=== PATIENT | female | born 1955 | race Caucasian/White ===

== ENCOUNTER → 2017-10-12 09:48 | Outpatient (CLI) | payer BC, SELFPAY ==
--- NOTE | 2017-10-12 09:55 | MM_ITS ---
MM Dig screening mamm BI w/CAD CAD Screening COMPARISON: Digital mammograms 05/23/2011 .INDICATION: There been 2 previous biopsies right breast for benign disease. There is no personal or family history of breast cancer. TECHNIQUE: Standard CC and MLO images were obtained. R2 CAD reviewed. FINDINGS: Prominent diffuse heterogenic fibroglandular densities are seen throughout both breasts. There are stable asymmetric densities upper central portion right breast likely resenting post biopsy scarring. There are benign-appearing calcifications near the biopsy sites. Right breast and there is a benign-appearing calcification central portion left breast. There is no suspicious lesion and no suspicious microcalcifications. IMPRESSION: Moderate heterogenic breast density with no suspicious lesion seen BI-RADS Category: 2 Benign Finding(s) RECOMMENDED FOLLOW-UP: 1YR - 1 YEAR FOLLOW-UP (A letter has been sent to the patient regarding results of the study.)
== END ==
PROVIDERS: Family Provider Family Medicine; PCP Family Medicine; Visit Provider Family Medicine
DX: Z12.31 Encounter for screening mammogram for malignant neoplasm of breast (principal)
CPT/HCPCS: 77067

== ENCOUNTER → 2017-12-10 13:40 | Outpatient (POV) | payer BC, SELFPAY | PROVIDERS: PCP Family Medicine; Visit Provider Nurse Practitioner Acute Care | DX: Z00.00 Encounter for general adult medical examination without abnormal findings (principal) ==

== ENCOUNTER → 2019-02-17 08:54 | Outpatient (POV) | payer BC, SELFPAY ==
[2019-02-17 11:48] LABS: Alanine Aminotransferase 30 U/L (12-78); Albumin Level 3.6 gm/dL (3.4-5.0); Albumin/Globulin Ratio 1.2 (1.1-1.8); Alkaline Phosphatase 140 U/L (46-116); Anion Gap 15.3 mEq/L (5-15); Aspartate Amino Transferase 20 U/L (15-37); Bilirubin,Total 0.3 mg/dL (0.2-1.0); Blood Urea Nitrogen 18 mg/dL (7-18); Calcium 8.9 mg/dL (8.5-10.1); Carbon Dioxide 28 mmol/L (21.0-32.0); Chloride 103 mmol/L (98-107); Chol/HDL Ratio 3.9 (1-3.5); Cholesterol 130 mg/dL (140-200); Creatinine,Serum 0.88 mg/dL (0.55-1.02); Estimated Glomerular Filt Rate 65 ml/min (>60); GFR (African American) 79 ML/MIN (>60); Globulin 3.1 gm/dl (1.3-3.2); Glucose 106 mg/dL (74-106); HDL Cholesterol 33 mg/dL (29-89); LDL Cholesterol 71 mg/dL (0-130); Potassium 4.3 mmoL/L (3.5-5.1); Sodium 142 mmol/L (136-145); Total Protein,Serum 6.7 gm/dL (6.4-8.2); Triglycerides 130 mg/dL (30-200); VLDL Cholesterol 26 mg/dL (0-40)
== END ==
PROVIDERS: Family Medicine; Visit Provider Nurse Practitioner Family
DX: K30 Functional dyspepsia (principal); R10.13 Epigastric pain
CPT/HCPCS: 36415; 80053; 80061

== ENCOUNTER → 2019-06-24 10:47 | Outpatient (POV) | payer BC, SELFPAY | PROVIDERS: Visit Provider Dermatology | DX: Z00.00 Encounter for general adult medical examination without abnormal findings (principal) ==

== ENCOUNTER 2020-01-28 14:00 | Outpatient (RCR) | payer BC, SELFPAY | END 2020-01-28 14:05 | disposition home or self-care (01) | LOC: PT 14:00 | PROVIDERS: Visit Provider Orthopaedic Surgery | DX: M25.562 Pain in left knee (principal); Z96.652 Presence of left artificial knee joint | CPT/HCPCS: 97110; 97140; 97163; 97164 ==

== ENCOUNTER → 2020-02-06 08:23 | Outpatient (CLI) | payer BC, SELFPAY ==
[2020-02-06 11:15] LABS: Alanine Aminotransferase 23 U/L (12-78); Albumin Level 4.6 g/dl (3.5-5.0); Albumin/Globulin Ratio 1.8 (1.1-1.8); Alkaline Phosphatase 133 U/L (38-126); Anion Gap 10.9 mEq/L (5-15); Aspartate Amino Transferase 25 U/L (14-36); Bilirubin,Total 0.3 mg/dl (0.2-1.3); Blood Urea Nitrogen 17 mg/dl (7-17); Calcium 9.9 mg/dl (8.4-10.2); Carbon Dioxide 31 mmol/L (22.0-30.0); Chloride 99 mmol/L (98-107); Cholesterol 174 mg/dl (140-200); Estimated Glomerular Filt Rate 72 ml/min (>60); GFR (African American) 88 ML/MIN (>60); Globulin 2.6 g/dL (1.3-3.2); Glucose 118 mg/dl (74-100); HDL Cholesterol 43 mg/dl (40-60); Potassium 4.9 mmoL/L (3.5-5.1); Sodium 136 mmol/L (136-145); Total Protein,Serum 7.2 g/dl (6.3-8.2); Triglycerides 201 mg/dl (30-150); VLDL Cholesterol 40 mg/dL (0-40)
[2020-02-06 11:26] LABS: Direct LDL Cholesterol 119.16 mg/dL (100-129)
== END ==
PROVIDERS: Visit Provider Family Medicine
DX: I10 Essential (primary) hypertension (principal); E78.5 Hyperlipidemia, unspecified
CPT/HCPCS: 36415; 80053; 80061

== ENCOUNTER → 2020-02-17 08:43 | Outpatient (CLI) | payer BC, SELFPAY ==
--- NOTE | 2020-02-17 08:47 | MM_ITS ---
PROCEDURE: MM DIG SCREENING MAMM BI W/CAD Digital Breast Tomosynthesis Included CLINICAL INDICATION: SCREENING Personal or family history of breast cancer. There has been a previous biopsy right breast for benign disease. 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 R2 CAD reviewed. FINDINGS: Moderate diffuse somewhat heterogenic fibroglandular densities are seen throughout both breasts. There are benign-appearing micro and macrocalcifications in each breast. There is a stable small asymmetric density central portion right breast most likely representing post biopsy scarring and showing little or no change from previous studies. Even with josesito images is only definitely seen on the CC projection. There are no suspicious microcalcifications. IMPRESSION: Moderate diffuse heterogenic breast density with no suspicious lesions seen BI-RAD Category: 2 Benign Finding(s) FOLLOW-UP: 1YR 1 Year Follow-up (A letter has been sent to the patient regarding results of the study.) Dictated by: Dr. Chaparro Mixon MD 02/18/2020 14:[address] Chaparro Mixon MD in [place] 02/18/2020 14:05
== END ==
PROVIDERS: PCP Family Medicine; Visit Provider Family Medicine
DX: Z12.31 Encounter for screening mammogram for malignant neoplasm of breast (principal)
CPT/HCPCS: 77063; 77067

== ENCOUNTER → 2020-04-29 13:01 | Outpatient (CLI) | payer BC, SELFPAY | PROVIDERS: PCP Family Medicine; Visit Provider Nurse Practitioner | DX: Z03.818 Encounter for observation for suspected exposure to other biological agents ruled out (principal) | CPT/HCPCS: U0003 ==

== ENCOUNTER 2020-05-07 15:42 | Observation (INO) | payer BC, SELFPAY ==
[2020-05-07 16:09] VITALS: BP 157/73; PULSE 82; RESP 20; TEMP 37.1; O2SAT 98
[2020-05-07 16:12] VITALS: BMI 37.9
--- NOTE | 2020-05-07 16:24 | CT_ITS ---
PROCEDURE: CT ABDOMEN PELVIS WO CON CLINICAL INDICATION: abdominal pain, r/o pancreatitis COMPARISON: CT ABDPELW CT ABD PELVIS W/ CONTRAST from 08/13/[address] ABD PELVIS W/ CONTRAST from 06/12/2017 TECHNIQUE: Axial images obtained with sagittal and coronal reformats. All CT scans at the facility use one or more dose reduction, viz: automated exposure control, ma/kV adjustment per patient size (including targeted exams where dose is matched to indication, i.e. head), or iterative reconstruction technique. FINDINGS: LOWER THORAX: Parenchymal opacity is present in the lingula inferiorly and may be due to an area of atelectasis or fibrosis. Stability may be confirmed follow-up ABDOMEN & PELVIS: Prior cholecystectomy. Fatty liver. Multiple splenic granulomas are present. The adrenal glands and pancreas have an unremarkable appearance. There is a 6 mm nonobstructing stone in the upper pole of the right kidney. No ureteral calculi. No hydronephrosis. No evidence of appendicitis. No intestinal obstruction or free air. Scattered diverticula in the sigmoid colon. No diverticulitis. No pelvic mass or abnormal fluid collection. There is a 19 mm partially calcified soft tissue mass in the central aspect of the abdomen series 3, image 59. This is not significantly changed in size. There may be some increase in coarse calcification of the nodule. Stable hypodense nodule lower pole left kidney Postsurgical changes are present in the lumbar spine with inter pedicular screws at L4-L5 with 5 mm anterolisthesis of L4 and L5. Disc spacer devices present at L4-5 and L5-S1. IMPRESSION: 1. 6 mm nonobstructing right renal calculus. 2. Mild colonic diverticulosis. No evidence of diverticulitis. 3. Mild amount of retained colonic feces 4. No change in the partially calcified soft tissue mass in the mid abdominal region consistent with a mildly enlarged lymph node Dictated by: Lorne Lay MD 05/08/2020 07:49 Lorne Lay MD in [place] 05/08/2020 07:49
--- NOTE | 2020-05-07 16:42 | HMH.HP ---
*Admission Date: 05/07/20 <Sofia Ames 05/07/20 16:52> *Chief complaint: abdominal pain <Sofia Ames 05/07/20 16:52> *History of present illness: Ms. Pino is a 64-year-old female who presented to the office of [facility] today with severe epigastric abdominal pain. The pain began last night. She has had nausea and vomiting. The pain radiates to her back. She does have a history of pancreatitis and has been hospitalized for pancreatitis in the past. Her blood pressure was elevated in the office her CBC was fairly unremarkable. She was admitted for further evaluation and treatment and a workup for pancreatitis. <Sofia Ames 05/07/20 16:52> [facility] History I have reviewed the patient's past medical history: Yes <Sofia Ames 05/07/20 16:52> Medical History: Reports:: Asthma, Depression, Hyperlipidemia, Hypertension, Lung Disease (asthma) Denies:: Diabetes Mellitus Type 1, Diabetes Mellitus Type 2, Internal Pacemaker, Seizures <Sofia Ames 05/07/20 16:52> *Have you ever received a pneumonia vaccine?: No <Sofia Ames 05/07/20 16:52> *Have you received a flu vaccine this season?: No <Sofia Ames 05/07/20 16:52> Other Medical History: Reports: Other (ADD, sleep apnea, pancreatitis, diverticulosis). Denies: Blood Transfusion Reaction <Sofia Ames 05/07/20 16:52> Laterality Cases: Right: Arthroscopy Shoulder, Bilateral: Cataract, Total Knee Replacement <Sofia Ames 05/07/20 16:52> Other Surgeries: Yes: Cardiac Catheterization, Cholecystectomy, Colonoscopy, Other (back surgery). No: Pacemaker <Sofia Ames 05/07/20 16:52> - *Social History Smoking Status: Never smoker <Sofia Ames 05/07/20 16:52> Alcohol Intake: never <Sofia Ames 05/07/20 16:52> *Occupational Status:: other <Sofia Ames 05/07/20 16:52> *Travel in the last 8 weeks: Inside the [place] <Sofia Ames 05/07/20 16:52> Family Hx:: Cancer, Diabetes <HuiSofia 05/07/20 16:52> Review of Systems - Constitutional Reports weakness, Denies chills, Denies fever(s) <Sofia Ames 05/07/20 16:52> - Eyes Denies blurry vision, Denies double vision <Sofia Ames 05/07/20 16:52> - ENT Denies nasal congestion, Denies sore throat <Sofia Ames 05/07/20 16:52> - *Cardiovascular Denies chest pain, Denies shortness of breath <Sofia Ames 05/07/20 16:52> - *Respiratory Denies chest congestion, Denies cough <Sofia Ames 05/07/20 16:52> - *Gastrointestinal Reports abdominal pain (epigastric), Reports nausea, Reports vomiting, Denies loose stools <Sofia Ames 05/07/20 16:52> - *Genitourinary Denies difficulty urinating, Denies painful urination <Sofia Ames 05/07/20 16:52> - *Musculoskeletal Denies joint pain <Sofia Ames 05/07/20 16:52> - *Neurologic Denies headache(s), Denies dizziness, Denies weakness <Sofia Ames 05/07/20 16:52> Meds Home Medications Medication Instructions Recorded Confirmed Type Albuterol Sulfate [Albuterol HFA 1 - 2 puffs IH Q4-6H PRN 07/16/18 05/07/20 History Inhaler] Atorvastatin Calcium [Lipitor 10mg 10 mg PO DAILY 07/16/18 05/07/20 History Tablet] Escitalopram Oxalate [Lexapro] 20 mg PO DAILY 07/16/18 05/07/20 History Dextroamphetamine/Amphetamine 30 mg PO DAILY 05/07/20 05/07/20 History [Adderall 30 mg Tablet] Fluticasone/Salmeterol [Advair 1 inh IH BID 05/07/20 05/07/20 History 250/50mcg Diskus] Omeprazole [Omeprazole 40mg 40 mg PO DAILY 05/07/20 05/07/20 History Capsule] <Sai Hooker - 05/07/20 17:36> Allergies Allergy/AdvReac Type Severity Reaction Status Date / Time erythromycin base Allergy Unknown Verified 07/16/18 15:19 [ERYTHROMYCIN BASE] Penicillins [PENICILLINS] Allergy Unknown Verified 07/16/18 15:19 <Sai Hooker - 05/07/20 17:36> Exam Vital signs and Labs for Last 24 Hours: Temp Pulse Resp BP Pulse Ox 98.7 F
[2020-05-07 16:48] LABS: Basophils # 0.1 K/mm3 (0-0.2); Basophils % 0.9 % (0.1-2.0); Eosinophils # 0.4 K/mm3 (0.0-0.4); Eosinophils % 3.7 % (0.1-12.0); Hematocrit 38.5 % (37.0-47.0); Hemoglobin 12.7 g/dL (12.2-16.2); Lymphocytes # 1.6 K/mm3 (0.7-4.5); Lymphocytes % 17.2 % (10-50); Mean Corpuscular HGB Conc 32.8 g/dL (31.8-35.4); Mean Corpuscular Hemoglobin 25.7 pg (27.0-31.2); Mean Corpuscular Volume 78.4 fl (81-99); Mean Platelet Volume 7.3 fl (7.4-10.4); Monocytes # 0.4 K/mm3 (0.1-1.0); Neutrophils % 74.2 % (37.0-80.0); Platelet Count 283 K/mm3 (142-424); Red Blood Count 4.92 M/mm3 (4.20-5.40); White Blood Count 9.5 K/mm3 (4.8-10.8)
[2020-05-07 16:53] LABS: Chloride 102 mmol/L (98-107); Sodium 141 mmol/L (136-145)
[2020-05-07 16:54] LABS: Potassium 4.1 mmoL/L (3.5-5.1)
[2020-05-07 16:56] LABS: Alanine Aminotransferase 25 U/L (12-78); Alkaline Phosphatase 129 U/L (38-126); Amylase 63 U/L (30-110); Anion Gap 15.1 mEq/L (5-15); Aspartate Amino Transferase 26 U/L (14-36); Bilirubin,Total 0.3 mg/dl (0.2-1.3); Blood Urea Nitrogen 18 mg/dl (7-17); Carbon Dioxide 28 mmol/L (22.0-30.0); Creatinine Clearance Estimated 80 mL/min (50-200); Estimated Glomerular Filt Rate 63 ml/min (>60); GFR (African American) 77 ML/MIN (>60)
[2020-05-07 16:57] LABS: Albumin Level 4.2 g/dl (3.5-5.0); Albumin/Globulin Ratio 1.3 (1.1-1.8); Calcium 9.6 mg/dl (8.4-10.2); Globulin 3.2 g/dL (1.3-3.2); Glucose 122 mg/dl (74-100); Lipase 80 U/L (23-300); Total Protein,Serum 7.4 g/dl (6.3-8.2)
[2020-05-07 17:23] LABS: Coronavirus 19 IgG Antibody Negative (Negative); Coronavirus 19 IgM Antibody Negative (Negative)
[2020-05-07 17:45] VITALS: O2SAT 98
[2020-05-07 20:00] VITALS: BP 129/73; PULSE 64; RESP 17; TEMP 36.6; O2SAT 98
[2020-05-08 04:00] VITALS: BP 116/62; PULSE 57; RESP 17; TEMP 36.7; O2SAT 98
--- NOTE | 2020-05-08 04:25 | PC.NURSE ---
Pt A&OX4 lungs CTA. pt c/o Abd pain medicated per NOV. Pt ambulate to BR independently. Pt has rested quietly this shift
[2020-05-08 05:32] VITALS: BMI 38.1
[2020-05-08 07:25] VITALS: BP 114/72; PULSE 82; RESP 20; TEMP 36.6; O2SAT 97
[2020-05-08 07:33] LABS: Amylase 44 U/L (30-110); Bilirubin,Unconjugated 0.3 mg/dL (0.0-1.1)
[2020-05-08 07:34] LABS: Alanine Aminotransferase 56 U/L (12-78); Albumin Level 3.5 g/dl (3.5-5.0); Alkaline Phosphatase 113 U/L (38-126); Aspartate Amino Transferase 71 U/L (14-36); Bilirubin,Indirect 0.3 mg/dL (0.0-0.9); Bilirubin,Total 0.3 mg/dl (0.2-1.3); Lipase 100 U/L (23-300); Total Protein,Serum 6.1 g/dl (6.3-8.2)
[2020-05-08 08:00] VITALS: O2SAT 98
--- NOTE | 2020-05-08 08:37 | HMH.ACPN2 ---
<Sofia Ames - Last Filed: 05/08/20 08:37> Internal Medicine - PN: Subj *Date: 05/08/20 *Time: 08:37 Interval history: Patient states she is feeling little bit better this morning. She has required pain medication throughout the night but states her pain has improved this a.m. She was able to sleep off and on. Exam Vital signs and Labs for Last 24 Hours: Temp Pulse Resp BP Pulse Ox 97.8 F 82 20 114/72 97 05/08/20 07:25 05/08/20 07:25 05/08/20 07:25 05/08/20 07:25 05/08/20 07:25 Laboratory Results - last 24 hr 05/07/20 16:30: SARS-CoV-2 IgG Ab (Rapid) Negative, SARS-CoV-2 IgM Ab (Rapid) Negative 05/07/20 16:30: Sodium 141, Potassium 4.1, Chloride 102, Carbon Dioxide 28, Anion Gap 15.1 H, BUN 18 H, Creatinine 0.90, Estimated Creat Clear 80, Estimated GFR 63, Est GFR ( Amer) 77, Glucose 122 H, Calcium 9.6, Total Bilirubin 0.3, AST 26, ALT 25, Alkaline Phosphatase 129 H, Total Protein 7.4, Albumin 4.2, Globulin 3.2, Albumin/Globulin Ratio 1.3, Amylase 63, Lipase 80 05/07/20 16:30: WBC 9.5, RBC 4.92, Hgb 12.7, Hct 38.5, MCV 78.4 L, MCH 25.7 L, MCHC 32.8, RDW 15.0, Plt Count 283, MPV 7.3 L, Neut % (Auto) 74.2, Lymph % (Auto) 17.2, [place] % (Auto) 4.0, Eos % (Auto) 3.7, Baso % (Auto) 0.9, Neut # (Auto) 7.0, Lymph # (Auto) 1.6, [place] # (Auto) 0.4, Eos # (Auto) 0.4, Baso # (Auto) 0.1 05/08/20 06:54: Total Bilirubin 0.3, Direct Bilirubin 0.0, Conjugated Bilirubin 0.0, Indirect Bilirubin 0.3, Unconjugated Bilirubin 0.3, AST 71 H D, ALT 56 D, Alkaline Phosphatase 113, Total Protein 6.1 L, Albumin 3.5 D, Amylase 44 D, Lipase 100 I & O for Last 24 hours: Intake & Output 05/05/20 05/06/20 05/07/20 05/08/20 11:59 11:59 11:59 11:59 Intake Total 8 / 2158 Balance 2157 / 2158 Weight 194 lb 4.976 oz Radiology Reports for the Last 24 Hours: Abdominal CT 1. 6 mm nonobstructing right renal calculus. 2. Mild colonic diverticulosis. No evidence of diverticulitis. 3. Mild amount of retained colonic feces 4. No change in the partially calcified soft tissue mass in the mid abdominal region consistent with a mildly enlarged lymph node - Constitutional no acute distress - *Routine Respiratory Exam Present: CTA bilaterally - *Routine Cardiovascular Exam Present: RRR - *Routine Abdominal Exam Present: soft, normoactive bowel sounds. Absent: tenderness - *Routine Extremities Exam Absent: cyanosis, clubbing, edema - *Routine Skin Exam Present: warm. Absent: rash - *Routine Neurological Exam Present: alert, oriented X3 Assessment and Plan (1) Epigastric abdominal pain Current visit: Yes Status: Acute Category: Medical Code(s): R10.13 - Epigastric pain (2) Vomiting Current visit: Yes Status: Acute Category: Medical Code(s): R11.10 - Vomiting, unspecified (3) History of pancreatitis Current visit: Yes Status: Chronic Category: Medical Code(s): Z87.19 - Personal history of other diseases of the digestive system (4) Asthma Current visit: Yes Status: Chronic Category: Medical Code(s): J45.909 - Unspecified asthma, uncomplicated (5) Hypertension Current visit: Yes Status: Chronic Category: Medical Code(s): I10 - Essential (primary) hypertension - Assessment and plan all Dx Assessment and Plan for all problems:: Patient is improving. Her abdominal pain has improved and she is no longer vomiting. Will discuss further care with Dr. Hooker. <Sai Hooker - Last Filed: 05/08/20 10:23> Internal Medicine - PN: Subj *Date: 05/08/20 *Time: 10:21 Exam Vital signs and Labs for Last 24 Hours: Temp Pulse Resp BP Pulse Ox 97.8 F 82 20 114/72 97 05/08/20 07:25 05/08/20 07:25 05/08/20 07:25 05/08/20 07:25 05/08/20 07:25 Laboratory Results - last 24 hr 05/07/20 16:30: SARS-CoV-2 IgG Ab (Rapid) Negative, SARS-CoV-2 IgM Ab (Rapid) Negative 05/07/20 16:30: Sodium 141, Potassium 4.1, Chloride 102, Carbon Dioxide 28, A
--- NOTE | 2020-05-08 10:32 | P.CONPHA_ITS ---
[facility] Pharmacy VTE Monitoring - Patient Demographics Admission date: 05/08/20 Report Date: 05/08/20 Time: 10:32 Allergies/Adverse Reactions: Patient Allergies erythromycin base [ERYTHROMYCIN BASE] Allergy (Unknown, Verified 07/16/18 15:19) Penicillins [PENICILLINS] Allergy (Unknown, Verified 07/16/18 15:19) Height: 1.52 m Weight: 88.138 kg Patient Problems: Current Active Problems Epigastric abdominal pain (Acute) History of pancreatitis (Chronic) Vomiting (Acute) Asthma (Chronic) Hypertension (Chronic) - VTE Risk Labs: VTE Related Lab Results Hgb 12.7 g/dL (12.2-16.2) 05/07/20 16:30 Hct 38.5 % (37.0-47.0) 05/07/20 16:30 Plt Count 283 K/mm3 (142-424) 05/07/20 16:30 BUN 18 mg/dl (7-17) H 05/07/20 16:30 Creatinine 0.90 mg/dl (0.52-1.04) 05/07/20 16:30 Estimated Creat Clear 80 mL/min (50-200) 05/07/20 16:30 VTE Score: 3 VTE Risk Level: Low Risk - Prophylaxis Types of VTE Prophylaxis: TEDS Knee High (ECTOR HOSE ORDER PLACED) Location of Applied Device: Bilateral Lower Extremeties
--- NOTE | 2020-05-10 21:31 | HMH.DCSUM ---
General - General Admission date:: 05/07/20 <Sai Hooker - 05/17/20 08:13> 05/07/20 <Sofia Ames - 05/10/20 21:34> Discharge date: 05/08/20 <Sofia Ames - 05/10/20 21:34> HPI HPI: Ms. Pino is a 64-year-old female who presented to the office of [facility] today with severe epigastric abdominal pain. The pain began last night. She has had nausea and vomiting. The pain radiates to her back. She does have a history of pancreatitis and has been hospitalized for pancreatitis in the past. Her blood pressure was elevated in the office her CBC was fairly unremarkable. She was admitted for further evaluation and treatment and a workup for pancreatitis. <Sofia Ames - 05/10/20 21:34> Hospital Course Hospital Course: The patient was admitted and labs were ordered as was a CT of the abdomen and pelvis. She was kept n.p.o. and started on IV fluids, Zofran, and morphine for pain. Her abdominal and pelvic CT showed a 6 mm nonobstructing right renal calculus, mild colonic diverticulosis but no evidence of diverticulitis, a mild amount of retained colonic feces, and no change in a partially calcified soft tissue mass in the mid abdominal region consistent with a mildly enlarged lymph node. The patient received pain medication overnight. Her amylase and lipase came back normal. She was able to rest off and on. She no longer had any vomiting. The patient was given a diet and tolerated it well. She was stable to be discharged home and will follow up with Dr. Hooker. <Sofia Ames - 05/10/20 21:34> Objective Vital signs: Temp Pulse Resp BP Pulse Ox 97.8 F 82 20 114/72 98 05/08/20 07:25 05/08/20 07:25 05/08/20 07:25 05/08/20 07:25 05/08/20 08:00 <Sai Hooker - 05/17/20 08:13> Temp Pulse Resp BP Pulse Ox 97.8 F 82 20 114/72 98 05/08/20 07:25 05/08/20 07:25 05/08/20 07:25 05/08/20 07:25 05/08/20 08:00 <HuiMalika - 05/10/20 21:34> Narrative: - Constitutional no acute distress - *Routine Respiratory Exam Present: CTA bilaterally - *Routine Cardiovascular Exam Present: RRR - *Routine Abdominal Exam Present: soft, normoactive bowel sounds. Absent: tenderness - *Routine Extremities Exam Absent: cyanosis, clubbing, edema - *Routine Skin Exam Present: warm. Absent: rash - *Routine Neurological Exam Present: alert, oriented X3 <Sofia Ames - 05/10/20 21:34> DS: Diagnosis - Discharge Diagnosis (1) Epigastric abdominal pain Status: Acute (2) Vomiting Status: Acute (3) History of pancreatitis Status: Chronic (4) Asthma Status: Chronic (5) Hypertension Status: Chronic <Sofia Ames - 05/10/20 21:31> (1) Epigastric abdominal pain Status: Acute (2) Vomiting Status: Acute (3) History of pancreatitis Status: Chronic (4) Asthma Status: Chronic (5) Hypertension Status: Chronic <Sai Hooker - 05/17/20 08:13> Discharge Plan - Patient Discharge Instructions ACTIVITY: Continue current activity <Sofia Ames - 05/10/20 21:34> DIET: advance to your usual diet <Sofia Ames - 05/10/20 21:34> Patient Instructions: DI for Pancreatitis <Sai Hooker - 05/17/20 08:13> Forms: <Sai Hooker - 05/17/20 08:13> - Follow up Plan Follow up with: Sai Hooker MD [Primary Care Provider] - 05/11/20 <Sai Hooker - 05/17/20 08:13> Disposition: Home, Self-Care <Sai Hooker - 05/17/20 08:13> Home Medications: Home Medications Medication Instructions Recorded Confirmed Type Albuterol Sulfate [Ventolin HFA 2 puffs IH Q4-6H PRN 07/16/18 05/08/20 History Inhaler] Atorvastatin Calcium [Lipitor 10mg 10 mg PO HS 07/16/18 05/08/20 History Tablet] Escitalopram Oxalate [Lexapro] 20 mg PO DAILY 07/16/18 05/07/20 History Dextroamphetamine/Amphetamine 30 mg PO DAILY 05/07/20 05/07/20
== END 2020-05-08 12:45 | disposition home or self-care (01) ==
PROVIDERS: Admitting Provider Family Medicine; PCP Family Medicine; Visit Provider Family Medicine
DX: R10.13 Epigastric pain (principal); I10 Essential (primary) hypertension; E78.5 Hyperlipidemia, unspecified; J45.909 Unspecified asthma, uncomplicated; Z88.0 Allergy status to penicillin; Z88.1 Allergy status to other antibiotic agents; Z79.899 Other long term (current) drug therapy; Z79.52 Long term (current) use of systemic steroids
CPT/HCPCS: 74176; 80053; 80076; 82150; 83690; 85025; 86328; G0378

== ENCOUNTER → 2020-05-19 08:17 | Outpatient (CLI) | payer SELFPAY ==
--- NOTE | 2020-05-19 08:42 | CT_ITS ---
PROCEDURE: CT HEART W CALCIUM SCORE CLINICAL HISTORY: ELEVATED BLOOD PRESSSURE,FAMILY H/O HEART DISEASE COMPARISON: No exams were available for comparison TECHNIQUE: Axial images obtained with sagittal and coronal reformats. All CT scans at the facility use one or more dose reduction, viz: automated exposure control, ma/kV adjustment per patient size (including targeted exams where dose is matched to indication, i.e. head), or iterative reconstruction technique. FINDINGS: Coronary artery calcium score is 228 indicating a moderate calcific plaque burden with high cardiovascular disease risk. Incidental note is made of some mild scarring in the lung bases with some nonspecific thickening of the distal esophagus. IMPRESSION: Moderate calcific plaque burden with high cardiovascular disease risk Dictated by: Lorne Lay MD 05/19/2020 17:53 Lorne Lay MD in [place] 05/19/2020 17:53
== END ==
PROVIDERS: PCP Family Medicine; Visit Provider Family Medicine
DX: Z13.6 Encounter for screening for cardiovascular disorders (principal); R03.0 Elevated blood-pressure reading, without diagnosis of hypertension; Z82.49 Family history of ischemic heart disease and other diseases of the circulatory system
CPT/HCPCS: 75571

== ENCOUNTER → 2021-01-17 09:17 | Outpatient (CLI) | payer BC, SELFPAY ==
--- NOTE | 2021-01-17 09:29 | XR_ITS ---
PROCEDURE: XR DEXA AXIAL SKELETON CLINICAL HISTORY: POST MENOPAUSAL COMPARISON: No exams were available for comparison FINDINGS: The right hip BMD is 0.797 with a T-score of -0. The left hip BMD is 0.953 with a T-score of -0.9. 1/3 radius has a BMD of 0.617 with a T-score of -1.3 IMPRESSION: This patient is considered osteopenic according to the World Health Organization criteria. Bone density is between 10 and 25 percent below young normal. Fracture risk is moderate. Treatment is advised. Based on these results a follow-up exam is recommended in 2 year. Dictated by: Lorne Lay MD 01/19/2021 05:01 Lorne Lay MD in [place] 01/19/2021 05:01
[2021-01-17 10:59] LABS: Alanine Aminotransferase 29 U/L (12-78); Albumin Level 4.4 g/dl (3.5-5.0); Albumin/Globulin Ratio 1.9 (1.1-1.8); Alkaline Phosphatase 105 U/L (38-126); Anion Gap 11.9 mEq/L (5-15); Aspartate Amino Transferase 36 U/L (14-36); Bilirubin,Total 0.3 mg/dl (0.2-1.3); Blood Urea Nitrogen 19 mg/dl (7-17); Calcium 9.3 mg/dl (8.4-10.2); Carbon Dioxide 30 mmol/L (22.0-30.0); Chloride 104 mmol/L (98-107); Chol/HDL Ratio 2.5 (1-3.5); Cholesterol 109 mg/dl (140-200); Estimated Glomerular Filt Rate 72 ml/min (>60); GFR (African American) 87 ML/MIN (>60); Globulin 2.3 g/dL (1.3-3.2); Glucose 101 mg/dl (74-100); HDL Cholesterol 43 mg/dl (40-60); Potassium 4.9 mmoL/L (3.5-5.1); Sodium 141 mmol/L (136-145); Total Protein,Serum 6.7 g/dl (6.3-8.2); Triglycerides 102 mg/dl (30-150); Uric Acid 5.1 mg/dl (2.5-6.2); VLDL Cholesterol 20 mg/dL (0-40)
[2021-01-17 11:10] LABS: Direct LDL Cholesterol 53.05 mg/dL (100-129)
== END ==
PROVIDERS: PCP Family Medicine; Visit Provider Family Medicine
DX: Z13.820 Encounter for screening for osteoporosis (principal); Z78.0 Asymptomatic menopausal state; E78.5 Hyperlipidemia, unspecified; M25.50 Pain in unspecified joint
CPT/HCPCS: 36415; 77080; 80053; 80061; 84550

== ENCOUNTER 2021-10-17 10:00 | Outpatient (RCR) | payer MEDICARE, SELFPAY ==
--- NOTE | 2021-08-30 14:21 | HMH.OTOPEV ---
OT Inpatient Evaluation Rehab OT Outpatient Eval Start: 08/30/21 14:02 Freq: Status: Active Protocol: Document 08/30/21 14:07 ROBIN (Rec: 08/30/21 14:21 ROBIN [id number]) Electronically Signed By Roberth Knutson OT 08/30/21 14:07 Outpatient Therapy Subjective History Subjective History Pt is a 66 year old female who reports to therapy for initial evaluation to left shoulder. Pt reports she began having pain ~3 months ago at left shoulder and does not recall a specific injury causing the pain to begin. Pt explains the shoulder has continued to decline in AROM and strength. Pt seeked medical evaluation via ortho in [place] [facility] and was dx with Adhesive capsulitis of left shoulder. Pt's PCP recommended patient begin therapy in order to assist with improving symtpoms of pain, AROM, and strength. Upon evaluation pt does demonstrate with a significant decline in AROM and strength. Pt will continue to be seen in order to address left shoulder deficits. Chief Complaint Pain,Stiff,Weakness Symptom Type Ache,Throb,Sharp,Dull Symptoms Relieved By Rest/Positioning,Heat,OTC Meds Symptoms Aggravated By Physical Activity,Lifting Prior Functional Limitations None Current Functional Limitations Reaching,Lifting,Housework, Sleeping,Recreation Activity Symptom Description Constant but Variable Level of pain today (0-10) 3 Pain scale - at its best (0-10) 1 Pain scale - at its worst (0-10) 10 Shoulder/Elbow Eval Shoulder Objective Measurements Shoulder ROM Left Shoulder Abduction Active Range of 90 degrees Motion (degrees) Shoulder Flexion Active Range of Motion 80 degrees (degrees) Query Text: Shoulder External Rotation Active Range 60 degrees of Motion (degrees) Shoulder Internal Rotation Active Range 20 degrees of Motion (degrees) pain with active ROM shoulder exam left standard pain with passive ROM shoulder exam left standard decreased ROM shoulder exam s
--- NOTE | 2021-09-26 14:42 | HMH.RHREAS ---
Rehab Reassessment Rehab OP Re-assessment Start: 09/26/21 13:54 Freq: Status: Active Protocol: Document 09/26/21 13:55 ROBIN (Rec: 09/26/21 14:42 [email or web address] [id number]) Electronically Signed By Roberht Knutson OT 09/26/21 13:55 Rehab Re-assessment Subjective Subjective I think it's a little better. Objective Objective Notes Pt continues to be seen twice a week in order to address L shoulder deficits. Each session pt engages in L shoulder AROM/AAROM/ Strengthening exercises. Pt also receives PROM manual stretching to left shoulder to improve AROM. Modalities are provided in order to decrease pain/inflammation. Assessment Progress Assessment Slower Than Expected Assessment Notes Pt demonstrates some improvement with AROM, but continues to have significant pain during certain motions. Pt reports she does feel she has improved slightly. She is able to sleep on L side at times. Pt has most difficulty in abduction when bringing the arm down. Pt rates her worst pain at 6/10. AROM L shoulder Flex: 125 degrees Abd: 110 degrees ER: 75 degrees IR: [address] goals [address] and 5 Goals Not Met See below Revised Goals ST, 2, and 4 LT-5 Plan Plan Continue with OT plan of care at this time. Therapist recommends patient return to doctor for further evaluation for possible MRI due to continued pain and decreased AROM. Pt agreeable. Therapist recommends pt continue therapy until doctor evaluates. Frequency of Therapy 2x's a week Duration of therapy 4 more weeks Time and Billing Re-Eval Time 10 Re-Eval Billing Units 1 ___
== END 2021-10-17 10:05 | disposition home or self-care (01) ==
LOC: OT 10:00
PROVIDERS: PCP Family Medicine; Visit Provider Family Medicine
DX: M75.02 Adhesive capsulitis of left shoulder (principal)
CPT/HCPCS: 97010; 97014; 97035; 97110; 97140; 97164; 97166; 97530; G0283

== ENCOUNTER → 2021-10-26 09:01 | Outpatient (CLI) | payer MEDICARE, SELFPAY ==
--- NOTE | 2021-10-26 09:06 | MR_ITS ---
FINAL REPORT CLINICAL HISTORY: ADHESIVE CAPSULITIS OF LT SHOULDER, lt shoulder pain, limited rom x 6 months, no injury. no prior FINDINGS: Multiplanar MR imaging of the left shoulder was performed without contrast. Motion artifact limits all images. There is supraspinatus and infraspinatus tendinosis. There is a partial-thickness articular surface tear of the supraspinatus tendon of greater than 50% at the anterior footprint. There is no full-thickness tear. The a.c. joint is intact. A small amount of fluid is seen in the subacromial/subdeltoid bursa. There is abnormal signal in the posterior labrum which may represent tear versus artifact, best seen on series 3 images #17 and 18. There is increased signal and thickening of the joint capsule at the axillary recess consistent with adhesive capsulitis. The long head of the biceps tendon is intact. No significant glenohumeral joint effusion is seen. There is no evidence of fracture or dislocation. The musculature is intact. There is no evidence of soft tissue mass. IMPRESSION: 1. Increased signal and thickening of the joint capsule at the axillary recess is consistent with adhesive capsulitis. 2. Partial-thickness articular surface tear of the supraspinatus tendon at the anterior footprint of greater than 50%. No full-thickness tendon tear. 3. Abnormal signal in the posterior labrum may represent tear versus artifact. 4. Supraspinatus and infraspinatus tendinosis. Reviewed, Interpreted and Dictated by Rene Mark III, MD Transcribed by NEHEMIAS Jose Authenticated by Rene Mark III, MD on 10/26/2021 11:35:[address] [facility]
== END ==
PROVIDERS: PCP Family Medicine; Visit Provider Family Medicine
DX: M75.02 Adhesive capsulitis of left shoulder (principal)
CPT/HCPCS: 73221

== ENCOUNTER → 2022-05-17 08:25 | Outpatient (CLI) | payer MEDICARE, SELFPAY ==
--- NOTE | 2022-05-17 08:29 | MM_ITS ---
PROCEDURE INFORMATION: Exam: MG Bilateral Screening 3D Mammography Exam date and time: 05/17/2022 8:25 AM Age: 66 years old Clinical indication: Screening mammogram TECHNIQUE: Imaging protocol: Bilateral Screening tomosynthesis and 2D mammography including computer-aided detection (CAD) when performed. COMPARISON: 1. MG MM DIG SCREENING MAMM BI W/CAD 02/17/2020 8:58 AM 2. MG SCBI MM Dig screening mamm BI w/CAD 10/12/2017 10:08 AM 3. MG DMSB DIGITAL MAMM-SCREEN BILATERAL 05/23/2011 3:58 PM 4. OT DIGMAMMDX MAMMOGRAM DX-FENCE INSTALLER HELPER N/C 07/17/2008 10:14 AM FINDINGS: MAMMOGRAPHY: Breast composition: The breast is heterogeneously dense, which may obscure small masses. Mass: Stable benign-appearing subcentimeter nodules are present in the bilateral breast. No new or morphologically suspicious nodule has developed to suggest malignancy. Architectural distortion: No new or suspicious architectural distortion. Calcifications: Stable benign-appearing calcifications are present. No new or suspicious cluster of microcalcifications have developed. Asymmetric density: No new or suspicious asymmetric density is present Skin thickening: None. Axillary adenopathy: None. IMPRESSION: No mammographic evidence of malignancy. Recommend annual screening mammography unless otherwise clinically indicated. ASSESSMENT: BI-RADS category 2: Benign
== END ==
PROVIDERS: PCP Family Medicine; Visit Provider Nurse Practitioner Family
DX: Z12.31 Encounter for screening mammogram for malignant neoplasm of breast (principal)
CPT/HCPCS: 77063; 77067

== ENCOUNTER 2022-09-29 07:28 | Day surgery (SDC) | payer MEDICARE, SELFPAY ==
[2022-09-27 10:13] VITALS: BMI 36.9
[2022-09-29] VITALS (7 sets, daily range): BP systolic 90–133; BP diastolic 45–79; PULSE 69–81; RESP 15–18; TEMP 36.1–36.6; O2SAT 94–98
--- NOTE | 2022-09-29 08:15 | EXP.ANES.CKL ---
[facility] Disclaimer: The information contained in this section may have been updated after the patient was seen, as this information can be updated by other users. Medical History Hyperlipidemia Rotator cuff arthropathy Sleep apnea Surgical History H/O spinal fusion History of bilateral knee replacement History of cholecystectomy Family History Other Colon cancer Family history of cancer Social History Smoking Status: Never smoker alcohol intake: never substance use type: denies use current occupational status: retired Travel in the last 8 weeks: Inside the [place] household members: spouse housing: house caffeine: No [facility] Anesthesia Checklist Patient Identification Patient Identification: Arm Band and Verbal (Name & ) Structural Data Admitted From: Home Planned Operative Procedure/s: Colonoscopy Consent for Planned Operative Procedure(s) Verified: Yes NPO Status Verified Time NPO: 00:00 Additional verifications Anesthesia Reactions: No Hx Blood Transfusions: No Blood Transfusion Reaction: No Airway Assessment C-Spine Mobility Assessed: Yes TMJ Mobility Assessed: Yes Dentition: Good Dentition Neurological Assessment Level of Consciousness: Awake Hx Seizures: No Numbness or tingling in extremities: No Anesthesia Plan Anesthesia Risk discussed: Yes Anesthesia Plan: Verified ASA Class: III Anesthesia Type: MAC
--- NOTE | 2022-09-29 09:13 | HMH.SCOPE ---
Procedure: Date: 09/29/22 Patient Date of :: 1955 Procedure Performed:: Total colonoscopy to terminal ileum with polypectomy using biopsy forceps Indications:: Patient is a pleasant 67-year-old female who has a family history of colon cancer in her brother. He had of colon cancer in his 50s or 60s. Last colonoscopy was done by Dr. Mauricio on 08/25/2015 and she had findings of moderate prep with a fair amount of spasticity and tortuosity and repeat colonoscopy was recommended in 2 to 3 years. She did have some possible polyps removed at this time and this revealed merely unremarkable colonic mucosa and hyperplastic polyp. Performing Provider:: Rene Thornton MD Referring Provider:: Jorge Hooker MD Sedation:: MAC sedation Procedure:: Patient history was obtained and appropriate physical examination was performed. Patient's medications and allergies were reviewed. Informed consent was obtained after explaining the benefits, alternatives, and risks of the procedure including, but not limited to, bleeding, perforation, missed lesions, and adverse reaction to anesthesia medications. Patient was transported to endoscopy procedure room. Patient was connected to monitoring devices. Throughout the procedure the patient's blood pressure, pulse, and oxygen saturations were monitored continuously. Patient identification and planned procedure were verified by the staff. Patient was positioned in lateral decubitus position. Digital anorectal exam was performed. Variable stiffness Olympus colonoscope was inserted and advanced under direct visualization to the cecum. Adequacy of the colonic preparation was noted. The colonoscope was advanced a short distance into the terminal ileum. The colonoscope was then slowly withdrawn while carefully examining the color, texture, anatomy, and integrity of the mucosoa circumferentially. Within the rectum retroflexion was performed. Colonoscope was then withdrawn. Findings:: Colonoscope was inserted and advanced to the cecum without difficulty. Ileocecal valve and appendiceal orifice were identified. Colonic preparation was good and visualization was good. Colonoscope was slowly withdrawn to the colon with careful surveillance. There were a couple tiny diminutive polyps in the rectosigmoid which appeared hyperplastic which were removed with cold biopsy forceps. Impression: Probable rectosigmoid hyperplastic appearing polyps Recommendations:: Likely repeat colonoscopy 5 years given family history Complications:: Not immediately apparent Estimated blood obtained (mL): 1
== END 2022-09-29 09:55 | disposition home or self-care (01) ==
PROVIDERS: PCP Family Medicine; Visit Provider Surgery
PROC: 0DJD8ZZ Inspection of Lower Intestinal Tract, Via Natural or Artificial Opening Endoscopic (ICD-10-PCS; principal; 2022-09-29 08:30)
DX: Z12.11 Encounter for screening for malignant neoplasm of colon (principal); Z80.0 Family history of malignant neoplasm of digestive organs; Z79.899 Other long term (current) drug therapy; K63.5 Polyp of colon
CPT/HCPCS: 45380; J2704

== ENCOUNTER → 2023-03-09 08:35 | Outpatient (CLI) | payer MEDICARE, SELFPAY ==
--- NOTE | 2023-03-09 08:40 | XR_ITS ---
FINAL REPORT CLINICAL HISTORY: CERVICALGIA FINDINGS: CERVICAL SPINE Five views demonstrate no acute fracture. There is mild reversal of the cervical lordosis. There is minimal spondylolisthesis of C4 on 5. There is moderate disc space narrowing of C4-5 and C5-6. The neural foramina are adequately patent. IMPRESSION: Minimal spondylolisthesis of C4 on 5, probably degenerative. Reviewed, Interpreted and Dictated by Jose Luis Campbell MD Transcribed by Ginger Holcomb Authenticated and [facility]
== END ==
PROVIDERS: PCP Family Medicine; Visit Provider Family Medicine
DX: M54.2 Cervicalgia (principal)
CPT/HCPCS: 72050

== ENCOUNTER 2023-08-03 10:30 | Outpatient (RCR) | payer MEDICARE, SELFPAY ==
--- NOTE | 2023-08-01 10:50 | HMH.RHREAS ---
Rehab Reassessment Rehab OP Re-assessment Start: 06/29/23 09:37 Freq: Status: Active Protocol: Document 08/01/23 10:32 LITO (Rec: 08/01/23 10:49 LITO [id number]) E-signed By Roman Mcgowan, PT Neck Disability Index Neck Disability Index Section 1: Pain Intensity The pain is very mild at moment Section 2: Personal Care (washing, I can look after myself dressing, etc.) normally but it causes extra pain Section 3: Lifting I can lift heavy weights but it gives extra pain Section 4: Reading I can read as much as I want to with slight pain in my neck Section 5: Headaches I have slight headaches, which come infrequently Section 6: Concentration I can concentrate fully when I want to with no difficulty Section 7: Work I can do most of my usual work , but no more Section 8: Driving I can drive my car as long as I want with slight pain in my neck Section 9: Sleeping My sleep is midly disturbed (1 -2 hrs sleepless) Section 10: Recreation I am able to engage in all my recreation activities with some pain in NDI Score 11 Rehab Re-assessment Subjective Subjective Patient reports 60% improvement since start of care. Objective Objective Notes AROM: flx 32; ext 48; SBr 41; SBl 32; Rr 39; Rl 46 Myotomes: WNL Pain 2/10 currently; 4/10 at worst over past week Neuro: WNL Assessment Progress Assessment Progressing as Expected Assessment Notes Patient progressing well with Rx. Main concern continues to be cervical spine stiffness and pain radiating to R upper trap mm. Good response with cervical mechanical traction. Introduced dry needling today to R upper trap mm without any problems today. Patient would benefit from continuing with skilled PT interventions in order to address functional limitations with reaching and lifting activities. Patient goals met STG's Goals Not Met LTG's Revised Goals NA Plan Plan Continue with current POC. Frequency of Therapy 2x/week Duration of therapy 4 weeks Time and Billing Re-Eval Time 16 Re-Eval Billing Units 1 PHYSICIAN CERTIFICATION: I certify the specified therapy services for Nidia Dacci are required, authorized, and reviewed every 30 days.
== END 2023-08-03 11:30 | disposition home or self-care (01) ==
LOC: PT 10:30
PROVIDERS: PCP Family Medicine; Visit Provider Family Medicine
DX: M54.2 Cervicalgia (principal)
CPT/HCPCS: 20560; 97010; 97012; 97014; 97110; 97163; 97164; 97530; G0283

== ENCOUNTER 2024-01-02 09:59 | Outpatient (CLI) | payer MEDICARE, SELFPAY ==
[2024-01-02 10:23] LABS: Basophils # 0.1 K/mm3 (0-0.2); Basophils % 0.9 % (0.1-2.0); Eosinophils # 0.3 K/mm3 (0.0-0.4); Eosinophils % 4.5 % (0.1-12.0); Hematocrit 36.3 % (37.0-47.0); Hemoglobin 11.5 g/dL (12.2-16.2); Lymphocytes # 1.5 K/mm3 (0.7-4.5); Mean Corpuscular HGB Conc 31.7 g/dL (31.8-35.4); Mean Corpuscular Hemoglobin 26.4 pg (27.0-31.2); Mean Corpuscular Volume 83.1 fl (81-99); Mean Platelet Volume 7.6 fl (7.4-10.4); Monocytes # 0.4 K/mm3 (0.1-1.0); Monocytes % 5.5 % (1.7-9.3); Neutrophils # 4.7 K/mm3 (1.8-7.8); Neutrophils % 67.2 % (37.0-80.0); Platelet Count 260 K/mm3 (142-424); Red Blood Count 4.37 M/mm3 (4.20-5.40); Red Cell Distribution Width 15.3 % (11.5-17.5)
[2024-01-02 11:25] LABS: Alanine Aminotransferase 33 U/L (12-78); Albumin/Globulin Ratio 1.7 (1.1-1.8); Alkaline Phosphatase 102 U/L (38-126); Anion Gap 11.6 mEq/L (5-15); Aspartate Amino Transferase 34 U/L (14-36); Bilirubin,Total 0.4 mg/dl (0.2-1.3); Blood Urea Nitrogen 25 mg/dl (7-17); Calcium 9.3 mg/dl (8.4-10.2); Carbon Dioxide 30 mmol/L (22.0-30.0); Chloride 104 mmol/L (98-107); Chol/HDL Ratio 3.9 (1-3.5); Cholesterol 134 mg/dl (140-200); Estimated Glomerular Filt Rate 62 ml/min (>60); GFR (African American) 76 ML/MIN (>60); Globulin 2.3 g/dL (1.3-3.2); Glucose 115 mg/dl (74-100); HDL Cholesterol 34 mg/dl (40-60); Potassium 4.6 mmoL/L (3.5-5.1); Sodium 141 mmol/L (136-145); Total Protein,Serum 6.3 g/dl (6.3-8.2); Triglycerides 190 mg/dl (30-150); VLDL Cholesterol 38 mg/dL (0-40)
[2024-01-02 11:36] LABS: Direct LDL Cholesterol 69.17 mg/dL (100-129)
[2024-01-02 11:55] LABS: Thyroid Stimulating Hormone 1.35 uIU/mL (0.465-4.68)
== END 2024-01-02 23:59 | disposition home or self-care (01) ==
LOC: LAB 10:00
PROVIDERS: PCP Family Medicine; Visit Provider Family Medicine
DX: R53.83 Other fatigue (principal); R73.9 Hyperglycemia, unspecified; I10 Essential (primary) hypertension; E78.5 Hyperlipidemia, unspecified
CPT/HCPCS: 36415; 80053; 80061; 83036; 84443; 85025

== ENCOUNTER 2024-07-30 08:48 | Outpatient (CLI) | payer MEDICARE, SELFPAY ==
--- NOTE | 2024-07-30 09:07 | MM_ITS ---
PROCEDURE INFORMATION: Exam: MG Bilateral Screening 3D Mammography Exam date and time: 07/30/2024 8:52 AM Age: 68 years old Clinical indication: Screening examination TECHNIQUE: Imaging protocol: Bilateral Screening tomosynthesis and 2D mammography including computer-aided detection (CAD) when performed. COMPARISON: No relevant prior studies available. FINDINGS: MAMMOGRAPHY: Breast composition: There are scattered areas of fibroglandular density. Mass: Ovoid slightly indistinct mass in the right breast 12-1 o'clock axis, mid to posterior depth, 7 cm nipple. Architectural distortion: None. Calcifications: No suspicious calcifications. Asymmetric density: None. Skin thickening: None. Axillary adenopathy: None. IMPRESSION: Patient to be recalled for spot compression views of the right breast in the CC and MLO projections, a full 90 degree lateral view, and right breast ultrasound for further evaluation of a right breast mass. ASSESSMENT: BI-RADS Category 0: Incomplete- Need Additional Imaging Evaluation.
[2024-07-30 10:22] LABS: Alanine Aminotransferase 36 U/L (12-78); Albumin Level 4.2 g/dl (3.5-5.0); Alkaline Phosphatase 86 U/L (38-126); Anion Gap 13.3 mEq/L (5-15); Aspartate Amino Transferase 35 U/L (14-36); Bilirubin,Total 0.4 mg/dl (0.2-1.3); Blood Urea Nitrogen 21 mg/dl (7-17); Calcium 9.1 mg/dl (8.4-10.2); Carbon Dioxide 27 mmol/L (22.0-30.0); Chloride 103 mmol/L (98-107); Chol/HDL Ratio 2.9 (1-3.5); Cholesterol 110 mg/dl (140-200); Estimated Glomerular Filt Rate 72 ml/min (>60); GFR (African American) 87 ML/MIN (>60); Globulin 2.1 g/dL (1.3-3.2); Glucose 101 mg/dl (74-100); HDL Cholesterol 38 mg/dl (40-60); Potassium 4.3 mmoL/L (3.5-5.1); Sodium 139 mmol/L (136-145); Total Protein,Serum 6.3 g/dl (6.3-8.2); Triglycerides 171 mg/dl (30-150); VLDL Cholesterol 34 mg/dL (0-40)
[2024-07-30 10:33] LABS: Direct LDL Cholesterol 60.19 mg/dL (100-129)
== END 2024-07-30 23:59 | disposition home or self-care (01) ==
LOC: RAD 08:49
PROVIDERS: PCP Family Medicine; Visit Provider Family Medicine
DX: Z12.31 Encounter for screening mammogram for malignant neoplasm of breast (principal); R73.9 Hyperglycemia, unspecified; I10 Essential (primary) hypertension; E78.5 Hyperlipidemia, unspecified
CPT/HCPCS: 36415; 77063; 77067; 80053; 80061; 83036

== ENCOUNTER 2024-08-11 06:47 | Outpatient (CLI) | payer MEDICARE, SELFPAY ==
--- NOTE | 2024-08-11 | CA_ITS ---
APPROVED REPORT Exam: Pharmacologic Technologist: Lauryn Ross Ht: 5 ft 0 in Wt: 194 lbs BSA: 1.84 m2 HR: 63 bpm BP: 118/53 mmHg Stress Test Details Test: Lexiscan HR Resting HR: 63 bpm Max Heart Rate (APMHR): 153.200877 bpm Max HR Achieved: 95 bpm Target HR (85% APMHR): 130.829972 bpm % of APMHR: 62.09 Recovery HR: 67 bpm BP Resting BP: 118.0/53.0 mmHg Max BP: 134.0/68.0 mmHg Recovery BP: 129.0/58.0 mmHg ECG Resting ECG: Sinus rhythm Stress ECG Conclusion Symptoms: Chest tightness, shortness of air, nausea Same when I'm walking at home. Arrhythmias/Ectopy: None ST-T Changes: None Electronically signed by : Aurelia Ceballos MD 08/12/2024 11:38:34
--- NOTE | 2024-08-11 07:02 | NM_ITS ---
APPROVED REPORT Exam: Nuclear Stress Test Indication: Chest pain, Fatigue, HTN, High cholesterol, Family history Patient Location: Outpatient Stress Tech: Lauryn Ross PR Tech:Mable Jackman, ARRT, RT (R)(N) Ht: 5 ft 0 in Wt: 194 lbs Bra Size: C HR: 63 bpm BP: 118/53 mmHg BSA: 1.84 m2 TID: 1.11 History: Chest pain, Fatigue, HTN, High cholesterol, Family history Procedure: Patient received 0.4 mg of intravenous Lexiscan, resting heart rate 63 bpm, resting blood pressure 118/53 mmHg, with Lexiscan maximum heart rate achieved was 71 bpm which is % of the maximum predicted heart rate and blood pressure was 134/68 mmHg. With Lexiscan, patient denied any complaint of chest pain. Cardiac Stress and Resting SPECT Images: Cardiac Stress and Resting SPECT images were obtained using technetium 99m Myoview 30.4 mCi stress and 10.85 mCi at rest. Resting and stress imaging in supine and prone positions demonstrate no evidence of fixed or reversible perfusion defects. Gated imaging demonstrates normal global and regional LV systolic function. LVEF is calculated at 69%. Conclusion: No evidence of fixed or reversible perfusion defects. Gated imaging demonstrates normal global and regional LV systolic function. LVEF is calculated at 69%. Electronically signed by : Aurelia Ceballos MD 08/12/2024 11:40:05
[2024-08-11] MEDS: REGADENOSON 0.4MG/5ML SYRINGE 0.4 MG IV (09:11)
[2024-08-11] MEDS: SODIUM CHLORIDE 0.9% 10ML SYR (RAD ONLY) 10 ML IV ×2 (09:12)
[2024-08-11] MEDS: ISOTOPE MYOVIEW (PER STUDY) 1 DOSE IV (09:12)
== END 2024-08-11 23:59 | disposition home or self-care (01) ==
LOC: RAD 06:49
PROVIDERS: PCP Family Medicine; Visit Provider Family Medicine
DX: R07.2 Precordial pain (principal)
CPT/HCPCS: 78452; 93017; 93018; A9502; J2785

== ENCOUNTER 2025-03-17 09:00 | Outpatient (CLI) | payer MEDICARE, SELFPAY ==
--- OUTSIDE RECORDS SUMMARY | 2024-07-29 11:15 | XMS_ITS ---
Author [facility] Address [address] [phone] Care Team Providers Care Senior Net Web Developer Name Role Phone Bryan Hooker Primary Care Provider [phone] Allergies Allergen (clinical drug ingredient) Drug/Non Drug [...] Omeprazole 40 MG TAKE 1 CAPSULE BY [facility] EVERY DAY; Duration: 90 days Active Cyclobenzaprine [...] 07/29/2024 Encounters Encounter Location Date Provider Diagnosis [facility] [address] [facility] [address] [place] [address] JACI [id number] 07/29/2024 R Jorge Hooker Substernal chest tristin [...] Details Follow Up: after tests, Reas on: Provider Name:Sofia Segal y, 09/04/2025 09:15:00 AM, [address], [place], [place], [phone], Progress Notes * HILL PINODOB: 6 (69 yo F)Acc No.[id number]:07/29/2024 Progress Notes Patient: HILL ALEMAN Provider: Bryan Hooker M.D. :1955 A ge:68 Y S ex:Female Date:07/29/2024 Address:[address] [place], [place] [id number] Subjective: * Chief Complaints: * 1 . [...] right shoulder-rotator cuff surgery- tear in bicep-Dr Su[facility] 04/2013, double fusion in back-Dr H[facility] 07/2013, Colonoscopy/polyp x 2/Dr. Mauricio [...] * Images: Billing Information: * Visit Code: 44844 Office Visit, Est Pt., Level 4. * Procedure Codes: 00682 PULSE OX. * Electronic signature of Bryan Hooker MD on 03/17/2025 at 09:06 AM EDT Sign off status: Pending * Provider: Bryan Hooker M.D. Date: 09/28/2023 Generated for Lazaro diaz/Nick/Mishelitting on: 0 03/17/2025 09:06 AM EDT History and Physical Notes * Examination Category Sub-Category Detail Notes Category Not es General Examination Heart: RSR Lungs: clear to auscultatio n Extremities: no leg edema General Appearance: NAD Neurologic Exam: No muscle weakness
--- OUTSIDE RECORDS SUMMARY | 2024-08-13 07:00 | XMS_ITS ---
Author Organization [facility] Address [address] [id number] Care Team Providers Care Agricultural Equipment Operator Name Role Phone Bryan Hooker Primary Care Provider [phone] Sofia Ames Unavailable [phone] Allergies Allergen (clinical drug ingredient) Drug/Non Drug [...] Omeprazole 40 MG TAKE 1 CAPSULE BY [facility] EVERY DAY; Duration: 90 days Active [...] 08/13/2024 Encounters Encounter Location Date Provider Diagnosis [facility] [address] [place], [place] [id number] 08/13/2024 Sofia Ames Acute URI J06.9 and [...] Next Appt Details Follow Up: prn, Reason: Provider Name:Sofia Jacoby Luzma y, 09/04/2025 09:15:00 AM, [address], [address] , [place], [place], [id number], Progress Notes * HILL PINODOB: 6 (69 yo F)Acc No.[id number]:08/13/2024 Progress Notes Patient: HILL ALEMAN Provider: NEHEMIAS Lunsford :1955 A ge:68 Y S ex:Female Date:08/13/2024 Address:[address] [place], [place] [phone] Pcp:Bryan Hooker Subjective: * Chief Complaints: * [...] right shoulder-rotator cuff surgery- [facility] in [facility]icep[facility] [...] lucia MULLEN - J06.9 (Primary) 2 . Mikel nixon - J40 Plan: * Treatment: 2. B cassandratis Start Zithromax Z-Magdaleno Tablet, 250 MG, 2 [...] Flu Test- Nasal Swab, Modifiers: QW , [address] [place], [address] COVID TEST IN HOUSE, Modifiers: QW , 40[address] CAPILLARY BLOOD DRAW, 62564 CBC WITH AUTO DIFF * Follow Up: p rn * Images: Billing Information: * Visit Code: 47156 Office Visit, Est Pt., Level 3. * Procedure Codes: 56428 Flu Test- Nasal Swab. Modifiers: QW 23250 [place]. [address] COVID TEST IN HOUSE. Modifiers: QW 38012 CAPILLARY BLOOD DRAW. 49834 CBC WITH AUTO DIFF. * Electronic signature of NEHEMIAS Dickson on 03/17/2025 at 09:06 AM EDT Sign off status: Pending * Provider: NEHEMIAS Lunsford Date: 10/13/2023 Generated for Jessiei ng/Faxing/eTransmitting on: 0 03/17/2025 09:06 AM EDT History and Physical Notes * HPI (History [...]
--- OUTSIDE RECORDS SUMMARY | 2025-03-04 05:45 | XMS_ITS ---
Author Organization [facility] Address [address] [facility] [address] [place] [phone] Care Team Providers Care Energy Project Engineer Name Role Phone Bryan Hooker Primary Care Provider [phone] Sofia Ames Unavailable [phone] Allergies Allergen (clinical drug ingredient) Drug/Non Drug [...] 107 Performing Lab: Notes/Report: Test performed by [facility][note 3][address] [facility] , [place] [address] Ty Vilchis MD, Cis Coordinator CLIA: [id number] Sodium 142 135-145 mmol/L Potassium 4.8 3.5-5.3 [...] 39 Performing Lab: Notes/Report: Test performed by [facility], [employer] [address] [place] [address] , [place] [address] Ty Vilchis MD, Cis Coordinator CLIA: [id number] Cholesterol 126 <200 mg/dL Triglycerides 181 <150 [...] Interpretation:Normal Performing Lab: Notes/Report: Test performed by [facility], [address] , [address], [place] [address] Ty Vilchis MD, Cis Coordinator CLIA: [id number] Albumin/Creatinine Ratio, Urine 21 0-30 ug/m g Microalbumin, Urine, Random 2.2 Creatinine, Urine 105.2 REASON FOR VISIT Check Up with Annual Wellness Visit, Needs labs Medications Medication SIG (Take, Route, Frequency, Duration) Notes Start Date End Date Status Bisoprolol Fumarate 5 MG 1 tablet Orally once daily; Duration: 90 days Active Rosuvastatin Calcium 10 MG TAKE 1 TABLET BY MOUTH EVERY DAY; Duration: 90 Active Omeprazole 40 MG TAKE 1 CAPSULE BY [place] UTH EVERY DAY; Duration: 90 Active Adderall 30 [...] Status Risk Notes Problem Morbid obesity (disorder) (368588695) Morbid (severe) obesity due to excess calories (E66.01) Active confirmed Problem Obese class II (859972314415 105) BMI 36.0-36.9,adul t (Z68.36) Active confirmed Vital Signs Weight 187.4 lbs 03/04/2025 Blood pressure systolic 130 mm Hg 03/04/20 25 Blood pressure diastolic 82 mm Hg 025 Heart Rate 72 /min 03/04/2025 Height 60 in 03/04/2025 BMI 36.6 kg/m2 03/04/2025 Encounters Encounter Location Date [facility] [address] [phone] 03/04/2025 Sofia Ames Adult general medica l [...] assessment, Depression screening and Bladder control screening. Pending Test Test Name Order Date Bone density 03/04/2025 Next Appt Details Follow Up: As directed by , Reason: Provider Name:Sofia suero, 09/04/2025 09:15:00 AM, [address] [facility], [address], [place], [place], [id number], Progress Notes * HILL SANDERSDOB: (69 yo F)Acc No.[id number]:03/04/2025 Annual Wellness Visit Patient: HILL ALEMAN Provider: NEHEMIAS Lunsford :1955 A ge:69 Y S ex:Female Date:03/04/2025 Address:[address], [facility], [id number] Pcp:Bryan Hooker Subjective: * Chief Complaints: * [...] [facility] Colon[facility]/polyp x 2/Dr. Mauricio 08/25/2015, Lap [...] excess calories - E66.01 1 2. B [place] 36.0-36.9,adult - Z68.36 Plan: * Treatment: 2. [...] Orosco 03/04/2025 10:4 9:51 AM EDT > Saksia Adkins 03/05/2025 03:47:47 PM EDT > See [...] lycohemoglobin 5.8% 5 - 6.5 % * Elisabeth Orosco 03/04/2025 10:5 0:23 AM EDT > Saskia Adkins 03/05/2025 03:47:47 PM EDT > See phone encounter 5.?Osteoporosis screening?Imaging: Bone density* Gabriela Joy 03/05/2025 08:1 2:33 AM EDT > faxed to [facility] Scheduling * Immunizations: PNEUMOVAX 23 VACCINE (Route: Intramuscular) on Right Arm (Pending) (Adult general medical examination) * Procedure Codes: G 0439 ANNUAL WELLNESS VST; PPS SUBSQT VST, G2211 Complex e/[place], [address] GLYCATED HEMOGLOBIN TEST, Modifiers: QW , 1090F PRES/ABSN URINE INCON ASSESS, 3288F FALL RISK ASSESSMENT DOCD, 1170F FXNL STATUS ASSESSED, 1159F MED LIST DOCD IN RCRD, 1003F LEVEL OF ACTIVITY ASSESS, 1036F TOBACCO NON-USER, 3017F COLORECTAL CA SCREEN DOC REV, 16098 CBC WITH AUTO DIFF, 1125F AMNT PAIN [...] * Images: Billing Information: * Visit Code: 97621 Office Visit, Est Pt., Level 3. Modifiers: 25 * Procedure Codes: G0439 ANNUAL WELLNESS VST; PPS SUBSQT VST. G2211 Complex e/[place]. [address] GLYCATED HEMOGLOBIN TEST. Modifiers: QW 1090F PRES/ABSN URINE INCON ASSESS. 3288F FALL RISK ASSESSMENT DOCD. 1170F FXNL STATUS ASSESSED. 1159F MED LIST DOCD IN RCRD. 1003F LEVEL OF ACTIVITY ASSESS. 1036F TOBACCO NON-USER. 3017F COLORECTAL CA SCREEN DOC REV. 96777 CBC WITH AUTO DIFF. 1125F AMNT PAIN [...] signature of NEHEMIAS Dickson on 03/17/2025 at 09:05 AM EDT Sign off status: Pending * Provider: NEHEMIAS Lunsford Date: 0 03/04/2025 Generated for Printi ng/Faxing/eTransmitting on: 0 03/17/2025 09:05 AM EDT History and Physical Notes * HPI (History of Present Illness) Category Sub-Category Detail Notes Category Not es HPI Patient is here today for a firsthealthed check up and a Medicare Annual Wellness [...]
--- NOTE | 2025-03-17 09:03 | XR_ITS ---
FINAL REPORT CLINICAL HISTORY: SCREENING COMPARISON: 01/17/2021 FINDINGS: Using L1-4, the bone mineral density of the spine is 0.983 g/cm2, corresponding to T-score of -0.9, within normal limits. Using the left hip, the bone mineral density of the femoral neck is 0.861 g/cm2, corresponding to a T-score of 0.1, within normal limits. Previously was 0.953 with a T-score of 0.9. Using the right hip, the bone mineral density of the femoral neck is 0.840 g/cm2, corresponding to a T-score of -0.1, within normal limits. Previously was 0.797 with a T-score of-0.5. Using the left forearm, the bone mineral density of 1/3 is 0.594 g/cm2, corresponding to a T-score of -1.7 which is consistent with osteopenia. Previously was 0.617 with a T-score of -1.3 FRAX not reported because all T-scores for spine and hips at or above -1.0. NOTE: T-score: Standard deviation compared with peak bone mass of young adult mean. *Following the recommendations of the International Society of Bone densitometry, classification of hip BMD is based on the lower of two T-scores; total hip or femoral neck. IMPRESSION: Normal bone mineral density of the lumbar spine and hips with osteopenia in the left forearm. Reviewed, Interpreted and Dictated by Jose Luis Campbell MD Transcribed by Sabrina Oleary Authenticated and . [facility]
--- OUTSIDE RECORDS SUMMARY | 2025-03-17 09:05 | XMS_ITS | Encounter Summary ---
Author Organization [employer] ([place], [place], [place], [place]) Address [address] [place] [address] Care Team Providers Care Campground Caretaker Name Role Phone Unavailable Primary Care Provider Unavailabl e Encounter Details Date Type Department Care Team (Late st Contact Info) Description 11/17/2019 Transcribed Document [facility] [place] Medicine [facility] [place] [address] ProviderTiana MD [address] [place] [address] Social History Tobacco Use Types Packs/Day Years Used Date Smoking Tobacco: Never Assessed Comments Unknown Sex and Gender Information Value Date Recorded Sex Assigned at Female 03/14/2022 6:15 PM CDT Legal Sex Female 6:15 PM CDT Gender Identity Female 03/14/2022 6:15 PM CDT Sexual Orientation Not on file documented as of this encounter Miscellaneous Notes * Cerner Conversion Note - Historical ProviderMD - 11/17/2019 9:00 AM FORGING DIE FINISHER Patient: NIDIA PINO Age: 64 years Sex: Female : 1955 Associated Diagnoses: None Author: RAFA MURPHY APRN-MACARENA 11/17/2019 cc: medical management s/p left total knee arthroplasty HPI: Patient is a 64 yo female admitted to [facility] per Dr. Larsen for a left total knee arthroplasty. Preoperatively patient was found to have advanced osteoarthritis of the left knee and elected surgical intervention after failing conservative treatment. Patient is followed perioperatively while hospitalized for medical management. Initial visit with patient in preop, she is known to our service fro previous RTKA in 2017 from which she recovered without complications. Patient denies any recent exacerbations of chronic medical problems. Patient denies recent cardiopulmonary symptoms in the weeks leading up to surgery. Patient denies recent fever, chills or nightsweats. Patient denies recent sinus infection, bronchitis, or pneumonia. She does have DUYEN and uses a CPAP at night. Denies recent asthma exacerbations. Denies gastroenteritis, has chronic constipation. Denies chest pain, pressure or palpitations. Denies recent antibiotics or med changes by PCP. Patients physical limitations are limited by left knee disability. Past Med Hx: Active Problems (22) ADD (attention deficit disorder) Anxiety and depression Arthritis asthma Bronchitis Cataract bilateral with IOL Chronic constipation Diverticulitis GERD - Gastro-esophageal reflux disease History of obstructive sleep apnea HTN Hyperlipidemia Impaired mobility Numbness in feet DUYEN (obstructive sleep apnea) Osteoarthritis Pancreatitis Post-menopausal Post-operative nausea and vomiting Seasonal allergies Sleep apnea Wears glasses Active Procedures (2) open cholecystectomy right knee repolacement Family Hx: father killed mother estela murder-suicide, father with undiagnosed mental health issues \ Social & Psychosocial Habits Alcohol 07/25/2013 Alcohol Use in Last Twelve Months No Employment/School 10/29/2019 Status: Retired Home/Environment 10/29/2019 Lives with: Spouse Living situation: Home/Independent Home equipment: CPAP/BiPAP, Respiratory treatments, Walker/Cane Substance Abuse 07/25/2013 Recreational Drug Use History No Recreational Drug Use Last 12 Months No Tobacco 01/31/2017 Smoking Status Never smoker Comment: NONE - 01/31/2017 13:35 - HAYDEN APPIAH RN Allergies (1) Active Reaction penicillin Unknown Home Medications (7) Active Adderall 30 mg, PRN, Oral Advair Diskus 250 mcg-50 mcg inhalation powder 1 Puff, Inhalation, BID Lexapro 20 mg oral tablet 20 mg = 1 Tab, Oral, Daily Lipitor 10 mg, Oral, At Bedtime Melatonin 10 mg, Oral, At Bedtime omeprazole 40 mg oral delayed release capsule 40 mg = 1 Cap, Oral, Daily ProAir HFA 90 mcg/inh inhalation aerosol 2 Puff, PRN, Inhalation, Daily ROS: Constitutional: [No fevers, chills, sweats] Respiratory: [No shortness of breath, cough] Cardiovascular: [No Chest pain, palpitations, syncope] Gastrointestinal: [No nausea, vomiting, diarrhea, +constipation] Genitourinary: [No hematuria, dysuria] Musculoskeletal: [+left knee pain, decreased range of motion] Integumentary: [No rash, pruritus,] Neurologic: [+left knee weakness] Psychiatric: [+ depression] Exam: N No qualifying data available PE: obese white female, pleasant, cooperative, good historian, seen in preop, at bedside pink conjunctiva, dry mucous membranes, no thyromegaly or cervical lymphadenopathy =expansion b/l , no wheezing or rhonchi, diminished non-displaced PMI, S1S2 ABD is obese, soft non-tender, non-distended, norm bowel sounds skin warm, dry without rashes ext: trace low ext edema, no calf tenderness neuro: cn 2-12 intact; no gross motor -sensory deficits psych: appropriate affect and mood Data: Reviewed preop CBC, BMP, coags 10/29/2019 A1C 5.9 Ventricular Rate : 76 BPM Atrial Rate : 76 BPM P-R Interval : 132 ms QRS Duration : 74 ms Q-T Interval : 394 ms QTC Calculation(Bezet) : 443 ms P Lometa : 56 degrees R Lometa : 0 degrees T Lometa : 47 degrees Normal sinus rhythm Moderate voltage criteria for LVH, may be normal variant Nonspecific T wave abnormality Abnormal ECG Category Adult BMI Underweight <18.5 Normal weight 18.5-24.9 Overweight 25.0-29.9 Obese Obesity class I Obesity class II *Obesity class III ?30.0 30.0-34.9 35.0-39.9 ?40.0 Summary (obese plus overweight) ?25.0 Consider bariatric surgery for class II/III Criteria for Metabolic Syndrome Any Three of the Following: Abdominal obesity (waist circumference)__x_>40 in (>102 cm) in men; >35 in (>88 cm) in women Triglyceride level___?150 mg/dL (1.70 mmol/L) HDL cholesterol___<40 mg/dL (1.04 mmol/L) in men; <50 mg/dL (1.30 mmol/L) in women Blood pressure____?130/?85 mm Hg Fasting glucose__x_?110 mg/dL (6.11 mmol/L) Impression: advanced OA left knee; -Awaiting left total knee arthroplasty hx RTKA obesity prediabetes suspect metabolic syndrome hx DUYEN hx chronic constipation Plan: CPAP QHS discussed prediabetes and recommended lifestyle modifications already on statin, may benefit from ASA, ARB at DC Monitor HTN; add PRN's, hold parameters bowel regimen-aggressive given chronic constipation incentive spirometer PT/OT DVT prophylaxis noted Pain management deferred to surgeon will monitor hb/hct daily for signs of ongoing acute blood loss will monitor bun/cr daily for signs of dehydration, prerenal azotemia will monitor for signs/symptoms of post-op wound infection or hospital acquired infectious process resume outpatient medication regimen for comorbidities Assessment and treatment plan made in conjunction with Doc Wing MD Scribed by Sue Heredia documented in this encounter Plan of Treatment Not on file documented as of this encounter Visit Diagnoses Not on filedocumented in this encounter
--- OUTSIDE RECORDS SUMMARY | 2025-03-17 09:05 | XMS_ITS | Encounter Summary ---
Author Organization [email or web address] ([place], [place], [place], [place]) Address [address] [place] [address] Care Team Providers Care Support Manager Name Role Phone Unavailable Primary Care Provider Unavailabl e Encounter Details Date Type Department Care Team (Late st Contact Info) Description 11/17/2019 Transcribed Document [facility] Family Medicine [address] [place] [address] ProviderTiana MD [address] [place] [address] Social History Tobacco Use Types Packs/Day Years Used Date Smoking Tobacco: Never Assessed Comments Unknown Sex and Gender Information Value Date Recorded Sex Assigned at Female 03/14/2022 6:15 PM CDT Legal Sex Female 6:15 PM CDT Gender Identity Female 03/14/2022 6:15 PM CDT Sexual Orientation Not on file documented as of this encounter Miscellaneous Notes * Cerner Conversion Note - Tiana ProviderMD - 11/17/2019 2:19 PM HEEL FINISHER Orthopedic Nurse Navigator Entered On: 11/17/2019 14:21 EST Performed On: 11/17/2019 14:19 EST by NISHANT LEAL RN-Ortho Nurse Navigator Orthopedic Nurse Navigator Assessment Attended Joint Academy : Yes Joint AcademyType : In person Joint Academy Date : 10/29/2019 EST Joint Inspector Paper Products Attended Academy : Yes Joint Inspector Paper Products Name : Az Type of Surgery : Total Knee Replacement, Left Anticipated Discharge Plan : Outpatient PT Anticipated Discharge Plan Comment : Patient plans to d/c home with the help of her . She requests outpatient PT at [facility] and planned to call to hold appt for Sunday. Patient Completed RAPT Score : 10 NISHANT LEAL RN-Ortho Nurse Navigator - 11/17/2019 14:19 EST Teaching/Learning Assessment Barriers To Learning : None evident Individuals Taught : Patient, Spouse Readiness to Learn : Cooperative Readiness to Learn : Demonstration, Explanation, Printed materials, Teach back method, Video/Educational TV Education Comment : Pt verbalized understanding of incentive spirometry at [facility]. NISHANT LEAL RN-Ortho Nurse Navigator - 11/17/2019 14:19 EST Education Topics, Orthopedic Pre-Op Ortho Pre-Op Education Grid Ed-Assistive Devices : Verbalizes understanding DVT Prophylaxis : Verbalizes understanding Family Instructions : Verbalizes understanding Herbs/Supplement Instructions : Verbalizes understanding Laboratory Studies : Verbalizes understanding Medication Instructions : Verbalizes understanding NPO : Verbalizes understanding Ed-Occupational Therapy : Verbalizes understanding Pain Management : Verbalizes understanding Physical Prep : Verbalizes understanding Physical Therapy : Verbalizes understanding Plan of Care : Verbalizes understanding Positioning : Verbalizes understanding Post-op Activity/Exercise Regimen : Verbalizes understanding Postoperative Home Needs : Verbalizes understanding Post-operative Monitoring : Verbalizes understanding Post-Op Orthopedic Equipment : Verbalizes understanding Procedure Information : Verbalizes understanding Respiratory Care : Verbalizes understanding Surgical Site : Verbalizes understanding Tubes/Drains/IV's : Verbalizes understanding Turn/Cough/Deep Breathe : Verbalizes understanding Weight Bearing : Verbalizes understanding Ed-Orthopedic Pre-Op, Other : Verbalizes understanding NISHANT LEAL, EMETERIO-Ortho Nurse Navigator - 11/17/2019 14:19 EST documented in this encounter Plan of Treatment Not on file documented as of this encounter Visit Diagnoses Not on filedocumented in this encounter
--- OUTSIDE RECORDS SUMMARY | 2025-03-17 09:05 | XMS_ITS | Encounter Summary ---
Author Organization [employer] ([place], [place], [place], [place]) Address [address] [place] [address] Care Team Providers Care Sharepoint Application Architect Name Role Phone Unavailable Primary Care Provider Unavailabl e Encounter Details Date Type Department Care Team (Late st Contact Info) Description 11/17/2019 Transcribed Document [facility] [place] Family Medicine [address] [place] [address] ProviderTiana MD [address] [place] [address] Social History Tobacco Use Types [...] Conversion Note - Historical ProviderMD - 11/17/2019 3:22 PM TRANSPLANT NURSE PRACTITIONER Pain Assessment Entered On: 11/17/2019 18:19 EST Performed On: 11/17/2019 17:01 EST by SO GARG RN Intervention Information: HYDROmorphone Performed by NAT GUTHRIE RN on 11/17/2019 16:31:00 EST HYDROmorphone,0.5mg IV Push,Left Antecubital Bo,Pain (Severe 7-10) Pain Assessment Pain Assessment : Follow-up assessment Pain Scale Goal : 5 Pain Scale Used : 0-10 Scale Location : Knee, left Pain Improved by Intervention : Yes SO GARG RN - 11/17/2019 18:19 EST Pain Scale Intensity : 2 SO GARG RN - 11/17/2019 18:19 EST Image 4 - Images currently included in the form version of this document have not been included in the text rendition version of the form. documented in this encounter Plan of Treatment Not on file documented as of this encounter Visit Diagnoses Not on filedocumented in this encounter
--- OUTSIDE RECORDS SUMMARY | 2025-03-17 09:05 | XMS_ITS | Encounter Summary ---
Author Organization [employer] ([place], [place], [place], [place]) Address [address] [place] [address] Care Team Providers Care Photographic Supervisor Name Role Phone Unavailable Primary Care Provider Unavailabl e Encounter Details Date Type Department Care Team (Late st Contact Info) Description 11/17/2019 Transcribed Document [facility] [place] Family Medicine [address] [place] [address] ProviderTiana MD [address] [place] [address] Social History Tobacco Use Types [...] Conversion Note - Historical ProviderMD - 11/17/2019 2:00 AM TEST FIXTURE DESIGNER Spiritual Care Assessment Entered On: 11/17/2019 13:55 EST Performed On: 11/17/2019 11:05 EST by HIMANSHU JUARES General Information Referred by : Patient Referral Reason Comment : PreSurgery prayer Ministry Provided to : Patient, Family/Significant other HIMANSHU JUARES - 11/17/2019 13:52 EST Interventions Emotional Support : Empathic/Engaged listening, Feelings expressed Spiritual and Spiritism : Prayer shared, Spiritual/Spiritism support provided HIMANSHU JUARES - 11/17/2019 13:52 EST Outcomes Affect/Behavior Changed : Encouraged Appreciation Expressed : Yes Thoughts, Feelings and Emotions Exp. : Yes Supportive Relationships Described : HIMANSHU JUARES - 11/17/2019 13:52 EST Electronically signed by Flor [facility] Conversion Shoe Laster Cerner at 12/31/2022 5:40 PM CDT documented in this encounter Plan of Treatment Not on file documented as of this encounter Visit Diagnoses Not on filedocumented in this encounter
--- OUTSIDE RECORDS SUMMARY | 2025-03-17 09:05 | XMS_ITS | Encounter Summary ---
Author Organization [employer] ([place], [place], [place], [place]) Address [address] [place] [address] Care Team Providers Care Nuclear Unit Operator Name Role Phone Unavailable Primary Care Provider Unavailabl e Encounter Details Date Type Department Care Team (Late st Contact Info) Description 11/17/2019 Transcribed Document [facility] [place] Family Medicine [address] [place] [address] ProviderTiana MD [address] [place] [address] Social History Tobacco Use Types [...] Conversion Note - Historical ProviderMD - 11/17/2019 5:00 PM SALESPERSON NEW CARS Chart Check - Review Order Profile Entered On: 11/17/2019 18:16 EST Performed On: 11/17/2019 17:00 EST by SO GARG RN Chart Check Powerplans Initiated/Discontinued as Appropriate : Yes All Active Orders Reviewed : Yes SO GARG RN - 11/17/2019 18:15 EST Electronically signed by Flor [facility] Conversion Paralegal Internship Cerner at 12/31/2022 5:26 PM CDT documented in this encounter Plan of Treatment Not on file documented as of this encounter Visit Diagnoses Not on filedocumented in this encounter
--- OUTSIDE RECORDS SUMMARY | 2025-03-17 09:05 | XMS_ITS | Encounter Summary ---
Author Organization [employer] ([place], [place], [place], [place]) Address [address] [place] [address] Care Team Providers Care Wirer Helper Name Role Phone Unavailable Primary Care Provider Unavailabl e Encounter Details Date Type Department Care Team (Late st Contact Info) Description 11/18/2019 Transcribed Document [facility] [place] [facility] [address] [place] [address] ProviderTiana MD [address] [place] [address] Social History Tobacco Use Types Packs/Day Years Used Date Smoking Tobacco: Never Assessed Comments Unknown Sex and Gender Information Value Date Recorded Sex Assigned at Female 03/14/2022 6:15 PM CDT Legal Sex Female 6:15 PM CDT Gender Identity Female 03/14/2022 6:15 PM CDT Sexual Orientation Not on file documented as of this encounter Miscellaneous Notes * Cerner Conversion Note - Tiana Huber MD - 11/18/2019 2:13 PM LENS EDGER Patient Education Materials Follows: CALL FIRST! Unless you are experiencing life-threatening issues, call your surgeon's office or nurse navigator first, before going to the Emergency Department. Call your surgeon or nurse navigator if: ?? Your incision has increased swelling that does not get better with time, rest, and propping up your leg ?? Your incision has a foul smell or begins to open ?? You have a large amount of bleeding from incision ?? Your incision gets red, warm or increased drainage after 2 days ?? You have a fever over 101 degrees for more than 24 hours ?? You have increased swelling, redness, warmth or pain in your calf ?? You fall, but don't have an obvious injury ?? You have questions or cause for concern regarding your total joint replacement Call 911 if: ?? You have sudden chest pain or shortness of breath ?? You fall and cannot get up ?? Life-threatening signs or symptoms ?? Stroke signs and symptoms: Facial droop, uneven smile, arm numbness, arm weakness, slurred speech, difficulty speaking or understanding If you are a patient of Dr. Larsen or Dr. Carrasco, call [phone] If you are a patient of Dr. Dickens, call [phone] Nurse Navigator: Cheli Santos Office: [phone]; ; available during regular business hours Orthopedics Total Knee Replacement, Care After These instructions give you information about caring for yourself after your procedure. Your doctor may also give you more specific instructions. Call your doctor if you have any problems or questions after your procedure. Follow these instructions at home: Medicines ??? Take igwa-udn-icyvahn and prescription medicines only as told by your doctor. ??? If you were prescribed an antibiotic medicine, take it as told by your doctor. Do not stop taking the antibiotic even if you start to feel better. ??? If you were prescribed a blood thinner (anticoagulant), take it as told by your doctor. Bathing ??? Do not take baths, swim, or use a hot tub until your doctor says it is okay. Ask your doctor if you can take showers. You may only be allowed to take sponge baths for bathing. ??? If you have a splint or brace that is not waterproof, cover it with a watertight covering when you take a bath or a shower. ??? Keep your bandage (dressing) dry until your doctor says it can be taken off. Incision care and drain care ??? Check your cut from surgery (incision) and your drain every day for signs of infection. Check for: ? More redness, swelling, or pain. ? More fluid or blood. ? Warmth. ? Pus or a bad smell. ??? Follow instructions from your doctor about how to take care of your cut from surgery. Make sure you: ? Wash your hands with soap and water before you change your bandage. If you cannot use soap and water, use hand marine photographer. ? Change your bandage as told by your doctor. ? Leave stitches (sutures), skin glue, or skin tape (adhesive) strips in place. They may need to stay in place for 2 weeks or longer. If tape strips get loose and curl up, you may trim the loose edges. Do not remove tape strips completely unless your doctor says it is okay. ??? If you have a drain, follow instructions from your doctor about caring for it. Do not remove the drain tube or any bandages unless your doctor says it is okay. Managing pain, stiffness, and swelling ??? If directed, put ice on your knee. ? Put ice in a plastic bag or use the icing device (cold flow pad or cryocuff) that you were given. Follow your doctor's directions about how to use the icing device. ? Place a towel between your skin and the bag, or between your skin and the device. ? Leave the ice on for 20 minutes, 2?3 times per day. ??? If directed, apply heat to the affected area as often as told by your doctor. Use the heat source that your doctor recommends, such as a moist heat pack or a heating pad. ? Place a towel between your skin and the heat source. ? Leave the heat on for 20?30 minutes. ? Remove the heat if your skin turns bright red. This is especially important if you are unable to feel pain, heat, or cold. You may have a greater risk of getting burned. ??? Move your toes often to avoid stiffness and to lessen swelling. ??? Raise (elevate) your knee above the level of your heart while you are sitting or lying down. ??? Wear elastic knee support for as long as told by your doctor. Driving ??? Do not drive until your doctor says it is okay. Ask your doctor when it is safe to drive if you have a splint or brace on your knee. ??? Do not drive or use heavy machinery while taking prescription pain medicine. ??? Do not drive for 24 hours if you received a sedative. Activity ??? Do not play contact sports until your doctor says it is okay. ??? Avoid high-impact activities, including running, jumping rope, and jumping jacks. ??? Avoid sitting for a long time without moving. Get up and move around at least every few hours. ??? If physical therapy was prescribed, do exercises as told by your doctor. ??? Return to your normal activities as told by your doctor. Ask your doctor what activities are safe for you. Safety ??? Do not use your leg to support your body weight until your doctor says that you can. Use crutches or a walker as told by your doctor. General instructions ??? Do not have any dental work done for at least 3 months after your surgery. When you do have dental work done, tell your dentist about your joint replacement. ??? Do not use any tobacco products, such as cigarettes, chewing tobacco, or e-cigarettes. If you need help quitting, ask your doctor. ??? Wear special socks (compression stockings) as told by your doctor. ??? If you have been sent home with a knee joint motion machine (continuous passive motion machine), use it as told by your doctor. ??? Drink enough fluid to keep your pee (urine) clear or pale yellow. ??? If you have been told to lose weight, follow instructions from your doctor about how to do this safely. ??? Keep all follow-up visits as told by your doctor. This is important. Contact a doctor if: ??? You have more redness, swelling, or pain around your cut from surgery or your drain. ??? You have more fluid or blood coming from your cut from surgery or your drain. ??? Your cut from surgery or your drain area feels warm to the touch. ??? You have pus or a bad smell coming from your cut from surgery or your drain. ??? You have a fever. ??? Your cut breaks open after your doctor removes your stitches, skin glue, or skin tape strips. ??? Your new joint feels loose. ??? You have knee pain that does not go away. Get help right away if: ??? You have a rash. ??? You have pain in your calf or thigh. ??? You have swelling in your calf or thigh. ??? You have shortness of breath. ??? You have trouble breathing. ??? You have chest pain. ??? Your ability to move your knee is getting worse. This information is not intended to replace advice given to you by your health care provider. Make sure you discuss any questions you have with your health care provider. Document Released: 11/25/2012 Document Revised: 10/22/2017 Document Reviewed: 08/09/2016 Elsevier Interactive Patient Education ? 2019 [employer] documented in this encounter Plan of Treatment Not on file documented as of this encounter Visit Diagnoses Not on filedocumented in this encounter
--- OUTSIDE RECORDS SUMMARY | 2025-03-17 09:05 | XMS_ITS | Referral Summary ---
Author Organization [employer] ([place], [place], [place], [place]) Address [address] [place] [address] Care Team Providers Care Rn Mds Name Role Phone Unavailable Primary Care Provider Unavailabl e Social History Tobacco Use Types Packs/Day Years Used Date Smoking Tobacco: Never Assessed Comments Unknown Sex and Gender Information Value Date Recorded Sex Assigned at Female 03/14/2022 6:15 PM CDT Legal Sex Female 6:15 PM CDT Gender Identity Female 03/14/2022 6:15 PM CDT Sexual Orientation Not on file Plan of Treatment Not on file
--- OUTSIDE RECORDS SUMMARY | 2025-03-17 09:05 | XMS_ITS ---
Author Organization Unknown TREATMENT PLAN Planned Care Start Date Provider Encounter for Check-up [id number] [facility]
--- OUTSIDE RECORDS SUMMARY | 2025-03-17 09:05 | XMS_ITS | Encounter Summary ---
Author Organization [employer] ([place], [place], [place], [place]) Address [address] [place] [address] Care Team Providers Care Administrative Resident Name Role Phone Unavailable Primary Care Provider Unavailabl e Encounter Details Date Type Department Care Team (Late st Contact Info) Description 11/17/2019 Transcribed Document [facility] [place] [facility] [place] [facility] [address] [place] [address] ProviderTiana MD [address] [place] [address] Social History Tobacco Use Types [...] Conversion Note - Tiana ProviderMD - 11/17/2019 4:20 PM TRUCK REPAIR SERVICE ESTIMATOR Evaluation, Physical Therapy Entered On: 11/17/2019 18:03 EST Performed On: 11/17/2019 17:51 EST by FRANCISCA HUYNH, PT General Information, PT Visit Type, PT : Initial evaluation Patient Orders : Order Date Order Ordering 11/17/2019 16:21 PT Evaluation and Treatment Ordered By: NATE HAMILTON MD-ORT 11/17/2019 16:21 PT Treatment Instructions Ordered By: NATE HAMILTON MD-ORT 11/17/2019 16:21 PT Treatment Instructions Ordered By: NATE HAMILTON MD-ORT 11/17/2019 16:21 PT Treatment Instructions Ordered By: NATE HAMILTON MD-ORT 11/17/2019 16:21 PT Treatment Instructions Ordered By: NATE HAMILTON MD-ORT 11/17/2019 16:21 PT Treatment Instructions Ordered By: NATE HAMILTON MD-ORT Active Diagnoses : No Qualifying Diagnoses Therapy Diagnosis, PT : Aftercare following L TKA Onset of Problem, PT : 11/17/2019 EST Admission Date : 11/17/2019 07:16 Personal Devices : Personal Devices No Devices Recorded Assistive Devices : Assistive Devices No Devices Recorded FRANCISCA HUYNH PT - 11/17/2019 17:51 EST General Status Patient Received Status : Supine in bed Treatment Start Time : 11/17/2019 17:25 EST Patient Left Status : Up in chair, RN/PCT informed, Family/Visitors at bedside, Communication board completed, All needs met and within reach, Other: SCD's, ICE, Bone Foam RN/PCT Informed Comment : RN boo and pt consen Treatment End Time : 11/17/2019 17:47 EST Treatment Time : 22 Minute(s) FRANCISCA HUYNH, PT - 11/17/2019 17:51 EST History and Environment Living Situation, Therapy : Home Patient Lives With : Spouse Persons Assisting Patient at Home : Spouse Professional Skilled Services : None Persons Providing Information : Patient Home Equipment Therapy, PT : Commode, Shower Equipment, Walker Commode : Commode, bedside Shower Equipment : Shower Chair, with back Walker : Walker, front wheel Home Setup : One story Stairs : Yes Stair Location(s) : Outside Outside Stairs, Number of Steps : 2 Outside Stairs Comment : platform stairs FRANCISCA HUYNH, PT - 11/17/2019 17:51 EST Prior Level of Function PT GRID Prior LOF Ambulation, Household : Independent Prior LOF Ambulation, Community : Independent Prior LOF Bed Mobility : Independent Prior LOF Toileting : Independent Prior LOF Transfer : Independent FRANCISCA HUYNH PT - 11/17/2019 17:51 EST Upper Extremity Right UE Active ROM : WFL Right UE Strength : WFL Left UE Active ROM : WFL Left UE Strength : WFL FRANCISCA HUYNH, PT - 11/17/2019 17:51 EST Lower Extremity RLE Active ROM : WFL Right LE Strength : WFL LLE Active ROM : Impaired Left LE Strength : Impaired FRANCISCA HUYNH PT - 11/17/2019 17:51 EST Left Lower Extremity Range of Motion Knee Flexion (0-140) Knee Extension (0-0) Active : 0 Active Assist : 95 FRANCISCA HUYNH, PT - 11/17/2019 17:51 EST FRANCISCA HUYNH, PT - 11/17/2019 17:51 EST Functional Mobility Mobility Grid Supine to Sit : Rehab Minimal assistance Sit to Stand : Rehab Minimal assistance Bed to Chair : Rehab Minimal assistance Stand to Sit : Rehab Minimal assistance FRANCISCA HUYNH, PT - 11/17/2019 17:51 EST Sit to Stand Device : Belt, gait, Walker, front wheel Bed to Chair Device : Belt, gait, Walker, front wheel FRANCISCA HUYNH, PT - 11/17/2019 17:51 EST Gait Training/Assessment, PT Weight Bearing Status : As tolerated Gait Assistance Level : Assist, minimal Walking Distance : 8ft with RWx, mod verbal cues for safe sequencing and attention to task, pt very lethargic but demonstrates good stability despite foot drop and numbness LLE. Ambulatory Devices : Gait belt, Walker, front wheel Gait Deviations : Yes FRANCISCA HUYNH, PT - 11/17/2019 17:51 EST Neuromuscular Reeducation, PT Balance Comment : SBA static sittinc, CGA-Patsy static standing with RWx FRANCISCA HUYNH, PT - 11/17/2019 17:51 EST Neurological/Sensory Overall Sensory Response : Impaired Overall Sensory Response Comment : foot drop and numbness LLE FRANCISCA HUYNH, PT - 11/17/2019 17:51 EST Activity Tolerance, PT Activity Comment : Fair, limited by lethargy FRANCISCA HUYNH, PT - 11/17/2019 17:51 EST Cognition Assessment, PT Orientation : Oriented x 4 Attention Assessment : Present FRANCISCA HUYNH PT - 11/17/2019 17:51 EST Edu Topics Physical Therapy Education Grid Bed Mobility Training : Returns demonstration Gait Training : Returns demonstration, Needs reinforcement Role of Physical Therapy : Verbalizes understanding Safety : Verbalizes understanding Transfer Training : Returns demonstration Use of Assistive Device : Returns demonstration, Needs reinforcement FRANCISCA HUYNH, PT - 11/17/2019 17:51 EST Indication Assesessment, PT Physical Therapy Indicated : Yes PT Problem List : Impaired, endurance tolerance, Impaired, gait, Impaired, joint mobility, Impaired, standing balance, Impaired, strength, Impaired, transfers Potential Barriers To Therapy : None evident Rehabilitation Potential : Good FRANCISCA HUYNH, PT - 11/17/2019 17:51 EST Plan of Care, PT PT Tx Plan/Goals Established w Patient : Yes PT Frequency Rehab : Daily, twice (bid) PT Duration Rehab : Fourteen days PT Treatments Planned : Gait training, Safety education, Stair training, Therapeutic exercises, Transfer training FRANCISCA HUYNH, PT - 11/17/2019 17:51 EST Patrol Police Sergeant Goals Mobility/Bed Mobility LTG PT Grid Goal #1 Activity : Sit to stand Assist : Supervision or set-up Equipment : Walker, front wheel Date to Meet : 12/01/2019 EDT Goal Status : Intial Goal FRANCISCA HUYNH, PT - 11/17/2019 17:51 EST Ambulation LTG Grid Goal #1 Device : Walker, front wheel Distance : 150ft Assist : Supervision or set-up Date to Meet : 12/01/2019 EDT Goal Status : Intial Goal FRANCISCA HUYNH, PT - 11/17/2019 17:51 EST Stairs LTG Grid Goal #1 Device : Walker, front wheel Number of Steps : 1 Handrail(s) : No handrails Assist : Assist, minimal Date to Meet : 12/01/2019 EDT Goal Status : Intial Goal FRANCISCA HUYNH, PT - 11/17/2019 17:51 EST Treatment Note Subjective Comment : Pt agreeable to PT eval, denies pain in knee, states knee is numb. Patient's Response to Treatment : Fair, limited by lethargy throughout, requires increased cues and assitance for gait due to lethargy. Following gait activities, pt was educated on use of Bone Foam 60 minutes TID to improve extension and was placed on Bone Foam at end of session. No knee buckling during initial mobility due to good use of BUE's on RWx. Does exhibit foot drop on affected extremity. Educated to use call campos for assistance and not to perform mobility without hospital staff present. Additional Objective Information : L knee ROM 0-95 degrees SBA sup-sit Patsy sit-stand with RWx Patsy gait x 8ft with RWx Assessment : Pt tolerates initial mobility well with no acute complaints. Pt educated about use of Bone Foam for improved extension ROM and tolerates initial ROM and gait tasks well. Pt will continue to benefit from physical therapy in the acute care setting to maximize strength and ROM in the surgical extremity, and for functional training and safety education to minimize functional deficits at discharge and promote return to functional independence. Plan for Treatment : Continue BID FRANCISCA HUYNH PT - 11/17/2019 17:51 EST Pain Assessment Pain Scaled Used : 0-10 Pain scale Pain Score Pre-Intervention : 0 Pain Score Post-Intervention. : 0 FRANCISCA HUYNH, PT - 11/17/2019 17:51 EST Image 1 - Images currently included in the form version of this document have not been included in the text rendition version of the form. Anticipated Discharge Needs, OT/PT Anticipated Discharge to : Outpatient rehabilitation Anticipated Home Equipment : None Recommend Continued Therapy at Discharge : Yes FRANCISCA HUYNH, PT - 11/17/2019 17:[address] [facility] Gait Training Each 15 Min : 1 PT Eval Low Complexity : 1 FRANCISCA HUYNH PT - 11/17/2019 17:51 EST documented in this encounter Plan of Treatment Not on file documented as of this encounter Visit Diagnoses Not on filedocumented in this encounter
--- OUTSIDE RECORDS SUMMARY | 2025-03-17 09:05 | XMS_ITS | Encounter Summary ---
Author Organization [employer] ([place], [place], [place], [place]) Address [address] [place] [address] Care Team Providers Care Dry Press Operator Helper Name Role Phone Unavailable Primary Care Provider Unavailabl e Encounter Details Date Type Department Care Team (Late st Contact Info) Description 10/29/2019 Transcribed Document [facility] [place] [facility] [place] [address] ProviderTiana MD [address] [place] [address] Social History Tobacco Use Types [...] Cerner Conversion Note - Historical ProviderMD - 10/29/2019 2:24 PM HEEL FINISHER PAT Adult Entered On: 10/29/2019 14:33 EST Performed On: 10/29/2019 14:24 EST by KANDIS SIN RN Vital Measurements Temperature Source : Temporal artery scanning Temperature Mode : Fahrenheit Temperature, Fahrenheit : 98.6 Deg F Clinical Temperature, C : 37 Deg C Pulse Method : Pulse Oximetry Peripheral Pulse Rate : 74 bpm Respiratory Rate : 18 Breaths/Min Blood Pressure Location : Arm, right upper Blood Pressure Source : Non-Invasive BP Device Blood Pressure Position : Sitting Systolic Blood Pressure : 108 mmHg Diastolic Blood Pressure : 61 mmHg Oxygen Saturation : 97 % Oxygen Therapy Mode : Room air KANDIS SIN RN - 10/29/2019 17:01 EST Pain Assessment Pain Assessment : Initial assessment Pain Scale Goal : 5 KANDIS SIN RN - 10/29/2019 14:24 EST Height and Weight, Clinical Dosing Height Source : Measured Height Entry Format : [place] Height, Feet : 5 ft(Converted to: 152 cm, 60 Inch) Height, Inches : 0 Inch(Converted to: 0 ft 0 Inch, 0.00 cm) Clinical Height : 152.4 cm Weight Source : Standing scale Weight Entry Format : [place] Clinical Dosing Weight : 90.37 kg Weight, Pounds : 198 lb Weight, Ounces : 13 oz Body Surface Area (BSA) : 1.86 m2 Body Mass Index : 38.9 kg/m2 ([place]) [place] Body Weight : 45 kg KANDIS SIN RN - 10/29/2019 14:24 EST Health Histories Smoking Status : Never (less than 100 in lifetime; none in last 30 days) Smokeless Tobacco Status : Never KANDIS SIN RN - 10/29/2019 14:24 EST Social History (As Of: 10/29/2019 14:33:54 EST) Tobacco: Smoking Status Never smoker. Comments: 01/31/2017 13:35 - HAYDEN APPIAH RN: NONE (Last Updated: 01/31/2017 13:35:10 EDT by HAYDEN APPIAH RN) Alcohol: Use in Last 12 Months: No. (Last Updated: 07/25/2013 09:32:31 EST by ABELINO GUSTAFSON RN) Substance Abuse: Drug Use Hx: No. Use in Last 12 Months: No. (Last Updated: 07/25/2013 09:32:23 EST by ABELINO GUSTAFSON RN) Home/Environment: Lives with Spouse. Living situation: Home/Independent. Home equipment: CPAP/BiPAP, Respiratory treatments, Walker/Cane. (Last Updated: 10/29/2019 14:28:06 EST by KANDIS SIN RN) Employment/School: Retired (Last Updated: 10/29/2019 14:28:12 EST by KANDIS SIN RN) Infectious Disease History Physical contact outside [place] in the last 30 days : No Infectious Disease History : Chicken pox/Shingles, Mumps Active Surveillance Screen Assessment : Patient does not meet any of above criteria Active Surveillance Screen Negative : Yes Tuberculosis Symptoms : None KANDIS SIN RN - 10/29/2019 14:24 EST Anesthesia/Transfusion History Family History of Anesthesia Reaction : No prior transfusion(s) Blood Transfusion Acceptable to Patient : Yes Transfusion History : Prior anesthesia reaction Type of Anesthesia Reaction : Excessive nausea/vomiting Family History of Anesthesia Reaction : None KANDIS SIN RN - 10/29/2019 14:24 EST Functional Assessment Functional ADL Evaluation Index EBN Bathing : Independent (2) Dressing : Independent (2) Toileting : Independent (2) Transferring Bed or Chair : Independent (2) Continence : Independent (2) Feeding : Independent (2) KANDIS SIN RN - 10/29/2019 14:24 EST ADL Index Score : 12 KANDIS SIN RN - 10/29/2019 14:24 EST Advance Directive Copy Advance Directive Verified/on Chart : No Birgit Stark RN - 11/17/2019 11:16 EST Patient has Advance Directive *Q : Yes, Advance Directive on file Advance Directive Type : Living will KANDIS SIN RN - 10/29/2019 14:24 EST Spiritual/Cultural Needs Any Spiritual/Cultural Needs or Requests : Yes Spiritual/Cultural Needs Comment : surgery on November 16 time in to be determined Spiritual/Cult Concerns/Desires/Needs : Prayer Spiritual/Cultural Needs Comment : surgery on November 16 time in to be determined KANDIS SIN RN - 10/29/2019 14:24 EST [place] Suicide Severity Rating Scale (C-SSRS) CSSRS Past Month Wish to be : No CSSRS Past Month Suicidal Thoughts : No CSSRS Lifetime Suicide Behavior : No Suicide Severity Rating Score : 0 Suicide Severity Rating : No Additional Care Required at this time KANDIS SIN RN - 10/29/2019 14:24 EST Psychosocial History Chronic/Terminal Illness w/Freq Visits : No Do You Have a History of the Following? : Anxiety, Depression Currently in Unsafe Situation : No KANDIS SIN RN - 10/29/2019 14:24 EST Education Topics, Periop Preadmission Perioperative Education Grid Arrival Time/Place : Verbalizes understanding CHG Preoperative Bathing/Cloths : Verbalizes understanding Falls : Verbalizes understanding Infection Control : Verbalizes understanding IV's : Verbalizes understanding NPO Status/Directions : Verbalizes understanding Pain Management : Verbalizes understanding Preprocedure Preparations : Verbalizes understanding Preprocedure Tests/Labs : Verbalizes understanding Remove Body Piercings : Verbalizes understanding Take/Hold Medications Pre-Procedure : Verbalizes understanding KANDIS SIN RN - 10/29/2019 14:24 EST General Info Arrived From : Home Mode of Arrival on Unit : Ambulatory Legal Guardian : Spouse Support Person/Patient Rolled Glass Crosscutter : Yes Support Person/Pt Rep Name : Spouse Az eldridge - dtr Support Person/Pt Rep Contact Information : [phone] Want Family/Rep/Phys Notified of Admit : No Emergency Contact #1 : Az Pino Emergency Contact #1 Emergency Contact #1 Relationship : spouse Emergency Contact #2 : rhoda eldridge Emergency Contact #2 Emergency Contact #2 Relationship : dtr Information Obtained From : Patient Primary Language : Kyrgyz Preferred Communication Mode : Verbal Communication Barrier : None Objects to Sharing Info w Family : No Clinical Trials Participant *Q : None CTP, None *Q : Yes KANDIS SIN RN - 10/29/2019 14:24 EST Jairon Scale Jairon Sensory Perception : No impairment Jairon Moisture : Rarely moist Jairon Activity : Walks occasionally Jairon Mobility : Slightly limited Jairon Nutrition : Adequate Jairon Friction and Shear : No apparent problem Jairon Score : 20 KANDIS SIN RN - 10/29/2019 14:24 EST Sleep Apnea Risk Assmt BiPAP/CPAP Ordered for Home Use : Yes Hx of Obstructive Sleep Apnea Diagnosis : Yes BiPAP/CPAP Used at Home : Yes Age over 50 Years Old : Yes Gender Male : No KANDIS SIN RN - 10/29/2019 14:24 EST Electronically signed by Cali Ray Conversion Material Handling Warehouse Supervisor Cerner at 12/31/2022 5:50 PM CDT documented in this encounter Plan of Treatment Not on file documented as of this encounter Visit Diagnoses Not on filedocumented in this encounter
--- OUTSIDE RECORDS SUMMARY | 2025-03-17 09:05 | XMS_ITS | Encounter Summary ---
Author Organization [employer] ([place], [place], [place], [place]) Address [address] [place] [address] Care Team Providers Care Christian Counselor Name Role Phone Unavailable Primary Care Provider Unavailabl e Encounter Details Date Type Department Care Team (Late st Contact Info) Description 11/17/2019 Transcribed Document [facility] [place] Family Medicine [address] [place] [address] ProviderTiana MD [address] [place] [address] Social History Tobacco Use Types [...] Conversion Note - Tiana ProviderMD - 11/17/2019 1:55 PM CLINIC OFFICE ASSISTANT [facility] Main OR Preop Summary Primary Physician: NATE HAMILTON MD-ORT Finalized Date/Time: 11/17/19 15:17:49 Pt. Name: NIDIA SANDERS MATTHEW /Sex: 1955 Female Med Rec #: [id number] Physician: NATE HAMILTON MD-ORT Financial #: [id number] Pt. Type: O Room/Bed: / Admit/Disch: 11/17/19 07:16:00 - Institution: [facility] PreOp Case Times Entry 1 In Preop 11/17/19 09:49:00 Ready for Holding n/a Room Patient Ready for 11/17/19 12:14:00 Surgery Patient Out of Preop 11/17/19 13:20:00 Patient Out of n/a Holding Room Last Modified By: Iza Ruvalcaba RN 11/17/19 15:17:47 [facility] PreOp Case Times Audit 11/17/19 15:17:47 Senior Oracle Adf Developer: [email or web address] Modifier: [email or web address] <+> 1 Patient Out of Preop Finalized By: Iza Ruvalcaba, RN Document Signatures Signed By: Iza Ruvalcaba RN 11/17/19 15:17 Electronically signed by Flor [facility] Conversion Broomcorn Grader Cerner at 12/31/2022 5:35 PM CDT documented in this encounter Plan of Treatment Not on file documented as of this encounter Visit Diagnoses Not on filedocumented in this encounter
--- OUTSIDE RECORDS SUMMARY | 2025-03-17 09:05 | XMS_ITS | Encounter Summary ---
Author Organization [employer] ([place], [place], [place], [place]) Address [address] [place] [address] Care Team Providers Care Mail Order Clerk Name Role Phone Unavailable Primary Care Provider Unavailabl e Encounter Details Date Type Department Care Team (Late st Contact Info) Description 11/14/2019 Transcribed Document [facility] [place] Family Medicine [address] [place] [address] ProviderTiana MD [address] [place] [address] Social History Tobacco Use Types [...] Cerner Conversion Note - Historical ProviderMD - 11/14/2019 12:56 PM TOBACCO GROWER UM Authorization Entered On: 11/14/2019 12:58 EST Performed On: 11/14/2019 12:[address] [place] Money Laundering Investigator Primary Insurance Authorization Authorization and Policy Numbers : Insurance 1 Health [facility] Policy Number: [id number] Authorization Number: Insurance Primary Name : Lucho [id number] Authorized Service Begin Date-Primary : 11/17/2019 EST Authorization Comments-Primary : Pt is scheduled for OUT PT total knee on 11/17/2019 [place]: NPR for op Historical Authorization Comments-Primary : No Authorization Comments Found COURT CHACON, Money Laundering Investigator - 11/14/2019 12:56 EST Electronically signed by Flor [facility] Conversion Paper Plate Machine Tender Cerner at 12/31/2022 5:33 PM CDT documented in this encounter Plan of Treatment Not on file documented as of this encounter Visit Diagnoses Not on filedocumented in this encounter
--- OUTSIDE RECORDS SUMMARY | 2025-03-17 09:05 | XMS_ITS | Clinical Summary ---
Author Organization [employer] ([place], [place], [place], [place]) Address [address] [place] [address] Care Team Providers Care Residential Assistant Name Role Phone Unavailable Primary Care Provider [...]
--- OUTSIDE RECORDS SUMMARY | 2025-03-17 09:05 | XMS_ITS | Encounter Summary ---
Author Organization [employer] ([place], [place], [place], [place]) Address [address] [place] [address] Care Team Providers Care Machine Scallop Cutter Name Role Phone Unavailable Primary Care Provider Unavailabl e Encounter Details Date Type Department Care Team (Late st Contact Info) Description 11/17/2019 Transcribed Document [facility] [place] Medicine [facility] [place] [place] [address] ProviderTiana MD [address] [place] [address] Social History Tobacco Use Types [...] Conversion Note - Tiana ProviderMD - 11/17/2019 12:03 PM BALE BREAKER OPERATOR Procedural Documentation Entered On: 11/17/2019 12:04 EST Performed On: 11/17/2019 12:03 EST by Birgit Stark RN Procedure Documentation Procedure to be Performed : left sciatic/addcutor block Time Out Pause Time : 11/17/2019 12:00 EST All Activity Suspended : Yes Team Verbally Confirms Information : Correct patient identity, Correct side and site are marked, Consent form is present and accurate, Agreement on the procedure to be done, Correct patient position, Confirm the skin prep has dried, Performed in location of procedure after prepped/draped Procedure Performed : left adductor/sciatic block Proper Use of Sterile Apparel per Policy : Yes Procedure Case Attendee : BOB MOSQUERA MD-ANS Procedure Case Attendee Role : Anesthesiologist Procedure Case Attendee Role 2 : fish header Case Attendee 2 : JERILYN ARREOLA Procedure Case Attendee Role 3 : fish header Case Attendee 3 : Birgit Stark RN Reisner, Katie, RN - 11/17/2019 12:03 EST Postprocedure Documentation Current Time : 12:03 EST Birgit Stark RN - 11/17/2019 12:03 EST [facility] Level I Post Anesthesia Assessment [facility] I Activity Status : Moves 4 extremities voluntarily or on command [facility] l Respiratory Component : Able to deep breathe and cough freely [facility] Circulation Component : BP 20% of preanesthetic level [facility] Consciousness : Arouses on calling [facility] Oxygen Saturation : Needs oxygen to maintain > 92% [facility] l Score : 8 Birgit Stark RN - 11/17/2019 12:03 EST Vital Measurements Systolic Blood Pressure : 119 mmHg Diastolic Blood Pressure : 64 mmHg Birgit Stark RN - 11/17/2019 12:13 EST Pulse Method : Pulse Oximetry Peripheral Pulse Rate : 66 bpm Pulse Rhythm : Regular Respiratory Rate : 18 Breaths/Min Blood Pressure Location : Arm, right upper Blood Pressure Source : Non-Invasive BP Device Blood Pressure Position : Supine Vital Measurements Comment : [id number] Oxygen Saturation : 100 % Oxygen Therapy Mode : Nasal cannula Oxygen Flow Rate : 2 Liter/Min Birgit Stark RN - 11/17/2019 12:03 EST documented in this encounter Plan of Treatment Not on file documented as of this encounter Visit Diagnoses Not on filedocumented in this encounter
--- OUTSIDE RECORDS SUMMARY | 2025-03-17 09:05 | XMS_ITS | Encounter Summary ---
Author Organization [employer] ([place], [place], [place], [place]) Address [address] [place] [address] Care Team Providers Care Outside Physical Damage Appraiser Name Role Phone Unavailable Primary Care Provider Unavailabl e Encounter Details Date Type Department Care Team (Late st Contact Info) Description 11/17/2019 Transcribed Document [facility] [place] [address] [place] [address] ProviderTiana MD [address] [place] [address] Social History Tobacco Use Types [...] Conversion Note - Historical ProviderMD - 11/17/2019 10:00 PM AD COMPOSITOR Pain Assessment Entered On: 11/18/2019 4:24 EST Performed On: 11/17/2019 20:56 EST by GERTRUDE ORTEZ LPN Intervention Information: ketorolac Performed by GERTRUDE ORTEZ LPN on 11/17/2019 20:26:00 EST ketorolac,15mg IV Push,Forearm Left Pain Assessment Pain Assessment : Follow-up assessment Pain Scale Goal : 5 Pain Scale Used : 0-10 Scale Pain Improved by : Medication Pain Improved by Intervention : Yes GERTRUDE ORTEZ LPN - 11/18/2019 4:23 EST Pain Scale Intensity : 2 GERTRUDE ORTEZ LPN - 11/18/2019 4:23 EST Image 4 - Images currently included in the form version of this document have not been included in the text rendition version of the form. documented in this encounter Plan of Treatment Not on file documented as of this encounter Visit Diagnoses Not on filedocumented in this encounter
--- OUTSIDE RECORDS SUMMARY | 2025-03-17 09:05 | XMS_ITS | Encounter Summary ---
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 Pt's current L knee ROM is 0-96 degrees. Pt is ambulatory with SBA x 150ft with RWx and performs all bed mobility and sit-stand transfer with a rolling walker and independence/modified independence. Pt has successfully navigated a single platform step with RWx and CGA with proper sequencing and was issued an HEP for continued LLE ROM and strengthening. Pt thoroughly educated about emphasizing ROM tasks and use of Bone Foam during acute phase of TKA rehab. FRANCISCA HUYNH, PT - 11/18/2019 12:53 EST Electronically signed by Flor, [facility] Conversion Bucket Operator Cerner at 12/31/2022 5:40 PM CDT documented in this encounter Plan of Treatment Not on file documented as of this encounter Visit Diagnoses Not on filedocumented in this encounter
--- OUTSIDE RECORDS SUMMARY | 2025-03-17 09:05 | XMS_ITS | Encounter Summary ---
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 TORRIE Knee Survey 1. How severe is your knee stiffness after first wakening in the morning? : Severe 2. Twisting/pivoting on your knee : Severe 3. Straightening knee fully : Severe 4. Going up or down stairs : Extreme 5. Standing upright : Severe 6. Rising from sitting : Severe 7. Bending to floor/shrimp picker an object : Severe TORRIE DIAZ Raw Score (ref) : 22 Mary Santos RN-Navigator - 10/29/2019 9:13 EST PROMIS Global Health Scale In general, would you say your health is: : Good In general, would you say your quality of life is: : Very good In general, how would you rate your physical health? : Fair In general, how would you rate your mental health, including your mood and your ability to think? : Good In general, how would you rate your satisfaction with your social activities and relationships? : Very good In general, please rate how well you carry out your usual social activities and roles. (This includes activities at home, at work and in your community, and responsibilities as a parent, child, spouse, employee, friend, etc.) : Fair To what extent are you able to carry out your everyday physical activities such as walking, climbing stairs, carrying groceries, or moving a chair? : A little How often have you been bothered by emotional problems such as feeling anxious, depressed or irritable? : Sometimes How would you rate your fatigue on average? : Moderate How would you rate your pain on average? : 9 Global Physical Health Score (ref) : 9 Global Mental Health Score (ref) : 14 Mary Santos RN-Navigator - 10/29/2019 9:13 EST documented in this encounter Plan of Treatment Not on file documented as of this encounter Visit Diagnoses Not on filedocumented in this encounter
--- OUTSIDE RECORDS SUMMARY | 2025-03-17 09:05 | XMS_ITS | Encounter Summary ---
Author Organization [employer] ([place], [place], [place], [place]) Address [address] [place] [address] Care Team Providers Care Charter Representative Name Role Phone Unavailable Primary Care Provider Unavailabl e Encounter Details Date Type Department Care Team (Late st Contact Info) Description 11/17/2019 Transcribed Document [facility] [place], [place] Family Medicine [address] [place] [address] ProviderTiana MD [address] [place] [address] Social History Tobacco Use Types [...] - Tiana ProviderMD - 11/17/2019 1:55 PM AURIST [facility] Main OR IntraOp Summary Primary Physician: NATE HAMILTON MD-ORT Finalized Date/Time: 11/19/19 10:27:17 Pt. Name: HILL PINO MATTHEW /Sex: 1955 Female Med Rec #: [id number] Physician: NATE HAMILTON MD-ORT Financial #: [id number] Pt. Type: O Room/Bed: 638/1 Admit/Disch: 11/17/19 07:16:00 - 11/18/19 15:10:00 Institution: [facility] IntraOp Case Attendance Entry 1 Entry 2 Entry 3 Case Attendee NATE HAMILTON GHANSAH, NANA DADZIE, HURST, JOSHUA, CRNA MD-ORT -ANS Role Performed Surgeon/Proceduralist, Anesthesiologist of CIGAR HEAD PERFORATOR/Nurse Cable Splicer Helper First Record Time In 11/17/19 13:22:00 11/17/19 13:22:00 11/17/19 13:22:00 Time Out 11/17/19 15:22:00 11/17/19 15:22:00 11/17/19 13:45:00 Procedure Knee Total Joint Knee Total Joint Knee Total Joint Replacement(Left) Replacement(Left) Replacement(Left) Other Attendee LUNCH RELIEF Superficial Wound Closed By: Last Modified By: Rivka Lopez, RN Rivka Lopez, RN Rivka Lopez, RN 11/17/19 15:22:49 11/17/19 15:22:49 11/17/19 15:22:49 Entry 4 Entry 5 Entry 6 Case Attendee Rivka Lopez, Evita Garay Lasslo, Jamie, Surgical [employer] Pref Card Builder Tire Duster Role Performed Umbrella Tipper Machine, Health Administration Teacher, First Scrub, First Time In 11/17/19 13:22:00 11/17/19 13:22:00 11/17/19 13:22:00 Time Out 11/17/19 15:22:00 11/17/19 14:50:00 11/17/19 15:22:00 Procedure Knee Total Joint Knee Total Joint Knee Total Joint Replacement(Left) Replacement(Left) Replacement(Left) Other Attendee Superficial Wound Closed By: Last Modified By: Rivka Lopez, Rivka Mcmullen, RN Rivka Lopez, RN 11/17/19 15:22:49 11/17/19 15:22:49 11/17/19 15:22:49 Entry 7 Entry 8 Entry 9 Case Attendee OTHER, ATTENDEE OTHER, ATTENDEE #1 FLY ROBLES CRNA-ANS Role Performed Vendor Vendor CIGAR HEAD PERFORATOR/Nurse Cable Splicer Helper Time In 11/17/19 13:22:00 11/17/19 13:22:00 11/17/19 13:45:00 Time Out 11/17/19 15:22:00 11/17/19 15:22:00 11/17/19 15:22:00 Procedure Knee Total Joint Knee Total Joint Knee Total Joint Replacement(Left) Replacement(Left) Replacement(Left) Other Attendee DANIELA OSULLIVAN SHI ORTHO ORTHO Superficial Wound Closed By: Noah Modified By: Rivka Lopez, RN Rivka Lopez, RN Rivka Lopez, RN 11/17/19 15:22:49 11/17/19 15:22:49 11/17/19 15:22:49 Entry 10 Case Attendee LENA GONZALEZ PA-ORT Role Performed Physician trade sales assistant Time In 11/17/19 14:10:00 Time Out 11/17/19 15:22:00 Procedure Knee Total Joint Replacement(Left) Other Attendee Superficial Wound Closed By: Noah Modified By: Rivka Lopez, EMETERIO 11/17/19 15:22:49 [facility] IntraOp Case Attendance Audit 11/17/19 15:22:49 Grain Miller Helper: [id number] Modifier: [id number] 1 <+> Time Out 1 <*> Procedure Knee Total Joint Replacement(Left) 2 <+> Time Out 2 <*> Procedure Knee Total Joint Replacement(Left) 3 <*> Procedure Knee Total Joint Replacement(Left) 4 <+> Time Out 4 <*> Procedure Knee Total Joint Replacement(Left) 5 <*> Procedure Knee Total Joint Replacement(Left) 6 <+> Time Out 6 <*> Procedure Knee Total Joint Replacement(Left) 7 <+> Time Out 7 <*> Procedure Knee Total Joint Replacement(Left) 8 <+> Time Out 8 <*> Procedure Knee Total Joint Replacement(Left) 9 <+> Time Out 9 <*> Procedure Knee Total Joint Replacement(Left) 10 <+> Time Out 10 <*> Procedure Knee Total Joint Replacement(Left) 11/17/19 14:51:50 Grain Miller Helper: [id number] Modifier: [id number] 5 <+> Time Out 5 <*> Procedure Knee Total Joint Replacement(Left) 11/17/19 14:11:42 Grain Miller Helper: [id number] Modifier: [id number] 1 <*> Procedure Knee Total Joint Replacement(Left) 2 <+> Time In 2 <*> Procedure Knee Total Joint Replacement(Left) 3 <+> Time In 3 <*> Procedure Knee Total Joint Replacement(Left) 4 <+> Time In 4 <*> Procedure Knee Total Joint Replacement(Left) 5 <+> Time In 5 <*> Procedure Knee Total Joint Replacement(Left) 6 <+> Time In 6 <*> Procedure Knee Total Joint Replacement(Left) 7 <+> Time In 7 <*> Procedure Knee Total Joint Replacement(Left) 8 <+> Time In 8 <*> Procedure Knee Total Joint Replacement(Left) 9 <*> Procedure Knee Total Joint Replacement(Left) <+> 10 Case Attendee <+> 10 Role Performed <+> 10 Time In <+> 10 Procedure [facility] IntraOp Case Times Entry 1 Patient In Room Time 11/17/19 13:22:00 Out Room Time 11/17/19 15:22:00 Anesthesia Start Time 11/17/19 13:22:00 Stop Time 11/17/19 15:22:00 Surgery / Procedure Times Start Time 11/17/19 13:55:00 Stop Time 11/17/19 15:14:00 Last Modified By: Rivka Lopez RN 11/17/19 15:22:36 [facility] IntraOp Case Times Audit 11/17/19 15:22:36 Grain Miller Helper: [id number] Modifier: [id number] <+> 1 Out Room Time <+> 1 Stop Time <+> 1 Stop Time [facility] IntraOp Cautery Entry 1 ESU Identification Cautery Type Monopolar ESU ID Number [id number] ID Type Hospital Number Cautery Settings Cut Setting 50 Coag Setting 50 ESU Grounding Pad Ground Pad Type Adult Grounding Pad Site Right thigh Grounding Pad Rivka Lopez, RN Applied By Grounding Pad Site Warm, Dry, Intact Skin Condition Before Cautery Grounding Pad Site Unchanged Skin Condition After Cautery Last Modified By: Rivka Lopez RN 11/17/19 14:07:16 [facility] IntraOp Communication Entry 1 Entry 2 Communication To Family/Significant other Family/Significant other Comment START CLOSING Communication By Rivka Lopez, RN Rivka Lopez, RN Date and Time 11/17/19 13:57:00 11/17/19 14:54:00 Last Modified By: Rivka Lopez RN Bruner, Kristen D, RN 11/17/19 14:07:30 11/17/19 14:54:41 [facility] IntraOp Communication Audit 11/17/19 14:54:41 Grain Miller Helper: [id number] Modifier: [id number] <+> 2 Communication By <+> 2 Date and Time <+> 2 Communication To <+> 2 Comment [facility] IntraOp Counts Verification Entry 1 Procedure Knee Total Joint Replacement(Left) Count Info Count Type Sponge, Sharps, Miscellaneous Counts Verification Baseline/pre-procedure Sequence Count Results Not Applicable Counts Performed By Count Performed By Galindo Brooks, Surgical (Scrub) Tire Duster Count Performed By Rivka Lopez RN (RN) Last Modified By: Rivka Lopez RN 11/17/19 14:07:38 [facility] IntraOp Counts Final Entry 1 Procedure Knee Total Joint Replacement(Left) Final Count Info Count Type Sponge, Sharps, Miscellaneous Counts Verification Skin Closure/end of Sequence procedure Count Results Correct, surgeon notified Counts Performed By Count Performed By Galindo Brooks, Surgical (Scrub) Tire Duster Count Performed By Rivka Lopez RN (RN) Last Modified By: Rivka Lopez RN 11/17/19 15:13:58 [facility] IntraOp Counts Final Audit 11/17/19 15:13:58 Grain Miller Helper: [id number] Modifier: [id number] 1 <*> Procedure Knee Total Joint Replacement(Left) 1 <+> Count Performed By (Scrub) 1 <+> Count Performed By (RN) [facility] IntraOp Cultures and Spec Summary Entry 1 Cultrures and Specimens Specimen Ordered: Yes Test(s) Routine/Path-Lab Requested/Final Disposition Last Modified By: Rivka Lopez RN 11/17/19 14:07:46 [facility] IntraOp Departure from OR Entry 1 Integumentary Assessment Integumentary WDL with patient Assessment WDL specific variances Patient's Normal NEW SURGICAL INCISION: Integumentary LEFT KNEE Variance(s) Transfer/Handoff Transfer to PACU Phase I Handoff Method Phone call Post-op Transport Reynaldo/Bhavana Via Patient Transport FLY ROBLES, Accompanied by Jessica CASH Kristen D, RN Last Modified By: Rivka Lopez RN 11/17/19 14:08:07 [facility] IntraOp Dressing and Packing Entry 1 Type Dressing Location OPERATIVE KNEE Wound Dressing Item Occlusive dressing, Skin Closure Glue Applied By LENA GONZALEZ PA-ORT Other Comments [facility]QUAC AG Last Modified By: Rivka Lopez RN 11/17/19 14:11:48 [facility] IntraOp Dressing and Packing Audit 11/17/19 14:11:48 Grain Miller Helper: [id number] Modifier: [id number] 1 <*> Applied By Evita Rodas [employer] Pref Card Builder [facility] IntraOp Fire Risk Assessment Entry 1 Fire Info Surgical Site or 0- No Incision Above the Xyphoid Open O2 Source 0- No (Mask or Cannula) Available Ignition 1- Yes (ESU, Laser, Light Source) Fire Risk 1 Assessment Score Fire Score Fire Risk Yes Assessment Complete Fire Risk Rivka Lopez satellite installation technician Verified By Fire Risk 11/17/19 13:22:00 Assessment Verified Date/Time Fire Risk Standard Fire Yes Safety Precautions Followed Last Modified By: Rivka Lopez RN 11/17/19 14:08:18 [facility] IntraOp General Case [place] 1 Case Information OR OR 04 [facility] Case Level 1 Room Verified Yes Wound Class I - Clean Specialty SN Orthopedic Anesthesia Type General ASA Class 2 Diagnosis Preop Diagnosis PRIMARY UNILATERAL OSTEOARTHRITIS: LEFT KNEE Postop Same As Preop No Postop Diagnosis SEE MD POSTOP NOTE Last Modified By: Rivka Lopez RN 11/17/19 14:08:38 [facility] IntraOp Implant Log Entry 1 Entry 2 Entry 3 Type Implant (Synthetic) Implant (Synthetic) Implant (Synthetic) Implant Log Implant Type Bone Cement Hardware Hardware Tissue Implant Type Implant CEMENT BONE SMPLX INSRT TIB ??#[id number] FEM DISTAL Identification -[id number] [id number] Description Implant Quantity 2 1 1 Implant Site OPSITE: LEFT KNEE OPSITE: LEFT KNEE OPSITE: LEFT KNEE Implant Identification Model Number Implant Identification Serial Number Implant [id number] Identification Lot Number Implant Shi:[place] Identification Orthopaedics Card Filer Name: Implant [id number] Identification Catalog Number Implant Size 3 Implant Has an Yes Yes Yes Expiration Date Implant Expiration 03/16/21 05/27/24 06/11/24 Date Wasted Radioactive Material Time Implanted Tissue Implant Continue for Tissue Implant Documentation Tissue Identification Number Graft Prep Per Card Filer Instructions: Tissue Preparation Method: Reconstitution Solution: Reconstitution Solution Lot Number Reconstitution Solution Expiration Date: Thawing Solution Thawing Solution Lot Number Thawing Solution Expiration Date Preparation Materials, Other Preparation Materials, Other Lot Number Preparation Materials, Other Expiration Date Tissue Prepared/Processed By Card Filer Paperwork Completed Implant Type Comment Last Modified By: Rivka Lopez, Rivka Mcmullen, Rivka Mcmullen, EMETERIO 11/17/19 14:09:09 11/17/19 14:43:19 11/17/19 14:43:19 Entry 4 Entry 5 Entry 6 Type Implant (Synthetic) Implant (Synthetic) Implant (Synthetic) Implant Log Implant Type Hardware Hardware Hardware Tissue Implant Type Implant PATELLA TRI ASYMMETRIC BASEPLT TRIATHLON TS COMP FEM PS EMELYN NO.3 Identification [id number] Description Implant Quantity 1 1 1 Implant Site OPSITE: LEFT KNEE OPSITE: LEFT KNEE OPSITE: LEFT KNEE Implant Identification Model Number Implant Identification Serial Number Implant [id number] Identification Lot Number Implant Identification Card Filer Name: Implant Identification Catalog Number Implant Size [id number] 3 Implant Has an Yes Yes Yes Expiration Date Implant Expiration 07/23/24 07/20/24 12/29/23 Date Wasted Radioactive Material Time Implanted Tissue Implant Continue for Tissue Implant Documentation Tissue Identification Number Graft Prep Per Card Filer Instructions: Tissue Preparation Method: Reconstitution Solution: Reconstitution Solution Lot Number Reconstitution Solution Expiration Date: Thawing Solution Thawing Solution Lot Number Thawing Solution Expiration Date Preparation Materials, Other Preparation Materials, Other Lot Number Preparation Materials, Other Expiration Date Tissue Prepared/Processed By Card Filer Paperwork Completed Implant Type Comment Last Modified By: Rivka Lopez, Rivka Mcmullen, RN Rivka Lopez, RN 11/17/19 14:43:19 11/17/19 14:43:19 11/17/19 14:43:19 [facility] IntraOp Implant Log Audit 11/17/19 14:43:19 Grain Miller Helper: [id number] Modifier: [id number] <+> 2 Implant Identification Description <+> 2 Implant Identification Lot Number <+> 2 Implant Size <+> 2 Implant Expiration Date <+> 2 Implant Site <+> 2 Implant Quantity <+> 2 Implant Type <+> 2 Implant Has an Expiration Date <+> 2 Type <+> 3 Implant Identification Description <+> 3 Implant Identification Lot Number <+> 3 Implant Expiration Date <+> 3 Implant Site <+> 3 Implant Quantity <+> 3 Implant Type <+> 3 Implant Has an Expiration Date <+> 3 Type <+> 4 Implant Identification Description <+> 4 Implant Identification Lot Number <+> 4 Implant Size <+> 4 Implant Expiration Date <+> 4 Implant Site <+> 4 Implant Quantity <+> 4 Implant Type <+> 4 Implant Has an Expiration Date <+> 4 Type <+> 5 Implant Identification Description <+> 5 Implant Identification Lot Number <+> 5 Implant Size <+> 5 Implant Expiration Date <+> 5 Implant Site <+> 5 Implant Quantity <+> 5 Implant Type <+> 5 Implant Has an Expiration Date <+> 5 Type <+> 6 Implant Identification Description <+> 6 Implant Identification Lot Number <+> 6 Implant Size <+> 6 Implant Expiration Date <+> 6 Implant Site <+> 6 Implant Quantity <+> 6 Implant Type <+> 6 Implant Has an Expiration Date <+> 6 Type [facility] IntraOp Intraoperative Assessment Entry 1 Handoff Method Bedside/Face to face, Online nursing summary Valid History / Yes Physical in Chart Preoperative Yes Checklist Reviewed/Evaluated Allergies Reviewed Yes Patient is Latex No Sensitive Isolation Not applicable Precautions Noted Level of WDL Consciousness (WDL = Alert, Oriented to Person, Place, and Time) Skin Assessment Yes Verified Present Upon IVs Arrival to OR Last Modified By: Rivka Lopez RN 11/17/19 14:09:15 [facility] IntraOp Intraoperative Equipment Entry 1 Type Equipment Equipment Equipment Maggie Suction System ID Number [id number] Setting HIGH Intraop Monitoring Electrocardiogram Five lead placement (ECG) Electrode Placement Blood Pressure Non-Invasive BP Device Source Blood Pressure Arm, right upper Location Pulse Oximeter Hand, left Probe Site Antiembolic Devices Antiembolic Devices Sequential compression device, knee high, Antiembolic hose, thigh high Antiembolic Device Right Location Antiembolic Device [id number] ID Number Antiembolic Device 40 MMHG Setting Scopes Photo/Video Documentation Last Modified By: Rivka Lopez RN 11/17/19 14:09:43 [facility] IntraOp Medication Admin Entry 1 Entry 2 Entry 3 Medication/Irrigant Bacitracin 50,00units Bacitracin 50,00units hydrogen peroxide 16oz powder vial powder vial - [id number] Combo Med List 1 - Combo Med 2 - Combo Med Time Administered Route of ADDED TO IRRIGATION ADDED TO IRRIGATION IRRIGATION Administration Dose Dose [id number] Unit of Measure units units Volume Administered By NATE HAMILTON KARTHIKEYAN, THARUN, KARTHIKEYAN, THARUN, MD-ORT MD-ORT MD-ORT Procedure Irrigation Irrigant Volume In 240 mL Irrigant Volume Out 240 mL Last Modified By: Rivka Lopez, RN Rivka Lopez, RN Rivka Lopez, RN 11/17/19 14:10:11 11/17/19 14:10:11 11/17/19 14:10:11 Entry 4 Medication/Irrigant vancomycin 1Gm vial - [id number] Combo Med List Time Administered Route of TOPICAL Administration Dose Dose 1 Unit of Measure gram Volume Administered By NATE HAMILTON MD-ORT Procedure Irrigation Irrigant Volume In Irrigant Volume Out Last Modified By: Rivka Lopez RN 11/17/19 14:10:11 [facility] IntraOp Patient Positioning Entry 1 Procedure Knee Total Joint Replacement(Left) Body Position Supine Left Arm Position Secured on padded arm board Right Arm Position Secured on padded arm board Left Leg Position Uncrossed, parallel Right Leg Position Uncrossed, parallel Feet Uncrossed Yes Pressure Points Yes Checked Positioning Devices Arm Board, Head Rest, Pad, Arm, Pad, Elbow, Safety Strap, Arm(s), Safety Strap, Chest, Foot Rest Device Position LATERAL POST, POPITEAL SUPPORT FOR FOOTREST Positioned By NATE HAMILTON MD-ORT, ANDRE FORRESTER CRNA, Rivka Lopez, RN, Evita Rodas [employer] Pref Card Builder, FLY ROBLES, TYRA-ANS Position Verified Positioning Yes Verified by Anesthesia Positioning Yes Verified by Surgeon Last Modified By: Rivka Lopez, RN 11/17/19 14:10:25 [facility] IntraOp Sign In Entry 1 Patient, Site, Yes Procedure Identified Surgical Consent Yes Confirmed Relevant Surgical Yes Documents Available Surgical Site Yes Marked by person performing procedure Anesthesia Machine Yes Check Completed Medication Checks Yes Completed Allergies Yes Airway Difficult Yes Airway/Aspiration Risk Difficult Yes Airway/Aspiration Intervention Equipment Available Blood Loss Risk Yes Blood Loss Yes Intervention Equipment Prepared and Ready Blood Identifiers Not applicable Verified Per Policy Hypothermia Risk Yes Warming Measures Yes Taken Last Modified By: Rivka Lopez RN 11/17/19 14:10:29 [facility] IntraOp Sign Out Entry 1 RN Confirmation Surgical Yes Procedure(s) Identified Instrument, Sponge Yes and Sharps Counts Correct/Documented Equipment Problems N/A Documented Specimen Labeled Yes Correctly Urinary Catheter N/A Documented in IView Mar Patient Yes Recovery Concerns Reviewed with Anesthesia Provider, Surgeon and RN Mar Patient Yes Management Concerns Reviewed with Anesthesia Provider, Surgeon and RN Safety Checklist Yes Elements Complete? RN Sign Out Rivka Lopez, RN Signature RN Sign Out 11/17/19 15:22:00 Signature Date/Time Plan of Care Outcome - Fire Risk OUTCOME STATEMENT: Goal met Patient is free from injury related to surgical fire Plan of Care Outcome - Pt Positioning OUTCOME STATEMENT: Goal met Absence of signs and symptoms of positioning injury. Plan of Care Outcome - Skin Prep OUTCOME STATEMENT: Goal met Intraoperative care is consistent with measures to prevent infection Plan of Care Outcome - Xray/Images OUTCOME STATEMENT: N/A Absence of observable signs or symptoms of radiation injury Plan of Care Outcome - Counts OUTCOME STATEMENT: Goal met Absence of signs and symptoms of injury related to extraneous objects Last Modified By: Rivka Lopez RN 11/17/19 15:22:46 [facility] IntraOp Sign Out Audit 11/17/19 15:22:46 Grain Miller Helper: [id number] Modifier: [id number] <+> 1 RN Sign Out Signature Date/Time 11/17/19 14:10:39 Grain Miller Helper: [id number] Modifier: [id number] <+> 1 OUTCOME STATEMENT: Absence of signs and symptoms of injury related to extraneous objects <+> 1 OUTCOME STATEMENT: Absence of signs and symptoms of positioning injury. <+> 1 OUTCOME STATEMENT: Absence of observable signs or symptoms of radiation injury <+> 1 OUTCOME STATEMENT: Patient is free from injury related to surgical fire <+> 1 Mar Patient Management Concerns Reviewed with Anesthesia Provider, Surgeon and RN <+> 1 Safety Checklist Elements Complete? <+> 1 RN Sign Out Signature <+> 1 OUTCOME STATEMENT: Intraoperative care is consistent with measures to prevent infection [facility] IntraOp Skin Prep Entry 1 Procedure Knee Total Joint Replacement(Left) Prescribed Yes Pre-Surgical Prep Completed Prep Area OPERATIVE THIGH TO TOES CIRCUMFRENTIALLY Intraop Prep Integumentary WDL Assessment WDL Prep Agents Alcohol, Chloraprep, DuraPrep, Chlorhexadine gluconate Prep by Rivka Lopez RN Hair Removal Methods No hair removal performed Last Modified By: Rivka Lopez RN 11/17/19 14:10:43 [facility] IntraOp Surgical Procedures Entry 1 Procedure Knee Total Joint Replacement Modifiers Left Additional (LEFT TOTAL KNEE Procedure ARTHROPLASTY) Description Primary Procedure Yes Primary Surgeon NATE HAMILTON MD-ORT Start 11/17/19 13:55:00 Stop 11/17/19 15:14:00 Anesthesia Type General Specialty SN Orthopedic Wound Class I - Clean Last Modified By: Rivka Lopez RN 11/17/19 15:22:38 General Comments: CLINDAMYCIN 900 MG ADMINISTERED PRIOR TO SURGERY START PER ANESTHESIA PROVIDER TRANEXAMIC ACID 2 GRAMS AND ROPIVICAINE/EPI/CLONIDINE/NACL MIX PASSED TO STERILE FIELD PER Benedict LOPEZ RN, BSN [facility] IntraOp Surgical Procedures Audit 11/17/19 15:22:38 Grain Miller Helper: [id number] Modifier: [id number] 1 <*> Stop 11/17/19 15:14:00 1 <*> Stop 11/17/19 15:14:00 [facility] IntraOp Temp Regulation Devices Entry 1 Temp Regulation Temperature Forced Air Warming Regulation Device device, Warm blankets Temperature 33972 Regulation Device Serial/Unit Number Temperature Upper body Regulation Site Temperature Device 43 DEGREES CELCIUS Setting Temperature FLY ROBLES CRNA-ANS Regulation Device Applied by Last Modified By: Rivka Lopez RN 11/17/19 14:11:57 [facility] IntraOP Time Out Entry 1 Procedure to be Knee Total Joint Performed Replacement(Left) Time Out Time Out Pause Time 11/17/19 13:54:00 All activity Yes suspended (unless life threatening emergency) Team Verbally Correct patient Confirms Information identity, Correct side and site are marked, Consent form is present and accurate, Agreement on the procedure to be done, Correct patient position, Relevant images/results properly labeled/appropriately displayed, Confirm antibiotics have been administered, Confirm the skin prep has dried, Confirm prosthesis/implant/devic e is present, Performed in location of procedure after prepped/draped Antibiotic Yes Prophylaxis Administered Or In Progress Within the Last 60 Minutes Beta Nena N/A Administered Venous Yes Thromboembolism Prophylaxis Required Anticipated Critical Events Surgeon None expected Anesthesia Provider None expected Nursing Assures Sterility of instruments, Implant Availability Essential Imaging Yes Labeled and Displayed Last Modified By: Rivka Lopez RN 11/17/19 14:12:18 [facility] IntraOp Tourniquet Entry 1 Type Pneumatic Serial/Unit Number [id number] Setting 300 mmHg Pheumatic Yes Tourniquet Checked Per Protocol Size 34 inches Placement Thigh, left upper Skin Protection - Yes Padded Under Cuff Applied By NATE HAMILTON MD-ORT Removed By NATE HAMILTON MD-ORT Times Start Time 11/17/19 13:55:00 Stop Time 11/17/19 15:13:00 Total Time 78 calculated manually (Mins) Last Modified By: Rivka Lopez RN 11/17/19 15:14:12 [facility] IntraOp Tourniquet Audit 11/17/19 15:14:12 Grain Miller Helper: [id number] Modifier: [id number] <+> 1 Total Time calculated manually (Mins) <+> 1 Stop Time Case Comments <None> Finalized By: KENRICK FINCH Document Signatures Signed By: Rivka Lopez RN 11/17/19 15:22 KENRICK FINCH 11/18/19 09:15 FINCHKENRICK 11/18/19 10:56 FINCHKENRICK 11/19/19 10:27 Unfinalized History Date/Time Username Reason for Unfinalizing Freetext Reason for Unfinalizing 11/18/19 09:15 WATTSDR Correct Billing 11/18/19 10:55 WATTSDR Correct Billing 11/19/19 10:25 WATTSDR Correct Billing documented in this encounter Plan of Treatment Not on file documented as of this encounter Visit Diagnoses Not on filedocumented in this encounter
--- OUTSIDE RECORDS SUMMARY | 2025-03-17 09:06 | XMS_ITS | Data Portability ---
Author Organization JACI PRANAY [facility] [place] [facility] Address [address] [facility] [address] [place] [address] Care Team Providers Care Janitorial Services Supervisor Name Role Phone RICHARD RAYMOND Primary Care Provider [phone] Assessment Encounter Date Assessment Date Assessment LastModified by Organization Details LastModified Time 12/29/2019 12/29/2019 ASSESSMENT: 6 wks L TKA PLAN: Doing well. Continue outpatient PT, but okay to transition to home exercise program. Okay to submerge incision. Ice and elevate often. Follow-up in 8 weeks, with long leg x-ray. [email or web address] Not available 12/29/2019 10:41:14 03/09/2020 03/09/2020 Doing great. Most patients can expect to see steady improvement for up to 1 year following arthroplasty. Controversies surrounding dental prophylaxis reviewed. NSAIDs prn for residual pain/swelling. Routine f/u at 1 years, or prn. [email or web address] Not available 03/09/2020 12:27:25 Plan of Treatment Reminders Order Date Submit Date Provider Last Modified By Organization Details Last Modified Time Details Appointments None record ed. Lab None record ed. Referral None record ed. Procedures None record ed. Surgeries None record ed. Imaging XR, should er, 2 or more view 021 07/27/20 21 [email or web address] Not available 1 07:28:10 Medication Orders None record ed. Patient TargetsNo targets recorded. Patient InstructionsNo instructions recorded. Reason for Referral None Reported. Results Created Date Observation Date Name Description Value Unit Range Abnormal Flag Note LastModifiedBy Organization Detail LastModifiedTime 12/08/19 20 12/08/2019 XR, knee, 3 view [facility] [address] [place] [address] Luis Angel simmons Name: EVELYN simmons : [address]57 Luis Angel simmons Orderi ng Provid er: Arturo GEORGE EXAM DATE: 2019 EXAM: XR LT KNEE 3 VIEWS COMPAR FRANK: 2018 HISTOR Y: Knee pain. Surger y follow -up para findin gs: Status post left total knee replac ement. No compli cation s are presen t. No hardwa re loosen ing. The patell a aligns normal ly. Contra latera l knee: Uncomp licate d appear ing total knee replac ement IMPRES ISAIAH: 1. Uncomp licate d appear ing bilate ral total knee replac ements Interp reted By: Michael Magana MD Electr onical ly Signed By: Michael Magana MD on 4:[email or web address] [place] [address] Radiology [place] [address] , [place], [address], 12/16/2019 09:07:54 12/29/19 20 12/29/2019 XR, knee, 3 view [facility] [address] [place] [address] Luis Angel simmons Name: EVELYN simmons : 957 Luis Angel simmons Orderi ng Provid er: NATE BROWN EXAM DATE: 2019 EXAM: XR LT KNEE 3 VIEWS COMPAR FRANK: 020 HISTOR Y: Left knee pain. Surger y follow -up FINDIN GS: The patien t has a left total knee replac ement. The patell a aligns normal ly. No compli cation is presen t. No hardwa re loosen ing or fractu re is detect ed. Contra latera l knee: Grossl y uncomp licate d appear ing TKA IMPRES ISAIAH: 1. Stable uncomp licate d appear ing left total knee replac ement Interp reted By: Michael Magana MD Electr onical ly Signed By: Michael Magana MD on 10:27 AM [facility] [address], [place], [address], 12/29/2019 13:38:02 03/09/20 20 03/09/2020 XR, joint , multi ple, 1 view [facility] [address] [place] [address] Patibryce t Name: EVELYN simmons : Luis Angel simmons Orderi ng Provid er: NATE BROWN EXAM DATE: 2019 EXAM: XR LONG LEG LEFT/ JOINT SURVEY COMPAR FRANK: HISTOR Y: Follow -up of prior surger daysi OTTO GS: There is a left total knee arthro plasty in place. There is no eviden ce of loosen ing or compli cation . The mechan ical axis of the left knee is normal . No fractu re is identi fied. There are mild degene rative change s in the left hip and mild degene rative change s in the ankle. IMPRES ISAIAH: 1. There is a left knee arthro plasty in place withou t eviden ce of compli cation . Interp reted By: Dunia calix MD Electr onical ly Signed By: Dunia calix MD on 11:27 AM [facility] [place] [address], [place], [address], 03/09/2020 12:56:56 07/27/20 21 07/27/2021 XR, shoul dixie, 2 or more view [facility] [address] [place] [address] Luis Angel t Name: EVELYN simmons : 957 Luis Angel simmons Orderi ng Provid er: LEAH GUILLORY AM EXAM DATE: 2020 EXAM: XR LT SHOULD ER COMPLE TE RADIOG RAPHIC VIEWS: 3 COMPAR FRANK: None. HISTOR Y: Left should er pain. FINDIN GS: The bones of the should er are normal in alignm ent. There is no eviden ce of fractu re. There is mild degene rative change s at the acromi oclavi cular joint and along the glenoh umeral joint. The acromi oclavi cular and coraco clavic ular spacin g is normal . The visual ized left ribs and left lung appear s normal . IMPRES ISAIAH: 1. There are mild degene rative change s in the left should er. Interp reted By: Dunia calix MD Electr onical ly Signed By: Dunia calix MD on 2020 1:38 PM [facility] [place] [address] , [place], [address], 08/01/2021 07:32:23 Result Notes Documentation Provider Name and Address Organization Details Recorded Time Xr, Knee, 3 View : [facility] [address] [place] [address] Patient Name: HILL SANDERS Patient : 1955 Patient Ordering Provider: Arturo GONZALEZ EXAM DATE: 12/08/2019 EXAM: XR LT KNEE 3 VIEWS COMPARISON: 07/29/2019 HISTORY: Knee pain. Surgery follow-up para findings: Status post left total knee replacement. No complications are present. No hardware loosening. The patella aligns normally. Contralateral knee: Uncomplicated appearing total knee replacement IMPRESSION: 1. Uncomplicated appearing bilateral total knee replacements Interpreted By: Michael Magana MD Arturo GONZALEZ PA-C [address] [place], [address], [facility] 12/16/2019 09:07:54 Xr, Knee, 3 View : [facility] [place] [address] [place] [address] Patient Name: HILL SANDERS Patient : 1955 Patient Ordering Provider: NATE HAMILTON EXAM DATE: 12/29/2019 EXAM: XR LT KNEE 3 VIEWS COMPARISON: 12/08/2019 HISTORY: Left knee pain. Surgery follow-up FINDINGS: The patient has a left total knee replacement. The patella aligns normally. No complication is present. No hardware loosening or fracture is detected. Contralateral knee: Grossly uncomplicated appearing TKA IMPRESSION: 1. Stable uncomplicated appearing left total knee replacement Interpreted By: Michael Magana MD HAMILTON MD [address] [place], [address], [facility] 12/29/2019 13:38:02 Xr, Joint, Multiple, 1 View : [facility] [address] [place] [address] Patient Name: HILL SANDERS Patient : 1955 Patient Ordering Provider: NATE HAMILTON EXAM DATE: 03/09/2020 EXAM: XR LONG LEG LEFT/ JOINT SURVEY COMPARISON: 12/29/2019 HISTORY: Follow-up of prior surgery. FINDINGS: There is a left total knee arthroplasty in place. There is no evidence of loosening or complication. The mechanical axis of the left knee is normal. No fracture is identified. There are mild degenerative changes in the left hip and mild degenerative changes in the ankle. IMPRESSION: 1. There is a left knee arthroplasty in place without evidence of complication. Interpreted By: Nasim Andersen MD HAMILTON MD [facility] [place], [address], [facility] 03/09/2020 12:56:56 Xr, Shoulder, 2 Or More View : [facility] [address] [place] [address] Patient Name: HILL SANDERS Patient : 1955 Patient Ordering Provider: CLAU GOMEZ EXAM DATE: 07/27/2021 EXAM: XR LT SHOULDER COMPLETE RADIOGRAPHIC VIEWS: 3 COMPARISON: None. HISTORY: Left shoulder pain. FINDINGS: The bones of the shoulder are normal in alignment. There is no evidence of fracture. There is mild degenerative changes at the acromioclavicular joint and along the glenohumeral joint. The acromioclavicular and coracoclavicular spacing is normal. The visualized left ribs and left lung appears normal. IMPRESSION: 1. There are mild degenerative changes in the left shoulder. Interpreted By: Nasim Andersen MD GOMEZ MD [address] [place] [address], [address], [facility] 08/01/2021 07:32:23 Problems Name Problem SNOMED Code Status Onset Date Resolution Date Notes Provider Name and Address Organization Details Recorded Time Idiopathi c osteoarth ritis 071122448 Active 2015 From Automated Load;Provi dixie: Sharlene, Enrique;Sta tus: Active Not Available [facility] 7 07:59:23 Problem Notes None recorded. Procedures Surgical History Date Name Laterality Status Provider Name and Address Organization Details Recorded Time 11/17/19 20 Total knee arthroplasty completed Marcella Castellanos [facility] 12/29/2019 10:10:31 07/29/20 19 Injection Joint/Bursa, Major completed Arturo GONZALEZ PA-C [address] [place] [address], [phone] [place] [address] 07/29/2019 14:20:51 06/20/20 18 Stress Test - Nuclear completed RISA BERRY MD [address] [place] [address], [phone] [place] [address] 06/20/2018 13:28:20 06/12/20 18 EKG completed TROY GRACE MD [address] [place] [address], [phone] [place] [address] 06/12/2018 10:31:12 02/15/20 17 Total knee arthroplasty completed Rosette Sexton [facility] 03/27/2017 11:28:30 Cholecystectomy completed Ashley Weathers [facility] 06/12/2018 10:23:04 Imaging Results None recorded. Procedure Notes None recorded. Medical Equipment None Reported. Allergies Allergen ID Allergen Name Allergen Category Reaction Reaction Severity Criticality Documentation Date Start Date Code Code System Note Provider Name and Address Organization Details Recorded Time 042345 Product containin g penicilli n (product) medicatio n Not available Not available Not available 08/11/20162012 45803 8001 SNOMED Comme nt: Cause s Stoma ch Upset ;Crea greta By: Beronica nunez;Cr eated Date: 2012 1:01: 40 PM; Not Available [facility] 6 05:43:53 Medications Name Sig Start Date Stop Date Status Note LastModified by Organization Details LastModified Time Adderall 30 mg tablet Two times a day active Duration : 10 days;Erasto quency: bid;Medi cation Descript ion: amphetam ine-dext roamphet amine; Dosage:1 ; Route:or al; refills: 0; Quantity :60 tablet Not Available Not Available Not Available tramadol 50 mg tablet TAKE 1-2 Q6H PRN PAIN 05/21 completed Not Available Not Available Not Available Percocet 10 mg-325 mg tablet TAKE ONE-TWO EVERY FOUR -SIX HOURS PRN PAIN 05/21 completed Not Available Not Available Not Available Hyzaar 50 mg-12.5 mg tablet As Directed 05/21 completed Duration : 30 days;Ins truction s: 1, daily, to replace metoprol ol and HCTZ;Erasto quency: as direct.; Medicati on Descript ion: hydrochl orothiaz fiorella-losa rtan; Dosage:a s directed ; Route:or al; refills: 11; Quantity :30 tablet Not Available Not Available Not Available Advair Diskus 250 mcg-50 mcg/dose powder for inhalatio n Two times a day 2007 active Frequenc y: bid;Medi cation Descript ion: fluticas one-salm eterol; Route:in halation ; refills: 0 Not Available Not Available Not Available Percocet 5 mg-325 mg tablet Take 1 tablet every 6 hours by oral route as needed. 03/09 completed Not Available Not Available Not Available albuterol sulfate concentra te 5 mg/mL(0.5 %) solution for nebulizat ion As needed 2007 active Frequenc y: prn;Medi cation Descript ion: albutero l; Route:in halation ; refills: 0 Not Available Not Available Not Available Lipitor 10 mg tablet Take 1 tablet(s ) every day by oral route. active Not Available Not Available No t Available Estrace 0.01% (0.1 mg/gram) vaginal cream 1 g vaginal 2 times a week 2017 active Not Available Not Available Not Avai lable Lexapro 20 mg tablet Daily 2012 active Instruct ions: to replace paxil CR;Frequ ency: daily;Me dication Descript ion: escitalo pram; Dosage:1 ; Route:or al; refills: 5; Quantity :30 tablet Not Available Not Available Not Available ProAir HFA 90 mcg/actua tion aerosol inhaler Four times a day 2013 active Frequenc y: qid;Alt Frequenc y: prn;Medi cation Descript ion: albutero l; Dosage:2 puffs; Route:in halation ; refills: 12; Quantity :1 aerosol Not Available Not Available Not Available Vitals Date Recorded Body height Body mass index (BMI) Body weight Provider Name and Address Organization Details Last Updated DateTime 12/08/2019 152.4 cm 38.1 kg/m2 51246.51 g [facility] 12/08/2019 15:52:53 Date Recorded Body height Body mass index (BMI) Body weight Systolic blood pressure Diastolic blood pressure Provider Name and Address Organization Details Last Updated DateTime 12/29/2019 152.4 cm 38.1 kg/m2 79724.51 g 120 mm[Hg] 80 mm[Hg] Marcella Castellanos [facility] 0 10:09:58 Date Recorded Body height Body mass index (BMI) Body weight Provider Name and Address Organization Details Last Updated DateTime 03/09/2020 152.4 cm 37.1 kg/m2 38804.55 g Yun [facility] 03/09/2020 11:27:05 Date Recorded Body height Body mass index (BMI) Body weight Provider Name and Address Organization Details Last Updated DateTime 07/27/2021 152.4 cm 37.9 kg/m2 [address]14.[address] [facility] 07/27/2021 13:12:24 Social History Question Answer Notes LastModified by Organizat ion Details LastModified Time Tobacco Smoking Status Never Smoker Rosette Sexton [place], [facility] 01/05/2017 08:09:06 Accident Related Injury No Information not available 01/05/2017 What Is Your Level Of Caffeine Consumption? Moderate Information not available 01/05/2017 Which Of Your Hands Is Dominant? Right Information not available 01/05/2017 Rate The Severity Of Your Symptoms: (0-10 With 0=none And 10=worst Possible) 9 Information not available 01/05/2017 Have You Been Treated For This Problem Before? Yes Information not available 01/05/2017 Will This Be Filed As Workers' Compensation? No Information not available 01/05/2017 Marital Status Informatio n not available 01/05/2017 What Was The Date Of Your Most Recent Tobacco Screening? 06/12/2018 Information not available 11/04/2019 Has Tobacco Cessation Counseling Been Provided? No Information not available 01/05/2017 Work Related Injury? No Information not available 01/05/2017 Sex: Unknown Functional Status Question Answer Note LastModified by Organizat ion Details LastModified Time Do you use any illicit or recreational drugs? No Information not available 01/05/2017 What is your level of alcohol consumption? None Information not available 01/05/2017 Are you currently employed? Yes Information not available 01/05/2017 What is your occupation? [employer] Information not available 01/05/2017 Mental Status None recorded. Family History Relationship Description Onset Age of this Age Resolved Age Notes LastModified by Organization Details LastModified Time Father No current problems or disability [email or web address] Not available 05/19 10:29:05 Mother No current problems or disability [email or web address] Not available 05/19 10:29:05 Notes:Acute myocardial infar ction sister CAD 65, F CAD 50s 2. Asthma 3. Family history of chronic disabling diseases anemia, arthritis, chicken pox, depression, heart problems, hoarseness, shortness of breath obstructive sleep apnea 4. Family history of early deaths 5. Hyperlipidemia 6. Hypertension 7. Renal disorder 8. Father 9. Mother 10. All siblings are in good health 11. All children are in good health 12. Family history of alcoholism 13. Family history of cancer brother colon cancer 14. Mental illness 15. Suicide completion Medical History Condition Response Gout N Other N Kidney Stones N COPD N Pneumonia N Arthritis Y Blood Clot N Cancer N Stroke N Kidney Disease N Heart Conditions N Migraines N Skin Problems N Rheumatic Fever N Bleeding Disorder N Tuberculosis N Genetic Disorder N AIDS/HIV N Asthma Y Included as Review of Systems Y Anxiety/Depression Y Thyroid Disease N Hernia N Glaucoma N Anesthesia Complications N Blood Thinners N Alcohol Overuse/Alcohol Abuse N High Cholesterol N Liver Disease N Allergies/Hayfever Y Immune System Disorder N Heart Attack (NE) N Mental Illness N Neurological Problems N Diabetes N Seizures/Epilepsy N Sleep Apnea Y Hypertension N Osteoporosis Y Gynecological History Statement/Question Response If Post Menopausal, Age at Menopause 56 Obstetrics History GPAL:G 0 P 0 0 0 0 Immunizations Vaccine Type Date Status Note Provider Nam e and Address Organization Details Recorded Time Influenza, split virus, quadrivalent, PF 06/12/2018 completed Not Available [facility] 0 02:48:54 Past Encounters Encounter ID Performer Location Encounter Start Date Encounter Closed Date Diagnosis/Indication Diagnosis SNOMED-CT Code Diagnosis ICD10 Code Diagnosis Note [id number] NATE Harman MD [facility] [address] [address] 01/05/2017 07:45:04 01/05/2017 15:27:59 Knee pain 29665907 M25.561 Osteoarthr itis of knee 663610080 M17.11 [id number] C ANGELA GONZALEZ PA-C [facility] [address] [place] [address] 03/06/2017 10:53:12 03/06/2017 12:18:54 Replacement of total knee joint 608306342 Z96.651 Perc 10 to use pre PT. Increase effort on rehab ROM. Possible NEIDA in future. [id number] NATE Harman MD [facility] [address] [address] 03/27/2017 10:59:16 03/27/2017 11:49:48 Replacement of total knee joint 019755677 Z96.108 [id number] NATE Harman MD [facility] [address] [address] 05/22/2017 09:42:08 05/22/2017 10:29:53 Replacement of total knee joint 522669005 Z96.131 [id number] NATE Harman MD [facility] [address] [address] 05/21/2018 09:55:40 05/21/2018 10:51:11 Replacement of total knee joint 693781937 Z96.890 [id number] TROY GRACE MD [facility] [address] ,[address] [place] [address] 06/12/2018 10:14:01 06/13/2018 15:37:14 Essential hypertension 90963343 I10 BP is normal now, will watch, discussed low salt diet and exercise regularly. Hyperlipidemia 76268923 E78.5 stay on low fat diet. Since she has strong family history of coronary heart disease, if LDL is still high, will start statin. Asthma 533866531 J45.90 9 stable, continue current medicine. Obstructiv e sleep apnea of adult 0955902938 103 G47.33 Discussed weight loss with diet and exercise. Depressive disorder 3548 9007 F32.89 controlled , continue current medicine. Anxiety disorder 3139949 06 F41.9 controlled . Screening for malignant neoplasm of breast 624907306 Z12.31 Adult heal th examination 674449038 Z00.00 The patient was advised to continue a healthy diet and exercise regularly. Chest pain 23801714 R07. 9 start EC ASA 81 mg qd, go to ER if chest pain is severe. History of polyp of colon 408949031 Z86.010 watch for blood in stool. 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 Diverticul ar disease of colon 136638808 K57.30 High fiber diet. Administra tion of influenza vaccine 95313504 Z23 [id number] RISA BERRY MD [facility] [address] [place] [address] 06/20/2018 07:45:39 06/20/2018 14:00:13 Chest pain 58786813 R07.9 [id number] TROY GRACE MD [facility] [address] ,[address] [place] [address] 06/20/2018 07:46:02 06/21/2018 11:41:38 Chest pain 97636984 R07.9 Stress test was done today. [id number] Arturo GONZALEZ PA-C [facility] [address] [place] [address] 07/29/2019 13:07:25 07/29/2019 14:23:23 Osteoarthritis of knee 386268026 M17.9 Severe arthritis in a patient who was not failed any conservati ve measures whatsoever . Due to the acuity of onset recommende jg CSI. Follow-up with me in 2 months to evaluate success. Would encourage conservati ve measures but the patient is inclined to proceed with knee replacemen t sooner than later [id number] Arturo GONZALEZ PA-C [facility] [address] [place] [address] 10/07/2019 09:18:43 10/07/2019 13:07:07 Osteoarthritis of knee 772856068 M17.9 Severe arthritis that is failed conservati ve measures in her left knee. Patient knows as good as any the details surroundin g knee replacemen t having had her right done in 2016 by Nate harman M.D. . Patient's goal of surgery is to get back to horseback riding by December. Due to recent injection her surgery will have to be on or after October 29. She would like to follow-up with Nate harman M.D. prior to surgery. Long leg x-ray obtained today and follow-up scheduled [id number] NATE Harman MD [facility] [address] [place] [address] 11/13/2019 09:24:25 11/13/2019 12:14:01 Osteoarthritis of knee 050826677 M17.12 [id number] NATE Harman MD SURGERY SCHEDULE [address] [place] [address] 11/19/2019 10:59:11 11/19/2019 14:12:18 [id number] Arturo GONZALEZ PA-C [facility] [address] [address] 12/08/2019 15:44:44 12/08/2019 16:35:37 Postoperative care 616491679 Z48.89 Continue focus on range of motion. No driving while on narcotics. Okay to let water run over the incision. Follow up in 3-4 weeks with Nate harman M.D. [id number] NATE Harman MD [facility] [address] [place] [address] 12/29/2019 10:04:01 12/29/2019 10:43:08 History of total knee arthroplasty 6537920534 105 Z96.086 [id number] NATE Harman MD [facility] [address] [place] [address] 03/09/2020 10:59:20 03/09/2020 12:19:28 History of total knee arthroplasty 9532633634 105 Z96.194 [id number] CLAU GOMEZ MD [facility] [address] [place] [address] 07/27/2021 12:57:47 07/27/2021 13:54:05 Pain of shoulder region 52685202 M25.512 Adhesive c apsulitis of left shoulder 6290163846 38606 M75.02 Assessment : Shoulder adhesive capsulitis Plan: The decreased active and passive range of motion suggests frozen shoulder. The natural history of adhesive capsulitis was discussed today. This goes through phases with decreased range of motion and pain. During the painful stages, anti-infla mmatories and a steroid injection carried performed. As the pain improves, we can consider physical therapy to gently work on stretching . Health Concerns Section Related Observation LastModified by Organization Detai ls LastModified Time None Recorded Concern Status LastModified by Organization Details LastModified Time None Recorded Advance Directives Directive None Recorded Payers Insurance Date Sequence Insurance Name Policy Number Policy Michel Covered Member ID Michel Member ID Guarantor Name 09/01/2019 PAYMENT PLAN Hill Sanders 08/01/2021 1 [place] [id number] Barbara Sanders [id number] Hill Sanders Notes Date Note Type Note Provider Name and Address Organization Details Recorded Time 12/08/2019 text/html Patient is 3 wee ks s/p L TKA. Pain is 7/10 Currently taking 3-4 doses per day of narcotic. Ambulating with no assistive device PT: outpatient Denies fevers, chills, or wound drainage. They do request a refill of pain medicine. Arturo GONZALEZ PA-C [address] [place] [address], [phone], [facility] 12/08/2019 16:31:12 12/29/2019 text/html Patient is 6 wee ks s/p L TKA. Pain is improving Currently taking <3 doses per day of narcotic. Ambulating with no assistive device PT: outpatient Denies fevers, chills, or wound drainage. They do not request a refill of pain medicine. NATE HAMILTON MD [address] [place] [address], [phone], [facility] 12/29/2019 10:41:38 03/09/2020 text/html Patient is 3 months s/p L TKA. Pain is improving Currently taking no doses per day of narcotic. Ambulating with no assistive device PT: HEP Denies fevers, chills, or wound drainage. They do not request a refill of pain medicine. NATE HAMILTON MD [address] [place] [address], [id number], [facility] 03/09/2020 12:27:40 07/27/2021 text/html 07-27-21 PCP: ROSALIND Pena FOR CONSULTATION AT THE REQUEST OF:SelfHAND DOMINANCE: RightWHAT: Left Shoulder.WHEN:Sheri mendozaHOW:No traumatic injurySYMPTOMS: She has significant generalized pain around the shoulder, more anterior and lateral. Pain at night, difficulty sleeping on her side. Pain with reaching out. Feels stiff. Occasional popping clicking. No numbness or tingling.PAIN: PT: NoNSAIDS:YesINJECT ION:No CLAU GOMEZ MD [address] [place], [phone], [facility] 07/27/2021 17:32:09 OBGyn Episode No OBEpisode recorded.
--- OUTSIDE RECORDS SUMMARY | 2025-03-17 09:06 | XMS_ITS | Encounter Summary ---
Author Organization [employer] ([place], [place], [place], [place]) Address [address] [place] [address] Care Team Providers Care Electrical Hardware Engineer Name Role Phone Unavailable Primary Care Provider Unavailabl e Encounter Details Date Type Department Care Team (Late st Contact Info) Description 11/17/2019 Transcribed Document [facility] [place] Family Medicine [address] [place] [address] ProviderTiana MD [address] [place] [address] Social History Tobacco Use Types [...] Conversion Note - Historical ProviderMD - 11/17/2019 4:20 PM FIELD CLERK Evaluation, Occupational Therapy Entered On: 11/18/2019 14:51 EST Performed On: 11/18/2019 10:43 EST by SISSY LEONG OTR/Jeannie General Information, OT Visit Type, OT : Initial evaluation Patient Orders : Order Date Order Ordering 11/17/2019 16:21 OT Evaluation and Treatment Ordered By: NATE HAMILTON MD-ORT 11/17/2019 16:21 OT Treatment Instructions Ordered By: NATE HAMILTON MD-ORT Active Diagnoses : 11/18/2019 12:00 Presence of unspecified artificial knee joint Admission Date : 11/17/2019 07:16 Co-treated by, OT : Physical Therapist Personal Devices : Personal Devices Glasses Assistive Devices : Assistive Devices No Devices Recorded General Information Comment, OT : Diagnosis: L TKA SISSY LEONG OTR/Jeannie - 11/18/2019 14:48 EST General Status Patient Received Status : Up in chair Treatment Start Time : 11/18/2019 10:26 EST Patient Left Status : Up in chair, RN/PCT informed, Family/Visitors at bedside, All needs met and within reach Treatment End Time : 11/18/2019 10:43 EST Treatment Time : 17 Minute(s) SISSY LEONG OTR/Jeannie Narvaez 11/18/2019 14:48 EST History and Environment, OT Living Situation, Therapy : Home Patient Lives With : Spouse Persons Assisting Patient at Home : Spouse Professional Skilled Services : None Persons Providing Information : Patient Home Setup : One story Stairs : Yes Stair Location(s) : Outside Outside Stairs, Number of Steps : 2 Outside Stairs Comment : platform stairs SISSY LEONG OTR/Jeannie - 11/18/2019 14:48 EST Prior LOF Bathing, OT : Independent Prior LOF Bed Mobility : Independent Prior LOF Upper Body Dressing, OT : Independent Prior LOF Lower Body Dressing, OT : Independent Prior LOF Toileting : Independent Prior LOF Transfer : Independent Prior LOF Grooming, OT : Independent Prior LOF for IADLs, OT : Independent SISSY LEONG OTR/Jeannie Narvaez 11/18/2019 14:48 EST Upper Extremity Right UE Active ROM : WFL Right UE Strength : WFL Left UE Active ROM : WFL Left UE Strength : WFL SISSY LEONG OTR/Jeannie - 11/18/2019 14:48 EST Self Care/Home Management, OT Self Feeding Assist Level, OT : Supervision or set-up Grooming Assist Level, OT : Supervision or set-up Bathing Assist Level, OT : Supervision or set-up Upper Body Dressing Assist Level, OT : Supervision or set-up Lower Body Dressing Assist Level, OT : Supervision or set-up Toileting Assist Level : Supervision or set-up SISSY LEONG OTR/Jeannie Narvaez 11/18/2019 14:48 EST Functional Mobility Mobility Grid Sit to Stand : Supervision/set-up Bed to Chair : Supervision/set-up Stand to Sit : Supervision/set-up SISSY LEONG OTR/Jeannie Narvaez 11/18/2019 14:48 EST Cognition Assessment, OT Orientation : Oriented x 4 SISSY LEONG OTR/Jeannie Narvaez 11/18/2019 14:48 EST Plan of Care, OT OT Tx Plan/Goals Established w Patient : No SISSY LEONG OTR/L - 11/18/2019 14:48 EST Treatment Note Subjective Comment : Pt agreeable Patient's Response to Treatment : Pt tolerated evaluation well Additional Objective Information : Pt sitting in chair upon arrival. Pt completed UB and LB dressing with SBA, reviewed AE, pt verbalized understanding. Pt ambulated in room and hallway with SBA using RWx. Pt returned to room, left with needs met and CL in reach. Joint coach mechanic present Assessment : Pt to dc home today Plan for Treatment : Eval only SISSY LEONG OTR/Jeannie - 11/18/2019 14:48 EST Pain Assessment Pain Score Pre-Intervention : 2 SISSY LEONG OTR/L - 11/18/2019 14:48 EST Image 1 - Images currently included in the form version of this document have not been included in the text rendition version of the form. [facility] OT Charges OT Selfcare/Hm Mgmt Ea 15 Min : 1 OT Eval Low Complexity : 1 SISSY LEONG OTR/Jeannie - 11/18/2019 14:48 EST documented in this encounter Plan of Treatment Not on file documented as of this encounter Visit Diagnoses Not on filedocumented in this encounter
--- OUTSIDE RECORDS SUMMARY | 2025-03-17 09:06 | XMS_ITS | Encounter Summary ---
Author Organization [employer] ([place], [place], [place], [place]) Address [address] [place] [address] Care Team Providers Care Physical Therapy Supervisor Name Role Phone Unavailable Primary Care Provider Unavailabl e Encounter Details Date Type Department Care Team (Late st Contact Info) Description 11/18/2019 Transcribed Document [facility] [place] [facility] [place] [address] ProviderTiana MD [address] [place] [address] Social History Tobacco Use Types [...] Conversion Note - Historical ProviderMD - 11/18/2019 6:00 AM MANUFACTURERS REPRESENTATIVE Pain Assessment Entered On: 11/18/2019 5:10 EST Performed On: 11/18/2019 6:07 EST by GERTRUDE ORTEZ LPN Intervention Information: acetaminophen Performed by GERTRUDE ORTEZ LPN on 11/18/2019 05:07:00 EST acetaminophen,1000mg Oral Pain Assessment Pain Assessment : Follow-up assessment Pain Scale Goal : 5 Pain Scale Used : 0-10 Scale Pain Improved by Intervention : Yes GERTRUDE ORTEZ LPN - 11/18/2019 5:10 EST Pain Scale Intensity : 3 GERTRUDE ORTEZ LPN - 11/18/2019 5:10 EST Image 4 - Images currently included in the form version of this document have not been included in the text rendition version of the form. documented in this encounter Plan of Treatment Not on file documented as of this encounter Visit Diagnoses Not on filedocumented in this encounter
--- OUTSIDE RECORDS SUMMARY | 2025-03-17 09:06 | XMS_ITS | Encounter Summary ---
Author Organization [employer] ([place], [place], [place], [place]) Address [address] [place] [address] Care Team Providers Care Community Assistant Name Role Phone Unavailable Primary Care Provider Unavailabl e Encounter Details Date Type Department Care Team (Late st Contact Info) Description 11/18/2019 Transcribed Document [facility] [place] Family Medicine [address] [place] [address] ProviderTiana MD [address] [place] [address] Social History Tobacco Use Types [...] Conversion Note - Historical ProviderMD - 11/18/2019 11:26 AM SECURITIES RESEARCH ANALYST UM Authorization Entered On: 11/18/2019 11:26 EST Performed On: 11/18/2019 11:26 EST by Susana Robison Rn-Utilization Review Primary Insurance Authorization Authorization and Policy Numbers : Insurance 1 Health Plan: [facility] Policy Number: [id number] Authorization Number: Insurance Primary Name : Lucho [id number] Authorized Service Begin Date-Primary : 11/17/2019 EST Historical Authorization Comments-Primary : Comment 1: Pt is scheduled for OUT PT total knee on 11/17/2019 Duran: NPR for op (COURT CHACON, Supply Planner 11/14/2019 12:56) Susana Robison Rn-Utilization Review - 11/18/2019 11:26 EST Electronically signed by [facility] Conversion Manager Ui Cerner at 12/31/2022 5:52 PM CDT documented in this encounter Plan of Treatment Not on file documented as of this encounter Visit Diagnoses Not on filedocumented in this encounter
--- OUTSIDE RECORDS SUMMARY | 2025-03-17 09:06 | XMS_ITS | Encounter Summary ---
Author Organization [employer] ([place], [place], [place], [place]) Address [address] [place] [address] Care Team Providers Care Jacquard Loom Heddles Tier Name Role Phone Unavailable Primary Care Provider Unavailabl e Encounter Details Date Type Department Care Team (Late st Contact Info) Description 11/18/2019 Transcribed Document [facility] [place] Family Medicine [address] [place] [address] ProviderTiana MD [address] [place] [address] Social History Tobacco Use Types [...] Conversion Note - Historical ProviderMD - 11/18/2019 2:14 PM DRUG ABUSE TREATMENT SPECIALIST Nursing Discharge Summary Entered On: 11/18/2019 14:15 EST Performed On: 11/18/2019 14:14 EST by Cindy Ward RN Discharge Documentation Patient Disposition, General : Discharge Discharge To : Home with ambulatory/outpatient follow-up Mode Of Departure, General Discharge : Private vehicle, Wheelchair with adult Accompanied By, Discharge : Spouse IV Discontinued : Yes Medications Given to Patient : No Personal Belongings With Patient : Yes Pt's Own Supply of Medications Returned : No Prescriptions Given to Patient : Yes Discharge Instructions Reviewed With, Opportunity For Questions Given : Patient, Spouse Patient Education Completed : Yes Number of Prescriptions Given : 6 Teaching Method : Demonstration, Explanation, Printed materials Teaching Evaluation : Returns demonstration, Verbalizes understanding Education Comment : Pt verbalized understanding of incentive spirometry at [facility]. Cindy Ward RN - 11/18/2019 14:14 EST Electronically signed by Flor [facility] Conversion Automobile Relocation Engineer Cerner at 12/31/2022 5:51 PM CDT documented in this encounter Plan of Treatment Not on file documented as of this encounter Visit Diagnoses Not on filedocumented in this encounter
--- OUTSIDE RECORDS SUMMARY | 2025-03-17 09:06 | XMS_ITS | Encounter Summary ---
Author Organization [employer] ([place], [place], [place], [place]) Address [address] [place] [address] Care Team Providers Care Human Resources Intern Name Role Phone Unavailable Primary Care Provider Unavailabl e Encounter Details Date Type Department Care Team (Late st Contact Info) Description 11/18/2019 Transcribed Document [facility] [place] [facility] [place] [address] ProviderTiana MD [facility] [place] [address] Social History Tobacco Use Types [...] Cerner Conversion Note - Tiana ProviderMD - 11/18/2019 4:12 AM ASSISTANT CENTER DIRECTOR Patient: NIDIA PINO Age: 64 Years Sex: Female : 1955 Admit Date 11/17/2019 07:16 Discharge Date 11/18/2019 Primary Care Provider RICHARD RAYMOND MD Discharge Diagnosis History of knee replacement 11/18/2019 Z96.659 ICD-10-CM Procedures SN - Proc - Procedure: Knee Total Joint Replacement (11/17/19 14:11:25) Reason for Hospitalization 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 Patient had failed conservative measures and was ultimately offered total knee arthroplasty. Understanding risks benefits and alternatives to care patient gave written consent for the aforementioned procedure. Hospital Course Patient was taken to the operating room on date of admission where they underwent the aforementioned procedure without complication. They were then transferred to the floor for postoperative care including PT & OT, consultation of hospitalist for medical care, and discharge planning by nurse navigator/case management. Vital Signs T: 36.7 ??C TMIN: 36.4 ??C TMAX: 36.7 ??C HR: 81(Monitored) RR: 16 BP: 109/68 SpO2: 95% HT: 152.4 cm WT: 90.37 kg BMI: 38.9 Oxygen Settings (Last) Oxygen Therapy Mode: Nasal cannula (11/17/19 21:10:00) Oxygen Flow Rate: 2 Liter/Min (11/17/19 21:10:00) Physical Exam The dressing is clean dry secure. The operative extremity is neurovascularly intact with the exception to which is attributed to peripheral nerve block. Compartments are soft. ROM 0-95 Discharge Disposition Home with home health Discharge Follow Up LENA GONZALEZ PA-WILLIAM - 04:00 PM Discharge Medications (13) Active Adderall 30 mg, PRN, Oral Advair Diskus 250 mcg-50 mcg inhalation powder 1 Puff, Inhalation, BID aspirin 81 mg oral tablet 81 mg = 1 Tab, Oral, BID Colace 100 mg oral capsule 100 mg = 1 Cap, PRN, Oral, BID ferrous gluconate 324 mg (37.5 mg elemental iron) oral tablet 324 mg = 1 Tab, Oral, Daily Lexapro 20 mg oral tablet 20 mg = 1 Tab, Oral, Daily Lipitor 10 mg, Oral, At Bedtime Melatonin 10 mg, Oral, At Bedtime meloxicam 15 mg oral tablet 15 mg = 1 Tab, Oral, Daily Neurontin 300 mg oral capsule 300 mg = 1 Cap, PRN, Oral, At Bedtime omeprazole 40 mg oral delayed release capsule 40 mg = 1 Cap, Oral, Daily Percocet 5/325 oral tablet 1 Tab, PRN, Oral, Q4H ProAir HFA 90 mcg/inh inhalation aerosol 2 Puff, PRN, Inhalation, Daily Code Status Start: 11/17/19 16:20:00 EST, Full Code, Continuous Order Condition on Discharge Good Consulting Physicians JOSE C GUERRA MD-ANS Current Diet Order Diet, Adult - Ordered -- Start: 11/17/19 16:20:00 EST, Regular Diet, Isolation: Standard Precautions Patient Discharge Summary Orders Patient is weightbearing as tolerated. Patient should transition from a walker to a cane at the discretion of physical therapy. However the patient should minimize ambulation, and focus on copious ice and elevation to reduce swelling. The range of motion goal for first follow-up should be a minimum of 0-90??. Bilateral thigh-high ECTOR hose should be worn 21+ hours per day for 6 weeks for DVT prophylaxis. Chemoprophylaxis for DVT (see medlist)times [address] weeks[address] Dressings remain in place for 7-10 days, during which time the patient may shower. This provided the margins of the dressing are intact. Dressings then can be removed and incision left open to air. Any wound drainage should be reported to the orthopedic office.Continuous use of cryotherapy as needed for pain and swelling. Recommended as one hour of every 3. Pending Labs In Process SENDOUT REPORT [id number], [id number], RT - Routine, 11/17/19 14:13:00 EST Pathology Tissue Request [id number], [id number], 11/17/19 14:13:00 EST, Collected, RT - Routine, 11/17/19 16:13:43 EST, RAUL HAYWARD, Histotech/Med tech, Specimen Type: AP Specimen, Specimen Desc: Left knee and tissue Ordered CBC no Diff (Hemogram) Specimen Type: Blood, AM Draw collect, 11/18/19 4:00:00 EST, Daily, For: 3 Day(s), Stop: 11/20/19 4:00:00 EST, Nurse Collect BMP Basic Metabolic Panel Specimen Type: Blood, AM Draw collect, 11/18/19 4:00:00 EST, Daily, For: 2 Day(s), Stop: 11/19/19 4:00:00 EST, Nurse Collect Time Spent on Discharge 20 minutes documented in this encounter Plan of Treatment Not on file documented as of this encounter Visit Diagnoses Not on filedocumented in this encounter
--- OUTSIDE RECORDS SUMMARY | 2025-03-17 09:06 | XMS_ITS | Encounter Summary ---
Author Organization [employer] ([place], [place], [place], [place]) Address [address] [place] [address] Care Team Providers Care Paper Roller Name Role Phone Unavailable Primary Care Provider Unavailabl e Encounter Details Date Type Department Care Team (Late st Contact Info) Description 11/18/2019 Transcribed Document [facility] [place] Family Medicine [facility] [place] [address] ProviderTiana MD [address] [place] [address] Social History Tobacco Use Types [...] Conversion Note - Historical ProviderMD - 11/18/2019 4:54 PM BOAT JOINER On Going Discharge Planning Entered On: 11/18/2019 16:54 EST Performed On: 11/18/2019 16:54 EST by EDIN TAPIA RN-Investigator FraudSenior Sql Server Database Developer Progress Note Discharge Arrangements : Patient Post-Acute Information Patient Name: NIDIA SANDERS Gender: Female : [birth year] Age: 64 Years No Post-Acute Placement(s) Listed No Post-Acute Service(s) Listed No Curaspan Referral(s) Listed Discharge Options Discussed with Patient : Outpatient services Barriers to Discharge Unresolved : All resolved Designation of Choice Signed : Yes Patient Offered Choice/Affiliations Explained : Yes List/Info Provided Pt/Fam/Support Person : Other: outpatient PT Were Referrals Sent to Post Acute Providers : Yes Did you Attend Multidisciplinary Rounds? : Yes EDIN TAPIA, RN-Investigator Fraud - 11/18/2019 16:54 EST Electronically signed by Flor [facility] Conversion Aix Architect Cerner at 12/31/2022 5:46 PM CDT documented in this encounter Plan of Treatment Not on file documented as of this encounter Visit Diagnoses Not on filedocumented in this encounter
--- OUTSIDE RECORDS SUMMARY | 2025-03-17 09:06 | XMS_ITS | Encounter Summary ---
Author Organization [employer] ([place], [place], [place], [place]) Address [address] [place] [address] Care Team Providers Care Preparer Making Department Name Role Phone Unavailable Primary Care Provider Unavailabl e Encounter Details Date Type Department Care Team (Late st Contact Info) Description 11/17/2019 Transcribed Document [facility] [place] Family Medicine Counts include 234 beds at the [facility] [place] [address] ProviderTiana MD [address] [place] [address] Social History Tobacco Use Types [...] Conversion Note - Historical ProviderMD - 11/17/2019 6:03 PM BELT KNIFE FEEDER Treatment Intervention, PT Entered On: 11/18/2019 12:52 EST Performed On: 11/18/2019 12:50 EST by FRANCISCA HUYNH, PT General Information, PT Visit Type, PT : Treatment Note Patient Orders : Order Date Order Ordering [...] PT Treatment Instructions Ordered By: NATE HAMILTON MD-ORNoé 11/17/2019 18:03 PT Additional Treatment Ordered By: FRANCISCA HUYNH, PT Active Diagnoses : 11/18/2019 12:00 Presence of unspecified artificial knee joint Therapy Diagnosis, PT : Aftercare following L TKA Admission Date : 11/17/2019 07:16 Co-treated by, PT : Occupational Therapist Personal Devices : Personal Devices Glasses Assistive Devices : Assistive Devices No Devices Recorded FRANCISCA HUYNH, PT - 11/18/2019 12:50 EST General Status Patient Received Status : Up in chair Treatment Start Time : 11/18/2019 10:38 EST Patient Left Status : Up in chair, RN/PCT informed, Family/Visitors at bedside, Communication board completed, All needs met and within reach, Other: SCd's, ICe, Bone Foam RN/PCT Informed Comment : Yazan umanzor and pt consent Treatment End Time : 11/18/2019 11:01 EST Treatment Time : 23 Minute(s) FRANCISCA HUYNH PT - 11/18/2019 12:50 EST Edu Topics Physical Therapy Education Grid Bed Mobility Training : Returns demonstration Gait Training : Returns demonstration Home Program/Exercises : Verbalizes understanding Role of Physical Therapy : Verbalizes understanding Safety : Verbalizes understanding Stair Training : Returns demonstration Therapeutic Exercises : Returns demonstration Transfer Training : Returns demonstration Use of Assistive Device : Returns demonstration FRANCISCA HUYNH, PT - 11/18/2019 12:50 EST Indication Assesessment, PT Physical Therapy Indicated : FRANCISCA Hammer PT - 11/18/2019 12:50 EST Plan of Care, PT PT Tx Plan/Goals Established w Patient : No FRANCISCA HUYNH PT - 11/18/2019 12:50 EST Elastic Yarn Twister Goals Mobility/Bed Mobility LTG PT Grid Goal #1 Activity : Sit to stand Assist : Supervision or set-up Equipment : Walker, front wheel Date to Meet : 12/01/2019 EDT Goal Status : Goal met (Comment: t [FRANCISCA HUYNH PT - 11/18/2019 12:50 EST] ) Date Met : 11/18/2019 EST FRANCISCA HUYNH PT - 11/18/2019 12:50 EST Ambulation LTG Grid Goal #1 Device : Walker, front wheel Distance : 150ft Assist : Supervision or set-up Date to Meet : 12/01/2019 EDT Goal Status : Goal met Date Met : 11/18/2019 EST FRANCISCA HUYNH, PT - 11/18/2019 12:50 EST Stairs LTG Grid Goal #1 Device : Walker, front wheel Number of Steps : 1 Handrail(s) : No handrails Assist : Assist, minimal Date to Meet : 12/01/2019 EDT Goal Status : Goal met Date Met : 11/18/2019 EST FRANCISCA HUYNH, PT - 11/18/2019 12:50 EST Treatment Note Subjective Comment : Pt agreeable to PT teratment, denies pain at rest. Patient's Response to Treatment : Pt tolerated post-op TKA therex and gait training well with no acute complaints. Education provided about performance of HEP 3x per day and to emphasize ROM tasks during initial recovery phase. Reinforced use of Bone Foam minimum 3x per day for 60 minute sessions to promote knee extension and increasing use of bone foam as tolerated. Additional Objective Information : L knee ROM 0-96 degrees, Joint job coach present during treatment. Pt ambulated x 150ft to therapy gym with RWx and SBA with min verbal cues for safe use of assistive device. Pt utilized RWx to ascend/descend a single platform step to simulate entering the home. Performed in both anterograde and retrograde. Pt then participated in 10 repetitions of seated LAQ, marching in place, and heel slides; supine ankle pumps, quad sets glut sets, SAQ, SLR, heel slides, and hip abduction. No acute complaints throughout. Assessment : Pt has currently met 3/3 goals [...] Foam during acute phase of TKA rehab. Plan for Treatment : discontinue FRANCISCA HUYNH, PT - 11/18/2019 12:50 EST Pain Assessment Pain Scaled Used : 0-10 Pain scale Pain Score Pre-Intervention : 0 Pain Score Post-Intervention. : 0 FRANCISCA HUYNH PT - 11/18/2019 12:50 EST Image 1 - Images currently included in the form version of this document have not been included in the text rendition version of the form. [facility] PT Charges PT Therap. Exercise 15 min : 1 Gait Training Each 15 Min : 1 FRANCISCA HUYNH, PT - 11/18/2019 12:50 EST documented in this encounter Plan of Treatment Not on file documented as of this encounter Visit Diagnoses Not on filedocumented in this encounter
--- OUTSIDE RECORDS SUMMARY | 2025-03-17 09:06 | XMS_ITS | Encounter Summary ---
Author Organization [employer] ([place], [place], [place], [place]) Address [address] [place] [address] Care Team Providers Care Search Engine Marketing Manager Name Role Phone Unavailable Primary Care Provider Unavailabl e Encounter Details Date Type Department Care Team (Late st Contact Info) Description 11/18/2019 Transcribed Document [facility] [place] [address] [place] [address] ProviderTiana MD [address] [place] [address] Social History Tobacco Use Types [...] - Historical ProviderMD - 11/18/2019 4:54 PM WOOD MILLING MACHINE TENDER Final Discharge Planning Entered On: 11/18/2019 16:54 EST Performed On: 11/18/2019 16:54 EST by EDIN TAPIA RN-Solar Thermal Technician Final Discharge Planning Discharge Arrangements : Patient Post-Acute Information Patient Name: NIDIA SANDERS Gender: Female : [birth year] Age: 64 Years No Post-Acute Placement(s) Listed No Post-Acute Service(s) Listed No Curaspan Referral(s) Listed Patient Offered Choice/Affiliations Explained : Yes Designation of Choice Signed : Yes Follow Up Appointment Scheduled : Yes Is Patient High/Moderate Readmission Risk? : No Patient/Family Notified of Plan : Yes Support Person/Pt Rep Notified of Plan : Yes Is Patient Ready for Discharge? : Yes Physician Notified Patient is Ready for Discharge? : Yes Discharge To Care Management : Home/Residential/Retirement or Self Care -01 EDIN TAPIA RN-Solar Thermal Technician - 11/18/2019 16:54 EST Electronically signed by Flor, [facility] Conversion Platform Stapler Cerner at 12/31/2022 5:48 PM CDT documented in this encounter Plan of Treatment Not on file documented as of this encounter Visit Diagnoses Not on filedocumented in this encounter
--- OUTSIDE RECORDS SUMMARY | 2025-03-17 09:06 | XMS_ITS | Patient Health Record ---
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 , [address], [place] [address] Ty Vilchis MD, Doll Wig Maker CLIA: [id number] Sodium 142 135-145 mmol/L Potassium 4.8 3.5-5.3 [...] 39 Performing Lab: Notes/Report: Test performed by [facility] [address] [place] [address] , [address], [place] [address] Ty Vilchis MD, Doll Wig Maker CLIA: [id number] Cholesterol 126 <200 mg/dL Triglycerides 181 <150 [...] Interpretation:Normal Performing Lab: Notes/Report: Test performed by [facility] [address] , [address], [place] [address] Ty Vilchis MD, Doll Wig Maker CLIA: [id number] Albumin/Creatinine Ratio, Urine 21 0-30 ug/m g Microalbumin, Urine, Random 2.2 Creatinine, Urine 105.2 Mammogram Reviewed date:08/11/2024 11:29:37 AM Interpretation:needs additional imaging Performing Lab: Notes/Report: needs additional imaging Mammogram Reviewed date:08/11/2024 11:29:37 AM Interpretation:needs additional imaging Performing Lab: Notes/Report: needs additional imaging Covid test (in house) Reviewed date:08/13/2024 11:16:09 AM Interpretation: Performing Lab: Notes/Report: Result: Neg CBC Fingerstick (in house) Reviewed date:08/13/2024 [...] - 38 plat 203 100 - 400 Influenza Screen (in house) Reviewed date:08/13/2024 11:15:51 AM Interpretation: Performing Lab: Notes/Report: results Neg Lipid Profile Reviewed date:07/30/2024 12:49:53 PM Interpretation: Performing Lab: Notes/Report: Glycohemoglobin (HbA1C) Reviewed date:07/30/2024 12:50:06 PM Interpretation: Performing Lab: Notes/Report: CMP Reviewed date:07/30/2024 12:50:27 PM Interpretation: Performing Lab: Notes/Report: Cardiac Stress Test Exercise Cardiolyte Reviewed date:08/19/2024 08:41:51 AM Interpretation:Normal Performing Lab: Notes/Report: Normal H-Lipid Panel Reviewed date:07/31/2024 09:07:49 AM Interpretation:trig 171, chol 110, dldl 60.19, hdl 38 Performing Lab: Notes/Report: Patient Fasting? Y TRIG 171 30-150 mg/dl CHOL 110 140-200 mg/dl DLDL 60.19 100-129 mg/dL VLDL 34 0-40 mg/dL HDL 38 40-60 mg/dl CHLHDL 2.9 1-3.5 H-CMP Reviewed date:07/31/2024 09:07:49 AM Interpretation:bun 21, gluc 101, a/g 2.0 Performing Lab: Notes/Report: NA 139 136-145 mmol/L K 4.3 3.5-5.1 mmoL/L CL 103 98-107 mmol/L CO2 27 22.0-30.0 mmol/L GAP 13.3 5-15 mEq/L BUN 21 7-17 mg/dl CREATT 0.80 0.52-1.04 mg/dl GFRAA 87 >60 ML/MIN EGFR 72 >60 ml/min GLU 101 74-100 mg/dl CA 9.1 8.4-10.2 mg/dl BILIT 0.4 0.2-1.3 mg/dl AST 35 14-36 U/L ALT 36 12-78 U/L TP 6.3 6.3-8.2 g/dl ALB 4.2 3.5-5.0 g/dl GLOB 2.1 1.3-3.2 g/dL AGRATIO 2.0 1.1-1.8 ALP 86 38-126 U/L H-Glycohemoglobin A1C Reviewed date:07/31/2024 09:07:49 AM Interpretation:6.0 Performing Lab: Notes/Report: HGBA1C 6.0 4.0-6.0 % < 6% Non-Diabetic Level < 7% Controlled Diabetic Level > 8% Poorly Controlled Diabetic Level Medications Medication SIG (Take, Route, Frequency, Duration) Notes Start Date End Date Status Airsupra 90-80 MCG/ACT 2 puffs as needed Inhalation Six times a day 08/13/2024 Active Meloxicam 15 MG 1 tablet Orally Once a day; Duration: 30 days Active Escitalopram Oxalate 20 MG TAKE 1 TABLET BY MOUTH EVERY DAY; Duration: 30 Active Bisoprolol Fumarate 5 MG 1 tablet Orally once daily; Duration: 90 days Active Rosuvastatin Calcium 10 MG TAKE 1 TABLET BY MOUTH EVERY DAY; Duration: 90 Active CPAP MASK DIRECTED 02/11/2016 Active Ventolin HFA 108 (90 Base) MCG/ACT 2 puff(s) inhaled 4 times a day prn 10/13/2013 Active CPAP Supplies - as directed mask replacement as directed 05/18/2023 Active Omeprazole 40 MG TAKE 1 CAPSULE BY [facility] EVERY DAY; Duration: 90 Active Adderall 30 MG 1 tab(s) orally 2 ti mes a day; Duration: 30 day(s) 01/12/2025 Active CareTouch CPAP & BIPAP Hose 1 DIRECTED 02/15/20 19 Active Ipratropium-Albuterol 0.5-2.5 (3) MG/3ML 3 mL inhaled 4 times a day; Duration: 90 Active Immunizations Vaccine Route Administration Date Status Comme nts COVID 19 Conchis Unknown 11/24/2020 Administered Fluzone Quad (6months&older) IM Intramuscular 08/19/2019 Administered PNEUMOVAX 23 VACCINE Unknown 10/21/2012 Administered PNEUMOVAX 23 VACCINE IM Intramuscular 01/22/2017 Administe red PNEUMOVAX 23 VACCINE IM Intramuscular 03/04/2025 Pending Prevnar (PCV20) IM Intramuscular 03/06/2023 Administered Tetanus Tdap-Adacel (over 7yrs) IM Intramuscular 05/24/2011 Administered Problems Problem Type SNOMED Code ICD Code Onset Dates Problem Status W/U Status Risk Notes Problem Hypertension (51679318) HTN (hypertension) (I10) Active confirmed Problem Osteopenia (202850061) Osteopenia (M85.80) Active confirmed Problem Asthma (970696020) Asthma (J45.909) Active conf irmed Problem Primary generalised osteoarthritis (317587251) Primary generalized (osteo)arthritis (M15.0) Active confirmed Problem Morbid obesity (disorder) (234341490) Morbid (severe) obesity due to excess calories (E66.01) Active confirmed Problem Depressive disorder (68113640) Depressive disorder (F32.9) Active confirmed Problem Attention deficit disorder (92450002) Attention deficit disorder (F90.0) Active confirmed Problem History of polyp of colon (situation) (928139846) Hx of colonic polyps (Z86.010) Active confirmed Problem Paresthesia (finding) (99364436) Paresthesias (R20.2) Active confirmed Problem Obese class II (607116367515227) BMI 36.0-36.9,adult (Z68.36) Active confirmed Problem Neuropathy (137980634) Neuropathy (G62.9) Active confirmed Problem Uncomplicated mild persistent asthma (183106624) Mild persistent asthma without complication (J45.30) Active confirmed Problem Obstructive sleep apnea syndrome (65832975) DUYEN (obstructive sleep apnea) (G47.33) Active confirmed Problem Obese class II (589021019056732) BMI 38.0-38.9,adult (Z68.38) Active confirmed Problem Obese class II (261576508432628) BMI 37.0-37.9, adult (Z68.37) Active confirmed Problem Dyslipidemia (587635359) Dyslipidemia (E78.5) Active confirmed Problem Type II diabetes mellitus without complication (515096094) Type 2 diabetes mellitus without complication, unspecified whether laborer marine terminal insulin use (E11.9) Active confirmed Problem Partial nontraumatic tear of left rotator cuff (M75.112) Active confirmed Vital Signs Heart Rate 72 /min 03/04/2025 Blood pressure diastolic 82 mm Hg 03/04/2025 Height 60 in 03/04/2025 Blood pressure systolic 130 mm Hg 03/04/2025 Weight 187.4 lbs 03/04/2025 BMI 36.6 kg/m2 03/04/2025 Encounters Encounter Location Date Provider Diagnosis [facility] [facility] [address] JACI Coyle [id number] 07/29/2024 R Jorge [place] Substernal chest tristin n R07.2 ; 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 ; Paresthesias R20.2 and Hyperglycemia R73.9 [facility] [address] [facility] [address] JACI Coyle [id number] 08/13/2024 Sofia Ames Acute URI J06.9 and Bronchitis J40 [facility] [address] [facility] [address] [place] Coyle [id number] 03/04/2025 Sofia Ames Adult general medica l examination Z00.00 ; Attention deficit disorder F90.0 ; HTN (hypertension) I10 ; DUYEN (obstructive sleep apnea) G47.33 ; Dyslipidemia E78.5 ; Mild persistent asthma without complication J45.30 ; Depressive disorder F32.9 ; Arthralgia M25.50 ; Elevated glucose R73.09 ; Osteoporosis screening Z13.820 ; Morbid (severe) obesity due to excess calories E66.01 and BMI 36.0-36.9,adult Z68.36 [facility] [address] [facility] [address] JACI Coyel [id number] 04/24/2024 R Jorge Tranfleet Attention deficit di sorder F90.0 [facility] [address] [place]I Coyle [id number] 06/17/2024 R Jorge Nhung Attention deficit di sorder F90.0 [facility] [address] [facility] [address] JACI Coyle [id number] 07/31/2024 R Jorge Nhung [facility] [address] [facility] [address] JACI Coyle [id number] 08/11/2024 R Jorge Nhung [facility] [address] [facility] [address] JACI Coyle [id number] 08/19/2024 R Jorge Nhung [facility] [address] [place], [place] [id number] 08/29/2024 R Jorge Nhung Attention deficit di sorder F90.0 [facility] [address] [place], [place] [id number] 11/03/2024 R Jorge Nhung Attention deficit di sorder F90.0 [facility] [address] [place], [place] [id number] 01/12/2025 R Jorge Nhung Attention deficit di sorder F90.0 [facility] [address] [place], [place] [id number] 03/04/2025 R Jorge Nhung [facility] [address] [facility] [address] [place], [place] [id number] 03/05/2025 Sofia Ames Assessments Encounter Date Diagnosis (ICD Code) Assessment Notes Treatment Notes Treatment Clinical Notes Section Notes 04/24/2024 Attention deficit disorder (ICD-10 - F90.0) 06/17/2024 Attention deficit disorder (ICD-10 - F90.0) 07/29/2024 Substernal chest tristin n (ICD-10 - R07.2) Given her symptoms of exertional chest pain, multiple risk factors, and elevated coronary calcium score of 228, recommend proceeding with stress test. 08/13/2024 Bronchitis (ICD-10 - J40) Gave samples of airsupra for her to try. 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 Her symptoms of loose stool are consistent with her postcholecystectomy state. 03/04/2025 Attention deficit disorder (ICD-10 - F90.0) 03/04/2025 Adult general medica l examination (ICD-10 - Z00.00) Patient instructed to return to office Annually for Annual Wellness Visits to include annual screenings of Pain assessment, Functional Ability assessment, Cognitive Ability assessment, Fall Risk assessment, Depression screening and Bladder control screening. 07/29/2024 Paresthesias (ICD-10 - R20.2) Discussed differential to include carpal tunnel syndrome. Symptoms are not worrisome at present. 03/04/2025 HTN (hypertension) (ICD-10 - I10) 07/29/2024 Hyperglycemia (ICD-1 0 - R73.9) 03/04/2025 DUYEN (obstructive sleep apnea) (ICD-10 - [...] 36.0-36.9,adult (ICD-10 - Z68.36) Plan Of Treatment Pending Test Test Name Order Date Bone density 03/04/2025 Next Appt Details Provider Name:Sofia suero, 09/04/2025 09:15:00 AM, [address], [place], [place], [id number], Insurance Providers Payer Name Payer Address Payer Phone Subscriber Number Group Number Insured Name Patient Relationship to Insured Coverage Start Date Coverage End Date [employer] (MEDICAR E) [address] [address] [place] [address] [id number] [address] PINO Self - patient is the insured Medical (General) History Medical History History ICD Code depression asthma Adult ADD HBP DUYEN on CPAP Sigmoid diverticulosis by C-scope 2017 Pancreatitis HLP Surgical History Surgery Date(Month/Year) L5-S1 fusion 08/21/2005 heart cath 06/2008 right shoulder-rotator cuff surgery-tear in bicep[facility]Dr. Mauricio 08/25/2015 Lap rob - Dr. Hill 12/16/15 Right knee replacement 02/14/17 C-scope/ polyp x 1, sigmoid diverticulos is/ Dr. Carvalho 08/2017 Bilateral cataracts Left Knee Replacement 11/2019 C-scope/ Allran/ hyperplastic polyp x 2/ repeat 5 years 09/2022 Hospitalization History Reason Date(Month/Year) [facility]-epigastric abdominal pain 05/07/20 [facility]-acute pancreatitis 09/01
--- OUTSIDE RECORDS SUMMARY | 2025-03-17 09:06 | XMS_ITS | Encounter Summary ---
Author Organization [facility] ([place], [place], [place], [place]) Address [address] [place] [address] Care Team Providers Care Business Instructor Name Role Phone Unavailable Primary Care Provider Unavailabl e Encounter Details Date Type Department Care Team (Late st Contact Info) Description 11/17/2019 Transcribed Document [facility] Radiology [address] [place] [address] Leigh Larsen MD [address] [place] [address] Social History Tobacco Use Types Packs/Day Years Used Date Smoking Tobacco: Never Assessed Comments Unknown Sex and Gender Information Value Date Recorded Sex Assigned at Female 03/14/2022 6:15 PM CDT Legal Sex Female 6:15 PM CDT Gender Identity Female 03/14/2022 6:15 PM CDT Sexual Orientation Not on file documented as of this encounter Miscellaneous Notes * Cerner Conversion Note - Leigh Larsen MD - 11/17/2019 12:24 PM EST Patient: NIDIA PINO Age: 64 years Sex: Female : 1955 Associated Diagnoses: None Author: CARLTON TRAVIS APRN Chief Complaint L knee pain Review of Systems ROS reviewed as documented in chart no change since last seen by surgeon Health Status Allergies: Allergic Reactions (Selected) Severity Not Documented Penicillin- Unknown., Allergies (1) Active Reaction penicillin Unknown Current medications: (Selected) Inpatient Medications Ordered Chloraseptic 6 mg-10 mg mucous membrane lozenge: 1 Lozenge, Oral, Q2H, PRN: Sore Throat Cleocin HCl: 900 mg, 50 mL, 100 mL/Hr, IV Piggyback, PREOP Colace: 100 mg, Oral, Daily Cyklokapron 1,000 mg + syringe 1 Each + Sodium Chloride 0.9% intravenous solution 15 mL: 1,000 mg, 10 mL, 150 mL/Hr, IV Push, 1-Time Cyklokapron 2,000 mg + sodium chloride 0.9% injectable solution 5 mL + syringe 1 Each: 2,000 mg, 20 mL, 75 mL/Hr, IV Push, 1-Time Dulcolax Laxative: 10 mg, Rectal, BID, PRN: Constipation Lactated Ringers Injection intravenous solution 1,000 mL: 20 mL/Hr, IntraVENous Lyrica: 75 mg, Oral, 1-Time Milk of Magnesia 8% oral suspension: 30 mL, Oral, TID, PRN: Constipation MiraLax: 17 Gram, Oral, Daily Pepcid: 20 mg, Oral, 1-Time Phenergan: 12.5 mg, IV Push, Q6H, PRN: Nausea Toradol: 30 mg, IV Push, 1-Time Tylenol: 1,000 mg, Oral, On-Arrival Zofran: 4 mg, IV Push, 1-Time Zofran: 4 mg, IV Push, Q4H, PRN: Nausea dexamethasone: 10 mg, IV Push, 1-Time fentaNYL: 50 mcg, IV Push, Q10Min, PRN: Pain lidocaine 1% injectable solution: 0.5 mL, IntraDermal, 1-Time, PRN: Other (See Comment) midazolam: 2 mg, IV Push, Q10Min, PRN: Anxiety ropivacaine 0.5% injectable solution 24.6 mL + EPINEPHrine 0.25 mg + cloNIDine 40 mcg + Sodium Chlo...: 24.6 mL, 50 mL/Hr, Miscellaneous, 1-Time scopolamine 1.5 mg transdermal film, extended release: 1 Patch, TransDermal, 1-Time, PRN: Motion Sickness simethicone: 80 mg, Oral, Q6H, PRN: Gas Documented Medications Documented Adderall: 30 mg, Oral, PRN: Agitation, 0 Refill(s) Advair Diskus 250 mcg-50 mcg inhalation powder: 1 Puff, Inhalation, BID, 180 Each Lexapro 20 mg oral tablet: 1 Tab, Oral, Daily, 30 Tab Lipitor: 10 mg, Oral, At Bedtime, 0 Refill(s) Melatonin: 10 mg, Oral, At Bedtime, 0 Refill(s) ProAir HFA 90 mcg/inh inhalation aerosol: 2 Puff, Inhalation, Daily, PRN: Wheezing omeprazole 40 mg oral delayed release capsule: 1 Cap, Oral, Daily, before a meal, 30 Cap, 0 Refill(s), Home Medications (7) Active Adderall 30 mg, [...] inhalation aerosol 2 Puff, PRN, Inhalation, Daily , Medications (23) Active Scheduled: (12) acetaminophen 500 mg tab 1,000 mg 2 Tab, Oral, On-Arrival clindamycin/D5w 900 mg 50 mL, IV Piggyback, PREOP dexamethasone 10 mg/1 mL inj 10 mg 1 mL, IV Push, 1-Time docusate sodium 100 mg cap 100 mg 1 Cap, Oral, Daily famotidine 20 mg tab 20 mg 1 Tab, Oral, 1-Time ketorolac 30 mg/1 mL inj 30 mg 1 mL, IV Push, 1-Time ondansetron 4 mg/2 mL inj 4 mg 2 mL, IV Push, 1-Time polyethylene glycol 3350 pwd 17 g pkt 17 Gram 1 Packet, Oral, Daily pregabalin 75 mg cap 75 mg 1 Cap, Oral, 1-Time ropivacaine 0.5% 24.6 mL + EPINEPHrine 0.25 mg + cloNIDine 40 mcg + NaCl 0.9% 24.75 mL 24.6 mL, Miscellaneous, 1-Time tranexamic acid 1,000 mg + syringe 1 Each + NaCl 0.9% 15 mL 1,000 mg 10 mL, IV Push, 1-Time tranexamic acid 2,000 mg + NaCl 0.9% *PF* 5 mL + syringe 1 Each 2,000 mg 20 mL, IV Push, 1-Time Continuous: (1) lactated ringers 1,000 mL 1,000 mL, IntraVENous, 20 mL/Hr PRN: (10) benzocaine-menthol 6 mg vladimir 1 Lozenge, Oral, Q2H bisacodyl 10 mg supp 10 mg 1 Supp, Rectal, BID fentaNYL 100 mcg/2 mL inj 50 mcg 1 mL, IV Push, Q10Min lidocaine 0.5 mL, IntraDermal, 1-Time magnesium hydroxide 8% liq 30 mL 30 mL, Oral, TID midazolam 1 mg/1 mL inj 2 mL 2 mg 2 mL, IV Push, Q10Min ondansetron 4 mg/2 mL inj 4 mg 2 mL, IV Push, Q4H promethazine 25 mg/1 mL inj 12.5 mg 0.5 mL, IV Push, Q6H scopolamine 1.5 mg/72 hr patch 1 Patch, TransDermal, 1-Time simethicone 80 mg chew tab 80 mg 1 Tab, Oral, Q6H Problem list: All Problems Wears glasses / SNOMED CT 191838120 / Confirmed Sleep apnea / SNOMED CT 569534576 / Confirmed Seasonal allergies / SNOMED CT 3024644854 / Confirmed Post-operative nausea and vomiting / SNOMED CT 1116282 / Confirmed Post-menopausal / SNOMED CT 833998754 / Confirmed 3 years post menapausal Pancreatitis / SNOMED CT 606314651 / Confirmed Osteoarthritis / SNOMED CT 6742453426 / Confirmed DUYEN (obstructive sleep apnea) / SNOMED CT 390006653 / Confirmed does use c-pap Numbness in feet / SNOMED CT 095259154 / Confirmed feet numbness and cold at night Impaired mobility / SNOMED CT 225604051 / Confirmed HTN / SNOMED CT 8679915472 / Confirmed Hyperlipidemia / SNOMED CT 87304466 / Confirmed History of obstructive sleep apnea / IMO 67290784 / Confirmed GERD - Gastro-esophageal reflux disease / SNOMED CT 4679440186 / Confirmed Diverticulitis / SNOMED CT 325972329 / Confirmed Chronic constipation / SNOMED CT 215456405 / Confirmed Cataract bilateral with IOL / SNOMED CT 408459133 / Confirmed Bronchitis / SNOMED CT 78785923 / Confirmed asthma / SNOMED CT 976435423 / Confirmed Arthritis / SNOMED CT 4493737 / Confirmed Anxiety and depression / SNOMED CT 52948246 / Confirmed ADD (attention deficit disorder) / SNOMED CT 646605028 / Confirmed, Active Problems (22) ADD (attention deficit disorder) Anxiety and depression Arthritis osteo asthma Bronchitis Cataract bilateral with IOL Chronic constipation Diverticulitis GERD - Gastro-esophageal reflux disease History of obstructive sleep apnea HTN Hyperlipidemia Impaired mobility Numbness in feet DUYEN (obstructive sleep apnea) Osteoarthritis Pancreatitis Post-menopausal Post-operative nausea and vomiting Seasonal allergies Sleep apnea Wears glasses Histories Past Medical History: No active or resolved past medical history items have been selected or recorded. Family History: No family history items have been selected or recorded. Procedure history: right knee repolacement in 2017 at 62 Years. open cholecystectomy in 2017 at 62 Years. spinal fusion in 2016 at 61 Years. Right Roator cuff repair 04/24/13. Spinal kuqugv75/2005. C section 1982. right breast cysts removed 1976. Echo. Cardiac Cath. Social History Social & Psychosocial Habits Alcohol 07/25/2013 Alcohol Use in Last Twelve Months No Employment/School 10/29/2019 Status: Retired Home/Environment 10/29/2019 Lives with: Spouse Living situation: Home/Independent Home equipment: CPAP/BiPAP, Respiratory treatments, Walker/Cane Substance Abuse 07/25/2013 Recreational Drug Use History No Recreational Drug Use Last 12 Months No Tobacco 01/31/2017 Smoking Status Never smoker Comment: NONE - 01/31/2017 13:35 - COIL, EMETERIO BLAKE . Physical Examination VS/Measurements No qualifying data available General: Alert and oriented, No acute distress, obese. Eye: Pupils are equal, round and reactive to light, Extraocular movements are intact, glasses. HENT: Normocephalic, Normal hearing. Neck: Supple, Non-tender. Respiratory: Lungs are clear to auscultation, Respirations are non-labored. Cardiovascular: Normal rate, Regular rhythm, No murmur, No gallop, No edema. Gastrointestinal: Soft, Non-tender. Genitourinary: No costovertebral angle tenderness. Lymphatics: No lymphadenopathy neck, axilla, groin. Musculoskeletal: painful ROM L knee, LLE weakness, see comprhensive ortho exam in office notes. Integumentary: Warm, Dry, [place]. Neurologic: Alert, Oriented. Psychiatric: Cooperative, Appropriate mood & affect. Review / Management Results review: Labs (Last four charted values) WBC 8.5 (OCT 29) HB 11.9 (OCT 29) HCT 38.4 (OCT 29) Plt 267 (OCT 29) Na 139 (OCT 29) K 3.7 (OCT 29) Cl 103 (OCT 29) CO2 31 (OCT 29) BUN 17 (OCT 29) Cr 0.90 (OCT 29) Glu R H 138 (OCT 29) Ca 9.1 (OCT 29) PT 10.3 (OCT 29) INR 1.0 (OCT 29) PTT 28.2 (OCT 29) . Impression and Plan Condition: Stable. documented in this encounter Plan of Treatment Not on file documented as of this encounter Visit Diagnoses Not on filedocumented in this encounter
--- OUTSIDE RECORDS SUMMARY | 2025-03-17 09:07 | XMS_ITS | Encounter Summary ---
Author Organization [employer] ([place], [place], [place], [place]) Address [address] [place] [address] Care Team Providers Care Automation Mechanic Name Role Phone Unavailable Primary Care Provider Unavailabl e Encounter Details Date Type Department Care Team (Late st Contact Info) Description 11/17/2019 Transcribed Document [facility] [address] [place] [address] Nate Larsen MD [address] [place] [address] Social History Tobacco Use Types Packs/Day Years Used Date Smoking Tobacco: Never Assessed Comments Unknown Sex and Gender Information Value Date Recorded Sex Assigned at Female 03/14/2022 6:15 PM CDT Legal Sex Female 6:15 PM CDT Gender Identity Female 03/14/2022 6:15 PM CDT Sexual Orientation Not on file documented as of this encounter Miscellaneous Notes * Cerner Conversion Note - Nate Larsen MD - 11/17/2019 5:25 PM EST Patient: NIDIA PINO Age: 64 Years Sex: Female : 1955 *Operation Left total knee arthroplasty Indication for Surgery Pleasant 64-year-old female well known to me from a previous right TKA.The patient has end-stage osteoarthritis of the above-mentioned knee. They have otherwise failed conservative measures and now present for total knee arthroplasty. The risks benefits and alternatives have been explained to the patient in detail and they have voiced their agreement. *Preoperative Diagnosis Osteoarthritis left knee *Postoperative Diagnosis Osteoarthritis left knee *Surgeon(s) Primary Surgeon NATE LARSEN MD-ORT (Surgeon/Proceduralist, First) Surgeon: Chava Residential Sales Consultant: Ruy *Procedure Narrative Patient identified in the preoperative holding and appropriate lower extremity was marked. Patient was transferred to operating theater, general anesthesia induced by attending anesthesia staff. Patient was given appropriate preop antibiotic prophylaxis as well as 1 g intravenous tranexamic acid. Tourniquet placed to the proximal aspect of the operative thigh. The operative leg prepped and draped in usual sterile fashion. Time-out was performed. Appropriate patient and operative extremity were confirmed. Leg exsanguinated with Esmarch bandage, tourniquet inflated to 300 mmHg. Standard midline incision and medial parapatellar arthrotomy were performed. Standard medial release. Synovium, fat pad, and other soft tissues were resected. Osteophytes removed from the periphery of the femur as well as the intercondylar notch. Cruciates were resected. Next, distal femoral line pilot hole was drilled. The flexible intramedullary guide arie was placed and pinned and distal femur was cut. Proximal tibia was exposed. Extramedullary guide placed perpendicular to the mechanical axis of the tibia set to neutral slope. Set to remove 9 mm off the lateral side and the proximal tibia was cut. I then proceeded to balance the knee in extension with release noted above. Knee was flexed up and epicondylar axis marked with a Bovie. Femur was sized . The [place] gap shot man was placed and tensed. Posterior condylar resection as noted above. Drill holes made through the shot man and the appropriately sized four-in-one block placed in those holes. Anterior, posterior, and chamfer cuts were then made. Balance rechecked at 90 and 0 degrees, both of which were appropriate. Next, the notch block was pinned in the appropriate medial to lateral position and the box was cut. Knee was flexed to 90 degrees. Laminar spreaders were placed. Meniscus and posterior condylar osteophytes were removed. Next the proximal tibia was exposed and sized. The guide pinned to appropriate amount of external rotation centered over the medial third of the tibial tubercle. Keel was drilled and punched. Trials were placed. Overhanging osteophytes were removed. Next, patella was everted, measured, and resected freehand. Lug holes drilled. Trial button placed. The construct was assessed for tracking. Lateral release was performed at this point if necessary. At this point, all trials were removed. Sclerotic bone perforated with a drill. Exposed bony ends thoroughly irrigated and dried. Cementation of final components took place in a single stage using high viscosity Simplex cement. Base plate was irrigated. Final poly impacted into place. Knee was held in extension to complete cement curing. During this time, the extensor mechanism and soft tissue were infiltrated with a pain cocktail. Following complete cement curing, the wound was thoroughly irrigated with dilute Betadine lavage and normal saline. 1 g of vancomycin powder was then placed within the joint. The arthrotomy closed with #1 Stratafix. 2 g topical tranexamic acid then injected in the joint. Skin closed in layers with Vicryl, Stratafix, and Dermabond. Wound was covered with an Aquacel dressing. Next, drapes removed, patient carefully transferred to a stretcher. Operative extremity placed in a compression stocking as well as a Cryo/Cuff. The patient was then transferred to a stretcher, extubated without incident, and taken to PACU in stable condition. All instruments, sponge, needle counts correct at the end of the case. Drains/Packs Used None Anesthesia General JOSE C PEÑA MD-ANS (Anesthesiologist of Record) General endotracheal anesthesia with adductor canal and sciatic nerve blocks *Estimated Blood Loss 50 mL *Findings Abx: 900 mg clindamycin Implants: Mitch Triathlon femoral component: 3 PS [place] Triathlon universal tibial baseplate: 3 Tibial insert: 9 mm PS Patellar button: 29 mm asymmetric Pre op deformity: 5 deg varus Correctable: yes Flexion contracture: none Distal femoral cut: 5 deg, 9 mm Proximal tibial cut: 9 mm Releases in extension: Deep MCL Initial extension gap: 17 mm Posterior condylar resection: 17 mm Pre-reconstructed patellar thickness: 22 mm Post-reconstructed patellar thickness: 23 mm Stability: 0- 0 mm 20- 0 mm 90- 0 mm Patellar tracking: normal Lateral release: no ROM with capsule closed: 0-118 Tourniquet time: 51 min Other: none *Specimen(s) Bone to pathology Complications None Technique Cemented PS TKA Date of Service Date/Time of Service SN - Proc - Start Time: 11/17/19 13:55:00 (11/17/19 14:11:25) documented in this encounter Plan of Treatment Not on file documented as of this encounter Visit Diagnoses Not on filedocumented in this encounter
--- OUTSIDE RECORDS SUMMARY | 2025-03-17 09:07 | XMS_ITS | Encounter Summary ---
Author Organization [employer] ([place], [place], [place], [place]) Address [address] [place] [address] Care Team Providers Care Protective Signal Installer Helper Name Role Phone Unavailable Primary Care Provider Unavailabl e Encounter Details Date Type Department Care Team (Late st Contact Info) Description 11/18/2019 Transcribed Document [facility] Radiology [address] [place] [address] Hari Wing MD [facility] [address] [address] Social History Tobacco Use Types Packs/Day Years Used Date Smoking Tobacco: Never Assessed Comments Unknown Sex and Gender Information Value Date Recorded Sex Assigned at Female 03/14/2022 6:15 PM CDT Legal Sex Female 6:15 PM CDT Gender Identity Female 03/14/2022 6:15 PM CDT Sexual Orientation Not on file documented as of this encounter Miscellaneous Notes * Cerner Conversion Note - Hari Wing MD - 11/18/2019 11:06 AM EST Patient: NIDIA PINO Age: 64 years Sex: Female : 1955 Associated Diagnoses: None Author: ADEN GAUTHIER APRN-MACARENA 11/17/2019 cc: medical management s/p left total knee arthroplasty S: Patient found sitting up to bedside recliner. A/o. Eager for discharge home today. Block is wearing off. Pain controlled with pain meds. Ambulating with walker assist. No cough, dypsnea, fever/chills, n/v or dysuria. Bowels have not yet moved but is passing gas. HPI: Patient is a 64 yo female admitted to [facility] per Dr. Larsen for a left total [...] knee disability. Past Med Hx: Active Problems (23) ADD (attention deficit disorder) Anxiety and depression Arthritis asthma Bronchitis Cataract bilateral with IOL Chronic constipation Diverticulitis GERD - Gastro-esophageal reflux disease History of obstructive sleep apnea HTN Hyperlipidemia Idiopathic osteoarthritis Impaired mobility Numbness in feet DUYEN (obstructive [...] (1) Active Reaction penicillin Unknown Home Medications (13) Active Adderall 30 mg, PRN, [...] Chest pain, palpitations, syncope] Gastrointestinal: [No nausea, vomiting Genitourinary: [No hematuria, dysuria] Musculoskeletal: [+left knee pain, decreased range of motion] Integumentary: [No rash, pruritus,] Neurologic: [+left knee weakness, nerve block wearing off Psychiatric: [+ depression, no anxiety Exam: Vitals Signs (last 24 hrs) Last Charted Minimum Maximum Temp 98.2 (NOV 17 05:10) 97.9 (NOV 16 19:09) 98.4 (NOV 16 16:55) Mon HR 80 (NOV 17 08:21) 64 (NOV 16 11:00) 96 (NOV 16 21:10) Periph HR 66 (NOV 16 12:03) 66 (NOV 16 12:03) 66 (NOV 16 12:03) Resp Rate 16 (NOV 17 08:21) L 13 (NOV 16 11:00) H 21 (NOV 16 15:50) SBP 97 (NOV 17 05:10) 97 (NOV 17 05:10) 123 (NOV 16 15:35) DBP L 53 (NOV 17 05:10) L 53 (NOV 17 05:10) 72 (NOV 17 03:00) MAP 65 (NOV 17 05:10) 65 (NOV 17 05:10) 88 (NOV 16 19:09) SpO2 95 (NOV 17 08:16) 95 (NOV 16 22:49) 100 (NOV 16 12:03) Vitals Signs (last 24 hrs) Last Charted Minimum Maximum Temp 98.2 (NOV 17 05:10) 97.9 (NOV 16 19:09) 98.4 (NOV 16 16:55) Mon HR 80 (NOV 17 08:21) 64 (NOV 16 11:00) 96 (NOV 16 21:10) Periph HR 66 (NOV 16 12:03) 66 (NOV 16 12:03) 66 (NOV 16 12:03) Resp Rate 16 (NOV 17 08:21) L 13 (NOV 16 11:00) H 21 (NOV 16 15:50) SBP 97 (NOV 17 05:10) 97 (NOV 17 05:10) 123 (NOV 16 15:35) DBP L 53 (NOV 17 05:10) L 53 (NOV 17 05:10) 72 (NOV 17 03:00) MAP 65 (NOV 17 05:10) 65 (NOV 17 05:10) 88 (NOV 16 19:09) SpO2 95 (NOV 17 08:16) 95 (NOV 16 22:49) 100 (NOV 16 12:03) General: [Alert and oriented, no acute distress]. Neurologic: [Awake, alert, and oriented X3, CN II-XII intact]. Eye: [PERRL, EOMI, normal conjunctiva]. HENT: [Normocephalic, normal hearing, moist oral mucosa, no scleral icterus, no sinus tenderness]. Neck: [Supple, non-tender, no lymphadenopathy]. Lungs: [Clear to auscultation, non-labored respiration]. Heart: [Normal rate, regular rhythm, no edema]. Abdomen: [Soft, non-tender, non-distended, normal bowel sounds Musculoskeletal: left knee pain with decreased ROM Skin: [Skin is warm, dry and pink Psychiatric: [Cooperative, appropriate mood and affect]. Data: Blood Gases (Current Encounter/Past 24 Hours) No Blood Gas Results Found (Past 24 Hours) Electrolytes(BMP) Results (Current Encounter/Past 24 Hours) Sodium Level 137 mmol/L 11/18/2019 04:41 Potassium Level 4.6 mmol/L 11/18/2019 04:41 Chloride Level 106 mmol/L 11/18/2019 04:41 Carbon Dioxide Level 26 mmol/L 11/18/2019 04:41 Anion Gap 10 11/18/2019 04:41 Blood Urea Nitrogen 22 mg/dL 11/18/2019 04:41 Glucose Level 133 mg/dL HI 11/18/2019 04:41 Calcium Level 8.5 mg/dL 11/18/2019 04:41 Creatinine Level 1.00 mg/dL 11/18/2019 04:41 Cardiac Markers (Current Encounter/Past 24 Hours) No Cardiac Marker Results Found (Past 24 Hours) CBC Results (Current Encounter/Past 24 Hours) WBC 13.8 K/uL HI 11/18/2019 04:11 Hct 34.9 % 11/18/2019 04:11 Hgb 10.6 g/dL LOW 11/18/2019 04:11 Platelet Count 266 K/uL 11/18/2019 04:11 CMP Results (Current Encounter/Past 24 Hours) Creatinine Level 1.00 mg/dL 11/18/2019 04:41 eGFR NonAfrican 56 mL/min/1.73m2 LOW 11/18/2019 04:41 eGFR >60 mL/min/1.73m2 11/18/2019 04:41 Bun/Creatinine 22.0 SD 11/18/2019 04:41 Sodium Level 137 mmol/L 11/18/2019 04:41 Potassium Level 4.6 mmol/L 11/18/2019 04:41 Chloride Level 106 mmol/L 11/18/2019 04:41 Carbon Dioxide Level 26 mmol/L 11/18/2019 04:41 Anion Gap 10 11/18/2019 04:41 Blood Urea Nitrogen 22 mg/dL 11/18/2019 04:41 Glucose Level 133 mg/dL SD 11/18/2019 04:41 Calcium Level 8.5 mg/dL 11/18/2019 04:41 Coagulation Results (Current Encounter/Past 24 Hours) No Coagulation Results Found (Past 24 Hours) Creatinine Clearance (Current Encounter/Past 24 Hours) Creatinine Level 1.00 mg/dL 11/18/2019 04:41 Bun/Creatinine 22.0 SD 11/18/2019 04:41 Estimated Creatinine Clearance 41.36 mL/Min 11/18/2019 04:41 Reviewed preop CBC, BMP, coags 10/29/2019 A1C 5.9 Ventricular Rate : 76 BPM Atrial Rate : 76 BPM P-R Interval : 132 ms QRS Duration : 74 ms Q-T Interval : 394 ms QTC Calculation(Bezet) : 443 ms P [place] : 56 degrees R [place] : 0 degrees T [place] : 47 degrees Normal sinus rhythm Moderate [...] (6.11 mmol/L) Impression: advanced OA left knee; -s/p left total knee arthroplasty hx RTKA obesity prediabetes suspect metabolic syndrome hx DUYEN hx chronic constipation Plan: Ok to discharge home today from medical standpoint continue bowel regimen-aggressive given chronic constipation continue incentive spirometer PT/OT-outpatient Pain management deferred to surgeon Assessment and treatment plan made in conjunction with Doc Wing MD documented in this encounter Plan of Treatment Not on file documented as of this encounter Visit Diagnoses Not on filedocumented in this encounter
--- OUTSIDE RECORDS SUMMARY | 2025-03-17 09:07 | XMS_ITS | Encounter Summary ---
Author Organization [employer] ([place], [place], [place], [place]) Address [address] [place] [address] Care Team Providers Care Retail Sales Representative Name Role Phone Unavailable Primary Care Provider Unavailabl e Encounter Details Date Type Department Care Team (Late st Contact Info) Description 11/18/[address] [facility] Family Medicine [address] [place] [address] ProviderTiana MD [address] [place] [address] Social History Tobacco Use Types [...] Conversion Note - Historical ProviderMD - 11/18/2019 4:52 PM PHLEBOTOMY SUPERVISOR Initial Discharge Planning Entered On: 11/18/2019 16:54 EST Performed On: 11/18/2019 16:52 EST by EDIN TAPIA RN-Tobacco Drying Machine Operator Initial Assessment I Previously Documented Living Environment : No qualifying data available. Living Situation : Home Patient Lives With : Spouse Is the Patient a Caregiver at Home? : No Emergency Contact #1 : [place] Emergency Contact #1 Emergency Contact #1 Relationship : spouse Emergency Contact #2 : rhoda [place] Emergency Contact #2 Emergency Contact #2 Relationship : dtr EDIN TAPIA RN-Tobacco Drying Machine Operator - 11/18/2019 16:52 EST Initial Assessment II Sensory and Motor Deficits : None Current Home Treatments and Equipment : Walker EDNI TAPIA RN-Tobacco Drying Machine Operator - 11/18/2019 16:52 EST Discharge Needs I Anticipated Discharge Date : 11/18/2019 EST Anticipated Discharge To, CM : Home with family care Current Home Treatment/Equipment : Current Home Treatment/Equipment No qualifying data available. Post Acute/Home Treatments : None Documentation Status Complete : Yes EDIN TAPIA RN-Tobacco Drying Machine Operator - 11/18/2019 16:52 EST Discharge Needs II Professional Skilled Services : Professional Skilled Services No qualifying data available. Services and Community Resources : Physical Therapy Needs Assistance with Transportation : No Discharge Options Discussed with Patient : Outpatient services EDIN TAPIA RN-Tobacco Drying Machine Operator - 11/18/2019 16:52 EST Narrative Note Narrative Note : 64yo female pt s/p LTKA. Met with pt and spouse at bedside this am during MDR. Pt has DME at home. Referral sent to [facility] for outpatient PT and scheduled 1st appt for 11/18 @ 1600. No other CM needs identified. EDIN TAPIA RN-Tobacco Drying Machine Operator - 11/18/2019 16:52 EST documented in this encounter Plan of Treatment Not on file documented as of this encounter Visit Diagnoses Not on filedocumented in this encounter
--- OUTSIDE RECORDS SUMMARY | 2025-03-17 09:07 | XMS_ITS | Encounter Summary ---
Author Organization [employer] ([place], [place], [place], [place]) Address [address] [place] [address] Care Team Providers Care Facilities Maintenance Worker Name Role Phone Unavailable Primary Care Provider Unavailabl e Encounter Details Date Type Department Care Team (Late st Contact Info) Description 11/17/2019 Transcribed Document [facility] Family Medicine [address] [place] [address] ProviderTiana MD [address] [place] [address] Social History Tobacco Use Types [...] - Tiana ProviderMD - 11/17/2019 1:55 PM WATER RESOURCE ENGINEERING SPECIALIST [facility] Main OR PACU Summary Primary Physician: NATE HAMILTON MD-ORT Finalized Date/Time: 11/17/19 17:27:07 Pt. Name: NIDIA SANDERS MATTHEW /Sex: 1955 Female Med Rec #: [id number] Physician: NATE HAMILTON MD-ORT Financial #: [id number] Pt. Type: O Room/Bed: 638/1 Admit/Disch: 11/17/19 07:16:00 - Institution: [facility] Main OR PACU I Case Times Entry 1 In PACU I 11/17/19 15:38:00 Ready for PACU 11/17/19 17:30:00 Discharge Discharge from PACU 11/17/19 17:30:00 I Last Modified By: NAT GUTHRIE RN 11/17/19 17:26:33 [facility] Main OR PACU I Case Times Audit 11/17/19 17:26:33 Production Tester: FINESSE Modifier: BRANDEP <+> 1 Ready for PACU Discharge <+> 1 Discharge from PACU I Finalized By: NAT GUTHRIE, RN Document Signatures Signed By: NAT GUTHRIE RN 11/17/19 17:27 Electronically signed by [facility] Conversion Economic Forecaster Cerner at 12/31/2022 5:49 PM CDT documented in this encounter Plan of Treatment Not on file documented as of this encounter Visit Diagnoses Not on filedocumented in this encounter
--- OUTSIDE RECORDS SUMMARY | 2025-03-17 09:07 | XMS_ITS | Encounter Summary ---
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 [facility] [place] [address] [place] :1955 Visit Time:11/17/2019 Your Visit Summary Your Care Team Admitting Physician - NATE LARSEN MD-ORT Attending Physician - NATE LARSEN MD-ORT Primary Care Physician - RICHARD RAYMOND (REF)MD Referring Physician - NATE LARSEN MD-WILLIAM PEARL, NONE Your Diagnosis History of knee replacement Unilateral primary osteoarthritis, left knee, Unilateral primary osteoarthritis, left knee These Are Your Goals be able to walk, exercise Discharge Vitals Temperature 36.6 ??C Heart Rate (Monitored) 76 Respiratory Rate 18 Blood Pressure 139/71 What to do next Instructions From Your Care Team Discharge Follow Up Instructions: Follow-up Dr. Larsen 3 wks ([phone]) Follow Up Instructions: Continue ECTOR hose for 6 weeks Follow Up Instructions: Leave Aquacel dressing in place x 7-10d, then open to air. Follow-Up Appointments Follow Up with LENA GONZALEZ PA-ORT When 12/08/2019 04:00 PM EDT Where: [address] [place] [address]- Follow Up with [facility] Outpatient PT When 11/19/2019 04:00 PM EST Comments Appointment has been made Where: [facility] [address] [phone] Medications What How Much When Instructions Next Dose acetaminophen-oxyCODONE (Percocet 5/ 325 oral tablet) 1 Tablet(s) Oral Every 4 Hours as needed for Pain (Severe 7-10) not to exceed 6 tablets/ day Printed Prescription 11/18/2019 4:000m aspirin (aspirin 81 mg oral tablet) 1 Tablet(s) Oral Two Times A Day Duration: 42 Day(s) Printed Prescription 11/18/2019 5:00pm docusate (Colace 100 mg oral capsule) 1 Capsule(s) Oral Two Times A Day as needed for for constipation Duration: 30 Day(s) Printed Prescription 11/18/2019 5:00pm as needed for constipation ferrous gluconate (ferrous gluconate 324 mg (37.5 mg elemental iron) oral tablet) 1 Tablet(s) Oral Every Day Printed Prescription 11/19/2019 9:00am gabapentin (Neurontin 300 mg oral capsule) 1 Capsule(s) Oral At Bedtime as needed for Sleep Printed Prescription 11/18/2019 9:00pm meloxicam (meloxicam 15 mg oral tablet) 1 Tablet(s) Oral Every Day Printed Prescription 11/18/2019 9:00pm albuterol (ProAir HFA 90 mcg/ inh inhalation aerosol) 2 Puff(s) Inhalation Every Day as needed for Wheezing 11/19/2019 daily as needed for wheezing amphetamine-dextroamphetamine (Adderall) 30 Milligram(s) Oral As needed for Agitation 11/18/2019 as previously directed atorvastatin (Lipitor) 10 Milligram(s) Oral At Bedtime 11/18/2019 9:00pm escitalopram (Lexapro 20 mg oral tablet) 1 Tablet(s) Oral Every Day 11/19/2019 9:00am fluticasone-salmeterol (Advair Diskus 250 mcg-50 mcg inhalation powder) 1 Puff(s) Inhalation Two Times A Day 11/18/2019 twice daily as previously instructed melatonin (Melatonin) 10 Milligram(s) Oral At Bedtime 11/18/2019 9:00pm omeprazole (omeprazole 40 mg oral delayed release capsule) 1 Capsule(s) Oral Every Day before a meal 11/19/2019 09:00am Take your medications faithfully. Do NOT skip medication. Do NOT stop taking medications without the direction of a physician. Carry a list of your medications with you at all times, and take this medication list with you to your first follow up visit. Report any side effects. Avoid herbal remedies unless discussed with your physician. As part of your treatment plan, your physician may have prescribed a limited course of a controlled substance. This medication may be given to help people with moderate or severe pain or for other medical conditions, but there are risks involved with treatment. Common side effects may include nausea, constipation, drowsiness, sweating, itching, dry mouth, and rash. More serious side effects may include cognitive and motor impairment, like problems with thinking, concentrating, alertness, and movement (e.g. slowed reflexes), and driving and operating heavy machinery can be dangerous. It is important for you to talk to your physician if you have these side effects or questions. These controlled substances can produce physical dependence and be habit-forming if taken for an extended period of time, which means that the body has gotten used to them and may experience withdrawal symptoms if they are abruptly stopped. Withdrawal symptoms can include runny nose, sweating, goose bumps, diarrhea, abdominal cramping, rapid heartbeat, difficulty sleeping, and nervousness. Please dispose of unused and medications per your retail pharmacy guidance. Allergies penicillin (Unknown) Immunizations This Visit No Immunizations Found Education Materials CALL FIRST! Unless you are experiencing life-threatening issues, call your surgeon???s office or nurse navigator first, before going to the Emergency Department. Call your surgeon or nurse navigator if: ??? Your incision has increased swelling that does not get better with time, rest, and propping up your leg ??? Your incision has a foul smell or begins to open ??? You have a large amount of bleeding from incision ??? Your incision gets red, warm or increased drainage after 2 days ??? You have a fever over 101 degrees for more than 24 hours ??? You have increased swelling, redness, warmth or pain in your calf ??? You fall, but don???t have an obvious injury ??? You have questions or cause for concern regarding your total joint replacement Call 911 if: ??? You have sudden chest pain or shortness of breath ??? You fall and cannot get up ??? Life-threatening signs or symptoms ??? Stroke signs and symptoms: Facial droop, uneven smile, arm numbness, arm weakness, slurred speech, difficulty speaking or understanding If you are a patient of Dr. Larsen or Dr. Carrasco, call [phone] If you are a patient of Dr. Dickens, call [phone] Nurse Navigator: Cheli Santos Office: [phone]; ; available during regular business hours Total Knee Replacement, Care After These instructions give you information about caring for yourself after your procedure. Your doctor may also give you more specific instructions. Call your doctor if you have any problems or questions after your procedure. Follow these instructions at home: Medicines ??? Take ezdb-cqg-auzrvom and prescription medicines only as told by [...] cannot use soap and water, use hand spool cleaner. ? Change your bandage as told by [...] Leave the ice on for 20 minutes, 2???3 times per day. ??? If directed, apply heat to the affected area as often as told by your doctor. Use the heat source that your doctor recommends, such as a moist heat pack or a heating pad. ? Place a towel between your skin and the heat source. ? Leave the heat on for 20???30 minutes. ? Remove the heat if your [...] 11/25/2012 Document Revised: 10/22/2017 Document Reviewed: 08/09/2016 [employer] Patient Education ?? 2019 [employer] ferrous gluconate (ORALIA us GLOO koe joseph) Ferate, Fergon What is the most important information I should know about ferrous gluconate? You should not use this medicine if you have hemochromatosis, hemosiderosis, or hemolytic anemia. What is ferrous gluconate? Ferrous gluconate is a type of iron. You normally get iron from the foods you eat. In your body, iron becomes a part of your hemoglobin (HEEM o jina bin) and myoglobin (MY o jina bin). Hemoglobin carries oxygen through your blood to tissues and organs. Myoglobin helps your muscle cells store oxygen. Ferrous gluconate is used to treat or prevent iron deficiency anemia (a lack of red blood cells caused by having too little iron in the body). Ferrous gluconate may also be used for purposes not listed in this medication guide. What should I discuss with my healthcare provider before taking ferrous gluconate? You should not use ferrous gluconate if you are allergic to it, or if you have: ?? iron overload disorder (hemochromatosis, hemosiderosis); or ?? hemolytic anemia (caused by the breakdown of red blood cells). To make sure ferrous gluconate is safe for you, tell your doctor if you have ever had: ?? ulcerative colitis; ?? stomach ulcers or similar stomach problems; ?? thalassemia (a genetic disorder of red blood cells); or ?? if you receive regular blood transfusions. Ask a doctor before using this medicine if you are or breast-feeding. Your dose needs may be different during or while you are nursing. Ferrous gluconate is not approved for use by anyone younger than 18 years old. How should I take ferrous gluconate? Use this medication exactly as directed on the label, or as prescribed by your doctor. Do not use it in larger amounts or for longer than recommended. Take ferrous gluconate on an empty stomach, at least 1 hour before or 2 hours after a meal. Ferrous gluconate may be taken with food if it upsets your stomach. Take this medicine with a full glass of water or juice. Measure liquid medicine with the dosing syringe provided, or with a special dose-measuring spoon or medicine cup. If you do not have a dose-measuring device, ask your pharmacist for one. Do not crush, chew, or break an extended-release tablet. Swallow the pill whole. Ferrous gluconate can stain your teeth, but this effect is temporary. To prevent tooth staining, mix the liquid form of ferrous gluconate with water or fruit juice (not with milk) and drink the mixture through a straw. You may also clean your teeth with baking soda once per week to treat any tooth staining. Ferrous gluconate may be only part of a complete program of treatment that also includes a special diet. Follow the diet plan created for you by your doctor or nutrition counselor. Get familiar with the list of foods you should eat to make sure you get enough iron in your diet. Store at room temperature, away from moisture and heat. What happens if I miss a dose? Take the missed dose as soon as you remember. Skip the missed dose if it is almost time for your next scheduled dose. Do not take extra medicine to make up the missed dose. What happens if I overdose? Seek emergency medical attention or call the Poison Help line at if you think you have used too much of this medicine, or if a child has accidentally swallowed it. An overdose of ferrous gluconate can be fatal to a child. Overdose symptoms may include drowsiness, severe nausea or stomach pain, vomiting, bloody diarrhea, coughing up blood or vomit that looks like coffee grounds, shallow breathing, weak and rapid pulse, cold or clammy skin, blue lips, and seizure (convulsions). What should I avoid while taking ferrous gluconate? Ask your doctor before using any vitamin or mineral supplement, or an antacid. Use only the type of antacid or supplements that your doctor recommends. Some minerals or antacids can make it harder for your body to absorb ferrous gluconate. Avoid taking antacids or antibiotics within 2 hours before or 2 hours after taking ferrous gluconate. This is especially important if you take: ?? ciprofloxacin, levofloxacin, lomefloxacin, norfloxacin, ofloxacin; or ?? demeclocycline, doxycycline, minocycline, or tetracycline. Certain foods can also make it harder for your body to absorb ferrous gluconate. Avoid taking this medicine within 1 hour before or 2 hours after eating fish, meat, liver, and whole grain or 'fortified' breads or cereals. What are the possible side effects of ferrous gluconate? Get emergency medical help if you have signs of an allergic reaction: hives, blistering or peeling skin; fever; difficulty breathing; swelling of your face, lips, tongue, or throat. Call your doctor at once if you have: ?? bright red blood in your stools; ?? black or tarry stools; ?? a fever; ?? stomach pain; ?? coughing up blood or vomit that looks like coffee grounds; or ?? pain in your chest or throat when swallowing a ferrous gluconate tablet. Common side effects may include: ?? constipation, diarrhea; ?? nausea, vomiting, stomach pain; ?? loss of appetite; ?? green-colored stools; or ?? temporary staining of the teeth. This is not a complete list of side effects and others may occur. Call your doctor for medical advice about side effects. You may report side effects to FDA at 1-085-QDH-0867. What other drugs will affect ferrous gluconate? Other drugs may interact with ferrous gluconate, including prescription and khql-eoj-dfuadjy medicines, vitamins, and herbal products. Tell your doctor about all your current medicines and any medicine you start or stop using. Where can I get more information? Your pharmacist can provide more information about ferrous gluconate. Remember, keep this and all other medicines out of the reach of children, never share your medicines with others, and use this medication only for the indication prescribed. Every effort has been made to ensure that the information provided by [employer] is accurate, up-to-date, and complete, but no guarantee is made to that effect. Drug information contained herein may be time sensitive. [employer] information has been compiled for use by healthcare practitioners and consumers in the [place] and therefore [employer] does not warrant that uses outside of the [place] are appropriate, unless specifically indicated otherwise. [employer] drug information does not endorse drugs, diagnose patients or recommend therapy. [employer] drug information is an informational resource designed to assist licensed healthcare practitioners in caring for their patients and/or to serve consumers viewing this service as a supplement to, and not a substitute for, the expertise, skill, knowledge and judgment of healthcare practitioners. The absence of a warning for a given drug or drug combination in no way should be construed to indicate that the drug or drug combination is safe, effective or appropriate for any given patient. [facility] does not assume any responsibility for any aspect of healthcare administered with the aid of information [employer] provides. The information contained herein is not intended to cover all possible uses, directions, precautions, warnings, drug interactions, allergic reactions, or adverse effects. If you have questions about the drugs you are taking, check with your doctor, nurse or pharmacist. Copyright 4369-5818 [facility] [employer]. Version: 2.01. Revision Date: 06/12/2017. docusate (oral/rectal) (DOK ue sate) Colace, Diocto, Doc-Q-Lace, Docu, Doculase, Docusil, Docusoft S, DocuSol, Dulcolax Stool Softener, Enemeez Mini, Saw-Tin, Pedia-Lax Stool Softener, Garcia Stool Softener, Promolaxin, Silace, Surfak Stool Softener, Lamin-Q-Lax What is the most important information I should know about docusate? You should not use docusate if you also use mineral oil, unless your doctor tells you to. What is docusate? Docusate is a stool softener that makes bowel movements softer and easier to pass. Docusate is used to relieve occasional constipation (irregularity). There are many brands and forms of docusate available. Not all brands are listed on this leaflet. Docusate may also be used for purposes not listed in this medication guide. What should I discuss with my healthcare provider before using docusate? You should not use docusate if you are allergic to it. Ask a doctor or pharmacist if this medicine is safe to use if you have: ?? stomach pain; ?? nausea; ?? vomiting; or ?? a sudden change in bowel habits that lasts over 2 weeks. Ask a doctor before using this medicine if you are or . Do not give this medicine to a child without medical advice. How should I use docusate? Use exactly as directed on the label, or as prescribed by your doctor. Drink plenty of liquids while you are using docusate. Measure liquid medicine carefully. Use the dosing syringe provided, or use a medicine dose-measuring device (not a kitchen spoon). Do not take the rectal enema by mouth. Rectal medicine is for use only in the rectum. Wash your hands before and after using the enema. To use the enema, lie on your left side with your left leg extended and your right leg slightly bent. Remove the cap from the applicator tip and gently insert the tip into your rectum. Slowly squeeze the bottle to empty the contents into the rectum. After using the enema, lie down on your left side for at least 30 minutes to allow the liquid to distribute throughout your intestines. Avoid using the bathroom, and hold in the enema at least 1 hour, or all night if possible. Read and carefully follow any Instructions for Use provided with your medicine. Ask your doctor or pharmacist if you do not understand these instructions. Docusate generally produces bowel movement in 12 to 72 hours. Call your doctor if your symptoms do not improve after 72 hours. You should not use docusate for longer than 1 week, unless your doctor tells you to. Store at room temperature away from moisture and heat. Do not freeze liquid medicine. What happens if I miss a dose? Since docusate is used when needed, you may not be on a dosing schedule. Skip any missed dose if it's almost time for your next dose. Do not use two doses at one time. What happens if I overdose? Seek emergency medical attention or call the Poison Help line at . What should I avoid while using docusate? Avoid using mineral oil, unless told to do so by a doctor. What are the possible side effects of docusate? Get emergency medical help if you have signs of an allergic reaction: hives; difficult breathing; swelling of your face, lips, tongue, or throat. Stop using docusate and call your doctor at once if you have: ?? rectal bleeding or irritation; or ?? no bowel movement after 72 hours. Less serious side effects may be more likely, and you may have none at all. This is not a complete list of side effects and others may occur. Call your doctor for medical advice about side effects. You may report side effects to FDA at 3-698-LFW-0953. What other drugs will affect docusate? Other drugs may affect docusate, including prescription and ixop-ijv-dzzsvwc medicines, vitamins, and herbal products. Tell your doctor about all your current medicines and any medicine you start or stop using. Where can I get more information? Your pharmacist can provide more information about docusate. Remember, keep this and all other medicines out of the reach of children, never share your medicines with others, and use this medication only for the indication prescribed. Every effort has been made to ensure that the information provided by [employer] is accurate, up-to-date, and complete, but no guarantee is made to that effect. Drug information contained herein may be time sensitive. [employer] information has been compiled for use by healthcare practitioners and consumers in the [place] and therefore [employer] does not warrant that uses outside of the [place] are appropriate, unless specifically indicated otherwise. [employer] drug information does not endorse drugs, diagnose patients or recommend therapy. [employer] drug information is an informational resource designed to assist licensed healthcare practitioners in caring for their patients and/or to serve consumers viewing this service as a supplement to, and not a substitute for, the expertise, skill, knowledge and judgment of healthcare practitioners. The absence of a warning for a given drug or drug combination in no way should be construed to indicate that the drug or drug combination is safe, effective or appropriate for any given patient. [employer] does not assume any responsibility for any aspect of healthcare administered with the aid of information [employer] provides. The information contained herein is not intended to cover all possible uses, directions, precautions, warnings, drug interactions, allergic reactions, or adverse effects. If you have questions about the drugs you are taking, check with your doctor, nurse or pharmacist. Copyright 3621-3989 [employer]. Version: 4.01. Revision Date: 03/24/2019. meloxicam (paul OKS i brian) Mobic, Qmiiz ODT, Vivlodex What is the most important information I should know about meloxicam? Meloxicam can increase your risk of fatal heart attack or stroke. Do not use this medicine just before or after heart bypass surgery (coronary artery bypass graft, or CABG). Meloxicam may also cause stomach or intestinal bleeding, which can be fatal. What is meloxicam? Meloxicam is a nonsteroidal anti-inflammatory drug (NSAID) that is used to treat pain or inflammation caused by osteoarthritis or rheumatoid arthritis. Meloxicam is for use in adults children at least 2 years old. The Vivlodex brand of meloxicam is for use only in adults. Meloxicam may also be used for purposes not listed in this medication guide. What should I discuss with my healthcare provider before taking meloxicam? Meloxicam can increase your risk of fatal heart attack or stroke, even if you don't have any risk factors. Do not use this medicine just before or after heart bypass surgery (coronary artery bypass graft, or CABG). Meloxicam may also cause stomach or intestinal bleeding, which can be fatal. These conditions can occur without warning while you are using meloxicam, especially in older adults. You should not use meloxicam if you are allergic to it, or if you have ever had an asthma attack or severe allergic reaction after taking aspirin or an NSAID. You should not take meloxicam disintegrating tablets (Qmiiz ODT) if you have phenylketonuria (PKU). This form of meloxicam contains phenylalanine. Tell your doctor if you have ever had: ?? heart disease, high blood pressure, high cholesterol, diabetes, or if you smoke; ?? a heart attack, stroke, or blood clot; ?? ulcers or bleeding in your stomach; ?? asthma; ?? kidney disease (or if you are on dialysis); ?? liver disease; or ?? fluid retention. Taking meloxicam during the last 3 months of may harm the unborn baby. Tell your doctor if you are or plan to become . Meloxicam may cause a delay in ovulation (the release of an egg from an ovary). You should not take meloxicam if you are undergoing fertility treatment, or are otherwise trying to get . It may not be safe to breastfeed while using this medicine. Ask your doctor about any risk. Meloxicam is not approved for use by anyone younger than 2 years old. How should I take meloxicam? Follow all directions on your prescription label and read all medication guides. Use the lowest dose that is effective in treating your condition. You may take meloxicam with or without food. Shake the oral suspension (liquid) before you measure a dose. Use the dosing syringe provided, or use a medicine dose-measuring device (not a kitchen spoon). Remove an orally disintegrating tablet from the package only when you are ready to take the medicine. Place the tablet in your mouth and allow it to dissolve, without chewing. Swallow several times as the tablet dissolves. Your dose needs may change if you switch to a different brand, strength, or form of this medicine. Avoid medication errors by using only the form and strength your doctor prescribes. Meloxicam doses are based on weight (especially in children and teenagers). Your dose needs may change if you gain or lose weight. If you use this medicine long-term, you may need frequent medical tests. Store at room temperature, away from moisture and heat. Keep the bottle tightly closed when not in use. What happens if I miss a dose? Take the medicine as soon as you can, but skip the missed dose if it is almost time for your next dose. Do not take two doses at one time. What happens if I overdose? Seek emergency medical attention or call the Poison Help line at . What should I avoid while taking meloxicam? Avoid alcohol. Heavy drinking can increase your risk of stomach bleeding. Avoid taking aspirin while you are taking meloxicam. Ask a doctor or pharmacist before using other medicines for pain, fever, swelling, or cold/flu symptoms. They may contain ingredients similar to meloxicam (such as aspirin, ibuprofen, ketoprofen, or naproxen). What are the possible side effects of meloxicam? Get emergency medical help if you have signs of an allergic reaction (hives, difficult breathing, swelling in your face or throat) or a severe skin reaction (fever, sore throat, burning eyes, skin pain, red or purple skin rash with blistering and peeling). Get emergency medical help if you have signs of a heart attack or stroke: chest pain spreading to your jaw or shoulder, sudden numbness or weakness on one side of the body, slurred speech, leg swelling, feeling short of breath. Stop using meloxicam and call your doctor at once if you have: ?? the first sign of any skin rash, no matter how mild; ?? shortness of breath (even with mild exertion); ?? swelling or rapid weight gain; ?? signs of stomach bleeding--bloody or tarry stools, coughing up blood or vomit that looks like coffee grounds; ?? liver problems--nausea, upper stomach pain, itching, tired feeling, flu-like symptoms, loss of appetite, dark urine, pancho-colored stools, jaundice (yellowing of the skin or eyes); ?? low red blood cells (anemia)--pale skin, unusual tiredness, feeling light-headed, cold hands and feet; or ?? kidney problems--little or no urination, swelling in your feet or ankles, feeling tired or short of breath. Common side effects may include: ?? stomach pain, nausea, vomiting, heartburn; ?? diarrhea, constipation, gas; ?? dizziness; or ?? cold symptoms, flu symptoms. This is not a complete list of side effects and others may occur. Call your doctor for medical advice about side effects. You may report side effects to FDA at 2-896-XZK-3720. What other drugs will affect meloxicam? Ask your doctor before using meloxicam if you take an antidepressant. Taking certain antidepressants with an NSAID may cause you to bruise or bleed easily. Tell your doctor about all your other medicines, especially: ?? cyclosporine; ?? lithium; ?? methotrexate; ?? pemetrexed; ?? sodium polystyrene sulfonate (Kayexalate); ?? a blood thinner (warfarin, Coumadin, Jantoven); ?? heart or blood pressure medication, including a diuretic or 'water pill'; or ?? steroid medicine (such as prednisone). This list is not complete. Other drugs may affect meloxicam, including prescription and jltj-ejk-lxvilxg medicines, vitamins, and herbal products. Not all possible drug interactions are listed here. Where can I get more information? Your pharmacist can provide more information about meloxicam. Remember, keep this and all other medicines out of the reach of children, never share your medicines with others, and use this medication only for the indication prescribed. Every effort has been made to ensure that the information provided by [employer]') is accurate, up-to-date, and complete, but no guarantee is made to that effect. Drug information contained herein may be time sensitive. [facility] information has been compiled for use by healthcare practitioners and consumers in the [place] and therefore [facility] does not warrant that uses outside of the [place] are appropriate, unless specifically indicated otherwise. [employer] drug information does not endorse drugs, diagnose patients or recommend therapy. [employer] drug information is an informational resource designed to assist licensed healthcare practitioners in caring for their patients and/or to serve consumers viewing this service as a supplement to, and not a substitute for, the expertise, skill, knowledge and judgment of healthcare practitioners. The absence of a warning for a given drug or drug combination in no way should be construed to indicate that the drug or drug combination is safe, effective or appropriate for any given patient. [facility] does not assume any responsibility for any aspect of healthcare administered with the aid of information [facility] provides. The information contained herein is not intended to cover all possible uses, directions, precautions, warnings, drug interactions, allergic reactions, or adverse effects. If you have questions about the drugs you are taking, check with your doctor, nurse or pharmacist. Copyright 9200-2540 [employer]. Version: 13.01. Revision Date: 01/09/2019. acetaminophen and oxycodone (a SEET a MIN oh fen and OX i KOE done) Endocet 10/325, Endocet 2.5/325, Endocet 5/325, Endocet 7.5/325, Nalocet, Percocet 10/325, Percocet 2.5/325, Percocet 5/325, Percocet 7.5/325, Primalev, Primlev, Roxicet, Xartemis XR What is the most important information I should know about acetaminophen and oxycodone? MISUSE OF OPIOID MEDICINE CAN CAUSE ADDICTION, OVERDOSE, OR . Keep the medication in a place where others cannot get to it. An overdose of acetaminophen can damage your liver or cause . Call your doctor at once if you have pain in your upper stomach, loss of appetite, dark urine, or jaundice (yellowing of your skin or eyes). Taking opioid medicine during may cause life-threatening withdrawal symptoms in the . Fatal side effects can occur if you use opioid medicine with alcohol, or with other drugs that cause drowsiness or slow your breathing. Stop taking this medicine and call your doctor right away if you have skin redness or a rash that spreads and causes blistering and peeling. What is acetaminophen and oxycodone? Oxycodone is an opioid pain medication, sometimes called a narcotic. Acetaminophen is a less potent pain reliever that increases the effects of oxycodone. Acetaminophen and oxycodone is a combination medicine used to relieve moderate to severe pain. Acetaminophen and oxycodone may also be used for purposes not listed in this medication guide. What should I discuss with my healthcare provider before taking acetaminophen and oxycodone? You should not use this medicine if you are allergic to acetaminophen or oxycodone, or if you have: ?? severe asthma or breathing problems; or ?? a blockage in your stomach or intestines. Tell your doctor if you have ever had: ?? liver disease; ?? a drug or alcohol addiction; ?? kidney disease; ?? a head injury or seizures; ?? urination problems; or ?? problems with your thyroid, pancreas, or gallbladder. If you use opioid medicine while you are , your baby could become dependent on the drug. This can cause life-threatening withdrawal symptoms in the baby after it is born. Babies born dependent on opioids may need medical treatment for several weeks. Do not breast-feed. This medicine can pass into breast milk and cause drowsiness, breathing problems, or in a nursing baby. How should I take acetaminophen and oxycodone? Follow all directions on your prescription label. Never take this medicine in larger amounts, or for longer than prescribed. An overdose can damage your liver or cause . Tell your doctor if the medicine seems to stop working as well in relieving your pain. Never share this medicine with another person, especially someone with a history of drug abuse or addiction. MISUSE CAN CAUSE ADDICTION, OVERDOSE, OR . Keep the medicine in a place where others cannot get to it. Selling or giving away acetaminophen and oxycodone is against the law. Measure liquid medicine carefully. Use the dosing syringe provided, or use a medicine dose-measuring device (not a kitchen spoon). If you need surgery or medical tests, tell the doctor ahead of time that you are using this medicine. You should not stop using this medicine suddenly. Follow your doctor's instructions about tapering your dose. Store at room temperature away from moisture and heat. Keep track of your medicine. You should be aware if anyone is using it improperly or without a prescription. Do not keep leftover opioid medication. Just one dose can cause in someone using this medicine accidentally or improperly. Ask your pharmacist where to locate a drug take-back disposal program. If there is no take-back program, flush the unused medicine down the toilet. What happens if I miss a dose? Since this medicine is used for pain, you are not likely to miss a dose. Skip any missed dose if it is almost time for your next dose. Do not use two doses at one time. What happens if I overdose? Seek emergency medical attention or call the Poison Help line at . An overdose of acetaminophen and oxycodone can be fatal. The first signs of an acetaminophen overdose include loss of appetite, nausea, vomiting, stomach pain, sweating, and confusion or weakness. Later symptoms may include pain in your upper stomach, dark urine, and yellowing of your skin or the whites of your eyes. Overdose can also cause severe muscle weakness, pinpoint pupils, very slow breathing, extreme drowsiness, or coma. What should I avoid while taking acetaminophen and oxycodone? Avoid driving or operating machinery until you know how this medicine will affect you. Dizziness or drowsiness can cause falls, accidents, or severe injuries. Do not drink alcohol. Dangerous side effects or could occur. Ask a doctor or pharmacist before using any other medicine that may contain acetaminophen (sometimes abbreviated as APAP). Taking certain medications together can lead to a fatal overdose. What are the possible side effects of acetaminophen and oxycodone? Get emergency medical help if you have signs of an allergic reaction: hives; difficulty breathing; swelling of your face, lips, tongue, or throat. Opioid medicine can slow or stop your breathing, and may occur. A person caring for you should seek emergency medical attention if you have slow breathing with long pauses, blue colored lips, or if you are hard to wake up. In rare cases, acetaminophen may cause a severe skin reaction that can be fatal. This could occur even if you have taken acetaminophen in the past and had no reaction. Stop taking this medicine and call your doctor right away if you have skin redness or a rash that spreads and causes blistering and peeling. Call your doctor at once if you have: ?? noisy breathing, sighing, shallow breathing; ?? a light-headed feeling, like you might pass out; ?? weakness, tiredness, fever, unusual bruising or bleeding; ?? confusion, unusual thoughts or behavior; ?? problems with urination; ?? liver problems--nausea, upper stomach pain, tiredness, loss of appetite, dark urine, pancho-colored stools, jaundice (yellowing of the skin or eyes); or ?? low cortisol levels-- nausea, vomiting, loss of appetite, dizziness, worsening tiredness or weakness. Seek medical attention right away if you have symptoms of serotonin syndrome, such as: agitation, hallucinations, fever, sweating, shivering, fast heart rate, muscle stiffness, twitching, loss of coordination, nausea, vomiting, or diarrhea. Serious side effects may be more likely in older adults and those who are overweight, malnourished, or debilitated. Long-term use of opioid medication may affect fertility (ability to have children) in men or women. It is not known whether opioid effects on fertility are permanent. Common side effects include: ?? dizziness, drowsiness, feeling tired; ?? feelings of extreme happiness or sadness; ?? nausea, vomiting, stomach pain; ?? constipation; or ?? headache. This is not a complete list of side effects and others may occur. Call your doctor for medical advice about side effects. You may report side effects to FDA at 7-239-INO-8622. What other drugs will affect acetaminophen and oxycodone? You may have breathing problems or withdrawal symptoms if you start or stop taking certain other medicines. Tell your doctor if you also use an antibiotic, antifungal medication, heart or blood pressure medication, seizure medication, or medicine to treat HIV or hepatitis C. Opioid medication can interact with many other drugs and cause dangerous side effects or . Be sure your doctor knows if you also use: ?? cold or allergy medicines, bronchodilator asthma/COPD medication, or a diuretic ('water pill'); ?? medicines for motion sickness, irritable bowel syndrome, or overactive bladder; ?? other narcotic medications--opioid pain medicine or prescription cough medicine; ?? a sedative like Valium--diazepam, alprazolam, lorazepam, Xanax, Klonopin, Versed, and others; ?? drugs that make you sleepy or slow your breathing--a sleeping pill, muscle relaxer, medicine to treat mood disorders or mental illness; ?? drugs that affect serotonin levels in your body--a stimulant, or medicine for depression, Parkinson's disease, migraine headaches, serious infections, or nausea and vomiting. This list is not complete. Other drugs may affect acetaminophen and oxycodone, including prescription and bbaq-lmj-ajjyebc medicines, vitamins, and herbal products. Not all possible interactions are listed here. Where can I get more information? Your doctor or pharmacist can provide more information about acetaminophen and oxycodone. Remember, keep this and all other medicines out of the reach of children, never share your medicines with others, and use this medication only for the indication prescribed. Every effort has been made to ensure that the information provided by [employer] is accurate, up-to-date, and complete, but no guarantee is made to that effect. Drug information contained herein may be time sensitive. [facility] information has been compiled for use by healthcare practitioners and consumers in the [place] and therefore [facility] does not warrant that uses outside of the [place] are appropriate, unless specifically indicated otherwise. [employer] drug information does not endorse drugs, diagnose patients or recommend therapy. [employer] drug information is an informational resource designed to assist licensed healthcare practitioners in caring for their patients and/or to serve consumers viewing this service as a supplement to, and not a substitute for, the expertise, skill, knowledge and judgment of healthcare practitioners. The absence of a warning for a given drug or drug combination in no way should be construed to indicate that the drug or drug combination is safe, effective or appropriate for any given patient. [facility] does not assume any responsibility for any aspect of healthcare administered with the aid of information [facility] provides. The information contained herein is not intended to cover all possible uses, directions, precautions, warnings, drug interactions, allergic reactions, or adverse effects. If you have questions about the drugs you are taking, check with your doctor, nurse or pharmacist. Copyright 4319-7716 [employer]. Version: 18.02. Revision Date: 08/14/2018. aspirin (oral) ( pir in) Arthritis Pain, Aspir 81, Aspir-Low, Zenaida Childrens Aspirin, Durlaza, Ecotrin, Ecpirin, Fasprin, Halfprin, Miniprin What is the most important information I should know about aspirin? You should not use aspirin if you have a bleeding disorder such as hemophilia, a recent history of stomach or intestinal bleeding, or if you are allergic to an NSAID (non-steroidal anti-inflammatory drug). Aspirin can cause Tena's syndrome, a serious and sometimes fatal condition in children. What is aspirin? Aspirin is a salicylate (vh-ULL-vz-ate). It works by reducing substances in the body that cause pain, fever, and inflammation. Aspirin is used to treat pain, and reduce fever or inflammation. Aspirin is sometimes used to treat or prevent heart attacks, strokes, and chest pain (angina). Aspirin should be used for cardiovascular conditions only under the supervision of a doctor. Aspirin may also be used for purposes not listed in this medication guide. What should I discuss with my healthcare provider before taking aspirin? Do not give this medicine to a child or teenager with a fever, flu symptoms, or chicken pox. Aspirin can cause Tena's syndrome, a serious and sometimes fatal condition in children. You should not use aspirin if you are allergic to it, or if you have: ?? a recent history of stomach or intestinal bleeding; ?? a bleeding disorder such as hemophilia; or ?? if you have ever had an asthma attack or severe allergic reaction after taking aspirin or an NSAID (non-steroidal anti-inflammatory drug). Tell your doctor if you have ever had: ?? asthma or seasonal allergies; ?? stomach ulcers; ?? liver disease; ?? kidney disease; ?? a bleeding or blood clotting disorder; ?? gout; or ?? heart disease, high blood pressure, or congestive heart failure. Taking aspirin during late may cause bleeding in the mother or the baby during delivery. Tell your doctor if you are or plan to become . You should not breast-feed while using this medicine. How should I take aspirin? Use exactly as directed on the label, or as prescribed by your doctor. Take with food if aspirin upsets your stomach. Do not crush, chew, break, or open an enteric-coated or delayed-release pill. Swallow it whole. The chewable tablet form of aspirin must be chewed before swallowing. If you use the orally disintegrating tablet or the dispersible tablet, follow all dosing instructions provided with your medicine. If you need surgery, tell your surgeon you currently use this medicine. You may need to stop for a short time. Do not take this medicine if you smell a strong vinegar odor in the aspirin bottle. The medicine may no longer be effective. Store at room temperature away from moisture and heat. What happens if I miss a dose? Since aspirin is used when needed, you may not be on a dosing schedule. Skip any missed dose if it's almost time for your next dose. Do not use two doses at one time. What happens if I overdose? Seek emergency medical attention or call the Poison Help line at . Overdose symptoms may include temporary hearing loss, seizure (convulsions), or coma. What should I avoid while taking aspirin? Avoid alcohol. Heavy drinking can increase your risk of stomach bleeding. If you are taking aspirin to prevent heart attack or stroke, avoid also taking ibuprofen (Advil, Motrin). Ibuprofen may make aspirin less effective. If you must use both medications, take the ibuprofen at least 8 hours before or 30 minutes after you take the aspirin (non-enteric coated form). Ask a doctor or pharmacist before using other medicines for pain, fever, swelling, or cold/flu symptoms. They may contain ingredients similar to aspirin (such as magnesium salicylate, ibuprofen, ketoprofen, or naproxen). What are the possible side effects of aspirin? Get emergency medical help if you have signs of an allergic reaction: hives; difficult breathing; swelling of your face, lips, tongue, or throat. Stop using aspirin and call your doctor at once if you have: ?? ringing in your ears, confusion, hallucinations, rapid breathing, seizure (convulsions); ?? severe nausea, vomiting, or stomach pain; ?? bloody or tarry stools, coughing up blood or vomit that looks like coffee grounds; ?? fever lasting longer than 3 days; or ?? swelling, or pain lasting longer than 10 days. Common side effects may include: ?? upset stomach, heartburn; ?? drowsiness; or ?? mild headache. This is not a complete list of side effects and others may occur. Call your doctor for medical advice about side effects. You may report side effects to FDA at 9-588-ZNZ-9606. What other drugs will affect aspirin? Ask your doctor before using aspirin if you take an antidepressant. Taking certain antidepressants with aspirin may cause you to bruise or bleed easily. Ask a doctor or pharmacist before using aspirin with any other medications, especially: ?? a blood thinner (warfarin, Coumadin, Jantoven), or other medication used to prevent blood clots; or ?? other salicylates such as Nuprin Backache Caplet, Kaopectate, KneeRelief, Pamprin Cramp Formula, Pepto-Bismol, Tricosal, Trilisate, and others. This list is not complete. Other drugs may affect aspirin, including prescription and aelw-ies-uoqxwvl medicines, vitamins, and herbal products. Not all possible drug interactions are listed here. Where can I get more information? Your pharmacist can provide more information about aspirin. Remember, keep this and all other medicines out of the reach of children, never share your medicines with others, and use this medication only for the indication prescribed. Every effort has been made to ensure that the information provided by [employer] is accurate, up-to-date, and complete, but no guarantee is made to that effect. Drug information contained herein may be time sensitive. [facility] information has been compiled for use by healthcare practitioners and consumers in the [place] and therefore [facility] does not warrant that uses outside of the [place] are appropriate, unless specifically indicated otherwise. [employer] [facility] drug information does not endorse drugs, diagnose patients or recommend therapy. [employer] drug information is an informational resource designed to assist licensed healthcare practitioners in caring for their patients and/or to serve consumers viewing this service as a supplement to, and not a substitute for, the expertise, skill, knowledge and judgment of healthcare practitioners. The absence of a warning for a given drug or drug combination in no way should be construed to indicate that the drug or drug combination is safe, effective or appropriate for any given patient. [facility] does not assume any responsibility for any aspect of healthcare administered with the aid of information [facility] provides. The information contained herein is not intended to cover all possible uses, directions, precautions, warnings, drug interactions, allergic reactions, or adverse effects. If you have questions about the drugs you are taking, check with your doctor, nurse or pharmacist. Copyright 3259-4910 [employer]. Version: 15.. Revision Date: 12/17/2017. gabapentin (GA ba PEN tin) Gralise, Horizant, Neurontin What is the most important information I should know about gabapentin? Some people have thoughts about suicide while taking this medicine. Children taking gabapentin may have behavior changes. Stay alert to changes in your mood or symptoms. Report any new or worsening symptoms to your doctor. Do not stop using gabapentin suddenly, even if you feel fine. What is gabapentin? Gabapentin is an anti-epileptic drug, also called an anticonvulsant. It affects chemicals and nerves in the body that are involved in the cause of seizures and some types of pain. Gabapentin is used in adults to treat nerve pain caused by herpes virus or shingles (herpes zoster). The Horizant brand of gabapentin is also used to treat restless legs syndrome (RLS). The Neurontin brand of gabapentin is also used to treat seizures in adults and children who are at least 3 years old. Use only the brand and form of gabapentin your doctor has prescribed. Check your medicine each time you get a refill to make sure you receive the correct form. Gabapentin may also be used for purposes not listed in this medication guide. What should I discuss with my healthcare provider before taking gabapentin? You should not use gabapentin if you are allergic to it. Tell your doctor if you have ever had: ?? lung disease, such as chronic obstructive pulmonary disease (COPD); ?? kidney disease (or if you are on dialysis); ?? diabetes; ?? depression, a mood disorder, or suicidal thoughts or actions; ?? a seizure (unless you take gabapentin to treat seizures); ?? liver disease; ?? heart disease; or ?? (for patients with RLS) if you are a day sleeper or work a warehouse supervisor 3rd shift. Some people have thoughts about suicide while taking this medicine. Your doctor should check your progress at regular visits. Your family or other caregivers should also be alert to changes in your mood or symptoms. It is not known whether this medicine will harm an unborn baby. Tell your doctor if you are or plan to become . Seizure control is very important during , and having a seizure could harm both mother and baby. Do not start or stop taking gabapentin for seizures without your doctor's advice, and tell your doctor right away if you become . It may not be safe to breastfeed while using this medicine. Ask your doctor about any risk. How should I take gabapentin? Follow all directions on your prescription label. Do not take this medicine in larger or smaller amounts or for longer than recommended. The Horizant brand of gabapentin should not be taken during the day. For best results, take Horizant with food at about 5:00 in the evening. Both Gralise and Horizant should be taken with food. Neurontin can be taken with or without food. If you break a Neurontin tablet and take only half of it, take the other half at your next dose. Any tablet that has been broken should be used as soon as possible or within a few days. Swallow the capsule or tablet whole and do not crush, chew, break, or open it. Measure liquid medicine carefully. Use the dosing syringe provided, or use a medicine dose-measuring device (not a kitchen spoon). If your doctor changes your brand, strength, or type of gabapentin, your dosage needs may change. Ask your pharmacist if you have any questions about the new kind of gabapentin you receive at the pharmacy. Do not stop using gabapentin suddenly, even if you feel fine. Stopping suddenly may cause increased seizures. Follow your doctor's instructions about tapering your dose. In case of emergency, wear or carry medical identification to let others know you have seizures. This medicine can cause unusual results with certain medical tests. Tell any doctor who treats you that you are using gabapentin. Store gabapentin tablets and capsules at room temperature away from light and moisture. Store the liquid medicine in the refrigerator. Do not freeze. What happens if I miss a dose? Take the medicine as soon as you can, but skip the missed dose if it is almost time for your next dose. Do not take two doses at one time. What happens if I overdose? Seek emergency medical attention or call the Poison Help line at . What should I avoid while taking gabapentin? Avoid driving or hazardous activity until you know how this medicine will affect you. Your reactions could be impaired. Avoid taking an antacid within 2 hours before or after you take gabapentin. Antacids can make it harder for your body to absorb gabapentin. Drinking alcohol with this medicine can cause side effects. What are the possible side effects of gabapentin? Get emergency medical help if you have signs of an allergic reaction: hives; difficult breathing; swelling of your face, lips, tongue, or throat. Seek medical treatment if you have a serious drug reaction that can affect many parts of your body. Symptoms may include: skin rash, fever, swollen glands, muscle aches, severe weakness, unusual bruising, upper stomach pain, or yellowing of your skin or eyes. Report any new or worsening symptoms to your doctor, such as: mood or behavior changes, anxiety, panic attacks, trouble sleeping, or if you feel impulsive, irritable, agitated, hostile, aggressive, restless, hyperactive (mentally or physically), depressed, or have thoughts about suicide or hurting yourself. Call your doctor at once if you have: ?? weak or shallow breathing; ?? blue-colored skin, lips, fingers, and toes; ?? confusion, extreme drowsiness or weakness; ?? problems with balance or muscle movement; ?? unusual or involuntary eye movements; or ?? increased seizures. Gabapentin can cause life-threatening breathing problems. A person caring for you should seek emergency medical attention if you have slow breathing with long pauses, blue colored lips, or if you are hard to wake up. Breathing problems may be more likely in older adults or in people with COPD. Some side effects are more likely in children taking gabapentin. Contact your doctor if the child taking this medicine has any of the following side effects: ?? changes in behavior; ?? memory problems; ?? trouble concentrating; or ?? acting restless, hostile, or aggressive. Common side effects may include: ?? headache; ?? dizziness, drowsiness, tiredness; ?? problems with balance or eye movements; or ?? (in children) fever, nausea, vomiting. This is not a complete list of side effects and others may occur. Call your doctor for medical advice about side effects. You may report side effects to FDA at 2-908-RHV-6708. What other drugs will affect gabapentin? Using gabapentin with other drugs that slow your breathing can cause dangerous side effects or . Ask your doctor before using opioid medication, a sleeping pill, cold or allergy medicine, a muscle relaxer, or medicine for anxiety or seizures. Other drugs may affect gabapentin, including prescription and [id number] medicines, vitamins, and herbal products. Tell your doctor about all your current medicines and any medicine you start or stop using. Where can I get more information? Your pharmacist can provide more information about gabapentin. Remember, keep this and all other medicines out of the reach of children, never share your medicines with others, and use this medication only for the indication prescribed. Every effort has been made to ensure that the information provided by [employer] is accurate, up-to-date, and complete, but no guarantee is made to that effect. Drug information contained herein may be time sensitive. [facility] [employer] information has been compiled for use by healthcare practitioners and consumers in the [place] and therefore [employer] does not warrant that uses outside of the [place] are appropriate, unless specifically indicated otherwise. [employer]'s drug information does not endorse drugs, diagnose patients or recommend therapy. [employer] drug information is an informational resource designed to assist licensed healthcare practitioners in caring for their patients and/or to serve consumers viewing this service as a supplement to, and not a substitute for, the expertise, skill, knowledge and judgment of healthcare practitioners. The absence of a warning for a given drug or drug combination in no way should be construed to indicate that the drug or drug combination is safe, effective or appropriate for any given patient. [employer] does not assume any responsibility for any aspect of healthcare administered with the aid of information [employer] provides. The information contained herein is not intended to cover all possible uses, directions, precautions, warnings, drug interactions, allergic reactions, or adverse effects. If you have questions about the drugs you are taking, check with your doctor, nurse or pharmacist. documented in this encounter Plan of Treatment Not on file documented as of this encounter Visit Diagnoses Not on filedocumented in this encounter
--- OUTSIDE RECORDS SUMMARY | 2025-03-17 09:07 | XMS_ITS | Encounter Summary ---
Author Organization [employer] ([place], [place], [place], [place]) Address [address] [place] [address] Care Team Providers Care Fire Tender Name Role Phone Unavailable Primary Care Provider Unavailabl e Encounter Details Date Type Department Care Team (Late st Contact Info) Description 11/18/2019 Transcribed Document [facility] Family Medicine [address] [place] [address] ProviderTiana MD [address] [place] [address] Social History Tobacco Use Types [...] Conversion Note - Historical ProviderMD - 11/18/2019 2:13 PM FABRICATION OPERATOR Stroke/Warfarin Instructions Entered On: 11/18/2019 14:13 EST Performed On: 11/18/2019 14:13 EST by Cindy Ward RN Stroke/Warfarin Instructions Stroke/TIA Discharge Ins : N/A Warfarin Discharge Ins : N/A Cindy Ward RN - 11/18/2019 14:13 EST Electronically signed by Flor [facility] Conversion Drop Board Man Cerner at 12/31/2022 5:31 PM CDT documented in this encounter Plan of Treatment Not on file documented as of this encounter Visit Diagnoses Not on filedocumented in this encounter
--- OUTSIDE RECORDS SUMMARY | 2025-03-17 09:07 | XMS_ITS | Encounter Summary ---
Author Organization [employer] ([place], [place], [place], [place]) Address [address] [place] [address] Care Team Providers Care Rail Car Painter/Sandblaster Name Role Phone Unavailable Primary Care Provider Unavailabl e Encounter Details Date Type Department Care Team (Late st Contact Info) Description 11/17/2019 Transcribed Document [facility] Family Medicine [facility] [place] [address] ProviderTiana MD [address] [place] [address] Social History Tobacco Use Types Packs/Day Years Used Date Smoking Tobacco: Never Assessed Comments Unknown Sex and Gender Information Value Date Recorded Sex Assigned at Female 03/14/2022 6:15 PM CDT Legal Sex Female 6:15 PM CDT Gender Identity Female 03/14/2022 6:15 PM CDT Sexual Orientation Not on file documented as of this encounter Miscellaneous Notes * Cerner Conversion Note - Historical Provider, - 11/17/2019 7:15 AM NUCLEAR MEDICINE PHYSICIAN Admission History, Adult Entered On: 11/17/2019 17:40 EST Performed On: 11/17/2019 17:40 EST by SO GARG RN Advance Directive Patient has Advance Directive *Q : Yes, Advance Directive on file Advance Directive Type : Living will Copy Advance Directive Verified/on Chart : No SO GARG RN - 11/17/2019 17:38 EST Anesthesia/Transfusion History Family History of Anesthesia Reaction : No prior transfusion(s) Blood Transfusion Acceptable to Patient : Yes Transfusion History : Prior anesthesia reaction Type of Anesthesia Reaction : Excessive nausea/vomiting Family History of Anesthesia Reaction : None SO GARG RN - 11/17/2019 17:38 EST Education Topics, Admission Orientation DCP GENERIC CODE Bed Control : Verbalizes understanding Call Light : Verbalizes understanding Diet/Room Service : Verbalizes understanding Fall Prevention : Verbalizes understanding Orientation to Room/Bathroom : Verbalizes understanding Patient Rights/Responsibilities : Verbalizes understanding Patient Safety : Verbalizes understanding Rounding : Verbalizes understanding Visiting Policy : Verbalizes understanding SO GARG RN - 11/17/2019 17:38 EST Functional Assessment Current Home Treatments : CPAP, Nebulizer treatments SO GARG RN - 11/17/2019 18:07 EST Living Situation : Home Patient Lives With : Spouse Current Daily Living Assistance : None Sensory Deficits : None Mobility Assistance Prior to Admission : Independent GAMBLE Hx Falls Immediate/Within 3 Months : No Home Equipment : Commode, Shower Equipment, Walker Professional Skilled Services : None Special Services and Community Resources : None SO GARG RN - 11/17/2019 17:38 EST General Info Arrived From : Home Mode of Arrival on Unit : Ambulatory Legal Guardian : Spouse Support Person/Patient Assignment Desk Assistant : Yes Support Person/Pt Rep Name : Spouse Az Pino Rhoda eldridge - dtr Support Person/Pt Rep Contact Information : [phone] Want Family/Rep/Phys Notified of Admit : No Emergency Contact #1 : Az Pino Emergency Contact #1 Emergency Contact #1 Relationship : spouse Emergency Contact #2 : rhoda eldridge Emergency Contact #2 Emergency Contact #2 Relationship : dtr Information Obtained From : Patient Primary Language : Occitan Preferred Communication Mode : Verbal Communication Barrier : None Objects to Sharing Info w Family : No SO GARG RN - 11/17/2019 17:38 EST Fall Risk Scales ABCs Fall Injury Risk Identification : Bones, Coagulation, Surgery ABC Fall Injury Risk : Moderate to high injury risk Injury Moderate to High Risk Interventions : High Risk for Fall Injury sign in place per policy, Supervise toileting as indicated GAMBLE Hx Falls Immediate/Within 3 Months : No Gamble Secondary Diagnosis : No GAMBLE Use of Ambulatory Aid : Crutches/Cane/Walker GAMBLE IV Therapy or IV Access : Yes Gamble Gait/Transferring : Weak Gamble Mental Status : Oriented to own ability Gamble Fall Risk Score : 45 GAMBLE Fall Scale Risk Level : 25-45 Medium Risk [place] Fall Interventions : Adequate lighting, Assistive devices within reach, Bed in low position, Call device within reach, Fall prevention handout/education per facility policy, Hourly comfort/safety rounds, Personal items within reach, Reinforced to call for assistance before getting out of bed, Room free of clutter/spills, Upper side-rails up, Wheels locked, Wires/Cords secured SO GARG RN - 11/17/2019 17:38 EST Fall Risk Education Grid Call light use : Verbalizes understanding Fall Prevention Protocol : Verbalizes understanding Safety Aids : Verbalizes understanding Siderails use/risks : Verbalizes understanding Symptom Reporting : Verbalizes understanding Transfer/Mobility Techniques : Verbalizes understanding Wait for Assistance : Verbalizes understanding SO GARG RN - 11/17/2019 17:38 EST Barriers to Learning : None evident Individuals Taught : Patient, Spouse Readiness to Learn : Cooperative Teaching Method : Explanation Learning Style Preferences Family : Printed materials, Verbal explanation Learning Style Preferences Patient : Printed materials, Verbal explanation Teaching Evaluation : Verbalizes understanding Fall Risk Scale Calc Temp : 1 SO GARG RN - 11/17/2019 17:38 EST Health Histories Smoking Status : Never (less than 100 in lifetime; none in last 30 days) Smokeless Tobacco Status : Never SO GARG RN - 11/17/2019 17:38 EST Social History (As Of: 11/17/2019 17:40:53 EST) Tobacco: Smoking Status Never smoker. Comments: 01/31/2017 13:35 - HAYDEN APPIAH RN: NONE (Last Updated: 01/31/2017 13:35:10 EDT by HAYDEN APPIAH RN) Alcohol: Use in Last 12 Months: No. (Last Updated: 07/25/2013 09:32:31 EST by ABELINO GUSTAFSON RN) Substance Abuse: Drug Use Hx: No. Use in Last 12 Months: No. (Last Updated: 07/25/2013 09:32:23 EST by ABELINO GUSTAFSON, EMETERIO) Home/Environment: Lives with Spouse. Living situation: Home/Independent. Home equipment: CPAP/BiPAP, Respiratory treatments, Walker/Cane. (Last Updated: 10/29/2019 14:28:06 EST by KANDIS SIN RN) Employment/School: Retired (Last Updated: 10/29/2019 14:28:12 EST by KANDIS SIN RN) Height and Weight, Clinical Dosing Height Source : Measured Height Entry Format : [place] Height, Feet : 5 ft(Converted to: 152 cm, 60 Inch) Height, Inches : 0 Inch(Converted to: 0 ft 0 Inch, 0.00 cm) Clinical Height : 152.4 cm Weight Source : Standing scale Weight Entry Format : [place] Clinical Dosing Weight : 90.37 kg Weight, Pounds : 198 lb Weight, Ounces : 13 oz Body Surface Area (BSA) : 1.86 m2 Body Mass Index : 38.9 kg/m2 (HI) Slick Body Weight : 45 kg SO GARG RN - 11/17/2019 17:38 EST Infectious Disease History Physical contact outside [place] in the last 30 days : No Infectious Disease History : Chicken pox/Shingles, Mumps Active Surveillance Screen Assessment : Patient does not meet any of above criteria Active Surveillance Screen Negative : Yes Tuberculosis Symptoms : None SO GARG RN - 11/17/2019 17:38 EST Influenza Vaccine Asmt, Adult Previous Vaccines from Immunization Schedule : No qualifying data available. Influenza Immunization, Current Season : Yes SO GARG RN - 11/17/2019 18:07 EST Pneumococcal Vaccine Previous Vaccines from Immunization Schedule : No qualifying data available. Pneumonia Immunization Received : Yes SO GARG RN - 11/17/2019 18:07 EST Nutrition History Feeding Ability : Independent Eating Poorly Due to Decreased Appetite : No Unplanned Weight Loss in Past 3-6 Months : No Malnutrition Screening Tool Total(mal) : 0 Malnutrition Screening Tool Risk Level : Patient not at risk SO GARG RN - 11/17/2019 18:07 EST Adaptive Feeding Equipment : Regular Oral Medication Administration : By mouth SO GARG RN - 11/17/2019 17:38 EST [place] Suicide Severity Rating Scale (C-SSRS) CSSRS Past Month Wish to be : No CSSRS Past Month Suicidal Thoughts : No CSSRS Lifetime Suicide Behavior : No Suicide Severity Rating Score : 0 Suicide Severity Rating : No Additional Care Required at this time SO GARG RN - 11/17/2019 17:38 EST Psychosocial History Does Someone Depend on You for Care? : No Chronic/Terminal Illness w/Freq Visits : No Do You Have a History of the Following? : Anxiety, Depression Currently in Unsafe Situation : No SO GARG RN - 11/17/2019 17:38 EST Sleep Apnea Risk Assmt BiPAP/CPAP Ordered for Home Use : Yes Hx of Obstructive Sleep Apnea Diagnosis : Yes BiPAP/CPAP Used at Home : Yes Age over 50 Years Old : Yes Gender Male : No SO GARG RN - 11/17/2019 18:07 EST Valuables and Belongings Valuables and Belongings : Clothing, Personal devices, Personal items, No comfort items, No jewelry, No assistive devices, No respiratory devices, No medications Clothing : Outerwear Clothing Disposition : Bedside Personal Device Disposition : With patient Personal Devices : Glasses Personal Items : Cell phone, Electronic device(s) Personal Items Disposition : Bedside SO GARG RN - 11/17/2019 18:07 EST documented in this encounter Plan of Treatment Not on file documented as of this encounter Visit Diagnoses Not on filedocumented in this encounter
== END 2025-03-17 23:59 | disposition home or self-care (01) ==
LOC: RAD 09:00
PROVIDERS: PCP Physician Assistant; Visit Provider Physician Assistant
DX: M85.832 Other specified disorders of bone density and structure, left forearm (principal); Z13.820 Encounter for screening for osteoporosis
CPT/HCPCS: 77080

== ENCOUNTER 2025-09-16 14:57 | Outpatient (CLI) | payer MEDICARE, SELFPAY ==
--- OUTSIDE RECORDS SUMMARY | 2024-07-29 10:15 | XMS_ITS ---
[facility] Address [address] [id number] Care Team Providers Care Jewel Sorter Name Role Phone Bryan Hooker Primary Care Provider Allergies Allergen (clinical drug ingredient) Drug/Non Drug Allergy documented on EMR Reaction Allergy Type Onset Date Status erythromycin Erythromycin Unknown Drug Allergy A ctive Penicillin Unknown Drug Allergy Active Results Component Value Reference Range Notes Lipid Profile Reviewed date:07/30/2024 12:49:53 PM Interpretation: Performing Lab: Notes/Report: Glycohemoglobin (HbA1C) Reviewed date:07/30/2024 12:50:06 PM Interpretation: Performing Lab: Notes/Report: CMP Reviewed date:07/30/2024 12:50:27 PM Interpretation: Performing Lab: Notes/Report: Cardiac Stress Test Exercise Cardiolyte Reviewed date:08/19/2024 08:41:51 AM Interpretation:Normal Performing Lab: Notes/Report: Normal REASON FOR VISIT check up , not feeling herself lately Medications Medication SIG (Take, Route, Frequency, Duration) Notes Start Date End Date Status Ventolin HFA 108 (90 Base) MCG/ACT 2 puff(s) inhaled 4 times a day prn 10/13/2013 Active CPAP Supplies - as directed mask replacement as directed 05/18/2023 Active Ipratropium-Albuterol 0.5-2.5 (3) MG/3ML 3 mL inhaled 4 times a day; Duration: 90 Active CPAP MASK DIRECTED 02/11/2016 Active CareTouch CPAP & BIPAP Hose 1 DIRECTED 02/15/20 19 Active Meloxicam 15 MG 1 tablet Orally Once a day; Duration: 30 days Active Adderall 30 MG 1 tab(s) orally 2 ti mes a day; Duration: 30 day(s) 06/17/2024 Active Rosuvastatin Calcium 10 MG TAKE 1 TABLET BY MOUTH EVERY DAY; Duration: 90 days Active Escitalopram Oxalate 20 MG TAKE 1 TABLET BY MOUTH EVERY DAY; Duration: 30 Active Omeprazole 40 MG TAKE 1 CAPSULE BY [facility] EVERY DAY; Duration: 90 days Active Cyclobenzaprine HCl 10 MG 1 tablet at be dtime as needed Orally Two times a day 06/19/2023 Active Bisoprolol Fumarate 5 MG 1 tablet Orally once daily; Duration: 90 days Active Vital Signs Weight 194.2 lbs 07/29/2024 Blood pressure systolic 138 mm Hg 07/29/20 24 Blood pressure diastolic 76 mm Hg 024 Heart Rate 84 /min 07/29/2024 Height 60 in 07/29/2024 BMI 37.92 kg/m2 07/29/2024 Encounters Encounter Location Date Provider Diagnosis [facility] [address] [facility] [address] [place] [address] JACI [id number] 07/29/2024 R Jorge Hooker Substernal chest tristin n R07.2 ; 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 Her symptoms of loose stool are consistent with her postcholecystectomy state. 07/29/2024 Paresthesias (ICD-10 - R20.2) Discussed differential to include carpal tunnel syndrome. Symptoms are not worrisome at present. 07/29/2024 Hyperglycemia (ICD-1 0 - R73.9) Plan Of Treatment Treatment Notes Assessment Notes Substernal chest pain Given her symptoms of exertional chest pain, multiple risk factors, and elevated coronary calcium score of 228, recommend proceeding with stress test. Postcholecystectomy syndrome Given her s atisfactory colonoscopy less than 2 years ago. Her symptoms of loose stool are consistent with her postcholecystectomy state. Paresthesias Discussed differenti al to include carpal tunnel syndrome. Symptoms are not worrisome at present. Next Appt Details Follow Up: after tests, Reas on: Progress Notes * Nidia PINODOB: 6 (70 yo F)[id number]:07/29/2024 Progress Notes Patient: Nidia ALEMAN Provider: Bryan Hooker M.D. :1955 A ge:68 Y S ex:Female Date:07/29/2024 Address:[address] [place], [place] [id number] Subjective: * Chief Complaints: * 1 . Check up , not feeling herself lately. * HPI: H PI: She comes in today, mostly at the urging of her sister, to discuss health concerns. Her brother of colon cancer and her sister thinks she is having too many loose stools through the day. Barbara notes that her stools have generally been loose since she had her gallbladder removed. She usually has 2 or 3 stools per day. No melena or hematochezia no weight loss. Her last colonoscopy was in September 2022. She has been waking in the night with some numbness in her hands. This usually resolves with changing of position. She has not noticed any weakness. She has noticed some mild substernal pressure when she is exercising. This resolves promptly with rest. * ROS: D ERMATOLOGY: no R irineo. n o H josé miguel. G ASTROENTEROLOGY: no N ausea. n o V omiting. n o D iarrhea.? U ROLOGY: no D ifficulty urinating. n o B lood in urine. * Medical History: D epression, Asthma, Adult ADD, HBP, DUYEN on CPAP, Sigmoid diverticulosis by C- scope 2016, Pancreatitis, HLP. * Surgical History: L 5-S1 fusion 08/21/2005, heart cath 06/2008, right shoulder-rotator cuff surgery- tear in bicep-Dr Su[facility] 04/2013[facility], Colonoscopy/polyp x 2/Dr. Mauricio 08/25/2015, Lap rob - Dr. Hill 12/16/15, Right knee replacement 02/14/17, C-scope/ polyp x 1, sigmoid diverticulosis/ Dr. Carvalho 08/2017, Bilateral cataracts , Left Knee Replacement 11/2019, C-scope/ Allran/ hyperplastic polyp x 2/ repeat 5 years 09/2022. * Hospitalization/Major Diagno stic Procedure: H [facility]-acute pancreatitis 09/01, [facility]-epigastric abdominal pain 05/07/20. * Family History: F ather: , CAD. M other: , CAD. S iblings: brother had colon cancer.? Sister with diabetes, Sister wth sarcoma. * Social History: C URRENT TOBACCO USE S moking Status: Patient does NOT smoke. C affeine: yes, frequency:. Past smoking status: no, Smoking status: Does not smoke. Alcohol: no. * Medications: T aking CareTouch CPAP & BIPAP Hose MACHINE AND SUPPLIES 1 DIRECTED , Taking Ipratropium-Albuterol 0.5-2.5 (3) MG/3ML Solution 3 mL inhaled 4 times a day , Taking CPAP MASK DIRECTED , Taking Ventolin HFA 108 (90 Base) MCG/ACT Aerosol Solution 2 puff(s) inhaled 4 times a day prn , Taking CPAP Supplies - - as directed mask replacement as directed , Taking Cyclobenzaprine HCl 10 MG Tablet 1 tablet at bedtime as needed Orally Two times a day , Taking Bisoprolol Fumarate 5 MG Tablet 1 tablet Orally once daily , Taking Meloxicam 15 MG Tablet 1 tablet Orally Once a day , Taking Adderall 30 MG Tablet 1 tab(s) orally 2 times a day , Taking Omeprazole 40 MG Capsule Delayed Release TAKE 1 CAPSULE BY MOUTH EVERY DAY , Taking Rosuvastatin Calcium 10 MG Tablet TAKE 1 TABLET BY MOUTH EVERY DAY , Taking Escitalopram Oxalate 20 MG Tablet TAKE 1 TABLET BY MOUTH EVERY DAY , Medication List reviewed and reconciled with the patient * Allergies: P enicillin, Erythromycin. Objective: * Vitals: W t:194.2, Temp:98.6, BP:138/76, HR:84, O2 Sat:99% on RA, Nurse:KATIA, Ht: 60, BMI:37.92. * Examination: G eneral Examination: General Appearance: N AD. H eart: R SR. L ungs:?clear to auscultation. N eurologic Exam: N o muscle weakness. E xtremities: n o leg edema. Assessment: * Assessment: 1. S ubsternal chest pain - R07.2 (Primary) 2 . P ostcholecystectomy syndrome - K91.5 3 . P aresthesias - R20.2 4 . H yperglycemia - R73.9 Plan: * Treatment: Notes: Given her symptoms of exertional chest pain, multiple risk factors, and elevated coronary calcium score of 228, recommend proceeding with stress test.?? 2.?Postcholecystectomy syndrome? Notes: Given her satisfactory colonoscopy less than 2 years ago. Her symptoms of loose stool are consistent with her postcholecystectomy state.??3.?Paresthesias? Notes: Discussed differential to include carpal tunnel syndrome. Symptoms are not worrisome at present.?? * Labs: * L ab: Glycohemoglobin (HbA1C) (Collection Date & Time - 07/30/2024) ?Lab: CMP (Collection Date & Time - 07/30/2024)* see duplicate order ?Lab: Lipid Profile (Collection Date & Time - 07/30/2024)* See phone encounter * Procedure Codes: 9 4760 PULSE OX * Follow Up: a fter tests * Images: Billing Information: * Visit Code: 98646 Office Visit, Est Pt., Level 4. * Procedure Codes: 50467 PULSE OX. * Electronic signature of Bryan Hooker MD on 09/16/2025 at 03:01 PM EST Sign off status: Pending * Provider: Bryan Hooker M.D. Date: 09/28/2023 Generated for Lazaro diaz/Nick/Mishelitting on: 03:01 PM EST History and Physical Notes * Examination Category Sub-Category Detail Notes Category Not es General Examination Heart: RSR Lungs: clear to auscultatio n Extremities: no leg edema General Appearance: NAD Neurologic Exam: No muscle weakness
--- OUTSIDE RECORDS SUMMARY | 2024-08-13 06:00 | XMS_ITS ---
Author Organization Formerly [facility] Address [address] [id number] Care Team Providers Care Billiard Table Repairer Name Role Phone Bryan Hooker Primary Care Provider Sofia Ames Unavailable [phone] Allergies Allergen (clinical drug ingredient) Drug/Non Drug Allergy documented on EMR Reaction Allergy Type Onset Date Status erythromycin Erythromycin Unknown Drug Allergy A ctive Penicillin Unknown Drug Allergy Active Results Component Value Reference Range Notes Influenza Screen (in house) Reviewed date:08/13/2024 11:15:51 AM Interpretation: Performing Lab: Notes/Report: results Neg CBC Fingerstick (in house) Reviewed date:08/13/2024 11:21:24 AM Interpretation: Performing Lab: Notes/Report: wbc 7.0 3.5 - 10 lym 17.0% 15 - 50 mid 5.4% 2 - 15 gran 77.6% 35 - 80 rbc 4.57 3.5 - 5.5 hgb 12.2 11.5 - 16.5 hct 37.8 35 - 55 mcv 82.6 75 - 100 mch 26.7 25 - 35 mchc 32.3 31 - 38 plat 203 100 - 400 Covid test (in house) Reviewed date:08/13/2024 11:16:09 AM Interpretation: Performing Lab: Notes/Report: Result: Neg REASON FOR VISIT cough Medications Medication SIG (Take, Route, Frequency, Duration) Notes Start Date End Date Status CareTouch CPAP & BIPAP Hose 1 DIRECTED 02/15/20 19 Active Ipratropium-Albuterol 0.5-2.5 (3) MG/3ML 3 mL inhaled 4 times a day; Duration: 90 Active CPAP MASK DIRECTED 02/11/2016 Active Ventolin HFA 108 (90 Base) MCG/ACT 2 puff(s) inhaled 4 times a day prn 10/13/2013 Active CPAP Supplies - as directed mask replacement as directed 05/18/2023 Active Promethazine-DM 6.25-15 MG/5ML 5 ml orally every 6 hours prn 08/13/2024 Active Airsupra 90-80 MCG/ACT 2 puffs as needed Inhalation Six times a day 08/13/2024 Active Escitalopram Oxalate 20 MG TAKE 1 TABLET BY MOUTH EVERY DAY; Duration: 30 Active Rosuvastatin Calcium 10 MG TAKE 1 TABLET BY MOUTH EVERY DAY; Duration: 90 days Active Zithromax Z-Magdaleno 250 MG 2 pills first day then one daily for 4 days orally as directed; Duration: 5 days 08/13/2024 Active Omeprazole 40 MG TAKE 1 CAPSULE BY [facility] EVERY DAY; Duration: 90 days Active Cyclobenzaprine HCl 10 MG 1 tablet at be dtime as needed Orally Two times a day 06/19/2023 Active Bisoprolol Fumarate 5 MG 1 tablet Orally once daily; Duration: 90 days Active Meloxicam 15 MG 1 tablet Orally Once a day; Duration: 30 days Active Adderall 30 MG 1 tab(s) orally 2 ti mes a day; Duration: 30 day(s) 06/17/2024 Active Vital Signs Weight 193.2 lbs 08/13/2024 Blood pressure systolic 130 mm Hg 08/13/20 24 Blood pressure diastolic 70 mm Hg 024 Heart Rate 77 /min 08/13/2024 Height 60 in 08/13/2024 BMI 37.73 kg/m2 08/13/2024 Encounters Encounter Location Date Provider Diagnosis [facility] [address] [place], [place] [id number] 08/13/2024 Sofia Ames Acute URI J06.9 and Bronchitis J40 Assessments Encounter Date Diagnosis (ICD Code) Assessment Notes Treatment Notes Treatment Clinical Notes Section Notes 08/13/2024 Acute URI (ICD-10 - J06.9) 08/13/2024 Bronchitis (ICD-10 - J40) Gave samples of airsupra for her to try. Plan Of Treatment Medication Medication Name Sig Start Date Stop Date Notes Promethazine-DM 6.25-15 MG/5ML 5 ml orally every 6 hours prn 08/13/2024 Airsupra 90-80 MCG/ACT 2 puffs as needed Inhalation Six times a day 08/13/2024 Zithromax Z-Magdaleno 250 MG 2 pills first day then one daily for 4 days orally as directed; Duration: 5 days 08/13/2024 Treatment Notes Assessment Notes Bronchitis Gave samples of airs upra for her to try. Next Appt Details Follow Up: prn, Reason: Progress Notes * Nidia PINODOB: 6 (70 yo F)Acc No.[id number]:08/13/2024 Progress Notes Patient: Nidia ALEMAN Provider: NEHEMIAS Lunsford :1955 A ge:68 Y S ex:Female Date:08/13/2024 Address:[address] [place], [place] [id number] Pcp:Bryan Hooker Subjective: * Chief Complaints: * 1 . Cough. * HPI: E NT/respiratory: The patient is here today with c/o cough since yesterday. Pt states she does not get much up and it feels deep in her chest. 68 year old female presents with c/o sore throat. c/o cough. c/o Fever. c/o Short of Breath. Denies : Chest Pain. * ROS: D ERMATOLOGY: no R irineo. [...] [facility]/polyp x 2/Dr. Mauricio 08/25/2015, Lap [...] not smoke. Alcohol: no. * Medications: [facility] MACHINE AND SUPPLIES [...] P enicillin, Erythromycin. Objective: * Vitals: W t:193.2, Temp:98.3, BP:130/70, HR:77, O2 Sat:99% on RA, Nurse:JOSELINE, Ht: 60, BMI:37.73. * Examination: E NT/Respiratory: General Appearance: N AD. E ars: a uditory canals normal bilaterally, TM's WNL. N ose : turbinates red, congested. S inuses : n on tender bilaterally. O ral cavity : erythema without exudate on pharynx, PND present. N rosaura : n o cervical lymphadenopathy. H eart : R RR, normal S1 S2, no murmurs. L ungs:? expiratory wheezes, no rales. Assessment: * Assessment: 1. A lucia MULLEN - J06.9 (Primary) 2 . B tiffani - J40 Plan: * Treatment: 2. B ronchitis Start Zithromax Z-Magdaleno Tablet, 250 MG, 2 pills first day then one daily for 4 days, orally, as directed, 5 days, 1, Refills 0; S tart Airsupra Aerosol, 90-80 MCG/ACT, 2 puffs as needed, Inhalation, Six times a day. Notes: Gave samples of airsupra for her to try. * Labs: * L ab: Influenza Screen (in house) (Collection Date & Time - 08/13/2024) Value Reference Range r esults Neg * Tamela Toledo 08/13/2024 11:15: 47 AM > , Provider reviewed results while patient in office. ?Lab: Covid test (in house) (Collection Date & Time - 08/13/2024)* Value Reference Range R esult: Neg * Tamela Toledo 08/13/2024 11:16: 04 AM > , Provider reviewed results while patient in office. ?Lab: CBC Fingerstick (in house) (Collection Date & Time - 08/13/2024)* Value Reference Range w bc 7.0 3.5 - 10 * l ym 17.0% 15 - 50 * m id 5.4% 2 - 15 * g ran 77.6% 35 - 80 * r bc 4.57 3.5 - 5.5 * h gb 12.2 11.5 - 16.5 * h ct 37.8 35 - 55 * m cv 82.6 75 - 100 * m ch 26.7 25 - 35 * m chc 32.3 31 - 38 * p lat 203 100 - 400 * Leny Carlos 08/13/2024 11 :18:40 AM > , Provider reviewed results while patient in office. * Procedure Codes: 8 7804 Flu Test- Nasal Swab, Modifiers: QW , [address] [place], [address] COVID TEST IN HOUSE, Modifiers: QW , 25302 CAPILLARY BLOOD DRAW, 49646 CBC WITH AUTO DIFF * Follow Up: p rn * Images: Billing Information: * Visit Code: 13843 Office Visit, Est Pt., Level 3. * Procedure Codes: 90200 Flu Test- Nasal Swab. Modifiers: QW [address] [place]. [address] COVID TEST IN HOUSE. Modifiers: QW 30108 CAPILLARY BLOOD DRAW. 42270 CBC WITH AUTO DIFF. * Electronic signature of NEHEMIAS Dickson on 09/16/2025 at 03:01 PM EST Sign off status: Pending * Provider: NEHEMIAS Lunsford Date: 10/13/2023 Generated for Jessiei emily/Fapresleyg/eTransmitting on: 03:01 PM EST History and Physical Notes * HPI (History of Present Illness) Category Sub-Category Detail Notes Category Not es ENT/respiratory sore throat Short of Breath Chest Pain cough Fever Examination Category Sub-Category Detail Notes Category Not es ENT/Respiratory Oral cavity : erythema without exudate on pharynx, PND present Sinuses : non tender bilateral ly Ears: auditory canals norm al bilaterally, TM's WNL Neck : no cervical lymphade nopathy Heart : RRR, normal S1 S2, n o murmurs Lungs: expiratory wheezes, no rales General Appearance: NAD Nose : turbinates red, sandra ested
--- OUTSIDE RECORDS SUMMARY | 2025-03-04 04:45 | XMS_ITS ---
[facility] Address [address] [facility] [address] [place] [phone] Care Team Providers Care Acid Maker Name Role Phone Bryan Hooker Primary Care Provider Sofia Ames Unavailable [phone] Allergies Allergen (clinical drug ingredient) Drug/Non Drug Allergy documented on EMR Reaction Allergy Type Onset Date Status erythromycin Erythromycin Unknown Drug Allergy A ctive Penicillin Unknown Drug Allergy Active Results Component Value Reference Range Notes CBC Venipuncture (in house) Reviewed date:03/05/2025 03:47:55 PM Interpretation:Normal Performing Lab: Notes/Report: Normal wbc 8.1 3.5 - 10 lymph 18.9 15 - 50 mid 5.3 2 - 15 gran 75.8 35 - 80 rbc 4.61 3.5 - 5.5 hgb 11.9 11.5 - 16.5 hct 37.5 35 - 55 mcv 81.4 75 - 100 mch 25.9 25 - 35 mchc 31.8 31 - 38 platlet 291 100 - 400 Glycohemoglobin A1c (in hous e) Reviewed date:03/05/2025 03:47:55 PM Interpretation:5.8% Performing Lab: Notes/Report: 5.8% glycohemoglobin 5.8% 5 - 6.5 % P-Comprehensive Metabolic Pa varun (CMP) Reviewed date:03/05/2025 03:47:54 PM Interpretation:Glu 107 Performing Lab: Notes/Report: Test performed by [facility] [address] [facility] , [place] [address] Ty Vilchis MD, Wheel Loader Operator CLIA: [id number] Sodium 142 135-145 mmol/L Potassium 4.8 3.5-5.3 mmol/L Chloride 103 97-108 mmol/L CO2 26 22-32 mmol/L Glucose 107 65-99 mg/dL BUN 18 8-23 mg/dL Creatinine 0.80 0.50-1.00 mg/dL Calcium 9.5 8.6-10.4 mg/dL eGFR by Creatinine 80 >59 mL/min/1.73m2 Protein 6.8 6.0-8.3 g/dL Albumin 4.5 3.5-5.3 g/dL Alkaline Phosphatase 121 35-121 IU/L ALT (SGPT) 22 <5-47 IU/L AST (SGOT) 24 <5-40 IU/L Bilirubin, Total <0.2 <0.2-1.2 mg/dL A/G Ratio 2.0 1.1-2.5 P-Lipid Panel Reviewed date:03/05/2025 03:47:55 PM Interpretation:trigs 181, hdl 39 Performing Lab: Notes/Report: Test performed by [facility] [address] [place] [address] , [place] [address] Ty Vilchis MD, Wheel Loader Operator CLIA: [id number] Cholesterol 126 <200 mg/dL Triglycerides 181 <150 mg/dL HDL Cholesterol 39 >39 mg/dL Cholesterol / HDL Ratio 3.23 0.00-4.44 Ratio Non-HDL Cholesterol 87 <130 mg/dL LDL Cholesterol (Calculation) 51 <130 mg/dL LDL Cholesterol Levels* Less than 100 mg/dL Optimal 100 to 129 mg/dL Near Optimal/ Above Optimal 130 to 159 mg/dL Borderline High 160 to 189 mg/dL High 190 mg/dL and above Very High * Categories as recommended by the 2004 ATPIII guidelines LDL/HDL Ratio 1.3 <3.3 Ratio LDL Cholesterol Patient History Test Date: 03/09/2023 LDL Results: 40 Units: mg/dL % Change: - Test Date: 03/04/2025 LDL Results: 51 Units: mg/dL % Change: +27% P-Microalbumin/Creatinine, R andom Urine Sample Reviewed date:03/05/2025 03:47:55 PM Interpretation:Normal Performing Lab: Notes/Report: Test performed by [facility], [address] , [address], [place] [address] Ty Vilchis MD, Wheel Loader Operator CLIA: [id number] Albumin/Creatinine Ratio, Urine 21 0-30 ug/mg Microalbumin, Urine, Random 2.2 Creatinine, Urine 105.2 Bone density Reviewed date:04/01/2025 02:57:21 PM Interpretation:osteopenia left forearm Performing Lab: Notes/Report: osteopenia left forearm Bone density osteopenia REASON FOR VISIT Check Up with Annual Wellness Visit, Needs labs Medications Medication SIG (Take, Route, Frequency, Duration) Notes Start Date End Date Status Bisoprolol Fumarate 5 MG 1 tablet Orally once daily; Duration: 90 days Active Rosuvastatin Calcium 10 MG TAKE 1 TABLET BY MOUTH EVERY DAY; Duration: 90 Active Omeprazole 40 MG TAKE 1 CAPSULE BY NH UT EVERY DAY; Duration: 90 Active Adderall 30 MG 1 tab(s) orally 2 ti mes a day; Duration: 30 day(s) 01/12/2025 Active Escitalopram Oxalate 20 MG TAKE 1 TABLET BY MOUTH EVERY DAY; Duration: 30 Active Meloxicam 15 MG 1 tablet Orally Once a day; Duration: 30 days Active Airsupra 90-80 MCG/ACT 2 puffs as needed Inhalation Six times a day 08/13/2024 Active CPAP MASK DIRECTED 02/11/2016 Active Ventolin HFA 108 (90 Base) MCG/ACT 2 puff(s) inhaled 4 times a day prn 10/13/2013 Active CPAP Supplies - as directed mask replacement as directed 05/18/2023 Active CareTouch CPAP & BIPAP Hose 1 DIRECTED 02/15/20 19 Active Ipratropium-Albuterol 0.5-2.5 (3) MG/3ML 3 mL inhaled 4 times a day; Duration: 90 Active Immunizations Vaccine Route Administration Date Status Comme nts PNEUMOVAX 23 VACCINE IM Intramuscular 03/04/2025 Pending Problems Problem Type SNOMED Code ICD Code Onset Dates Problem Status W/U Status Risk Notes Problem Morbid obesity (disorder) (337307721) Morbid (severe) obesity due to excess calories (E66.01) Active confirmed Problem Obese class II (999660109532 105) BMI 36.0-36.9,adul t (Z68.36) Active confirmed Vital Signs Weight 187.4 lbs 03/04/2025 Blood pressure systolic 130 mm Hg 03/04/20 25 Blood pressure diastolic 82 mm Hg 025 Heart Rate 72 /min 03/04/2025 Height 60 in 03/04/2025 BMI 36.6 kg/m2 03/04/2025 Encounters Encounter Location Date Provider Diagnosis [facility] [address] [facility] [address] [place] [address], [place] [phone] 03/04/2025 Sofia Ames Adult general medica l examination Z00.00 ; Attention deficit disorder F90.0 ; HTN (hypertension) I10 ; DUYEN (obstructive sleep apnea) G47.33 ; Dyslipidemia E78.5 ; Mild persistent asthma without complication J45.30 ; Depressive disorder F32.9 ; Arthralgia M25.50 ; Elevated glucose R73.09 ; Osteoporosis screening Z13.820 ; Morbid (severe) obesity due to excess calories E66.01 and BMI 36.0-36.9,adult Z68.36 Assessments Encounter Date Diagnosis (ICD Code) Assessment Notes Treatment Notes Treatment Clinical Notes Section Notes 03/04/2025 Adult general medical examination (ICD-10 - Z00.00) Patient instructed to return to office Annually for Annual Wellness Visits to include annual screenings of Pain assessment, Functional Ability assessment, Cognitive Ability assessment, Fall Risk assessment, Depression screening and Bladder control screening. 03/04/2025 Attention deficit disorder (ICD-10 - F90.0) 03/04/2025 HTN (hypertension) (ICD-10 - I10) 03/04/2025 DUYEN (obstructive sleep apnea) (ICD-10 - G47.33) 03/04/2025 Dyslipidemia (ICD-10 - E78.5) 03/04/2025 Mild persistent asthma without complication (ICD-10 - J45.30) 03/04/2025 Depressive disorder (ICD-10 - F32.9) 03/04/2025 Arthralgia (ICD-10 - M25.50) 03/04/2025 Elevated glucose (ICD-10 - R73.09) 03/04/2025 Osteoporosis screening (ICD-10 - Z13.820) 03/04/2025 Morbid (severe) obesity due to excess calories (ICD-10 - E66.01) 03/04/2025 BMI 36.0-36.9,adult (ICD-10 - Z68.36) Plan Of Treatment Treatment Notes Assessment Notes Adult general medical examination Patien t instructed to return to office Annually for Annual Wellness Visits to include annual screenings of Pain assessment, Functional Ability assessment, Cognitive Ability assessment, Fall Risk assessment, Depression screening and Bladder control screening. Next Appt Details Follow Up: As directed by , Reason: Progress Notes * Nidia SANDERSDOB: 6 (70 yo F)Acc No.[id number]:03/04/2025 Annual Wellness Visit Patient: Martinez ALEMANia Provider: NEHEMIAS Lunsford :1955 A ge:69 Y S ex:Female Date:03/04/2025 Address:[address] [place], [place] [phone] Pcp:Bryan Hooker Subjective: * Chief Complaints: * 1 . Check Up with Annual Wellness Visit. 2. Needs labs. * HPI: H PI: Patient is here today for a scheduled check up and a Medicare Annual Wellness Visit. Pt sts she does need refills. Pt sts she would like to have her BS checked today as well. * ROS: O PTHALMOLOGY: Negative for d enies vision issues. * Medical History: D epression, Asthma, Adult ADD, HBP, DUYEN on CPAP, Sigmoid diverticulosis by C- scope 2016, Pancreatitis, HLP. * Surgical History: L 5-S1 fusion 08/21/2005, heart cath 06/2008, right shoulder-rotator cuff surgery- [facility]/polyp x 2/Dr. Mauricio [...] directed mask replacement as directed , Taking Meloxicam 15 MG Tablet 1 tablet Orally Once a day , Taking Airsupra 90-80 MCG/ACT Aerosol 2 puffs as needed Inhalation Six times a day , Taking Bisoprolol Fumarate 5 MG Tablet 1 tablet Orally once daily , Taking Rosuvastatin Calcium 10 MG Tablet TAKE 1 TABLET BY MOUTH EVERY DAY , Taking Omeprazole 40 MG Capsule Delayed Release TAKE 1 CAPSULE BY MOUTH EVERY DAY , Taking Adderall 30 MG Tablet 1 tab(s) orally 2 times a day , Taking Escitalopram Oxalate 20 MG Tablet TAKE 1 TABLET BY MOUTH EVERY DAY , Medication List reviewed and reconciled with the patient * Allergies: P enicillin, Erythromycin. Objective: * Vitals: W t: 187.4, Temp: 98.6, BP: 130/82, HR: 72, O2 Sat: 99% on RA, Nurse: joi, Ht: 60, BMI:36.6. * Examination: G eneral Examination: General Appearance: N AD. H EENT: u nremarkable.?Oral cavity: n o lesions, mucosa moist and WNL, no erythema. N rosaura: s upple, no lymphadenopathy. C hest: n ormal shape and expansion. H eart: R SR. L ungs: c lear to auscultation. A bdomen: b owel sounds present, soft and nontender, no organomegaly or masses, no guarding or rigidity. N eurologic Exam: I ntact, gait normal. S kin: n ormal, no rash. P eripheral pulses: n ormal (2+) bilaterally. E xtremities: n o leg edema. * Physical Examination: G ENERAL: Pain Assessment: P ain level:6 , on a scale of 0-10 (with 10 being extreme pain). F unctional Status Assessment: P atient response to question of how often physical health interferes with daily activities: occasionally. Able to perform ADLs-including meal preparation, grocery shopping, housework, laundry, taking medications or handling finances. Cognitive Status: alert and oriented. Ambulation Status: Fully ambulatory. F all Risk Assessment: I ndependant in ambulation, adequate lighting in home. Patient has fallen but has not had trouble walking within the past 12 months. D epression Screening: D enies depressed mood or anxiety. Describes emotional health as:downhearted. B ladder Control Screening: D enies problems. Assessment: * Assessment: 1. A dult general medical examination - Z00.00 (Primary) 2 . A ttention deficit disorder - F90.0 3 . H TN (hypertension) - I10 4 . O SA (obstructive sleep apnea) - G47.33 5 . D yslipidemia - E78.5 6 . M ild persistent asthma without complication - J45.30 7 . D epressive disorder - F32.9 8 . A rthralgia - M25.50 9 . E levated glucose - R73.09 1 0. O steoporosis screening - Z13.820 1 1. M orbid (severe) obesity due to excess calories - E66.01 1 2. B [place] 36.0-36.9,adult - Z68.36 Plan: * Treatment: 2. H TN (hypertension) L AB: P-Comprehensive Metabolic Panel (CMP) (Collection Date & Time - 03/04/2025 09:26 AM) G guy 107 Value Reference Range A /G Ratio 2.0 1.1-2.5 - * A lbumin 4.5 3.5-5.3 - g/dL * A lkaline Phosphatase 121 35-121 - IU/L * A LT (SGPT) 22 <5-47 - IU/L * A ST (SGOT) 24 <5-40 - IU/L * B ilirubin, Total <0.2 <0.2-1.2 - mg/dL * B UN 18 8-23 - mg/dL * C alcium 9.5 8.6-10.4 - mg/dL * C hloride 103 97-108 - mmol/L * C O2 26 22-32 - mmol/L * C reatinine 0.80 0.50-1.00 - mg/dL * G lucose 107 H 65-99 - mg/dL * P otassium 4.8 3.5-5.3 - mmol/L * S odium 142 135-145 - mmol/L * P rotein 6.8 6.0-8.3 - g/dL * e GFR by Creatinine 80 >59 - mL/min/1.73m2 * Sofia Ames 03/04/2025 1 0:22:36 AM EDT >room 5, purple Saskia Adkins 03/05/2025 03:47:47 PM EDT > See phone encounter ?LAB: P-Microalbumin/Creatinine, Random Urine Sample (Collection Date & Time - 03/04/2025 09:26 AM)?Normal* Value Reference Range A lbumin/Creatinine Ratio, Urine 21 0-30 - ug /mg * C reatinine, Urine 105.2 - mg/dL * M icroalbumin, Urine, Random 2.2 - mg/dL * Sofia Ames 03/04/2025 1 0:22:36 AM EDT >room 5, Saskia Stevenson 03/05/2025 03:47:47 PM EDT > See phone encounter ?LAB: CBC Venipuncture (in house) (Collection Date & Time - 03/04/2025)? Normal* Value Reference Range w bc 8.1 3.5 - 10 * l ymph 18.9 15 - 50 * m id 5.3 2 - 15 * g ran 75.8 35 - 80 * r bc 4.61 3.5 - 5.5 * h gb 11.9 11.5 - 16.5 * h ct 37.5 35 - 55 * m cv 81.4 75 - 100 * m ch 25.9 25 - 35 * m chc 31.8 31 - 38 * p latlet 291 100 - 400 * Elisabeth Orosco 03/04/2025 10:4 9:51 AM EDT > Saskia Adkins 03/05/2025 03:47:47 PM EDT > See phone encounter 3.?Dyslipidemia?LAB: P-Lipid Panel (Collection Date & Time - 03/04/2025 09:26 AM)?trigs 181, hdl 39* Value Reference Range C holesterol / HDL Ratio 3.23 0.00-4.44 - Ratio * C holesterol 126 <200 - mg/dL * H DL Cholesterol 39 L >39 - mg/dL * L DL Cholesterol (Calculation) 51 <130 - mg/d L * L DL/HDL Ratio 1.3 <3.3 - Ratio * N on-HDL Cholesterol 87 <130 - mg/dL * T riglycerides 181 H <150 - mg/dL * Sofia Ames 03/04/2025 1 0:22:36 AM EDT >room 5, purple Saskia Adkins 03/05/2025 03:47:47 PM EDT > See phone encounter 4.?Elevated glucose?LAB: Glycohemoglobin A1c (in house) (Collection Date & Time - 03/04/2025)? 5.8%* Value Reference Range g lycohemoglobin 5.8% 5 - 6.5 % * GilbertohomeElisabeth 03/04/2025 10:5 0:23 AM EDT > Saskia Adkins 03/05/2025 03:47:47 PM EDT > See phone encounter 5.?Osteoporosis screening?Imaging: Bone density (Performed Date - 03/17/2025)?osteopenia left forearm * Value Reference Range B one density osteopenia * Joy Ochoa 03/05/2025 08:1 2:33 AM EDT > faxed to [facility] DaraSaskia riddle 04/01/2025 02:56:15 PM EDT > See phone encounter * Immunizations: PNEUMOVAX 23 VACCINE (Route: Intramuscular) on Right Arm (Pending) (Adult general medical examination) * Procedure Codes: G 0439 ANNUAL WELLNESS VST; PPS SUBSQT VST, G2211 Complex [place], [address] GLYCATED HEMOGLOBIN TEST, Modifiers: QW , 1090F PRES/ABSN URINE INCON ASSESS, 3288F FALL RISK ASSESSMENT DOCD, 1170F FXNL STATUS ASSESSED, 1159F MED LIST DOCD IN RCRD, 1003F LEVEL OF ACTIVITY ASSESS, 1036F TOBACCO NON-USER, 3017F COLORECTAL CA SCREEN DOC REV, 70152 CBC WITH AUTO DIFF, 1125F AMNT PAIN NOTED PAIN PRSNT, 4040F PNEUMOC IMM ORDER/ADMIN, 3044F HG A1C LEVEL LT 7.0%, G8950 PREHTN/HTN BP DOC INDCD F/U DOC, G8752 MOST RECENT SYSTOLIC BP < 140MM HG, G8754 MOST RECENT DIASTOLIC BP < 90MM HG, G8431 CLIN DEPRESSION SCREEN DOC positive, G9899 Scrn pj perf rslts doc * Preventive Medicine: Counseling: E motional health: P atient encouraged to try connecting with family or friends to boost mood. B ladder control: M ethods of controlling or managing leakage of urine discussed. E xercise: P atient advised to start, increase or maintain level of exercise/physical activity. I njury prevention: F all prevention discussed. Discussed need for cane/walker. Potential trip hazards discussed. Immunizations: P neumococcal r ecommended. I nfluenza r ecommended seasonally. Screening / Special Tests: M ammogram R ecent history: 07/30/2024 stable, annual f/u. C olonoscopy R ecent history: 09/29/2022, Dr. Thornton, polyps, repeat 5 years. B one mineral Density R ecent history: 01/17/2021, osteopenia, recommended. D iabetic Retinal Eye Exam R ecent history: 10/16/2024. N ephrology History R ecent history:, GFR and urine M/A ordered today. * Follow Up: A s directed by * Images: Billing Information: * Visit Code: 89205 Office Visit, Est Pt., Level 3. Modifiers: 25 * Procedure Codes: G0439 ANNUAL WELLNESS VST; PPS SUBSQT VST. G2211 Complex e/[place]. [address] GLYCATED HEMOGLOBIN TEST. Modifiers: QW 1090F PRES/ABSN URINE INCON ASSESS. 3288F FALL RISK ASSESSMENT DOCD. 1170F FXNL STATUS ASSESSED. 1159F MED LIST DOCD IN RCRD. 1003F LEVEL OF ACTIVITY ASSESS. 1036F TOBACCO NON-USER. 3017F COLORECTAL CA SCREEN DOC REV. 54096 CBC WITH AUTO DIFF. 1125F AMNT PAIN NOTED PAIN PRSNT. 4040F PNEUMOC IMM ORDER/ADMIN. 3044F HG A1C LEVEL LT 7.0%. G8950 PREHTN/HTN BP DOC INDCD F/U DOC. G8752 MOST RECENT SYSTOLIC BP < 140MM HG. G8754 MOST RECENT DIASTOLIC BP < 90MM HG. G8431 CLIN DEPRESSION SCREEN DOC positive. G9899 Scrn pj perf rslts doc. * Electronic signature of NEHEMIAS Dickson on 09/16/2025 at 03:01 PM EST Sign off status: Pending * Provider: NEHEMIAS Lunsford Date: 0 03/04/2025 Generated for Printi ng/Faxing/eTransmitting on: 1 03:01 PM EST History and Physical Notes * HPI (History of Present Illness) Category Sub-Category Detail Notes Category Not es HPI Patient is here today for [facility] Medicare Annual Wellness Visit. Pt sts she does need refills. Pt sts she would like to have her BS checked today as well Physical Examination Category Sub-Category Detail Notes Section Note s GENERAL Pain Assessment: Pain level:6 , on a scale of 0-10 (with 10 being extreme pain) Functional Status Assessment: Patient re sponse to question of how often physical health interferes with daily activities: occasionally. Able to perform ADLs-including meal preparation, grocery shopping, housework, laundry, taking medications or handling finances.Cognitive Status: alert and oriented.Ambulation Status: Fully ambulatory Fall Risk Assessment: Independant in amb ulation, adequate lighting in home. Patient has fallen but has not had trouble walking within the past 12 months Depression Screening: Denies depressed m ood or anxiety. Describes emotional health as:downhearted Bladder Control Screening: Denies proble ms Examination Category Sub-Category Detail Notes Category Not es General Examination HEENT: unremarkable Heart: RSR Lungs: clear to auscultatio n Abdomen: bowel sounds present , soft and nontender, no organomegaly or masses, no guarding or rigidity Extremities: no leg edema General Appearance: NAD Skin: normal, no rash Neurologic Exam: Intact, gait normal Neck: supple, no lymphaden opathy Oral cavity: no lesions, mucosa m oist and WNL, no erythema Peripheral pulses: normal (2+) bilatera lly Chest: normal shape and exp ansion
--- OUTSIDE RECORDS SUMMARY | 2025-05-28 04:20 | XMS_ITS ---
Author Organization [facility] Address [address] [id number] Care Team Providers Care Block Placer Name Role Phone Bryan Hooker Primary Care Provider Sofia Ames [phone] REASON FOR VISIT dizzy spells Encounters Encounter Location Date Provider Diagnosis [facility] [address] [place] [phone] 05/28/2025 Sofia Ames Plan Of Treatment No Information Progress Notes * Nidia PINODOB: (70 yo F)Acc No.[id number]:05/28/2025 Progress Notes Patient: Nidia ALEMAN Provider: NEHEMIAS Lunsford :1955 A ge:69 Y S ex:Female Date:05/28/2025 Address:[address] [place] [id number] Pcp:Bryan Hooker Subjective: * Chief Complaints: * 1 . Dizzy spells. * Medical History: Objective: * Vitals: Assessment: Plan: * Treatment: * Images: Billing Information: * Visit Code: * Procedure Codes: * Electronic signature of NEHEMIAS Dickson on 09/16/2025 at 03:02 PM EST Sign off status: Pending * Provider: NEHEMIAS Lunsford Date: 0 05/28/2025 Generated for Lazaro diaz/Nick/Fred on: 1 03:02 PM EST
--- OUTSIDE RECORDS SUMMARY | 2025-06-02 09:15 | XMS_ITS ---
Author Organization [facility] Address [address] [id number] Care Team Providers Care [employer] French Teacher Name Role Phone Bryan Hooker Primary Care Provider Allergies Allergen (clinical drug ingredient) Drug/Non Drug Allergy documented on EMR Reaction Allergy Type Onset Date Status erythromycin Erythromycin Unknown Drug Allergy A ctive Penicillin Unknown Drug Allergy Active REASON FOR VISIT controlled rx checkup Medications Medication SIG (Take, Route, Frequency, Duration) Notes Start Date End Date Status Meloxicam 15 MG 1 tablet Orally Once a day; Duration: 30 days Active Rosuvastatin Calcium 10 MG 1 tablet Oral ly Once a day; Duration: 90 days Active Escitalopram Oxalate 20 MG 1 tablet Oral ly Once a day; Duration: 30 days Active Bisoprolol Fumarate 5 MG 1 tablet Orally once daily; Duration: 90 days Active Omeprazole 40 MG 1 capsule 1/2 to 1 h our before morning meal Orally Once a day; Duration: 90 days Active Ventolin HFA 108 (90 Base) MCG/ACT 2 puff(s) inhaled 4 times a day prn 10/13/2013 Active CPAP Supplies - as directed mask replacement as directed 05/18/2023 Active Airsupra 90-80 MCG/ACT 2 puffs as needed Inhalation Six times a day 08/13/2024 Active Ipratropium-Albuterol 0.5-2.5 (3) MG/3ML 3 mL inhaled 4 times a day; Duration: 90 Active CPAP MASK DIRECTED 02/11/2016 Active Adderall 30 MG 1 tab(s) orally 2 ti mes a day; Duration: 30 day(s) 06/02/2025 Active Calcium + Vitamin D3 600-5 MG-MCG 1 tablet with a meal Orally Once a day Active CareTouch CPAP & BIPAP Hose 1 DIRECTED 02/15/20 19 Active Vital Signs Weight 193.8 lbs 06/02/2025 Blood pressure systolic 130 mm Hg 06/02/20 25 Blood pressure diastolic 76 mm Hg 025 Heart Rate 68 /min 06/02/2025 Height 60 in 06/02/2025 BMI 37.84 kg/m2 06/02/2025 Encounters Encounter Location Date Provider Diagnosis [facility] [address] [facility] [address] [place], [place] [id number] 06/02/2025 Bryan Hooker Attention deficit disorder F90.0 ; Neuropathy G62.9 ; Dyslipidemia E78.5 and Mild persistent asthma without complication J45.30 Assessments Encounter Date Diagnosis (ICD Code) Assessment Notes Treatment Notes Treatment Clinical Notes Section Notes 06/02/2025 Attention deficit disorder (ICD-10 - F90.0) 06/02/2025 Neuropathy (ICD-10 - G62.9) 06/02/2025 Dyslipidemia (ICD-10 - E78.5) 06/02/2025 Mild persistent asthma without complication (ICD-10 - J45.30) Plan Of Treatment Medication Medication Name Sig Start Date Stop Date Notes Adderall 30 MG 1 tab(s) orally 2 ti mes a day; Duration: 30 day(s) 06/02/2025 Next Appt Details Follow Up: 3 Months, Reason: Progress Notes * TOMMY NidiaDOB: 6 (70 yo F)Acc No.[id number]:06/02/2025 Progress Notes Patient: Nidia ALEMAN Provider: Bryan Hooker M.D. :1955 A ge:69 Y S ex:Female Date:06/02/2025 Address:[address] [place], [place] [phone] Subjective: * Chief Complaints: * 1 . Controlled rx checkup. * HPI: P sychology: She comes in for follow-up on her ADD and refill medication. She reports that the medication continues to work well. She finds that she does not have to take it every day and depends on her scheduled activities. * Medical History: D epression, Asthma, Adult ADD, HBP, DUYEN on CPAP, Sigmoid diverticulosis by C- scope 2016, Pancreatitis, HLP. * Surgical History: L 5-S1 fusion 08/21/2005, heart cath 06/2008, [facility] Colon[facility]/polyp x 2/Dr. Mauricio 08/25/2015, Lap rob - Dr. Hill 12/16/15, Right knee replacement 02/14/17, C-scope/ polyp x 1, sigmoid diverticulosis/ Dr. Carvalho 08/2017, Bilateral cataracts , Left Knee Replacement 11/2019, C-scope/ Allran/ hyperplastic polyp x 2/ repeat 5 years 09/2022. * Hospitalization/Major Diagno stic Procedure: [facility]-acute pancreatitis 09/01, [facility]-epigastric abdominal pain 05/07/20. * Medications: T aking Calcium + Vitamin D3 600-5 MG-MCG Tablet 1 tablet with a meal Orally Once a day , Taking CareTouch CPAP & BIPAP Hose MACHINE AND SUPPLIES 1 DIRECTED , Taking Ipratropium-Albuterol 0.5-2.5 (3) MG/3ML Solution 3 mL inhaled 4 times a day , Taking CPAP MASK DIRECTED , Taking Ventolin HFA 108 (90 Base) MCG/ACT Aerosol Solution 2 puff(s) inhaled 4 times a day prn , Taking CPAP Supplies - - as directed mask replacement as directed , Taking Airsupra 90-80 MCG/ACT Aerosol 2 puffs as needed Inhalation Six times a day , Taking Meloxicam 15 MG Tablet 1 tablet Orally Once a day , Taking Adderall 30 MG Tablet 1 tab(s) orally 2 times a day , Taking Escitalopram Oxalate 20 MG Tablet 1 tablet Orally Once a day , Taking Rosuvastatin Calcium 10 MG Tablet 1 tablet Orally Once a day , Taking Omeprazole 40 MG Capsule Delayed Release 1 capsule 1/2 to 1 hour before morning meal Orally Once a day , Taking Bisoprolol Fumarate 5 MG Tablet 1 tablet Orally once daily , Medication List reviewed and reconciled with the patient * Allergies: P enicillin, Erythromycin. Objective: * Vitals: W t: 193.8, Temp: 98.0, BP: 130/76, HR: 68, Nurse: pe, Ht: 60, BMI:37.84. * Examination: G eneral Examination: General Appearance: N AD. H EENT: u nremarkable.?Neck: s upple, no lymphadenopathy. C hest: n ormal shape and expansion. H eart:?RSR. L ungs: c lear to auscultation. E xtremities: n o leg edema. ? Assessment: * Assessment: 1. A ttention deficit disorder - F90.0 (Primary) 2 . N europathy - G62.9? 3. D yslipidemia - E78.5 4 . M ild persistent asthma without complication - J45.30 Plan: * Treatment: * Procedure Codes: G 2211 Complex e/m visit add on, G8783 BP SCR PRFRM RCMDD DEFIND SCR INTVL, 3075F SYST BP GE 130 - 139MM HG, 3078F DIAST BP < 80 MM HG * Follow Up: 3 Months * Images: Billing Information: * Visit Code: 16747 Office Visit, Est Pt., Level 3. * Procedure Codes: G2211 Complex e/m visit add on. G8783 BP SCR PRFRM RCMDD DEFIND SCR INTVL. 3075F SYST BP GE 130 - 139MM HG. 3078F DIAST BP < 80 MM HG. * Electronic signature of Bryan Hooker MD on 09/16/2025 at 03:00 PM EST Sign off status: Pending * Provider: Bryan Hooker M.D. Date: 0 06/02/2025 Generated for Lazaro diaz/Nick/Brooklynnsmitting on: 1 03:00 PM EST History and Physical Notes * HPI (History of Present Illness) Category Sub-Category Detail Notes Category Not es Psychology She comes in [facility] follow-up on her ADD and refill medication. She reports that the medication continues to work well. She finds that she does not have to take it every day and depends on her scheduled activities Examination Category Sub-Category Detail Notes Category Not es General Examination HEENT: unremarkable Heart: RSR Lungs: clear to auscultatio n Extremities: no leg edema General Appearance: NAD Neck: supple, no lymphaden opathy Chest: normal shape and exp ansion
--- OUTSIDE RECORDS SUMMARY | 2025-07-28 10:00 | XMS_ITS ---
Author Organization [facility] Address [address] [phone] Care Team Providers Care Ice Cream Machine Operator Name Role Phone Bryan Hooker Primary Care Provider [phone] Allergies Allergen (clinical drug ingredient) Drug/Non Drug Allergy documented on EMR Reaction Allergy Type Onset Date Status erythromycin Erythromycin Unknown Drug Allergy A ctive Penicillin Unknown Drug Allergy Active REASON FOR VISIT medication questions Medications Medication SIG (Take, Route, Frequency, Duration) Notes Start Date End Date Status Rosuvastatin Calcium 10 MG 1 tablet Oral ly Once a day; Duration: 90 days Active Omeprazole 40 MG 1 capsule 1/2 to 1 h our before morning meal Orally Once a day; Duration: 90 days Active Bisoprolol Fumarate 5 MG 1 tablet Orally once daily; Duration: 90 days Active Escitalopram Oxalate 20 MG 1 tablet Oral ly Once a day; Duration: 30 days Active Calcium + Vitamin D3 600-5 MG-MCG 1 tablet with a meal Orally Once a day; Duration: 90 days Active Ventolin HFA 108 (90 Base) MCG/ACT 2 puff(s) inhaled 4 times a day prn 10/13/2013 Active CPAP Supplies - as directed mask replacement as directed 05/18/2023 Active Zepbound 2.5 MG/0.5ML 2.5mg Subcutaneous once weekly 07/29/2025 Active Airsupra 90-80 MCG/ACT 2 puffs as needed Inhalation Six times a day 08/13/2024 Activ e Meloxicam 15 MG 1 tablet Orally Once a day; Duration: 30 days Active CareTouch CPAP & BIPAP Hose 1 DIRECTED 02/14/2019 Active Ipratropium-Albuterol 0.5-2.5 (3) MG/3ML 3 mL inhaled 4 times a day; Duration: 90 days Active CPAP MASK DIRECTED 02/11/2016 Active Adderall 30 MG 1 tab(s) orally 2 ti mes a day; Duration: 30 day(s) 07/02/2025 Active Vital Signs Weight 192 lbs 07/28/2025 Blood pressure systolic 130 mm Hg 07/28/20 25 Blood pressure diastolic 70 mm Hg 025 Heart Rate 98 /min 07/28/2025 Height 60 in 07/28/2025 BMI 37.49 kg/m2 07/28/2025 Encounters Encounter Location Date Provider Diagnosis [facility] [address] [facility] [address] [phone] 07/28/2025 Bryan Hooker Encounter for weight management Z76.89 ; BMI 37.0-37.9, adult Z68.37 and DUYEN (obstructive sleep apnea) G47.33 Assessments Encounter Date Diagnosis (ICD Code) Assessment Notes Treatment Notes Treatment Clinical Notes Section Notes 07/28/2025 Encounter for weight management (ICD-10 - Z76.89) 07/28/2025 BMI 37.0-37.9, adult (ICD-10 - Z68.37) 07/28/2025 DUYEN (obstructive sleep apnea) (ICD-10 - G47.33) Plan Of Treatment Medication Medication Name Sig Start Date Stop Date Notes Zepbound 2.5 MG/0.5ML 2.5mg Subcutaneous once weekly 07/29 Next Appt Details Follow Up: 4 Weeks, Reason: Progress Notes * Nidia PINODOB: 6 (70 yo F)Acc No.[id number]:07/28/2025 Progress Notes Patient: Nidia ALEMAN Provider: Bryan Hooker M.D. :1955 A ge:69 Y S ex:Female Date:07/28/2025 Address:[address] [place], [place] [phone] Subjective: * Chief Complaints: * 1 . Medication questions. * HPI: C onstitutional: Barbara comes in with ongoing concerns about her weight. She has been unsuccessful with weight loss on her own with dietary restrictions. She does have a history of significant sleep apnea and wears CPAP. She is aware of the new indication for Zepbound in treatment of sleep apnea. * ROS: D ERMATOLOGY: no R irineo. [...] right shoulder-rotator cuff surgery- tear in bicep[facility] 04[facility]2013[facility], [facility]/polyp x 2/Dr. Mauricio [...] MACHINE AND SUPPLIES 1 DIRECTED , Taking CPAP MASK DIRECTED , Taking [...] 1 tablet Orally once daily , Taking Escitalopram Oxalate 20 MG Tablet 1 tablet Orally Once a day , Taking Calcium + Vitamin D3 600-5 MG-MCG Tablet 1 tablet with a meal Orally Once a day , Taking Ipratropium-Albuterol 0.5-2.5 (3) MG/3ML Solution 3 mL inhaled 4 times a day , Taking Adderall 30 MG Tablet 1 tab(s) orally 2 times a day , Medication List reviewed and reconciled with the patient * Allergies: P enicillin, Erythromycin. Objective: * Vitals: W t: 192, Temp: 98.1, BP: 130/70, HR: 98, Nurse: lico, Ht: 60, BMI:37.49. * Examination: G eneral Examination: General Appearance: N AD. H eart: R SR. L ungs:?clear to auscultation. Assessment: * Assessment: 1. E ncounter for weight management - Z76.89 (Primary) 2 . B MS 37.0-37.9, adult - Z68.37 3 . O SA (obstructive sleep apnea) - G47.33 Plan: * Treatment: * Procedure Codes: G 2211 Complex e/m visit add on, G8783 BP SCR PRFRM RCMDD DEFIND SCR INTVL, G8752 MOST RECENT SYSTOLIC BP < 140MM HG, G8754 MOST RECENT DIASTOLIC BP < 90MM HG, 3075F SYST BP GE 130 - 139MM HG, 3078F DIAST BP < 80 MM HG * Follow Up: 4 Weeks * Images: Billing Information: * Visit Code: 15761 Office Visit, Est Pt., Level 3. * Procedure Codes: G2211 Complex e/m visit add on. G8783 BP SCR PRFRM RCMDD DEFIND SCR INTVL. G8752 MOST RECENT SYSTOLIC BP < 140MM HG. G8754 MOST RECENT DIASTOLIC BP < 90MM HG. 3075F SYST BP GE 130 - 139MM HG. 3078F DIAST BP < 80 MM HG. * Electronic signature of Bryan Hooker MD on 09/16/2025 at 03:00 PM EST Sign off status: Pending * Provider: Bryan Hooker M.D. Date: 09/27/2024 Generated for Lazaro diaz/Nick/Fred on: 03:00 PM EST History and Physical Notes * Examination Category Sub-Category Detail Notes Category Not es General Examination Heart: RSR Lungs: clear to auscultatio n General Appearance: NAD
--- OUTSIDE RECORDS SUMMARY | 2025-09-09 04:15 | XMS_ITS ---
Author Organization [facility] Address [address] [facility] [address] [place] [phone] Care Team Providers Care Senior Ui Ux Designer Name Role Phone Bryan Hooker Primary Care Provider [phone] Sofia Ames Unavailable [phone] Allergies Allergen (clinical drug ingredient) Drug/Non Drug Allergy documented on EMR Reaction Allergy Type Onset Date Status erythromycin Erythromycin Unknown Drug Allergy A ctive Penicillin Unknown Drug Allergy Active Results Component Value Reference Range Notes Glycohemoglobin A1c (in hous e) (Not yet reviewed by provider) Interpretation: Normal Performing Lab: Notes/Report: Normal glycohemoglobin 5.6% 5 - 6.5 % P-Comprehensive Metabolic Pa varun (CMP) (Not yet reviewed by provider) Interpretation: Normal Performing Lab: Notes/Report: Test performed by [facility] , [address], [place] [address] Jeffery Stock MD, PhD, AP, [employer] CLIA: [id number] Sodium 141 135-145 mmol/L Potassium 4.8 3.5-5.3 mmol/L Chloride 103 97-108 mmol/L CO2 26 20-32 mmol/L Glucose 92 65-99 mg/dL BUN 15 8-23 mg/dL Creatinine 0.86 0.50-1.00 mg/dL Calcium 9.6 8.6-10.4 mg/dL eGFR by Creatinine 73 >59 mL/min/1.73m2 Protein 6.9 6.0-8.3 g/dL Albumin 4.4 3.5-5.3 g/dL Alkaline Phosphatase 115 41-145 IU/L ALT (SGPT) 28 <5-47 IU/L AST (SGOT) 26 <5-40 IU/L Bilirubin, Total 0.3 <0.2-1.2 mg/dL A/G Ratio 1.8 1.1-2.5 P-Lipid Panel (Not yet revie wed by provider) Interpretation:trigs 151, hdl 35 Performing Lab: Notes/Report: Test performed by [facility] [address] [place] [address] , [address], [address]kyle Stock MD, PhD, FCAP, [employer] CLIA: [id number] Lipid Panel Footnote See Below *Based on optimal reference values. Please refer to the DOS for additional information regarding diagnostic lipid reference ranges, patient management based on the recently updated lipid guidelines ([place] [employer]/[place] [employer] Association Task Force on Clinical Practice Guidelines (2018), and pediatric diagnostic lipid reference values (<18 years old). Total Cholesterol 105 <200 mg/dL Triglycerides 151 <150 mg/dL HDL Cholesterol 35 >50 mg/dL Total Cholesterol / HDL Ratio* 3.00 <3.99 Rati o Non-HDL Cholesterol 70 <130 mg/dL LDL Cholesterol (Calculation) 40 <100 mg/dL LDL / HDL Ratio* 1.14 <1.99 Ratio LDL Cholesterol Patient History Test Date: 03/09/2023 LDL Results: 40 Units: mg/dL % Change: - Test Date: 03/04/2025 LDL Results: 51 Units: mg/dL % Change: +27% Test Date: 09/09/2025 LDL Results: 40 Units: mg/dL % Change: -21% P-TSH reflex to FT4 (Not yet reviewed by provider) Interpretation: Normal Performing Lab: Notes/Report: Test performed by [facility] [address] [place] [address] , [address], [place] [address] Jeffery Stock MD, PhD, [facility], [employer] CLIA: [id number] TSH reflex to FT4 1.72 0.43-5.25 mU/L CBC Venipuncture (in house) Reviewed date:09/09/2025 11:55:31 AM Interpretation: Performing Lab: Notes/Report: wbc 8.3 3.5 - 10 lymph 17.3% 15 - 50 mid 5.1% 2 - 15 gran 77.6% 35 - 80 rbc 4.85 3.5 - 5.5 hgb 12.9 11.5 - 16.5 hct 39.2 35 - 55 mcv 80.7 75 - 100 mch 26.5 25 - 35 mchc 32.9 31 - 38 platlet 270 100 - 400 REASON FOR VISIT 6 month check with fasting labs, Needs mammogram Medications Medication SIG (Take, Route, Frequency, Duration) Notes Start Date End Date Status Adderall 30 MG 1 tab(s) orally 2 ti mes a day; Duration: 30 day(s) 08/31/2025 Active Zepbound 5 MG/0.5ML 0.5 mL Subcutaneous once a week; Duration: 30 days Active Rosuvastatin Calcium 10 MG TAKE 1 TABLET BY MOUTH DAILY; Duration: 90 Active Meloxicam 15 MG 1 tablet Orally Once a day; Duration: 30 days Active Ipratropium-Albuterol 0.5-2.5 (3) MG/3ML 3 mL inhaled 4 times a day; Duration: 90 days Active Bisoprolol Fumarate 5 MG 1 tablet Orally once daily; Duration: 90 days Active Omeprazole 40 MG 1 capsule 1/2 to 1 h our before morning meal Orally Once a day; Duration: 90 days Active Airsupra 90-80 MCG/ACT 2 puffs as needed Inhalation Six times a day 08/13/2024 Activ e Calcium + Vitamin D3 600-5 MG-MCG 1 tablet with a meal Orally Once a day; Duration: 90 days Active Escitalopram Oxalate 20 MG 1 tablet Oral ly Once a day; Duration: 30 days Active CPAP Supplies - as directed mask replacement as directed 05/18/2023 Active Ventolin HFA 108 (90 Base) MCG/ACT 2 puff(s) inhaled 4 times a day prn 10/13/2013 Active CPAP MASK DIRECTED 02/11/2016 Active CareTouch CPAP & BIPAP Hose 1 DIRECTED 02/14/2019 Active Vital Signs Weight 179.6 lbs 09/09/2025 Blood pressure systolic 128 mm Hg 09/09/20 25 Blood pressure diastolic 72 mm Hg 025 Heart Rate 75 /min 09/09/2025 Height 60 in 09/09/2025 BMI 35.07 kg/m2 09/09/2025 Encounters Encounter Location Date Provider Diagnosis [facility] [address], [place] [phone] 09/09/2025 Sofia Ames Attention deficit disorder F90.0 ; HTN (hypertension) I10 ; DUYEN (obstructive sleep apnea) G47.33 ; Dyslipidemia E78.5 ; Mild persistent asthma without complication J45.30 ; Depressive disorder F32.9 ; Arthralgia M25.50 ; Elevated glucose R73.09 and Morbid (severe) obesity due to excess calories E66.01 Assessments Encounter Date Diagnosis (ICD Code) Assessment Notes Treatment Notes Treatment Clinical Notes Section Notes 09/09/2025 Attention deficit disorder (ICD-10 - F90.0) 09/09/2025 HTN (hypertension) (ICD-10 - I10) 09/09/2025 DUYEN (obstructive sleep apnea) (ICD-10 - G47.33) 09/09/2025 Dyslipidemia (ICD-10 - E78.5) 09/09/2025 Mild persistent asthma without complication (ICD-10 - J45.30) 09/09/2025 Depressive disorder (ICD-10 - F32.9) 09/09/2025 Arthralgia (ICD-10 - M25.50) 09/09/2025 Elevated glucose (ICD-10 - R73.09) 09/09/2025 Morbid (severe) obesity due to excess calories (ICD-10 - E66.01) Plan Of Treatment Pending Test Test Name Order Date Glycohemoglobin A1c (in house) P-Comprehensive Metabolic Panel (CMP) P-Lipid Panel 09/09/2025 P-TSH reflex to FT4 09/09/2025 Next Appt Details Follow Up: via phone to repo rt test results, Reason: Progress Notes * Nidia PINODOB: 6 (70 yo F)Acc No.[id number]:09/09/2025 Progress Notes Patient: Nidia ALEMAN Provider: NEHEMIAS Lunsford :1955 A ge:70 Y S ex:Female Date:09/09/2025 Address:[address] [place], [place] [phone] Pcp:Bryan Hooker Subjective: * Chief Complaints: * 1 . 6 month check with fasting labs. 2. Needs mammogram. * HPI: C ardiology: 70 year old female presents with c/o Blood Pressure Elevated?Pt here for 6 month follow up on Hypertension. Pt states she is doing well and has no concerns at this time. * ROS: D ERMATOLOGY: no R irineo. [...] right shoulder-rotator cuff surgery- tear in bicep-[facility] 04/2013[facility] Colonoscopy/polyp x 2/Dr. 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 * Social History: C URRENT TOBACCO USE: No S moking Status: Patient does NOT smoke. [...] Inhalation Six times a day , Taking Omeprazole 40 [...] inhaled 4 times a day , Taking Meloxicam 15 MG Tablet 1 tablet Orally Once a day , Taking Rosuvastatin Calcium 10 MG Tablet TAKE 1 TABLET BY MOUTH DAILY , Taking Zepbound 5 MG/0.5ML Solution Auto-injector 0.5 mL Subcutaneous once a week , Taking Adderall 30 MG Tablet 1 tab(s) orally 2 times a day , Medication List reviewed and reconciled with the patient * Allergies: P enicillin, Erythromycin. Objective: * Vitals: W t: 179.6, Temp: 98.1, BP: 128/72, HR: 75, O2 Sat: 97% on RA, Nurse: SF, Ht: 60, BMI:35.07. * Examination: G eneral Examination: General Appearance: N AD. H EENT: u nremarkable.?Oral cavity: n o lesions, mucosa moist and WNL, no erythema. N rosaura: s upple, no lymphadenopathy. C hest: n ormal shape and expansion. H eart: R SR. L ungs: c lear to auscultation. A bdomen: b owel sounds present, soft and nontender. N eurologic Exam: I ntact, gait normal. S kin: n ormal, no rash. P eripheral pulses: n ormal (2+) bilaterally. E xtremities: n o leg edema. Assessment: * Assessment: 1. H TN (hypertension) - I10 (Primary) 2 . A ttention deficit disorder - F90.0 3 . O SA (obstructive sleep apnea) - G47.33 4 . D yslipidemia - E78.5 5 . M ild persistent asthma without complication - J45.30 & #160; 6 . D epressive disorder - F32.9 7 . A rthralgia - M25.50 8 . E levated glucose - R73.09 9 . M orbid (severe) obesity due to excess calories - E66.01 Plan: * Treatment: Value Reference Range A /G Ratio 1.8 1.1-2.5 - * A lbumin 4.4 3.5-5.3 - g/dL * A lkaline Phosphatase 115 41-145 - IU/L * A LT (SGPT) 28 <5-47 - IU/L * A ST (SGOT) 26 <5-40 - IU/L * B ilirubin, Total 0.3 <0.2-1.2 - mg/dL * B UN 15 8-23 - mg/dL * C alcium 9.6 8.6-10.4 - mg/dL * C hloride 103 97-108 - mmol/L * C O2 26 20-32 - mmol/L * C reatinine 0.86 0.50-1.00 - mg/dL * G lucose 92 65-99 - mg/dL * P otassium 4.8 3.5-5.3 - mmol/L * S odium 141 135-145 - mmol/L * P rotein 6.9 6.0-8.3 - g/dL * e GFR by Creatinine 73 >59 - mL/min/1.73m2 ?LAB: P-TSH reflex to FT4 (Collection Date & Time - 09/09/2025 09:18 AM)? Normal* Value Reference Range T SH reflex to FT4 1.72 0.43-5.25 - mU/L ?LAB: CBC Venipuncture (in house) (Collection Date & Time - 09/09/2025)* Value Reference Range w bc 8.3 3.5 - 10 * l ymph 17.3% 15 - 50 * m id 5.1% 2 - 15 * g ran 77.6% 35 - 80 * r bc 4.85 3.5 - 5.5 * h gb 12.9 11.5 - 16.5 * h ct 39.2 35 - 55 * m cv 80.7 75 - 100 * m ch 26.5 25 - 35 * m chc 32.9 31 - 38 * p latlet 270 100 - 400 * Milli Brunson 09/09/2025 11 :25:26 AM EST > 2.?Dyslipidemia?LAB: P-Lipid Panel (Collection Date & Time - 09/09/2025 09:18 AM)?trigs 151, hdl 35* Value Reference Range C holesterol / HDL Ratio 3.00 <3.99 - Ratio * C holesterol 105 <200 - mg/dL * H DL Cholesterol 35 L >50 - mg/dL * L DL Cholesterol (Calculation) 40 <100 - mg/d L * L DL/HDL Ratio 1.14 <1.99 - Ratio * N on-HDL Cholesterol 70 <130 - mg/dL * T riglycerides 151 H <150 - mg/dL * L ipid Panel Footnote See Below - 3.?Elevated glucose?LAB: Glycohemoglobin A1c (in house) (Collection Date & Time - 09/09/2025)? Normal* Value Reference Range g lycohemoglobin 5.6% 5 - 6.5 % * Milli Brunson 09/09/2025 11 :27:29 AM EST > * Procedure Codes: 3 6416 CAPILLARY BLOOD DRAW, 37667 GLYCATED HEMOGLOBIN TEST, Modifiers: QW , 90299 CBC WITH AUTO DIFF, 01008 VENIPUNCT, ROUTINE* * Follow Up: v ia phone to report test results * Images: Billing Information: * Visit Code: 83061 Office Visit, Est Pt., Level 4. * Procedure Codes: 57075 CAPILLARY BLOOD DRAW. 17334 GLYCATED HEMOGLOBIN TEST. Modifiers: QW 12968 CBC WITH AUTO DIFF. 23414 VENIPUNCT, ROUTINE*. * Electronic signature of NEHEMIAS Dickson on 09/16/2025 at 03:02 PM EST Sign off status: Pending * Provider: NEHEMIAS Lunsford Date: 11/10/2024 Generated for Lazaro diaz/Nick/Fred on: 03:02 PM EST History and Physical Notes * HPI (History of Present Illness) Category Sub-Category Detail Notes Category Not es Cardiology Blood Pressure Elevated Pt here for 6 month follow up on Hypertension. Pt states she is doing well and has no concerns at this time Examination Category Sub-Category Detail Notes Category Not es General Examination HEENT: unremarkable Heart: RSR Lungs: clear to auscultatio n Abdomen: bowel sounds present , soft and nontender Extremities: no leg edema General Appearance: NAD Skin: normal, no rash Neurologic Exam: Intact, gait normal Neck: supple, no lymphaden opathy Oral cavity: no lesions, mucosa m oist and WNL, no erythema Peripheral pulses: normal (2+) bilatera lly Chest: normal shape and exp ansion
--- NOTE | 2025-09-16 14:59 | MM_ITS ---
PROCEDURE INFORMATION: Exam: MG Bilateral Screening 3D Mammography Exam date and time: 09/16/2025 3:11 PM Age: 70 years old Clinical indication: Screening examination TECHNIQUE: Imaging protocol: Bilateral Screening tomosynthesis and 2D mammography including computer-aided detection (CAD) when performed. COMPARISON: MG MM DIG SCREENING MAMM BI W/CAD 07/30/2024 8:52 AM FINDINGS: MAMMOGRAPHY: Breast composition: There are scattered areas of fibroglandular density. Mass: None. Architectural distortion: None. Calcifications: No suspicious calcifications. Asymmetric density: None. Skin thickening: None. Axillary adenopathy: None. IMPRESSION: No mammographic evidence of malignancy. Annual screening is recommended unless otherwise clinically indicated. ASSESSMENT: BI-RADS Category 1: Negative.
--- OUTSIDE RECORDS SUMMARY | 2025-09-16 15:00 | XMS_ITS | Encounter Summary ---
Author Organization [employer] ([place], [place], [place], [place], [place]) Address [address] [place] [address] Care Team Providers Care Track Template Maker Name Role Phone Unavailable Primary Care Provider Unavailabl e Encounter Details Date Type Department Care Team (Late st Contact Info) Description 11/17/2019 Transcribed Document [facility] [place] [address] [place] [address] ProviderTiana MD [address] [place] [address] Social History Tobacco Use Types [...] Conversion Note - Historical ProviderMD - 11/17/2019 1:55 PM FLEXOGRAPHIC PRESS PLATE SETTER [facility] Main OR IntraOp Summary Primary Physician: NATE HAMILTON MD-ORT Finalized Date/Time: 11/19/19 10:27:17 Pt. Name: HILL PINO MATTHEW /Sex: 1955 Female Med Rec #: [id number] Physician: NATE HAMILTON MD-ORT Financial #: [id number] Pt. Type: O Room/Bed: 638/1 Admit/Disch: 11/17/19 07:16:00 - 11/18/19 15:10:00 Institution: [facility] IntraOp Case Attendance Entry 1 Entry 2 Entry 3 Case Attendee NATE HAMILTON GHANSAH, NANA DADZIE, HURST, JOSHUA, CRNA MD-ORT -ANS Role Performed Surgeon/Proceduralist, Anesthesiologist of DORR OPERATOR/Nurse Tool Maintenance Technician First Record Time In 11/17/19 13:22:00 11/17/19 [...] 5 Entry 6 Case Attendee Rivka Lopez, RN Evita Rodas Lasslo, Jamie, Surgical [employer] Pref Card Builder Product Developer Role Performed Foster Care Social Worker, Pigment And Lacquer Mixer, First Scrub, First Time In 11/17/19 13:22:00 [...] FLY ROBLES CRNA-ANS Role Performed Vendor Vendor DORR OPERATOR/Nurse Tool Maintenance Technician Time In 11/17/19 13:22:00 11/17/19 13:22:00 11/17/19 [...] Attendee LENA GONZALEZ PA-ORT Role Performed Physician payroll administrative assistant Time In 11/17/19 14:10:00 Time Out 11/17/19 15:22:00 Procedure Knee Total Joint Replacement(Left) Other Attendee Superficial Wound Closed By: Noah Modified By: Rivka Lopez RN 11/17/19 15:22:49 [facility] IntraOp Case Attendance Audit 11/17/19 15:22:49 Transport Driver: [id number] Modifier: [id number] <+> Time Out 1 <*> Procedure [...] Procedure Knee Total Joint Replacement(Left) 11/17/19 14:51:50 Transport Driver: [id number] Modifier: [id number] <+> Time Out 5 <*> Procedure Knee Total Joint Replacement(Left) 11/17/19 14:11:42 Transport Driver: [id number] Modifier: [id number] 1 <*> Procedure Knee Total Joint Replacement(Left) [...] <+> 10 Time In <+> 10 Procedure [facility] IntraOp Case Times Entry 1 Patient In Room Time 11/17/19 13:22:00 Out Room Time 11/17/19 15:22:00 Anesthesia Start Time 11/17/19 13:22:00 Stop Time 11/17/19 15:22:00 Surgery / Procedure Times Start Time 11/17/19 13:55:00 Stop Time 11/17/19 15:14:00 Last Modified By: Rivka Lopez RN 11/17/19 15:22:36 [facility] IntraOp Case Times Audit 11/17/19 15:22:36 Transport Driver: [id number] Modifier: [id number] <+> 1 Out Room Time <+> 1 Stop Time <+> 1 Stop Time [facility] IntraOp Cautery Entry 1 ESU Identification Cautery Type Monopolar ESU ID Number [id number] ID Type Hospital Number Cautery Settings Cut Setting 50 Coag Setting 50 ESU Grounding Pad Ground Pad Type Adult Grounding Pad Site Right thigh Grounding Pad Rivka Lopez, RN Applied By Grounding Pad Site Warm, Dry, Intact Skin Condition Before Cautery Grounding Pad Site Unchanged Skin Condition After Cautery Last Modified By: Rivka Lopez RN 11/17/19 14:07:16 [facility] IntraOp Communication Entry 1 Entry 2 Communication To Family/Significant other Family/Significant other Comment START CLOSING Communication By Rivka Lopez, RN Rivka Lopez, RN Date and Time 11/17/19 13:57:00 11/17/19 14:54:00 Last Modified By: Rivka Lopez RN Bruner, Kristen D RN 11/17/19 14:07:30 11/17/19 14:54:41 [facility] IntraOp Communication Audit 11/17/19 14:54:41 Transport Driver: [id number] Modifier: [id number] <+> 2 Communication By <+> 2 Date and Time <+> 2 Communication To <+> 2 Comment [facility] IntraOp Counts Verification Entry 1 Procedure Knee Total Joint Replacement(Left) Count Info Count Type Sponge, Sharps, Miscellaneous Counts Verification Baseline/pre-procedure Sequence Count Results Not Applicable Counts Performed By Count Performed By Galindo Brooks, Surgical (Scrub) Product Developer Count Performed By Rivka Lopez RN (RN) Last Modified By: Rivka Lopez RN 11/17/19 14:07:38 [facility] IntraOp Counts Final Entry 1 Procedure Knee Total Joint Replacement(Left) Final Count Info Count Type Sponge, Sharps, Miscellaneous Counts Verification Skin Closure/end of Sequence procedure Count Results Correct, surgeon notified Counts Performed By Count Performed By Galindo Brooks, Surgical (Scrub) Product Developer Count Performed By Rivka Lpoez RN (RN) Last Modified By: Rivka Lopez RN 11/17/19 15:13:58 [facility] IntraOp Counts Final Audit 11/17/19 15:13:58 Transport Driver: [id number] Modifier: [id number] 1 <*> Procedure Knee Total Joint Replacement(Left) 1 <+> Count Performed By (Scrub) 1 <+> Count Performed By (RN) [facility] IntraOp Cultures and Spec Summary Entry 1 Cultrures and Specimens Specimen Ordered: Yes Test(s) Routine/Path-Lab Requested/Final Disposition Last Modified By: Rivka Lopez RN 11/17/19 14:07:46 [facility] IntraOp Departure from OR Entry 1 Integumentary Assessment Integumentary WDL with patient Assessment WDL specific variances Patient's Normal NEW SURGICAL INCISION: Integumentary LEFT KNEE Variance(s) Transfer/Handoff Transfer to PACU Phase I Handoff Method Phone call Post-op Transport Reynaldo/Bhavana Via Patient Transport FLY ROBLES, Accompanied by Jessica CASH Kristen D, RN Last Modified By: Rivka Lopez RN 11/17/19 14:08:07 [facility] IntraOp Dressing and Packing Entry 1 Type Dressing Location OPERATIVE KNEE Wound Dressing Item Occlusive dressing, Skin Closure Glue Applied By LENA GONZALEZ PA-ORT Other Comments [facility] Last Modified By: Rivka Lopez RN 11/17/19 14:11:48 [facility] IntraOp Dressing and Packing Audit 11/17/19 14:11:48 Transport Driver: [id number] Modifier: [id number] 1 <*> Applied By Evita Rodas [employer] Pref Card Builder [facility] IntraOp Fire Risk Assessment Entry 1 Fire Info Surgical Site or 0- No Incision Above the Xyphoid Open O2 Source 0- No (Mask or Cannula) Available Ignition 1- Yes (ESU, Laser, Light Source) Fire Risk 1 Assessment Score Fire Score Fire Risk Yes Assessment Complete Fire Risk Rivka Lopez weatherization operations manager Verified By Fire Risk 11/17/19 13:22:00 Assessment Verified Date/Time Fire Risk Standard Fire Yes Safety Precautions Followed Last Modified By: Rivka Lopez RN 11/17/19 14:08:18 [facility] IntraOp General Case Carpet Loom Fixer 1 Case Information OR OR 04 [facility] Case Level 1 Room Verified Yes Wound Class I - Clean Specialty SN Orthopedic Anesthesia Type General ASA Class 2 Diagnosis Preop Diagnosis PRIMARY UNILATERAL OSTEOARTHRITIS: LEFT KNEE Postop Same As Preop No Postop Diagnosis SEE MD POSTOP NOTE Last Modified By: Rivka Lopez RN 11/17/19 14:08:38 [facility] IntraOp Implant Log Entry 1 Entry 2 Entry 3 Type Implant (Synthetic) Implant (Synthetic) Implant (Synthetic) Implant Log Implant Type Bone Cement Hardware Hardware Tissue Implant Type Implant CEMENT BONE SMPLX INSRT TIB ??#[id number] FEM DISTAL Identification -[id number] [id number] Description Implant Quantity 2 1 1 Implant Site OPSITE: LEFT KNEE OPSITE: LEFT KNEE OPSITE: LEFT KNEE Implant Identification Model Number Implant Identification Serial Number Implant [id number] Identification Lot Number Implant Shi:Shi Identification Orthopaedics Integration Specialist Name: Implant [id number] Identification Catalog Number Implant Size 3 Implant Has an Yes Yes Yes Expiration Date Implant Expiration 03/16/21 05/27/24 06/11/24 Date Wasted Radioactive Material Time Implanted Tissue Implant Continue for Tissue Implant Documentation Tissue Identification Number Graft Prep Per Integration Specialist Instructions: Tissue Preparation Method: Reconstitution Solution: Reconstitution Solution Lot Number Reconstitution Solution Expiration Date: Thawing Solution Thawing Solution Lot Number Thawing Solution Expiration Date Preparation Materials, Other Preparation Materials, Other Lot Number Preparation Materials, Other Expiration Date Tissue Prepared/Processed By Integration Specialist Paperwork Completed Implant Type Comment Last Modified By: Rivka Lopez, Rivka Mcmullen, Rivka Mcmullen, RN 11/17/19 14:09:09 11/17/19 14:43:19 11/17/19 14:43:19 Entry 4 Entry 5 Entry 6 Type Implant (Synthetic) Implant (Synthetic) Implant (Synthetic) Implant Log Implant Type Hardware Hardware Hardware Tissue Implant Type Implant PATELLA TRI ASYMMETRIC BASEPLT TRIATHLON TS COMP FEM PS EMELYN NO.3 Identification [id number] Description Implant Quantity 1 1 1 Implant Site OPSITE: LEFT KNEE OPSITE: LEFT KNEE OPSITE: LEFT KNEE Implant Identification Model Number Implant Identification Serial Number Implant [id number] Identification Lot Number Implant Identification Integration Specialist Name: Implant Identification Catalog Number Implant Size [id number] 3 Implant Has an Yes Yes Yes Expiration Date Implant Expiration 07/23/24 07/20/24 12/29/23 Date Wasted Radioactive Material Time Implanted Tissue Implant Continue for Tissue Implant Documentation Tissue Identification Number Graft Prep Per Integration Specialist Instructions: Tissue Preparation Method: Reconstitution Solution: Reconstitution Solution Lot Number Reconstitution Solution Expiration Date: Thawing Solution Thawing Solution Lot Number Thawing Solution Expiration Date Preparation Materials, Other Preparation Materials, Other Lot Number Preparation Materials, Other Expiration Date Tissue Prepared/Processed By Integration Specialist Paperwork Completed Implant Type Comment Last Modified By: Rivka Lopez, Rivka Mcmullen, RN Rivka Lopez, RN 11/17/19 14:43:19 11/17/19 14:43:19 11/17/19 14:43:19 [facility] IntraOp Implant Log Audit 11/17/19 14:43:19 Transport Driver: [id number] Modifier: [id number] <+> 2 Implant Identification Description <+> 2 [...] Has an Expiration Date <+> 6 Type [facility] IntraOp Intraoperative Assessment Entry 1 Handoff Method [...] Modified By: Rivka Lopez RN 11/17/19 14:09:15 [facility] IntraOp Intraoperative Equipment Entry 1 Type Equipment Equipment Equipment Maggie Suction System ID Number [id number] Setting HIGH Intraop Monitoring Electrocardiogram Five lead placement (ECG) Electrode Placement Blood Pressure Non-Invasive BP Device Source Blood Pressure Arm, right upper Location Pulse Oximeter Hand, left Probe Site Antiembolic Devices Antiembolic Devices Sequential compression device, knee high, Antiembolic hose, thigh high Antiembolic Device Right Location Antiembolic Device [id number] ID Number Antiembolic Device 40 MMHG Setting Scopes Photo/Video Documentation Last Modified By: Rivka Lopez RN 11/17/19 14:09:43 [facility] IntraOp Medication Admin Entry 1 Entry 2 Entry 3 Medication/Irrigant Bacitracin 50,00units Bacitracin 50,00units hydrogen peroxide 16oz powder vial powder vial - [id number] Combo Med List 1 - Combo Med 2 - Combo Med Time Administered Route of ADDED TO IRRIGATION ADDED TO IRRIGATION IRRIGATION Administration Dose Dose [id number] Unit of Measure units units Volume Administered By NATE HAMILTON KARTHIKEYAN, THARUN, KARTHIKEYAN, THARUN, MD-ORNoé GOODSONORNoé Procedure Irrigation Irrigant Volume In 240 mL Irrigant Volume Out 240 mL Last Modified By: Rivka Lopez, RN Rivka Lopez, RN Rivka Lopez, RN 11/17/19 14:10:11 11/17/19 14:10:11 11/17/19 14:10:11 Entry 4 Medication/Irrigant vancomycin 1Gm vial - [id number] Combo Med List Time Administered Route of TOPICAL Administration Dose Dose 1 Unit of Measure gram Volume Administered By NATE HAMILTON MD-ORT Procedure Irrigation Irrigant Volume In Irrigant Volume Out Last Modified By: Rivka Lopez RN 11/17/19 14:10:11 [facility] IntraOp Patient Positioning Entry 1 Procedure Knee [...] RN, Evita Rodas [employer] Pref Card Builder, WHALEY, DEREK, CRNA-ANS Position Verified Positioning Yes Verified by Anesthesia Positioning Yes Verified by Surgeon Last Modified By: Rivka Lopez, RN 11/17/19 14:10:25 [facility] IntraOp Sign In Entry 1 Patient, Site, [...] Modified By: Rivka Lopez RN 11/17/19 14:10:29 [facility] IntraOp Sign Out Entry 1 RN Confirmation [...] Yes Elements Complete? RN Sign Out Rivka Lopez RN Signature RN Sign Out 11/17/19 15:22:00 [...] Modified By: Rivka Lopez RN 11/17/19 15:22:46 [facility] IntraOp Sign Out Audit 11/17/19 15:22:46 Transport Driver: [id number] Modifier: [id number] <+> 1 RN Sign Out Signature Date/Time 11/17/19 14:10:39 Transport Driver: [id number] Modifier: [id number] <+> 1 OUTCOME STATEMENT: Absence of signs [...] is consistent with measures to prevent infection [facility] IntraOp Skin Prep Entry 1 Procedure Knee Total Joint Replacement(Left) Prescribed Yes Pre-Surgical Prep Completed Prep Area OPERATIVE THIGH TO TOES CIRCUMFRENTIALLY Intraop Prep Integumentary WDL Assessment WDL Prep Agents Alcohol, Chloraprep, DuraPrep, Chlorhexadine gluconate Prep by Rivka Lopez RN Hair Removal Methods No hair removal performed Last Modified By: Rivka Lopez RN 11/17/19 14:10:43 [facility] IntraOp Surgical Procedures Entry 1 Procedure Knee [...] STERILE FIELD PER Benedict LOPEZ RN, BSN [facility] IntraOp Surgical Procedures Audit 11/17/19 15:22:38 Transport Driver: [id number] Modifier: [id number] <*> Stop 11/17/19 15:14:00 1 <*> Stop 11/17/19 15:14:00 [facility] IntraOp Temp Regulation Devices Entry 1 Temp Regulation Temperature Forced Air Warming Regulation Device device, Warm blankets Temperature 25890 Regulation Device Serial/Unit Number Temperature Upper body Regulation Site Temperature Device 43 DEGREES CELCIUS Setting Temperature FLY ROBLES CRNA-ANS Regulation Device Applied by Last Modified By: Rivka Lopez RN 11/17/19 14:11:57 [facility] IntraOP Time Out Entry 1 Procedure to [...] Modified By: Rivka Lopez RN 11/17/19 14:12:18 [facility] IntraOp Tourniquet Entry 1 Type Pneumatic Serial/Unit Number [id number] Setting 300 mmHg Pheumatic Yes Tourniquet Checked Per Protocol Size 34 inches Placement Thigh, left upper Skin Protection - Yes Padded Under Cuff Applied By NATE HAMILTON MD-ORT Removed By NATE HAMILTON MD-ORT Times Start Time 11/17/19 13:55:00 Stop Time 11/17/19 15:13:00 Total Time 78 calculated manually (Mins) Last Modified By: Rivka Lopez RN 11/17/19 15:14:12 [facility] IntraOp Tourniquet Audit 11/17/19 15:14:12 Transport Driver: [id number] Modifier: [id number] <+> 1 Total Time calculated manually (Mins) <+> 1 Stop Time Case Comments <None> Finalized By: KENRICK FINCH Document Signatures Signed By: Rivka Lopez RN 11/17/19 15:22 KENRICK FINCH 11/18/19 09:15 FINCHKENRICK STERLING 11/18/19 10:56 FINCHKENRICK 11/19/19 10:27 Unfinalized History Date/Time Username Reason for Unfinalizing Freetext Reason for Unfinalizing 11/18/19 09:15 WATTSDR Correct Billing 11/18/19 10:55 WATTSDR Correct Billing 11/19/19 10:25 WATTSDR Correct Billing documented in this encounter Plan of Treatment Not on file documented as of this encounter Visit Diagnoses Not on filedocumented in this encounter
--- OUTSIDE RECORDS SUMMARY | 2025-09-16 15:00 | XMS_ITS | Encounter Summary ---
Author Organization [employer] ([place], [place], [place], [place], [place]) Address [address] [place] [address] Care Team Providers Care Sole Layer Hand Name Role Phone Unavailable Primary Care Provider Unavailabl e Encounter Details Date Type Department Care Team (Late st Contact Info) Description 11/18/[address] [facility] [place] [facility] [place] [address] ProviderTiana MD [address] [place] [address] Social History Tobacco Use [...] - Historical ProviderMD - 11/18/2019 12:53 PM CIRCUS LABORER Discharge Summary, PT Entered On: 11/18/2019 12:53 [...] 11/18/2019 12:53 EST Electronically signed by Flor, [facility] Conversion Adhesive Sprayer Cerner at 12/31/2022 5:40 PM CDT documented in this encounter Plan of Treatment Not on file documented as of this encounter Visit Diagnoses Not on filedocumented in this encounter
--- OUTSIDE RECORDS SUMMARY | 2025-09-16 15:00 | XMS_ITS | Encounter Summary ---
Author Organization [employer] ([place], [place], [place], [place], [place]) Address [address] [place] [address] Care Team Providers Care Structural Steel Painter Name Role Phone Unavailable Primary Care Provider Unavailabl e Encounter Details Date Type Department Care Team (Late st Contact Info) Description 11/17/2019 Transcribed Document [facility] [place] [address] [place] [address] ProviderTiana MD [address] [place] [address] Social History Tobacco Use Types [...] - Historical ProviderMD - 11/17/2019 10:00 PM VALVE FITTER Pain Assessment Entered On: 11/18/2019 4:24 EST [...]
--- OUTSIDE RECORDS SUMMARY | 2025-09-16 15:00 | XMS_ITS | Encounter Summary ---
Author Organization [employer] ([place], [place], [place], [place], [place]) Address [address] [place] [address] Care Team Providers Care Computer Operations Supervisor Name Role Phone Unavailable Primary Care Provider Unavailabl e Encounter Details Date Type Department Care Team (Late st Contact Info) Description 11/17/2019 Transcribed Document [facility] [place] [address] [place] [address] ProviderTiana MD [address] [place] [address] Social History Tobacco Use Types [...] - Historical ProviderMD - 11/17/2019 5:00 PM HISTORIOGRAPHY TEACHER Chart Check - Review Order Profile Entered On: 11/17/2019 18:16 EST Performed On: 11/17/2019 17:00 EST by SO GARG RN Chart Check Powerplans Initiated/Discontinued as Appropriate : Yes All Active Orders Reviewed : Yes SO GARG RN - 11/17/2019 18:15 EST documented in this encounter Plan of Treatment Not on file documented as of this encounter Visit Diagnoses Not on filedocumented in this encounter
--- OUTSIDE RECORDS SUMMARY | 2025-09-16 15:00 | XMS_ITS | Encounter Summary ---
Author Organization [employer] ([place], [place], [place], [place], [place]) Address [address] [place] [address] Care Team Providers Care Commissioning Specialist Name Role Phone Unavailable Primary Care Provider Unavailabl e Encounter Details Date Type Department Care Team (Late st Contact Info) Description 11/14/2019 Transcribed Document [facility] [place] [address] [place] [address] ProviderTiana MD [address] [place] [address] Social History Tobacco Use Types [...] - Historical ProviderMD - 11/14/2019 12:56 PM FAMILY CONSUMER SCIENCE FCS TEACHER UM Authorization Entered On: 11/14/2019 12:58 EST Performed On: 11/14/2019 12:[address] CHACON, Supportive Employment Case Manager Primary Insurance Authorization Authorization and Policy Numbers : Insurance 1 Health Plan: [facility] Policy Number: [id number] Authorization Number: Insurance Primary Name : Lucho [id number] Authorized Service Begin Date-Primary : 11/17/2019 EST Authorization Comments-Primary : Pt is scheduled for OUT PT total knee on 11/17/2019 [place]: NPR for op Historical Authorization Comments-Primary : No Authorization Comments Found COURT CHACON, Supportive Employment Case Manager - 11/14/2019 12:56 EST Electronically signed by Flor [facility] Conversion Emergency Management Consultant Cerner at 12/31/2022 5:33 PM CDT documented in this encounter Plan of Treatment Not on file documented as of this encounter Visit Diagnoses Not on filedocumented in this encounter
--- OUTSIDE RECORDS SUMMARY | 2025-09-16 15:00 | XMS_ITS | Encounter Summary ---
Author Organization [employer] ([place], [place], [place], [place], [place]) Address [address] [place] [address] Care Team Providers Care Title Coordinator Name Role Phone Unavailable Primary Care Provider Unavailabl e Encounter Details Date Type Department Care Team (Late st Contact Info) Description 11/18/2019 Transcribed Document [facility] [place] [address] [place] [address] ProviderTiana MD [address] [place] [address] Social History Tobacco Use Types [...] Tiana Huber MD - 11/18/2019 2:13 PM SMASH HAND Patient Education Materials Follows: CALL FIRST! Unless [...] of Dr. Larsen or Dr. Carrasco, call [phone] If you are a patient of Dr. Dickens, call [phone] Nurse Navigator: Cheli Santos Office: [phone]; ; available during regular business hours Orthopedics Total Knee Replacement, Care After These instructions give you information about caring for yourself after your procedure. Your doctor may also give you more specific instructions. Call your doctor if you have any problems or questions after your procedure. Follow these instructions at home: Medicines ??? Take zqkk-dzz-mwmfjny and prescription medicines only as told by [...] cannot use soap and water, use hand stripper and opaquer apprentice. ? Change your bandage as told by [...] 08/09/2016 Elsevier Interactive Patient Education ? 2019 [employer] Electronically signed by Janina Ray Conversion Upstream Biomanufacturing Technician Cerner at 12/31/2022 5:41 PM CDT documented in this encounter Plan of Treatment Not on file documented as of this encounter Visit Diagnoses Not on filedocumented in this encounter
--- OUTSIDE RECORDS SUMMARY | 2025-09-16 15:01 | XMS_ITS | Encounter Summary ---
Author Organization [employer] ([place], [place], [place], [place], [place]) Address [address] [place] [address] Care Team Providers Care Multicraft Operator Name Role Phone Unavailable Primary Care Provider Unavailabl e Encounter Details Date Type Department Care Team (Late st Contact Info) Description 11/17/2019 Transcribed Document [facility] [place] Family Medicine [facility] [place] [address] ProviderTiana MD [address] [place] [address] Social History Tobacco Use Types [...] - Historical ProviderMD - 11/17/2019 9:00 AM CHEMISTRY RESEARCH ASSISTANT Patient: NIDIA PINO Age: 64 years Sex: Female : 1955 Associated Diagnoses: None Author: RAFA MURPHY APRN-MACARENA 11/17/2019 cc: medical management s/p left total knee arthroplasty HPI: Patient is a 64 yo female admitted to [facility] per Dr. Larsen for a left total [...] ms QTC Calculation(Bezet) : 443 ms P Halsey : 56 degrees R Halsey : 0 degrees T Halsey : 47 degrees Normal sinus rhythm Moderate [...] Doc Wing MD Scribed by Sue Heredia Electronically signed by Flor [facility] Conversion Ward Service Supervisor Cerner at 12/31/2022 5:38 PM CDT documented in this encounter Plan of Treatment Not on file documented as of this encounter Visit Diagnoses Not on filedocumented in this encounter
--- OUTSIDE RECORDS SUMMARY | 2025-09-16 15:01 | XMS_ITS | Encounter Summary ---
Author Organization [employer] ([place], [place], [place], [place], [place]) Address [address] [place] [address] Care Team Providers Care Cardiology Technologist Name Role Phone Unavailable Primary Care Provider Unavailabl e Encounter Details Date Type Department Care Team (Late st Contact Info) Description 10/29/[address] [facility] [place] Family Medicine [address] [place] [address] ProviderTiana MD [address] [place] [address] Social History Tobacco Use Types [...] Conversion Note - Historical ProviderMD - 10/29/2019 9:13 AM BUFFER NICKEL Total Joints Assessment Entered On: 10/29/2019 9:14 [...] from sitting : Severe 7. Bending to floor/pharmacy picking tech an object : Severe TORRIE DIAZ Raw [...]
--- OUTSIDE RECORDS SUMMARY | 2025-09-16 15:01 | XMS_ITS | Encounter Summary ---
Author Organization [employer] ([place], [place], [place], [place], [place]) Address [address] [place] [address] Care Team Providers Care Head Inspector Name Role Phone Unavailable Primary Care Provider Unavailabl e Encounter Details Date Type Department Care Team (Late st Contact Info) Description 11/17/2019 Transcribed Document [facility] [place] Medicine [facility] [place] [address] ProviderTiana MD [address] [place] [address] Social History Tobacco Use Types [...] Conversion Note - Historical ProviderMD - 11/17/2019 12:03 PM TRAY FILLER Procedural Documentation Entered On: 11/17/2019 12:04 EST [...] Anesthesiologist Procedure Case Attendee Role 2 : oil sprayer Case Attendee 2 : JERILYN ARREOLA Procedure Case Attendee Role 3 : oil sprayer Case Attendee 3 : Birgit Stark RN [...]
--- OUTSIDE RECORDS SUMMARY | 2025-09-16 15:01 | XMS_ITS | Patient Health Record ---
Author Organization [facility] Address [address] [facility] [address] [place] [id number] Care Team Providers Care Machine Operator Packaging Name Role Phone Bryan Hooker Primary Care Provider Sofia Ames Unavailable [phone] Allergies Allergen (clinical drug ingredient) Drug/Non Drug [...] Normal Performing Lab: Notes/Report: Test performed by [facility] [address] [facility] , [address], [place] [address] Jeffery Stock MD, PhD, [facility], Ham Stringer CLIA: [id number] Sodium 141 135-145 mmol/L Potassium 4.8 3.5-5.3 [...] 35 Performing Lab: Notes/Report: Test performed by [facility], [address] , [address], [place] [address] Jeffery Stock MD, PhD, FCAP, [place] CLIA: [id number] Lipid Panel Footnote See Below *Based on optimal reference values. Please refer to the DOS for additional information regarding diagnostic lipid reference ranges, patient management based on the recently updated lipid guidelines ([place] [employer]/[place] [employer] Task Force on Clinical Practice [...] Normal Performing Lab: Notes/Report: Test performed by [facility] [address] [place] [address] , [address] Walton Streetkyle Stock MD, PhD, [facility], [place] CLIA: [id number] TSH reflex to FT4 1.72 0.43-5.25 mU/L [...] - 38 platlet 270 100 - 400 CBC Venipuncture (in house) Reviewed date:03/05/2025 03:47:55 [...] 107 Performing Lab: Notes/Report: Test performed by [facility] [address] [place] [address] , [address], [place] [address] Ty Vilchis MD, [place] CLIA: [id number] Sodium 142 135-145 mmol/L Potassium 4.8 3.5-5.3 [...] 39 Performing Lab: Notes/Report: Test performed by [facility] [address] [place] [address] , [address], [place] [address] Ty Vilchis MD, [place] CLIA: [id number] Cholesterol 126 <200 mg/dL Triglycerides 181 <150 [...] Interpretation:Normal Performing Lab: Notes/Report: Test performed by [facility], [address] , [address], [place] [address] Ty Vilchis MD, [place] CLIA: [id number] Albumin/Creatinine Ratio, Urine 21 0-30 ug/mg Microalbumin, Urine, Random 2.2 Creatinine, Urine 105.2 Bone density Reviewed date:04/01/2025 02:57:21 PM Interpretation:osteopenia left forearm Performing Lab: Notes/Report: osteopenia left forearm Bone density osteopenia Medications Medication SIG (Take, Route, Frequency, Duration) Notes Start Date End Date Status Omeprazole 40 MG 1 capsule 1/2 to 1 h our before morning meal Orally Once a day; Duration: 90 days Active Airsupra 90-80 MCG/ACT 2 puffs as needed Inhalation Six times a day 08/13/2024 Activ e CPAP Supplies - as directed mask replacement as directed 05/18/2023 Active Ventolin HFA 108 (90 Base) MCG/ACT 2 puff(s) inhaled 4 times a day prn 10/13/2013 Active Adderall 30 MG 1 tab(s) orally 2 ti mes a day; Duration: 30 day(s) 08/31/2025 Active CPAP MASK DIRECTED 02/11/2016 Active Zepbound 5 MG/0.5ML 0.5 mL Subcutaneous once a week; Duration: 30 days Active CareTouch CPAP & BIPAP Hose 1 DIRECTED 02/14/2019 Active Rosuvastatin Calcium 10 MG TAKE 1 TABLET BY MOUTH DAILY; Duration: 90 Active Meloxicam 15 MG 1 tablet Orally Once a day; Duration: 30 days Active Ipratropium-Albuterol 0.5-2.5 (3) MG/3ML 3 mL inhaled 4 times a day; Duration: 90 days Active Calcium + Vitamin D3 600-5 MG-MCG 1 tablet with a meal Orally Once a day; Duration: 90 days Active Escitalopram Oxalate 20 MG 1 tablet Oral ly Once a day; Duration: 30 days Active Bisoprolol Fumarate 5 MG 1 tablet Orally once daily; Duration: 90 days Active Immunizations Vaccine Route Administration Date Status [...] Status W/U Status Risk Notes Problem Hypertension (59642688) HTN (hypertension) (I10) Active confirmed Problem Osteopenia (702017617) Osteopenia (M85.80) Active confirmed Problem Asthma (346137410) Asthma (J45.909) Active conf irmed Problem Primary generalised osteoarthritis (256090949) Primary generalized (osteo)arthritis (M15.0) Active confirmed Problem Morbid obesity (disorder) (395983121) Morbid (severe) obesity due to excess calories (E66.01) Active confirmed Problem Depressive disorder (57732534) Depressive disorder (F32.9) Active confirmed Problem Attention deficit disorder (20505124) Attention deficit disorder (F90.0) Active confirmed Problem History of polyp of colon (situation) (468901795) Hx of colonic polyps (Z86.010) Active confirmed Problem Paresthesia (finding) (72029195) Paresthesias (R20.2) Active confirmed Problem Obese class II (979995680216078) BMI 36.0-36.9,adult (Z68.36) Active confirmed Problem Neuropathy (075979715) Neuropathy (G62.9) Active confirmed Problem Uncomplicated mild persistent asthma (733923230) Mild persistent asthma without complication (J45.30) Active confirmed Problem Obstructive sleep apnea syndrome (45205864) DUYEN (obstructive sleep apnea) (G47.33) Active confirmed Problem Obese class II (002506745461356) BMI 38.0-38.9,adult (Z68.38) Active confirmed Problem Obese class II (568928136391062) BMI 37.0-37.9, adult (Z68.37) Active confirmed Problem Dyslipidemia (630984175) Dyslipidemia (E78.5) Active confirmed Problem Type II diabetes mellitus without complication (651554985) Type 2 diabetes mellitus without complication, unspecified whether buttermaker insulin use (E11.9) Active confirmed Problem Partial nontraumatic tear of left rotator cuff (M75.112) Active confirmed Vital Signs Heart Rate 75 /min 09/09/2025 Blood pressure diastolic 72 mm Hg 09/09/2025 Height 60 in 09/09/2025 Blood pressure systolic 128 mm Hg 09/09/2025 Weight 179.6 lbs 09/09/2025 BMI 35.07 kg/m2 09/09/2025 Encounters Encounter Location Date Provider [facility] [address] [place] [address] JACI Coyle [id number] 03/04/2025 Sofia Ames Adult general medica l examination Z00.00 ; Attention deficit disorder F90.0 ; HTN (hypertension) I10 ; DUYEN (obstructive sleep apnea) G47.33 ; Dyslipidemia E78.5 ; Mild persistent asthma without complication J45.30 ; Depressive disorder F32.9 ; Arthralgia M25.50 ; Elevated glucose R73.09 ; Osteoporosis screening Z13.820 ; Morbid (severe) obesity due to excess calories E66.01 and BMI 36.0-36.9,adult Z68.36 [facility] [address] JACI Coyle [id number] 06/02/2025 R Jorge Hooker Attention deficit disorder F90.0 ; Neuropathy G62.9 ; Dyslipidemia E78.5 and Mild persistent asthma without complication J45.30 [facility] [address] JACI Coyle [id number] 07/28/2025 R Jorge Hooker Encounter for weight management Z76.89 ; BMI 37.0-37.9, adult Z68.37 and DUYEN (obstructive sleep apnea) G47.33 [facility] [address] [place] [address] JACI Coyle [id number] 09/09/2025 Sofia Ames Attention deficit disorder F90.0 ; HTN (hypertension) I10 ; DUYEN (obstructive sleep apnea) G47.33 ; Dyslipidemia E78.5 ; Mild persistent asthma without complication J45.30 ; Depressive disorder F32.9 ; Arthralgia M25.50 ; Elevated glucose R73.09 and Morbid (severe) obesity due to excess calories E66.01 [facility] [address] JACI Coyle [id number] 09/15/2025 R Jorge Hooker [facility] [address] [place] [address] JACI Coyle [id number] 11/03/2024 R Jorge Nhung Attention deficit disorder F90.0 [facility] [address] [place], [place] [id number] 01/12/2025 R Jorge Nhung Attention deficit disorder F90.0 [facility] [address] [place], [place] [id number] 03/04/2025 R Jorge Nhung [facility] [address] [place], [place] [id number] 03/05/2025 Sofia Crowdy [facility] [address] [place], [place] [id number] 03/17/2025 R Jorge Nhung Attention deficit disorder F90.0 [facility] [address] [place], [place] [id number] 04/01/2025 Sofia Crowdy [facility] [address] [place], [place] [id number] 04/07/2025 Sofia Crowdy [facility] [address] [place], [place] [id number] 06/16/2025 R Jorge Nhung Encounter for screen ing for malignant neoplasm of breast Z12.31 and Unspecified lump in the right breast, upper outer quadrant N63.11 [facility] [address] [place], [place] [id number] 06/18/2025 R Jorge Nhung [facility] [address] [place], [place] [id number] 06/24/2025 R Jorge Nhung Bronchitis J40 and Attention deficit disorder F90.0 [facility] [address] [place], [place] [id number] 07/29/2025 R Jorge Nhung [facility] [address] [place], [place] [id number] 08/26/2025 R Jorge Nhung Encounter for weight management Z76.89 [facility] [address] [place], [place] [id number] 08/31/2025 Bryan Hooker Attention deficit disorder F90.0 Assessments Encounter Date Diagnosis (ICD Code) Assessment Notes Treatment Notes Treatment Clinical Notes Section Notes 11/03/2024 Attention deficit disorder (ICD-10 - F90.0) 01/12/2025 Attention deficit disorder (ICD-10 - F90.0) 03/04/2025 Attention deficit disorder (ICD-10 - F90.0) 03/04/2025 Adult general medical examination (ICD-10 - Z00.00) Patient instructed to return to office Annually for Annual Wellness Visits to include annual screenings of Pain assessment, Functional Ability assessment, Cognitive Ability assessment, Fall Risk assessment, Depression screening and Bladder control screening. 03/17/2025 Attention deficit disorder (ICD-10 - F90.0) 06/02/2025 Attention deficit disorder (ICD-10 - F90.0) 06/16/2025 Encounter for screening for malignant neoplasm of breast (ICD-10 - Z12.31) 07/28/2025 BMI 37.0-37.9, adult (ICD-10 - Z68.37) 07/28/2025 Encounter for weight management (ICD-10 - Z76.89) 08/26/2025 Encounter for weight management (ICD-10 - Z76.89) 08/31/2025 Attention deficit disorder (ICD-10 - F90.0) 09/09/2025 HTN (hypertension) (ICD-10 - I10) 06/24/2025 Bronchitis (ICD-10 - J40) 09/09/2025 Attention deficit disorder (ICD-10 - F90.0) 09/09/2025 DUYEN (obstructive sleep apnea) (ICD-10 - G47.33) 06/24/2025 Attention deficit disorder (ICD-10 - F90.0) 07/28/2025 DUYEN (obstructive sleep apnea) (ICD-10 - G47.33) 06/16/2025 Unspecified lump in the right breast, upper outer quadrant (ICD-10 - N63.11) 06/02/2025 Neuropathy (ICD-10 - G62.9) 03/04/2025 HTN (hypertension) (ICD-10 - I10) 03/04/2025 DUYEN (obstructive sleep apnea) (ICD-10 - G47.33) 06/02/2025 Dyslipidemia (ICD-10 - E78.5) 09/09/2025 Dyslipidemia (ICD-10 - E78.5) 09/09/2025 Mild persistent asthma without complication (ICD-10 - J45.30) 06/02/2025 Mild persistent asthma without complication (ICD-10 - J45.30) 03/04/2025 Dyslipidemia (ICD-10 - E78.5) 03/04/2025 Mild persistent asthma without complication (ICD-10 - J45.30) 09/09/2025 Depressive disorder (ICD-10 - F32.9) 09/09/2025 Arthralgia (ICD-10 - M25.50) 03/04/2025 Depressive disorder (ICD-10 - F32.9) 03/04/2025 Arthralgia (ICD-10 - M25.50) 09/09/2025 Elevated glucose (ICD-10 - R73.09) 09/09/2025 Morbid (severe) obesity due to excess calories (ICD-10 - E66.01) 03/04/2025 Elevated glucose (ICD-10 - R73.09) 03/04/2025 Osteoporosis screening (ICD-10 - Z13.820) 03/04/2025 Morbid (severe) obesity due to excess calories (ICD-10 - E66.01) 03/04/2025 BMI 36.0-36.9,adult (ICD-10 - Z68.36) Plan Of Treatment Pending Test Test Name Order Date Glycohemoglobin A1c (in house) Mammogram 06/16/2025 P-Comprehensive Metabolic Panel (CMP) P-Lipid Panel 09/09/2025 P-TSH reflex to FT4 09/09/2025 Insurance Providers Payer Name Payer Address Payer Phone Subscriber Number Group Number Insured Name Patient Relationship to Insured Coverage Start Date Coverage End Date [employer] (MEDICAR E) [address] [address] [place] [address] [phone] [id number] Nidia Pino Self - patient is the insured Medical (General) History Medical History History ICD Code depression asthma Adult ADD HBP DUYEN on CPAP Sigmoid diverticulosis by C-scope 2017 Pancreatitis HLP Surgical History Surgery Date(Month/Year) L5-S1 fusion 08/21/2005 heart cath 06/2008 right shoulder-rotator cuff surgery-tear in bicep-[facility]/polyp x 2/Dr. Mauricio 08/25/2015 Lap rob - Dr. Hill 12/16/15 Right knee replacement 02/14/17 C-scope/ polyp x 1, sigmoid diverticulos is/ Dr. Carvalho 08/2017 Bilateral cataracts Left Knee Replacement 11/2019 C-scope/ [facility]ran/ hyperplastic polyp x 2/ repeat 5 years 09/2022 Hospitalization History Reason Date(Month/Year) [facility]-epigastric abdominal pain 05/07/20 [facility]-acute pancreatitis 09/01
--- OUTSIDE RECORDS SUMMARY | 2025-09-16 15:01 | XMS_ITS | Encounter Summary ---
Author Organization [employer] ([place], [place], [place], [place], [place]) Address [address] [place] [address] Care Team Providers Care Commercial Lines Assistant Name Role Phone Unavailable Primary Care Provider Unavailabl e Encounter Details Date Type Department Care Team (Late st Contact Info) Description 11/17/2019 Transcribed Document [facility] [place] Family Medicine [address] [place] [address] ProviderTiana MD [address] [place] [address] Social History Tobacco Use Types [...] - Historical ProviderMD - 11/17/2019 2:00 AM DIRECTOR OF SCIENCE Spiritual Care Assessment Entered On: 11/17/2019 13:55 EST Performed On: 11/17/2019 11:05 EST by HIMANSHU JUARES General Information Referred by : Patient Referral Reason Comment : PreSurgery prayer Ministry Provided to : Patient, Family/Significant other HIMANSHU JUARES - 11/17/2019 13:52 EST Interventions Emotional Support : Empathic/Engaged listening, Feelings expressed Spiritual and Shinto : Prayer shared, Spiritual/Shinto support provided HIMANSHU JUARES - 11/17/2019 13:52 EST Outcomes Affect/Behavior Changed : Encouraged Appreciation Expressed : Yes Thoughts, Feelings and Emotions Exp. : Yes Supportive Relationships Described : HIMANSHU JUARES - 11/17/2019 13:52 EST documented in this encounter Plan of Treatment Not on file documented as of this encounter Visit Diagnoses Not on filedocumented in this encounter
--- OUTSIDE RECORDS SUMMARY | 2025-09-16 15:01 | XMS_ITS | Encounter Summary ---
Author Organization [employer] ([place], [place], [place], [place], [place]) Address [address] [place] [address] Care Team Providers Care Scuba Diving Teacher Name Role Phone Unavailable Primary Care Provider Unavailabl e Encounter Details Date Type Department Care Team (Late st Contact Info) Description 11/17/2019 Transcribed Document [facility] [place] Family Medicine [facility] [place] [address] ProviderTiana MD [address] [place] [address] Social History Tobacco Use Types [...] - Historical ProviderMD - 11/17/2019 4:20 PM CHEMICAL BLENDER Evaluation, Physical Therapy Entered On: 11/17/2019 18:03 [...] WFL Left UE Strength : WFL FRANCISCA HUYNH PT - 11/17/2019 17:51 EST Lower Extremity RLE Active ROM : WFL Right LE Strength : WFL LLE Active ROM : Impaired Left LE Strength : Impaired FRANCISCA HUYNH, PT - 11/17/2019 17:51 EST Left Lower [...] x 4 Attention Assessment : Present FRANCISCA HUNYH PT - 11/17/2019 17:51 EST Edu Topics [...] FRANCISCA HUYNH, PT - 11/17/2019 17:51 EST Tugboat Mate Goals Mobility/Bed Mobility LTG PT Grid Goal [...] 0 Pain Score Post-Intervention. : 0 FRANCISCA UHYNH, PT - 11/17/2019 17:51 EST Image 1 [...]
--- OUTSIDE RECORDS SUMMARY | 2025-09-16 15:01 | XMS_ITS | Encounter Summary ---
Author Organization [employer] ([place], [place], [place], [place], [place]) Address [address] [place] [address] Care Team Providers Care Cargo Services Coordinator Name Role Phone Unavailable Primary Care Provider Unavailabl e Encounter Details Date Type Department Care Team (Late st Contact Info) Description 11/17/2019 Transcribed Document [facility] [place] Family Medicine [facility] [place] [address] ProviderTiana MD [address] [place] [address] Social History Tobacco Use Types [...] - Historical ProviderMD - 11/17/2019 6:03 PM NET SORTER Treatment Intervention, PT Entered On: 11/18/2019 12:52 EST Performed On: 11/18/2019 12:50 EST by FRANCISCA HUYNH, ROSSY General Information, PT Visit Type, PT : [...] 18:03 PT Additional Treatment Ordered By: FRANCISCA HUYNH PT Active Diagnoses : 11/18/2019 12:00 Presence [...] FRANCISCA HUYNH PT - 11/18/2019 12:50 EST Jail Goals Mobility/Bed Mobility LTG PT Grid Goal #1 Activity : Sit to stand Assist : Supervision or set-up Equipment : Walker, front wheel Date to Meet : 12/01/2019 EDT Goal Status : Goal met (Comment: t [FRANCISCA HUYNH, PT - 11/18/2019 12:50 EST] ) Date [...] : L knee ROM 0-96 degrees, Joint gymnastics coach present during treatment. Pt ambulated x [...] rehab. Plan for Treatment : discontinue FRANCISCA HUYNH PT - 11/18/2019 12:50 EST Pain Assessment Pain Scaled Used : 0-10 Pain scale Pain Score Pre-Intervention : 0 Pain Score Post-Intervention. : 0 FRANCISCA HUYNH, PT - 11/18/2019 12:50 EST Image 1 - Images currently included in the form version of this document have not been included in the text rendition version of the form. [place] PT Charges PT Therap. Exercise 15 min : 1 Gait Training Each 15 Min : 1 FRANCISCA HUYNH, PT - 11/18/2019 12:50 EST Electronically signed by Flor [facility] Conversion Research Assistant Cerner at 12/31/2022 5:42 PM CDT documented in this encounter Plan of Treatment Not on file documented as of this encounter Visit Diagnoses Not on filedocumented in this encounter
--- OUTSIDE RECORDS SUMMARY | 2025-09-16 15:01 | XMS_ITS | Encounter Summary ---
Author Organization [employer] ([place], [place], [place], [place], [place]) Address [address] [place] [address] Care Team Providers Care Rn Child Name Role Phone Unavailable Primary Care Provider Unavailabl e Encounter Details Date Type Department Care Team (Late st Contact Info) Description 11/18/2019 Transcribed Document [facility] [place] [address] [place] [address] ProviderTiana MD [address] [place] [address] Social History Tobacco Use Types [...] - Historical ProviderMD - 11/18/2019 4:54 PM SALVAGE CUTTER Final Discharge Planning Entered On: 11/18/2019 16:54 EST Performed On: 11/18/2019 16:54 EST by EDIN TAPIA RN-Pediatric Occupational Therapist Final Discharge Planning Discharge Arrangements : Patient [...] : Yes Discharge To Care Management : Home/Residential/Group Home or Self Care -01 EDIN TAPIA RN-Pediatric Occupational Therapist - 11/18/2019 16:54 EST Electronically signed by Flor [facility] Conversion [employer] Dean Cerner at 12/31/2022 5:48 PM CDT documented in this encounter Plan of Treatment Not on file documented as of this encounter Visit Diagnoses Not on filedocumented in this encounter
--- OUTSIDE RECORDS SUMMARY | 2025-09-16 15:01 | XMS_ITS | Encounter Summary ---
Author Organization [employer] ([place], [place], [place], [place], [place]) Address [address] [place] [address] Care Team Providers Care Shop Manager Name Role Phone Unavailable Primary Care Provider Unavailabl e Encounter Details Date Type Department Care Team (Late st Contact Info) Description 11/17/2019 Transcribed Document [facility] [place] [address] [place] [address] ProviderTiana MD [address] [place] [address] Social History Tobacco Use Types [...] - Historical ProviderMD - 11/17/2019 4:20 PM CHICKEN HANDLER Evaluation, Occupational Therapy Entered On: 11/18/2019 14:51 [...] IADLs, OT : Independent SISSY LEONG OTR/Jeannie - 11/18/2019 14:48 EST Upper Extremity Right UE [...] Established w Patient : No SISSY LEONG OTR/Jeannie - 11/18/2019 14:48 EST Treatment Note Subjective [...] needs met and CL in reach. Joint middle school sports coach present Assessment : Pt to dc home today Plan for Treatment : Eval only SISSY LEONG OTR/Jeannie - 11/18/2019 14:48 EST Pain Assessment Pain Score Pre-Intervention : 2 SISSY LEONG OTR/Jeannie 11/18/2019 14:48 EST Image 1 - Images currently included in the form version of this document have not been included in the text rendition version of the form. [facility] OT Charges OT Selfcare/Hm Mgmt Ea 15 Min : 1 OT Eval Low Complexity : 1 SISSY LEONG OTR/Jeannie - 11/18/2019 14:48 EST Electronically signed by Flor, [facility] Conversion [employer]can Crewmember Cerner at 12/31/2022 5:48 PM CDT documented in this encounter Plan of Treatment Not on file documented as of this encounter Visit Diagnoses Not on filedocumented in this encounter
--- OUTSIDE RECORDS SUMMARY | 2025-09-16 15:01 | XMS_ITS | Encounter Summary ---
Author Organization [employer] ([place], [place], [place], [place], [place]) Address [address] [place] [address] Care Team Providers Care Information Coder Name Role Phone Unavailable Primary Care Provider Unavailabl e Encounter Details Date Type Department Care Team (Late st Contact Info) Description 10/29/2019 Transcribed Document [facility] [place] Family Medicine [address] [place] [address] ProviderTiana MD [address] [place] [address] Social History Tobacco Use Types [...] - Historical ProviderMD - 10/29/2019 2:24 PM DOCTOR OSTEOPATHIC PAT Adult Entered On: 10/29/2019 14:33 EST [...] Source : Measured Height Entry Format : Prowers Height, Feet : 5 ft(Converted to: 152 cm, 60 Inch) Height, Inches : 0 Inch(Converted to: 0 ft 0 Inch, 0.00 cm) Clinical Height : 152.4 cm Weight Source : Standing scale Weight Entry Format : Prowers Clinical Dosing Weight : 90.37 kg Weight, Pounds : 198 lb Weight, Ounces : 13 oz Body Surface Area (BSA) : 1.86 m2 Body Mass Index : 38.9 kg/m2 (HI) [place] Body Weight : 45 kg KANDIS SIN [...] KANDIS SIN RN - 10/29/2019 14:24 EST Friendship Suicide Severity Rating Scale (C-SSRS) CSSRS Past [...] Ambulatory Legal Guardian : Spouse Support Person/Patient Account Auditor : Yes Support Person/Pt Rep Name : Spouse Az eldridge - dtr Support Person/Pt Rep Contact Information : [phone] Want Family/Rep/Phys Notified of Admit : No Emergency Contact #1 : Az Pino Emergency Contact #1 Emergency Contact #1 Relationship : spouse Emergency Contact #2 : rhoda eldridge Emergency Contact #2 Emergency Contact #2 Relationship : dtr Information Obtained From : Patient Primary Language : Surinamese Preferred Communication Mode : Verbal Communication Barrier [...] KANDIS SIN RN - 10/29/2019 14:24 EST documented in this encounter Plan of Treatment Not on file documented as of this encounter Visit Diagnoses Not on filedocumented in this encounter
--- OUTSIDE RECORDS SUMMARY | 2025-09-16 15:01 | XMS_ITS | Data Portability ---
Author Organization [facility] Address [address] [place] [address] Care Team Providers Care Baling Machine Tender Name Role Phone RICHARD RAYMOND Primary Care Provider Assessment Encounter Date Assessment Date Assessment LastModified [...] 12/08/19 20 12/08/2019 XR, knee, 3 view [facility] [address] [place] [address] Luis Angel simmons Name: EVELYN simmons : [...] By: Michael Magana MD on 4:[id number] [place] [address] Radiology [place] [address] , [place], [address], 12/16/2019 09:07:54 12/29/19 20 12/29/2019 XR, knee, 3 view [facility] [address] [place] [address] Luis Angel simmons Name: EVELYN simmons : [...] By: Michael Magana MD on 10:27 AM [facility] [address], [place], [address], 12/29/2019 13:38:02 03/09/20 20 03/09/2020 XR, joint , multi ple, 1 view [facility] [address] [place] [address] Patibryce t Name: EVELYN simmons : Luis [...] By: Dunia calix MD on 11:27 AM [facility] Radiology [place] [address], [place], [address], 03/09/2020 12:56:56 07/27/20 21 07/27/2021 XR, shoul dixie, 2 or more view [facility] [address] [place] [address] Luis Angel t Name: EVELYN simmons : [address] Luis Angel simmons Orderi ng Provid er: ELAH GUILLORY AM EXAM DATE: 2020 EXAM: XR [...] Dunia calix MD on 2020 1:38 PM [facility] [place] [address] , [place], [address], 08/01/2021 07:32:23 Result Notes Documentation Provider Name and Address Organization Details Recorded Time Xr, Knee, 3 View : [facility] [place] [address] [place] [address] Patient Name: HILL SANDERS Patient : 1955 [...] Magana MD Arturo GONZALEZ PA-C [address] [place], [address], [facility] 12/16/2019 09:07:54 Xr, Knee, 3 View : [facility] [place] [address] [place] [address] Patient Name: HILL SANDERS Patient : 1955 [...] By: Michael Magana MD HAMILTON MD [address] [place], [address], [facility] 12/29/2019 13:38:02 Xr, Joint, Multiple, 1 View : [facility] [address] [place] [address] Patient Name: HILL SANDERS Patient : 1955 [...] Interpreted By: Nasim Andersen MD HAMILTON MD [facility] [place], [address], [facility] 03/09/2020 12:56:56 Xr, Shoulder, 2 Or More View : [facility] [address] [place] [address] Patient Name: HILL SANDERS Patient : 1955 [...] Interpreted By: Nasim Andersen MD GOMEZ MD [address] [place] [address], [address], [facility] 08/01/2021 07:32:23 Problems Name Problem SNOMED Code Status Onset Date Resolution Date Notes Provider Name and Address Organization Details Recorded Time Idiopathi c osteoarth ritis 174176534 Active 2015 From Automated Load;Provi dixie: Sharlene, Enrique;Sta tus: Active Not Available [facility] 7 07:59:23 Problem Notes None recorded. Procedures Surgical History Date Name Laterality Status Provider Name and Address Organization Details Recorded Time 11/17/19 20 Total knee arthroplasty completed Marcella Castellanos [facility] 12/29/2019 10:10:31 07/29/20 19 Injection - Joint/Bursa, Major completed Arturo GONZALEZ PA-C [address] [place] [address], [phone] [place] [address] 07/29/2019 14:20:51 06/20/20 18 Stress Test - Nuclear completed RISA BERRY MD [address] [place] [address], [phone] [place] [address] 06/20/2018 13:28:20 06/12/20 18 EKG completed TRYO GRACE MD [address] [place] [address], [phone] [place] [address] 06/12/2018 10:31:12 02/15/20 17 Total knee arthroplasty completed Rosette Sexton [facility] 03/27/2017 11:28:30 Cholecystectomy completed Ashley Weathers [facility] 06/12/2018 10:23:04 Imaging Results None recorded. Procedure Notes None recorded. Medical Equipment None Reported. Allergies Allergen ID Allergen Name Allergen Category Reaction Reaction Severity Criticality Documentation Date Start Date Code Code System Note Provider Name and Address Organization Details Recorded Time 461965 Product containin g penicilli n (product) medicatio n Not available Not available Not available 08/11/20162012 10255 8001 SNOMED Comme nt: Cause s Stoma ch Upset ;Crea greta By: Beronica nunez;Cr eated Date: 2012 1:01: 40 PM; Not Available [facility] 6 05:43:53 Medications Name Sig Start [...] Updated DateTime 12/08/2019 152.4 cm 38.1 kg/m2 43459.51 g [facility] 12/08/2019 15:52:53 Date Recorded Body height Body mass index (BMI) Body weight Pain severity - 0-10 verbal numeric rating [Score] - Reported Systolic And Diastolic Provider Name and Address Organization Details Last Updated DateTime 12/29/2019 152.4 cm 38.1 kg/m2 83467.51 g 5 120/80 mm[Hg] Marcella Castellanos [facility] 0 10:09:58 Date Recorded Body height Body mass index (BMI) Body weight Provider Name and Address Organization Details Last Updated DateTime 03/09/2020 152.4 cm 37.1 kg/m2 17732.55 g [facility] 03/09/2020 11:27:05 Date Recorded Body height Body mass index (BMI) Body weight Provider Name and Address Organization Details Last Updated DateTime 07/27/2021 152.4 cm 37.9 kg/m2 24124.92 g Rainer Major [facility] 07/27/2021 13:12:24 Social History Question Answer Notes LastModified by Organizat ion Details LastModified Time Tobacco Smoking Status Never Smoker Rosette Sexton [place], [facility] 01/05/2017 08:09:06 Accident Related Injury No Information [...] available 01/05/2017 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 Information not available 01/05/2017 Mental Status None [...] Y Immune System Disorder N Heart Attack ([place]) N Mental Illness N Neurological Problems N Diabetes N Seizures/Epilepsy N Sleep Apnea Y Hypertension N Osteoporosis Y Gynecological History Statement/Question Response If Post Menopausal, Age at Menopause 56 Obstetrics History GPAL:G 0 P 0 0 0 0 Immunizations Vaccine Type Date Status Note Provider Nam e and Address Organization Details Recorded Time Influenza, split virus, quadrivalent, PF 06/12/2018 completed Not Available [facility] 0 02:48:54 Past Encounters Encounter ID Performer Location Encounter Start Date Encounter Closed Date Diagnosis/Indication Diagnosis SNOMED-CT Code Diagnosis ICD10 Code Diagnosis IMO Codes Diagnosis Note [id number] NATE Harman MD [facility] [address] [address] 01/05/2017 07:45:04 01/05/2017 15:27:59 Knee pain 13326002 M25.561 Osteoarthr itis of knee 817017395 M17.11 [id number] C ANGELA GONZALEZ PA-C [facility] [address] [address] 03/06/2017 10:53:12 03/06/2017 12:18:54 Replacement of total knee joint 265620469 Z96.651 Perc 10 to use pre PT. Increase effort on rehab ROM. Possible NEIDA in future. [id number] NATE Harman MD [facility] [address] [address] 03/27/2017 10:59:16 03/27/2017 11:49:48 Replacement of total knee joint 283539865 Z96.815 [id number] NATE Harman MD [facility] [address] [place] [address] 05/22/2017 09:42:08 05/22/2017 10:29:53 Replacement of total knee joint 809712844 Z96.899 [id number] NATE Harman MD [facility] [address] [address] 05/21/2018 09:55:40 05/21/2018 10:51:11 Replacement of total knee joint 568668003 Z96.338 [id number] TROY GRACE MD INTERNAL MEDICINE [address] ,[address] [place] [address] 06/12/2018 10:14:01 06/13/2018 15:37:14 Essential hypertension 95112892 I10 BP is normal now, will watch, discussed low salt diet and exercise regularly. Hyperlipidemia 08193942 E78.5 stay on low fat diet. Since she has strong family history of coronary heart disease, if LDL is still high, will start statin. Asthma 595951289 J45.90 9 stable, continue current medicine. Obstructiv e sleep apnea of adult 2168736101 103 G47.33 Discussed weight loss with diet and exercise. Depressive disorder 3548 9007 F32.89 controlled , continue current medicine. Anxiety disorder 3340435 06 F41.9 controlled . Screening for malignant neoplasm of breast 921567108 Z12.31 Adult heal th examination 033412953 Z00.00 The patient was advised to continue a healthy diet and exercise regularly. Chest pain 81659162 R07. 9 start EC ASA 81 mg qd, go to ER if chest pain is severe. History of polyp of colon 446241138 Z86.010 watch for blood in stool. Atrophic vaginitis 80289 000 N95.2 start medicine and refer to [facility] for pap smear. Diverticul ar disease of colon 664178142 K57.30 High fiber diet. Administra tion of influenza vaccine 25073627 Z23 [id number] RISA BERRY MD [facility] [address] ,[address] [place] [address] 06/20/2018 07:45:39 06/20/2018 14:00:13 Chest pain 67508798 R07.9 [id number] TROY GRACE MD INTERNAL MEDICINE [address] ,[address] [place] [address] 06/20/2018 07:46:02 06/21/2018 11:41:38 Chest pain 28998111 R07.9 Stress test was done today. [id number] Arturo GONZALEZ PA-C [facility] [address] [address] 07/29/2019 13:07:25 07/29/2019 14:23:23 Osteoarthritis of knee 539015310 M17.9 Severe arthritis in a patient who was not failed any conservati ve measures whatsoever . Due to the acuity of onset recommende jg CSI. Follow-up with me in 2 months to evaluate success. Would encourage conservati ve measures but the patient is inclined to proceed with knee replacemen t sooner than later [id number] Arturo GONZALEZ PA-C [facility] [address] [address] 10/07/2019 09:18:43 10/07/2019 13:07:07 Osteoarthritis of knee 581375093 M17.9 Severe arthritis that is failed conservati [...] leg x-ray obtained today and follow-up scheduled [id number] NATE Harman MD ORTHOPEDI CS [address] [place] [address] 11/13/2019 09:24:25 11/13/2019 12:14:01 Osteoarthritis of knee 424602802 M17.12 [id number] NATE Harman MD SURGERY SCHEDULE [address] [place] [address] 11/19/2019 10:59:11 11/19/2019 14:12:18 [id number] Arturo GONZALEZ PA-C [facility] [address] [place] [address] 12/08/2019 15:44:44 12/08/2019 16:35:37 Postoperative care 547970997 Z48.89 Continue focus on range of motion. No driving while on narcotics. Okay to let water run over the incision. Follow up in 3-4 weeks with Nate harman M.D. [id number] NATE Harman MD [facility] [address] [place] [address] 12/29/2019 10:04:01 12/29/2019 10:43:08 History of total knee arthroplasty 9411145982 105 Z96.088 [id number] NATE Harman MD [facility] [address] [place] [address] 03/09/2020 10:59:20 03/09/2020 12:19:28 History of total knee arthroplasty 9671642926 105 Z96.556 [id number] CLAU GOMEZ MD [facility] [address] [place] [address] 07/27/2021 12:57:47 07/27/2021 13:54:05 Pain of shoulder region 29135144 M25.512 Adhesive c apsulitis of left shoulder 0875120330 03637 M75.02 Assessment : Shoulder adhesive capsulitis Plan: [...] PLAN Hill Sanders 08/01/2021 1 [place] [id number] Barbara Sanders [id number] Hill Sanders Notes Date Note Type Note Provider Name and Address Organization Details Recorded Time 12/08/2019 text/html Patient is 3 weeks s/p L TKA. Pain is 7/10 Currently taking 3-4 doses per day of narcotic. Ambulating with no assistive device PT: outpatient Denies fevers, chills, or wound drainage. They do request a refill of pain medicine. Arturo GONZALEZ PA-C [address] [place] [address], [phone], [facility] 12/08/2019 16:31:12 12/29/2019 text/html ROS as noted in the HPI Patient is 6 weeks s/p L TKA. Pain is improving Currently taking <3 doses per day of narcotic. Ambulating with no assistive device PT: outpatient Denies fevers, chills, or wound drainage. They do not request a refill of pain medicine. NATE HAMILTON MD [address] [place] [address], [phone], [facility] 12/29/2019 10:41:38 03/09/2020 text/html Patient is 3 months s/p L TKA. Pain is improving Currently taking no doses per day of narcotic. Ambulating with no assistive device PT: HEP Denies fevers, chills, or wound drainage. They do not request a refill of pain medicine. NATE HAMILTON MD [address] [place] [address], [phone], [facility] 03/09/2020 12:27:40 07/27/2021 text/html 07-27-21 PCP: ROSALIND Pena FOR CONSULTATION AT THE REQUEST OF:SelfHAND DOMINANCE: RightWHAT: Left Shoulder.WHEN:Sheri ral monthsHOW:No traumatic injurySYMPTOMS: She has significant generalized pain around the shoulder, more anterior and lateral. Pain at night, difficulty sleeping on her side. Pain with reaching out. Feels stiff. Occasional popping clicking. No numbness or tingling.PAIN: PT: NoNSAIDS:YesINJECT ION:No CLAU GOMEZ MD [address] [place], [address], [facility] 07/27/2021 17:32:09 OBGyn Episode No OBEpisode recorded.
--- OUTSIDE RECORDS SUMMARY | 2025-09-16 15:01 | XMS_ITS | Encounter Summary ---
Author Organization [employer] ([place], [place], [place], [place], [place]) Address [address] [place] [address] Care Team Providers Care Sap Bw Architect Name Role Phone Unavailable Primary Care Provider Unavailabl e Encounter Details Date Type Department Care Team (Late st Contact Info) Description 11/17/2019 Transcribed Document [facility] Radiology [address] [place] [address] Leigh Larsen MD [address] [place] [address] Social History Tobacco Use Types [...] - 11/17/2019 12:24 PM EST Patient: NIDIA SANDERS Age: 64 years Sex: Female : 1955 [...] All Problems Wears glasses / SNOMED CT 273882782 / Confirmed Sleep apnea / SNOMED CT 097119328 / Confirmed Seasonal allergies / SNOMED CT 0249804607 / Confirmed Post-operative nausea and vomiting / SNOMED CT 8364177 / Confirmed Post-menopausal / SNOMED CT 799448581 / Confirmed 3 years post menapausal Pancreatitis / SNOMED CT 270526786 / Confirmed Osteoarthritis / SNOMED CT 3653132430 / Confirmed DUYEN (obstructive sleep apnea) / SNOMED CT 403562761 / Confirmed does use c-pap Numbness in feet / SNOMED CT 296079433 / Confirmed feet numbness and cold at night Impaired mobility / SNOMED CT 232025868 / Confirmed HTN / SNOMED CT 9050594945 / Confirmed Hyperlipidemia / SNOMED CT 70018162 / Confirmed History of obstructive sleep apnea / IMO 92375883 / Confirmed GERD - Gastro-esophageal reflux disease / SNOMED CT 8798170364 / Confirmed Diverticulitis / SNOMED CT 164082575 / Confirmed Chronic constipation / SNOMED CT 217561501 / Confirmed Cataract bilateral with IOL / SNOMED CT 780642632 / Confirmed Bronchitis / SNOMED CT 96192497 / Confirmed asthma / SNOMED CT 434150093 / Confirmed Arthritis / SNOMED CT 2927833 / Confirmed Anxiety and depression / SNOMED CT 15721443 / Confirmed ADD (attention deficit disorder) / SNOMED CT 969287340 / Confirmed, Active Problems (22) ADD (attention [...] Years. Right Roator cuff repair 04/24/13. Spinal tmcdoa13/2005. C section 1982. right breast cysts removed [...] smoker Comment: NONE - 01/31/2017 13:35 - COILHAYDEN RN . Physical Examination VS/Measurements No qualifying data [...] exam in office notes. Integumentary: Warm, Dry, [place]. Neurologic: Alert, Oriented. Psychiatric: Cooperative, Appropriate mood & affect. Review / Management Results review: Labs (Last four charted values) WBC 8.5 (OCT 29) HB 11.9 (OCT 29) HCT 38.4 (OCT 29) Plt 267 (OCT 29) Na 139 (OCT 29) K 3.7 (OCT 29) Cl 103 (OCT 29) CO2 31 (OCT 29) BUN 17 (OCT 29) Cr 0.90 (B ) Glu R H 138 (OCT 29) Ca 9.1 (OCT 29) PT 10.3 (OCT 29) INR 1.0 (OCT 29) PTT 28.2 (OCT 29) . Impression and Plan Condition: Stable. documented in this encounter Plan of Treatment Not on file documented as of this encounter Visit Diagnoses Not on filedocumented in this encounter
--- OUTSIDE RECORDS SUMMARY | 2025-09-16 15:01 | XMS_ITS | Encounter Summary ---
Author Organization [employer] ([place], [place], [place], [place], [place]) Address [address] [place] [address] Care Team Providers Care Finance Assistant Name Role Phone Unavailable Primary Care Provider Unavailabl e Encounter Details Date Type Department Care Team (Late st Contact Info) Description 11/18/2019 Transcribed Document [facility] [place] [address] [place] [address] ProviderTiana MD [address] [place] [address] Social History Tobacco Use Types [...] - Historical ProviderMD - 11/18/2019 2:14 PM STONE CARRIAGE OPERATOR Nursing Discharge Summary Entered On: 11/18/2019 14:15 EST Performed On: 11/18/2019 14:14 EST by Cindy Ward learning designer Documentation Patient Disposition, General : Discharge Discharge [...] Pt verbalized understanding of incentive spirometry at [facility]. Cindy Ward RN - 11/18/2019 14:14 EST Electronically signed by [facility] Conversion Physician Practice Administrator Cerner at 12/31/2022 5:51 PM CDT documented in this encounter Plan of Treatment Not on file documented as of this encounter Visit Diagnoses Not on filedocumented in this encounter
--- OUTSIDE RECORDS SUMMARY | 2025-09-16 15:01 | XMS_ITS | Encounter Summary ---
Author Organization [employer] ([place], [place], [place], [place], [place]) Address [address] [place] [address] Care Team Providers Care Medical Records Administrator Name Role Phone Unavailable Primary Care Provider Unavailabl e Encounter Details Date Type Department Care Team (Late st Contact Info) Description 11/18/2019 Transcribed Document [facility] [place] [facility] [place] [address] ProviderTiana MD [address] [place] [address] Social History Tobacco Use Types [...] - Tiana ProviderMD - 11/18/2019 4:12 AM LIFE SCIENCES INSTRUCTOR Patient: NIDIA PINO Age: 64 Years Sex: [...] 3. Pending Labs In Process SENDOUT REPORT [id number], [id number], RT - Routine, 11/17/19 14:13:00 EST Pathology Tissue Request [id number], [id number], 11/17/19 14:13:00 EST, Collected, RT - Routine, [...]
--- OUTSIDE RECORDS SUMMARY | 2025-09-16 15:01 | XMS_ITS | Encounter Summary ---
Author Organization [employer] ([place], [place], [place], [place], [place]) Address [address] [place] [address] Care Team Providers Care Object Oriented Programmer Name Role Phone Unavailable Primary Care Provider Unavailabl e Encounter Details Date Type Department Care Team (Late st Contact Info) Description 11/17/2019 Transcribed Document [facility] [place] Family Medicine [address] [place] [address] ProviderTiana MD [address] [place] [address] Social History Tobacco Use Types [...] - Historical ProviderMD - 11/17/2019 1:55 PM [facility] Main OR Preop Summary Primary Physician: NATE HAMILTON MD-ORT Finalized Date/Time: 11/17/19 15:17:49 Pt. Name: NIDIA SANDERS MATTHEW /Sex: 1955 Female Med Rec #: [id number] Physician: NATE HAMILTON MD-ORT Financial #: [id number] Pt. Type: O Room/Bed: / Admit/Disch: 11/17/19 07:16:00 - Institution: [facility] PreOp Case Times Entry 1 In Preop 11/17/19 09:49:00 Ready for Holding n/a Room Patient Ready for 11/17/19 12:14:00 Surgery Patient Out of Preop 11/17/19 13:20:00 Patient Out of n/a Holding Room Last Modified By: Iza Ruvalcaba RN 11/17/19 15:17:47 [facility] PreOp Case Times Audit 11/17/19 15:17:47 Crew Lead: NAMITA Modifier: PRIYANKA <+> 1 Patient Out of Preop Finalized By: Iza Ruvalcaba, RN Document Signatures Signed By: Iza Ruvalcaba RN 11/17/19 15:17 Electronically signed by Flor [facility] Conversion Tanker Truck Driver Cerner at 12/31/2022 5:35 PM CDT documented in this encounter Plan of Treatment Not on file documented as of this encounter Visit Diagnoses Not on filedocumented in this encounter
--- OUTSIDE RECORDS SUMMARY | 2025-09-16 15:01 | XMS_ITS | Encounter Summary ---
Author Organization [employer] ([place], [place], [place], [place], [place]) Address [address] [place] [address] Care Team Providers Care Greaser Operator Name Role Phone Unavailable Primary Care Provider Unavailabl e Encounter Details Date Type Department Care Team (Late st Contact Info) Description 11/18/2019 Transcribed Document [facility] [place] [address] [place] [address] ProviderTiana MD [address] [place] [address] Social History Tobacco Use Types [...] - Historical ProviderMD - 11/18/2019 11:26 AM ARC AIR OPERATOR UM Authorization Entered On: 11/18/2019 11:26 EST Performed On: 11/18/2019 11:26 EST by Susana Robison Rn-Utilization Review Primary Insurance Authorization Authorization and Policy Numbers : Insurance 1 Health [facility] Policy Number: [id number] Authorization Number: Insurance Primary Name : Lucho [id number] Authorized Service Begin Date-Primary : 11/17/2019 EST Historical Authorization Comments-Primary : Comment 1: Pt is scheduled for OUT PT total knee on 11/17/2019 [place]: NPR for op (COURT CHACON, Geothermal Operating Engineer 11/14/2019 12:56) Susana Robison Rn-Utilization Review - 11/18/2019 11:26 EST Electronically signed by [facility] Conversion Vacation Planner Cerner at 12/31/2022 5:52 PM CDT documented in this encounter Plan of Treatment Not on file documented as of this encounter Visit Diagnoses Not on filedocumented in this encounter
--- OUTSIDE RECORDS SUMMARY | 2025-09-16 15:01 | XMS_ITS | Referral Summary ---
Author Organization [employer] ([place], [place], [place], [place], [place]) Address [address] [place] [address] Care Team Providers Care Horticultural Agent Name Role Phone Unavailable Primary Care Provider [...]
--- OUTSIDE RECORDS SUMMARY | 2025-09-16 15:01 | XMS_ITS | Encounter Summary ---
Author Organization [employer] ([place], [place], [place], [place], [place]) Address [address] [place] [address] Care Team Providers Care Manager Medical Name Role Phone Unavailable Primary Care Provider Unavailabl e Encounter Details Date Type Department Care Team (Late st Contact Info) Description 11/17/2019 Transcribed Document [facility] [place] [address] [place] [address] ProviderTiana MD [address] [place] [address] Social History Tobacco Use Types [...] - Historical ProviderMD - 11/17/2019 3:22 PM HEAD TRIMMER Pain Assessment Entered On: 11/17/2019 18:19 EST [...]
--- OUTSIDE RECORDS SUMMARY | 2025-09-16 15:01 | XMS_ITS | Encounter Summary ---
Author Organization [employer] ([place], [place], [place], [place], [place]) Address [address] [place] [address] Care Team Providers Care Director Product Safety Name Role Phone Unavailable Primary Care Provider Unavailabl e Encounter Details Date Type Department Care Team (Late st Contact Info) Description 11/18/2019 Transcribed Document [facility] [place] [facility] [place] [address] ProviderTiana MD [address] [place] [address] Social History Tobacco Use [...] - Historical ProviderMD - 11/18/2019 4:54 PM PHYSIOTHERAPY ASSISTANT On Going Discharge Planning Entered On: 11/18/2019 16:54 EST Performed On: 11/18/2019 16:54 EST by EDIN TAPIA RN-Biology ManagerFriction Welding Machine Operator Progress Note Discharge Arrangements : Patient Post-Acute [...] you Attend Multidisciplinary Rounds? : Yes EDIN TAPIA RN-Biology Manager - 11/18/2019 16:54 EST documented in this encounter Plan of Treatment Not on file documented as of this encounter Visit Diagnoses Not on filedocumented in this encounter
--- OUTSIDE RECORDS SUMMARY | 2025-09-16 15:01 | XMS_ITS | Encounter Summary ---
Author Organization [employer] ([place], [place], [place], [place], [place]) Address [address] [place] [address] Care Team Providers Care Acidizer Water Well Name Role Phone Unavailable Primary Care Provider Unavailabl e Encounter Details Date Type Department Care Team (Late st Contact Info) Description 11/18/2019 Transcribed Document [facility] [place] [facility] [place] [address] ProviderTiana MD [address] [place] [address] Social History Tobacco Use Types [...] - Historical ProviderMD - 11/18/2019 6:00 AM FLIGHT SERVICE AGENT Pain Assessment Entered On: 11/18/2019 5:10 EST [...]
--- OUTSIDE RECORDS SUMMARY | 2025-09-16 15:01 | XMS_ITS | Encounter Summary ---
Author Organization [employer] ([place], [place], [place], [place], [place]) Address [address] [place] [address] Care Team Providers Care Genetic Supervisor Name Role Phone Unavailable Primary Care Provider Unavailabl e Encounter Details Date Type Department Care Team (Late st Contact Info) Description 11/17/2019 Transcribed Document [facility] [place] [facility] [place] [address] ProviderTiana MD [address] [place] [address] Social History Tobacco Use Types [...] Conversion Note - Historical ProviderMD - 11/17/2019 2:19 PM [facility] Orthopedic Nurse Navigator Entered On: 11/17/2019 14:21 EST Performed On: 11/17/2019 14:19 EST by NISHANT LEAL RN-Ortho Nurse Navigator Orthopedic Nurse Navigator Assessment Attended Joint Academy : Yes Joint AcademyType : In person Joint Academy Date : 10/29/2019 EST Joint Line Ordering Clinician Attended Academy : Yes Joint Line Ordering Clinician Name : , Az Type of Surgery : Total Knee Replacement, Left Anticipated Discharge Plan : Outpatient PT Anticipated Discharge Plan Comment : Patient plans to d/c home with the help of her . She [facility] and planned to call to hold appt [...] verbalized understanding of incentive spirometry at joint academy. NISHANT LEAL RN-Ortho Nurse Navigator - 11/17/2019 [...]
--- OUTSIDE RECORDS SUMMARY | 2025-09-16 15:02 | XMS_ITS | Encounter Summary ---
Author Organization [employer] ([place], [place], [place], [place], [place]) Address [address] [place] [address] Care Team Providers Care Cartographic Engineer Name Role Phone Unavailable Primary Care Provider Unavailabl e Encounter Details Date Type Department Care Team (Late st Contact Info) Description 11/18/[address] [facility] [place] [address] [place] [address] ProviderTiana MD [address] [place], [...] - Historical ProviderMD - 11/18/2019 4:52 PM PAIRER Initial Discharge Planning Entered On: 11/18/2019 16:54 EST Performed On: 11/18/2019 16:52 EST by EDIN TAPIA RN-Industrial Servicer Initial Assessment I Previously Documented Living Environment : No qualifying data available. Living Situation : Home Patient Lives With : Spouse Is the Patient a Caregiver at Home? : No Emergency Contact #1 : Az Odette Emergency Contact #1 Emergency Contact #1 Relationship : spouse Emergency Contact #2 : rhoda chente Emergency Contact #2 Emergency Contact #2 Relationship : dtr EDIN TAPIA RN-Industrial Servicer - 11/18/2019 16:52 EST Initial Assessment II Sensory and Motor Deficits : None Current Home Treatments and Equipment : Walker EDIN TAPIA RN-Industrial Servicer - 11/18/2019 16:52 EST Discharge Needs I Anticipated Discharge Date : 11/18/2019 EST Anticipated Discharge To, CM : Home with family care Current Home Treatment/Equipment : Current Home Treatment/Equipment No qualifying data available. Post Acute/Home Treatments : None Documentation Status Complete : Yes EDIN TAPIA RN-Industrial Servicer - 11/18/2019 16:52 EST Discharge Needs II Professional Skilled Services : Professional Skilled Services No qualifying data available. Services and Community Resources : Physical Therapy Needs Assistance with Transportation : No Discharge Options Discussed with Patient : Outpatient services EDIN TAPIA RN-Industrial Servicer - 11/18/2019 16:52 EST Narrative Note Narrative Note : 64yo female pt s/p LTKA. Met with pt and spouse at bedside this am during MDR. Pt has DME at home. Referral sent to [facility] for outpatient PT and scheduled 1st appt for 11/18 @ 1600. No other CM needs identified. EDIN TAPIA RN-Industrial Servicer - 11/18/2019 16:52 EST documented in this encounter Plan of Treatment Not on file documented as of this encounter Visit Diagnoses Not on filedocumented in this encounter
--- OUTSIDE RECORDS SUMMARY | 2025-09-16 15:02 | XMS_ITS | Encounter Summary ---
Author Organization [employer] ([place], [place], [place], [place], [place]) Address [address] [place] [address] Care Team Providers Care Bath Solution Maker Name Role Phone Unavailable Primary Care Provider Unavailabl e Encounter Details Date Type Department Care Team (Late st Contact Info) Description 11/18/2019 Transcribed Document [facility] [place] [facility] [place] [address] [place] [address] ProviderTiana MD [address] [place] [address] Social History Tobacco Use Types [...] - Historical ProviderMD - 11/18/2019 2:13 PM ASPHALT SPREADER Stroke/Warfarin Instructions Entered On: 11/18/2019 14:13 EST Performed On: 11/18/2019 14:13 EST by Cindy Ward RN Stroke/Warfarin Instructions Stroke/TIA Discharge Ins : N/A Warfarin Discharge Ins : N/A Cindy Ward RN - 11/18/2019 14:13 EST Electronically signed by [facility] Conversion Truckload Owner Operator Cerner at 12/31/2022 5:31 PM CDT documented in this encounter Plan of Treatment Not on file documented as of this encounter Visit Diagnoses Not on filedocumented in this encounter
--- OUTSIDE RECORDS SUMMARY | 2025-09-16 15:02 | XMS_ITS | Encounter Summary ---
Author Organization [employer] ([place], [place], [place], [place], [place]) Address [address] [place] [address] Care Team Providers Care Culinary Artist Name Role Phone Unavailable Primary Care Provider Unavailabl e Encounter Details Date Type Department Care Team (Late st Contact Info) Description 11/17/2019 Transcribed Document [facility] [place] [address] [place] [address] ProviderTiana MD [address] [place] [address] Social History Tobacco Use Types [...] - Historical ProviderMD - 11/17/2019 1:55 PM PICKER TENDER HELPER [facility] Main OR PACU Summary Primary Physician: NATE HAMILTON MD-ORT Finalized Date/Time: 11/17/19 17:27:07 Pt. Name: NIDIA SANDERS MATTHEW /Sex: 1955 Female Med Rec #: [id number] Physician: NATE HAMITLON MD-ORT Financial #: [id number] Pt. Type: O Room/Bed: 638/1 Admit/Disch: 11/17/19 07:16:00 - Institution: [facility] Main OR PACU I Case Times Entry 1 In PACU I 11/17/19 15:38:00 Ready for PACU 11/17/19 17:30:00 Discharge Discharge from PACU 11/17/19 17:30:00 I Last Modified By: NAT GUTHRIE RN 11/17/19 17:26:33 [facility] Main OR PACU I Case Times Audit 11/17/19 17:26:33 Post Anesthesia Nurse: FINESSE Modifier: BRANDEP <+> 1 Ready for PACU Discharge <+> 1 Discharge from PACU I Finalized By: NAT GUTHRIE, RN Document Signatures Signed By: NAT GUTHRIE RN 11/17/19 17:27 Electronically signed by Flor [facility] Conversion Net Lead Architect Cerner at 12/31/2022 5:49 PM CDT documented in this encounter Plan of Treatment Not on file documented as of this encounter Visit Diagnoses Not on filedocumented in this encounter
--- OUTSIDE RECORDS SUMMARY | 2025-09-16 15:02 | XMS_ITS | Encounter Summary ---
Author Organization [employer] ([place], [place], [place], [place], [place]) Address [address] [place] [address] Care Team Providers Care Stripper Soft Plastic Name Role Phone Unavailable Primary Care Provider Unavailabl e Encounter Details Date Type Department Care Team (Late st Contact Info) Description 11/18/2019 Transcribed Document [facility] Radiology [address] [place] [address] Hari Wing MD [address] [facility] [address] [place] [address] Social History Tobacco Use Types Packs/Day [...] is a 64 yo female admitted to [facility] per Dr. Larsen for a left [...] mg/dL 11/18/2019 04:41 Glucose Level 133 mg/dL [place] 11/18/2019 04:41 Calcium Level 8.5 mg/dL 11/18/2019 04:41 Creatinine Level 1.00 mg/dL 11/18/2019 04:41 Cardiac Markers (Current Encounter/Past 24 Hours) No Cardiac Marker Results Found (Past 24 Hours) CBC Results (Current Encounter/Past 24 Hours) WBC 13.8 K/uL [place] 11/18/2019 04:11 Hct 34.9 % 11/18/2019 04:11 Hgb 10.6 g/dL LOW 11/18/2019 04:11 Platelet Count 266 K/uL 11/18/2019 04:11 CMP Results (Current Encounter/Past 24 Hours) Creatinine Level 1.00 mg/dL 11/18/2019 04:41 eGFR NonAfrican 56 mL/min/1.73m2 LOW 11/18/2019 04:41 eGFR >60 mL/min/1.73m2 11/18/2019 04:41 Bun/Creatinine 22.0 [place] 11/18/2019 04:41 Sodium Level 137 mmol/L 11/18/2019 04:41 Potassium Level 4.6 mmol/L 11/18/2019 04:41 Chloride Level 106 mmol/L 11/18/2019 04:41 Carbon Dioxide Level 26 mmol/L 11/18/2019 04:41 Anion Gap 10 11/18/2019 04:41 Blood Urea Nitrogen 22 mg/dL 11/18/2019 04:41 Glucose Level 133 mg/dL [place] 11/18/2019 04:41 Calcium Level 8.5 mg/dL 11/18/2019 04:41 Coagulation Results (Current Encounter/Past 24 Hours) No Coagulation Results Found (Past 24 Hours) Creatinine Clearance (Current Encounter/Past 24 Hours) Creatinine Level 1.00 mg/dL 11/18/2019 04:41 Bun/Creatinine 22.0 [place] 11/18/2019 04:41 Estimated Creatinine Clearance 41.36 mL/Min 11/18/2019 04:41 Reviewed preop CBC, BMP, coags 10/29/2019 A1C 5.9 Ventricular Rate : 76 BPM Atrial Rate : 76 BPM P-R Interval : 132 ms QRS Duration : 74 ms Q-T Interval : 394 ms QTC Calculation(Bezet) : 443 ms P [place]ene : 56 degrees R Qu[place] : 0 degrees T [place]ene : 47 degrees Normal sinus rhythm Moderate [...]
--- OUTSIDE RECORDS SUMMARY | 2025-09-16 15:02 | XMS_ITS | Encounter Summary ---
Author Organization [employer] ([place], [place], [place], [place], [place]) Address [address] [place] [address] Care Team Providers Care Counter Stitcher Name Role Phone Unavailable Primary Care Provider Unavailabl e Encounter Details Date Type Department Care Team (Late st Contact Info) Description 11/17/2019 Transcribed Document [facility] [place] [facility] [place] [address] ProviderTiana MD [address] [place] [address] Social History Tobacco Use Types [...] - Historical Provider, - 11/17/2019 7:15 AM ART GLASS DESIGNER Admission History, Adult Entered On: 11/17/2019 17:40 [...] Ambulatory Legal Guardian : Spouse Support Person/Patient Clinic Office Assistant : Yes Support Person/Pt Rep Name : Spouse Az Pino Rhoda eldridge - dtr Support Person/Pt Rep Contact Information : [phone] Want Family/Rep/Phys Notified of Admit : No Emergency Contact #1 : Az Pino Emergency Contact #1 Emergency Contact #1 Relationship : spouse Emergency Contact #2 : rhoda eldridge Emergency Contact #2 Emergency Contact #2 Relationship : dtr Information Obtained From : Patient Primary Language : Spanish Preferred Communication Mode : Verbal Communication Barrier [...] Scale Risk Level : 25-45 Medium Risk Sheldon Fall Interventions : Adequate lighting, Assistive devices [...] Source : Measured Height Entry Format : [place] Height, Feet : 5 ft(Converted to: 152 cm, 60 Inch) Height, Inches : 0 Inch(Converted to: 0 ft 0 Inch, 0.00 cm) Clinical Height : 152.4 cm Weight Source : Standing scale Weight Entry Format : [place] Clinical Dosing Weight : 90.37 kg Weight, Pounds : 198 lb Weight, Ounces : 13 oz Body Surface Area (BSA) : 1.86 m2 Body Mass Index : 38.9 kg/m2 (HI) Tracy Body Weight : 45 kg SO GARG [...] SO GARG RN - 11/17/2019 17:38 EST [place] Suicide Severity Rating Scale (C-SSRS) CSSRS Past [...]
--- OUTSIDE RECORDS SUMMARY | 2025-09-16 15:02 | XMS_ITS | Encounter Summary ---
Author Organization [employer] ([place], [place], [place], [place], [place]) Address [address] [place] [address] Care Team Providers Care Pond Scaler Name Role Phone Unavailable Primary Care Provider Unavailabl e Encounter Details Date Type Department Care Team (Late st Contact Info) Description 11/17/2019 Transcribed Document [facility] Radiology [address] [place] [address] Nate Lasren MD [address] [place] [address] Social History Tobacco Use Types [...] NATE LARSEN MD-ORT (Surgeon/Proceduralist, First) Surgeon: Chava Soil Chemist: Ruy *Procedure Narrative Patient identified in the [...] notch. Cruciates were resected. Next, distal femoral chief pilot hole was drilled. The flexible intramedullary [...] Femur was sized . The [place]re[place] gap extraction supervisor was placed and tensed. Posterior condylar resection as noted above. Drill holes made through the extraction supervisor and the appropriately sized four-in-one block placed [...] Drains/Packs Used None Anesthesia General JOSE C GUERRA MD-ANS (Anesthesiologist of Record) General endotracheal anesthesia with adductor canal and sciatic nerve blocks *Estimated Blood Loss 50 mL *Findings Abx: 900 mg clindamycin Implants: [place] Triathlon femoral component: 3 PS [place] Triathlon universal tibial baseplate: 3 Tibial insert: [...]
--- OUTSIDE RECORDS SUMMARY | 2025-09-16 15:02 | XMS_ITS | Encounter Summary ---
Author Organization [employer] ([place], [place], [place], [place], [place]) Address [address] [place] [address] Care Team Providers Care Network Technical Analyst Name Role Phone Unavailable Primary Care Provider Unavailabl e Encounter Details Date Type Department Care Team (Late st Contact Info) Description 11/18/2019 Transcribed Document [facility] Family Medicine [address] [place] [address] ProviderTiana MD [address] [place] [address] Social History Tobacco Use Types [...] - Tiana ProviderMD - 11/18/2019 2:16 PM OIL FIELD RIG [employer]IL[employer] [facility] [place] [address] [place] :1955 Visit Time:11/17/2019 Your Visit Summary Your [...] Up Instructions: Follow-up Dr. Larsen 3 wks ([phone]) Follow Up Instructions: Continue ECTOR hose for 6 weeks Follow Up Instructions: Leave Aquacel dressing in place x 7-10d, then open to air. Follow-Up Appointments Follow Up with LENA GONZALEZ PA-ORNoé When 12/08/2019 04:00 PM EDT Where: [address] [place] [address]- Follow Up with [facility] Outpatient PT When 11/19/2019 04:00 PM EST Comments Appointment has been made Where: [facility] [address] [id number] [phone] Medications What How Much When Instructions Next [...] of Dr. Larsen or Dr. Carrasco, call [phone] If you are a patient of Dr. Dickens, call [phone] Nurse Navigator: Cheli Santos Office: [phone]; ; available during regular business hours Total Knee Replacement, Care After These instructions give you information about caring for yourself after your procedure. Your doctor may also give you more specific instructions. Call your doctor if you have any problems or questions after your procedure. Follow these instructions at home: Medicines ??? Take ilhl-lyj-dnnycwi and prescription medicines only as told by [...] cannot use soap and water, use hand urologist md. ? Change your bandage as told by [...] 11/25/2012 Document Revised: 10/22/2017 Document Reviewed: 08/09/2016 [employer] Patient Education ?? 2019 [employer]. ferrous gluconate (ORALIA us GLOO koe joseph) [...] may report side effects to FDA at 0-668-CYH-6916. What other drugs will affect ferrous gluconate? Other drugs may interact with ferrous gluconate, including prescription and hhqx-osz-kikdcbz medicines, vitamins, and herbal products. Tell your [...] to ensure that the information provided by [employer]. ('[employer]') is accurate, up-to-date, and complete, but no guarantee is made to that effect. Drug information contained herein may be time sensitive. [employer] information has been compiled for use by healthcare practitioners and consumers in the [place] and therefore [employer] does not warrant that uses outside of the [place] are appropriate, unless specifically indicated otherwise. The [employer] drug information does not endorse drugs, diagnose patients or recommend therapy. The [employer] drug information is an informational resource designed [...] effective or appropriate for any given patient. [employer] does not assume any responsibility for any aspect of healthcare administered with the aid of information [employer] provides. The information contained herein is not intended to cover all possible uses, directions, precautions, warnings, drug interactions, allergic reactions, or adverse effects. If you have questions about the drugs you are taking, check with your doctor, nurse or pharmacist. Copyright 6464-5966 [facility] [employer]. Version: 2.01. Revision Date: 06/12/2017. docusate (oral/rectal) [...] may report side effects to FDA at 0-459-UWN-2906. What other drugs will affect docusate? Other drugs may affect docusate, including prescription and lpnw-zgu-uarmeef medicines, vitamins, and herbal products. Tell your [...] to ensure that the information provided by [employer]. ('[employer]') is accurate, up-to-date, and complete, but no guarantee is made to that effect. Drug information contained herein may be time sensitive. [employer] information has been compiled for use by healthcare practitioners and consumers in the [place] and therefore [employer] does not warrant that uses outside of the [place] are appropriate, unless specifically indicated otherwise. [employer] drug information does not endorse drugs, diagnose patients or recommend therapy. [employer] drug information is an informational resource designed [...] effective or appropriate for any given patient. [employer] does not assume any responsibility for any aspect of healthcare administered with the aid of information [employer] provides. The information contained herein is not intended to cover all possible uses, directions, precautions, warnings, drug interactions, allergic reactions, or adverse effects. If you have questions about the drugs you are taking, check with your doctor, nurse or pharmacist. Copyright 3313-1482 [employer]. Version: 4.01. Revision Date: 03/24/2019. meloxicam (paul OKS i brian) Earle, Qmiiz ODT, Vivlodex What is the most [...] may report side effects to FDA at 7-905-OYS-6754. What other drugs will affect meloxicam? Ask [...] drugs may affect meloxicam, including prescription and fipq-hgb-nmwyyom medicines, vitamins, and herbal products. Not all [...] to ensure that the information provided by [employer] ('[employer]') is accurate, up-to-date, and complete, but no guarantee is made to that effect. Drug information contained herein may be time sensitive. [employer] information has been compiled for use by healthcare practitioners and consumers in the [place] and therefore [employer] does not warrant that uses outside of the [place] are appropriate, unless specifically indicated otherwise. [employer] drug information does not endorse drugs, diagnose patients or recommend therapy. [employer] drug information is an informational resource designed [...] effective or appropriate for any given patient. [employer] does not assume any responsibility for any aspect of healthcare administered with the aid of information [employer] provides. The information contained herein is not intended to cover all possible uses, directions, precautions, warnings, drug interactions, allergic reactions, or adverse effects. If you have questions about the drugs you are taking, check with your doctor, nurse or pharmacist. Copyright 4814-2659 [employer]. Version: 13.01. Revision Date: 01/09/2019. acetaminophen and [...] may report side effects to FDA at 7-234-HNP-8326. What other drugs will affect acetaminophen and [...] affect acetaminophen and oxycodone, including prescription and qijh-bnq-eklpkab medicines, vitamins, and herbal products. Not all [...] to ensure that the information provided by [employer] ('[employer]') is accurate, up-to-date, and complete, but no guarantee is made to that effect. Drug information contained herein may be time sensitive. [employer] information has been compiled for use by healthcare practitioners and consumers in the [place] and therefore [employer] does not warrant that uses outside of the [place] are appropriate, unless specifically indicated otherwise. [employer] drug information does not endorse drugs, diagnose patients or recommend therapy. The [employer] drug information is an informational resource designed [...] effective or appropriate for any given patient. [employer] does not assume any responsibility for any aspect of healthcare administered with the aid of information [employer] provides. The information contained herein is not intended to cover all possible uses, directions, precautions, warnings, drug interactions, allergic reactions, or adverse effects. If you have questions about the drugs you are taking, check with your doctor, nurse or pharmacist. Copyright 0682-4944 [employer]. Version: 18.02. Revision Date: 08/14/2018. aspirin (oral) [...] What is aspirin? Aspirin is a salicylate (ca-GSZ-qb-ate). It works by reducing substances in the [...] may report side effects to FDA at 2-842-XLH-0678. What other drugs will affect aspirin? Ask [...] drugs may affect aspirin, including prescription and lofv-nar-ulqvnqq medicines, vitamins, and herbal products. Not all [...] to ensure that the information provided by [employer]. ('[employer]') is accurate, up-to-date, and complete, but no guarantee is made to that effect. Drug information contained herein may be time sensitive. [employer] information has been compiled for use by healthcare practitioners and consumers in the [place] and therefore [employer] does not warrant that uses outside of the [place] are appropriate, unless specifically indicated otherwise. [employer] drug information does not endorse drugs, diagnose patients or recommend therapy. [employer] drug information is an informational resource designed [...] effective or appropriate for any given patient. [employer] does not assume any responsibility for any aspect of healthcare administered with the aid of information [employer] provides. The information contained herein is not intended to cover all possible uses, directions, precautions, warnings, drug interactions, allergic reactions, or adverse effects. If you have questions about the drugs you are taking, check with your doctor, nurse or pharmacist. Copyright 6961-0945 [employer]. Version: 15.. Revision Date: 12/17/2017. gabapentin ([place] [...] are a day sleeper or work a machinist 2nd shift. Some people have thoughts about suicide [...] may report side effects to FDA at 6-438-XRE-5405. What other drugs will affect gabapentin? Using gabapentin with other drugs that slow your breathing can cause dangerous side effects or . Ask your doctor before using opioid medication, a sleeping pill, cold or allergy medicine, a muscle relaxer, or medicine for anxiety or seizures. Other drugs may affect gabapentin, including prescription and rxsx-oys-wriinnu medicines, vitamins, and herbal products. Tell your [...] to ensure that the information provided by [employer]. ('[employer]') is accurate, up-to-date, and complete, but no guarantee is made to that effect. Drug information contained herein may be time sensitive. [employer] information has been compiled for use by healthcare practitioners and consumers in the [place] and therefore [employer] does not warrant that uses outside of the [place] are appropriate, unless specifically indicated otherwise. [employer] drug information does not endorse drugs, diagnose patients or recommend therapy. [employer] drug information is an informational resource designed [...] effective or appropriate for any given patient. [employer] does not assume any responsibility for any aspect of healthcare administered with the aid of information [employer] provides. The information contained herein is not [...]
--- OUTSIDE RECORDS SUMMARY | 2025-09-16 15:02 | XMS_ITS | Clinical Summary ---
Author Organization [employer] ([place], [place], [place], [place], [place]) Address [address] [place] [address] Care Team Providers Care Licensing Engineer Name Role Phone Unavailable Primary Care [...]
== END 2025-09-16 23:59 | disposition home or self-care (01) ==
LOC: RAD 14:57
PROVIDERS: PCP Physician Assistant; Visit Provider Family Medicine
DX: Z12.31 Encounter for screening mammogram for malignant neoplasm of breast (principal); R92.323 Mammographic fibroglandular density, bilateral breasts
CPT/HCPCS: 77063; 77067